=== PATIENT | male | born 1975 | race Caucasian/White ===

== ENCOUNTER 2019-11-24 14:18 | Inpatient (IN) ==
[2019-11-24] MEDS ORDERED: GI COCKTAIL ED USE PO ONE (14:37)
[2019-11-24] MEDS ORDERED: FAMOTIDINE 20MG/5ML IV PUSH IV STA (14:37)
[2019-11-24] MEDS ORDERED: SODIUM CHLORIDE 0.9% 1000ML 500 ML IV ONE ×2 (14:38→17:46)
--- NOTE | 2019-11-24 14:42 | Emergency Department Note ---
Impression & Plan Precordial chest pain, Acute pancreatitis, Acute hyperglycemia, Acute hyponatremia ED Provider Note NAME: MONTY PALM JR AGE: 44 SEX: M : 1975 ARRIVES VIA: Walk-In INFORMANT: [Patient] ED PROVIDER(S): [Maximino Turner MD] CHIEF COMPLAINT: Chest pain HISTORY OF PRESENT ILLNESS: Patient is a 44-year-old male presents with 2 or 3 days of burning in his chest that he describes as potential reflux. Acidic foods seems to make it worse. He has tried [id number] reflux meds and he was better initially but then today, the symptoms returned. His pain is a 6/10. The pain is not worse with exertion. He is not short of breath. There has been no sweating. No pain radiation. He was nauseated a bit though. The patient states that he has also developed a cramping discomfort in the left chest wall. He states that this is a 6/10. This was not present the last 2 days but seemed to come on today. He presents to the ER for a work-up. He has had a mitral valve repair done, no known coronary disease. REVIEW OF SYSTEMS: See HPI for pertinent positives and negatives. A total of ten systems were reviewed and were otherwise negative. PMHx/PSHx: See Below SOCIAL HISTORY: See Below. PHYSICAL EXAM: GENERAL: Patient is in no acute distress. HEENT: No acute trauma, normocephalic atraumatic, mucous membranes moist, no nasal congestion, no scleral icterus. NECK: No stridor, no adenopathy, no meningismus, trachea is midline. LUNGS: Clear to auscultation bilaterally, no wheeze, no rhonchi, breath sounds equal. HEART: Without murmurs gallops or rubs, mildly tachycardic, regular rhythm. Chest: Tender to the left anterior chest wall just below the breast. ABDOMEN: Soft, mildly tender in the left upper quadrant, bowel sounds positive, no hernias, no peritonitis. EXTREMITIES: No cyanosis, mild bilateral pedal edema, full range of motion of all the joints without pain or difficulty, no signs for acute trauma. NEUROLOGIC: Oriented x 3, no acute motor or sensory deficits, no focal weakness. SKIN: No rash, no jaundice, no diaphoresis. DIFFERENTIAL DIAGNOSIS: Cardiac ischemia, aortic dissection, pulmonary embolism, pneumothorax, pneumonia, pericarditis, myocarditis, esophageal rupture, GERD, cholecystitis, pancreatitis, musculoskeletal, as well as other pathologies. EMERGENCY DEPARTMENT COURSE/PROCEDURES: ECG: Indication was chest pain. The ECG shows a sinus tachycardia with a rate of 105. There is no ST elevation, no PVCs. The QTc is 470. Continuous Cardiac Monitoring: An order was placed for continuous cardiac monitoring. The monitor shows a rate of 99 with normal sinus rhythm. MEDICAL DECISION MAKING: There is a slight leukocytosis, this could be consistent with infection or just his stress and discomfort. There was a normal hemoglobin. There was a normal platelet count. No coagulopathy. D-dimer testing was negative. With a negative d-dimer and my low suspicion for PE, I will stop the work-up for this diagnosis. Renal panel testing does show a mild acidosis. Sodium was low at 130. Sugar was quite high at 376. No liver enzyme elevation. Lipase was elevated at 1900. ECG showed a sinus tachycardia, no acute ischemia. Cardiac enzyme testing x1 was not consistent with acute cardiac injury. Chest film did not show pneumonia or CHF. Abdominal and pelvis CT did not show evidence for pancreatitis by imaging, there was no bowel obstruction. The patient received IV saline, he was given a liter in total. He received IV insulin for the high blood sugar. He was given IV Pepcid and a GI cocktail. The patient presents with epigastric pain and burning. Work-up suggests diabetes, this is a new diagnosis. He does have a very mild acidosis, likely from his higher blood sugar. He has pancreatitis which I think explains his epigastric discomfort and heartburn symptoms. Given his findings, I do think a hospital stay is warranted. I did speak to the patient and case management. The on-call hospitalist was consulted. Past Med/Surg History Medical History Asthma (Chronic) Environmental and seasonal allergies (Chronic) Surgical History History of hernia repair Social History Smoking Status: Never smoker Preferred Language: Icelandic Feels Safe at Home: Yes Allergies Allergies Allergy/AdvReac Type Severity Reaction Status Date / Time Cephalosporins Allergy Unknown . Verified 11/24/19 15:58 erythromycin base Allergy Unknown . Verified 11/24/19 15:58 Penicillins Allergy Unknown . Verified 11/24/19 15:58 Sulfa (Sulfonamide Allergy Unknown . Verified 11/24/19 15:58 Antibiotics) Home Meds Home Medications Medication Instructions Recorded Confirmed albuterol sulfate 2 puff INHALATION Q4H PRN 11/24/19 11/24/19 albuterol sulfate 2.5 mg INHALATION Q4H PRN 11/24/19 11/24/19 allopurinol 100 mg PO QPM 11/24/19 11/24/19 aspirin 81 mg PO QPM 11/24/19 11/24/19 cholecalciferol (vitamin D3) 50,000 unit PO WK 11/24/19 11/24/19 fluticasone propion-salmeterol 1 ea INHALATION BID 11/24/19 11/24/19 [Advair Diskus] lisinopril 10 mg PO QPM 11/24/19 11/24/19 metoprolol tartrate 25 mg PO QPM 11/24/19 11/24/19 mometasone 1 spray INTRANASAL QPM 11/24/19 11/24/19 montelukast 10 mg PO QPM PRN 11/24/19 11/24/19 Results & Data (ED) Vital Signs Vital Signs - 24 hr 11/24/19 14:20 11/24/19 14:37 11/24/19 15:04 Temperature 36.8 C Temperature Source Oral Pulse Rate 118 H 111 H Pulse Rate from SpO2 Sensor 108 H Respiratory Rate 20 18 Respiratory Effort / Characteristics Non-Labored Respiratory Depth Normal Blood Pressure 152/89 H 155/111 H Blood Pressure Mean 110 123 Blood Pressure Position Sitting Pulse Oximetry 97 98 97 Oxygen Delivery Method Room Air Room Air Sepsis Recent Fever Within 48 Hours No Sepsis New/Unexplained Change in Mental Status No Sepsis Action Taken by Nursing No Action Required 11/24/19 15:05 11/24/19 15:30 11/24/19 15:31 Temperature Temperature Source Pulse Rate 104 H 101 H 101 H Pulse Rate from SpO2 Sensor 105 H 100 H 100 H Respiratory Rate 14 16 18 Respiratory Effort / Characteristics Respiratory Depth Blood Pressure 160/106 H Blood Pressure Mean 113 Blood Pressure Position Pulse Oximetry 98 99 99 Oxygen Delivery Method Sepsis Recent Fever Within 48 Hours Sepsis New/Unexplained Change in Mental Status Sepsis Action Taken by Nursing 11/24/19 16:00 08/08/20 16:01 Temperature Temperature Source Pulse Rate 98 H 99 H Pulse Rate from SpO2 Sensor 100 H 99 H Respiratory Rate 13 Respiratory Effort / Characteristics Respiratory Depth Blood Pressure 169/113 H Blood Pressure Mean 140 Blood Pressure Position Pulse Oximetry 99 99 Oxygen Delivery Method Sepsis Recent Fever Within 48 Hours Sepsis New/Unexplained Change in Mental Status Sepsis Action Taken by Long-Term Medications Current Medication List: was personally reviewed by me Laboratory Data Attestation: I reviewed the patient's lab results. Result diagrams: 11/24/19 15:00 11/24/19 16:15 Lab Results 11/24/19 11/24/19 11/24/19 Range/Units 15:00 15:00 16:15 WBC 11.31 H (4.8-10.8) K/uL RBC 5.16 (4.7-6.1) M/uL Hgb 15.7 (14.0-18.0) g/dL Hct 42.9 (42-52) % MCV 83.1 (80-100) fL MCH 30.4 (25-34) pg MCHC 36.6 H (32-36) g/dL RDW Std Deviation 42.2 (36.4-46.3) fL RDW Coeff of María Elena 14.0 (11.5-14.5) % Plt Count 190 (130-400) K/uL MPV 10.3 (7.4-10.4) fL Immature Gran % (Auto) 1.4 % Neut % (Auto) 74.6 % Lymph % (Auto) 13.1 % Tama % (Auto) 9.8 % Eos % (Auto) 0.7 % Baso % (Auto) 0.4 % Neut # (Auto) 8.44 H (1.4-6.5) K/uL Lymph # (Auto) 1.48 (1.2-3.4) K/uL Tama # (Auto) 1.11 H (0.11-0.59) K/uL Eos # (Auto) 0.08 (0-0.5) K/uL Baso # (Auto) 0.04 (0-0.2) K/uL Immature Gran # (Auto) 0.16 H (0.00-0.02) K/uL PT 10.4 (9.0-12.0) Seconds INR 1.0 (0.9-1.1) APTT 22.6 (21.0-31.0) Seconds PTT Ratio 0.8 D-Dimer < 190 (0-500) ug/L FEU Sodium Cancelled Potassium Cancelled Chloride Cancelled Carbon Dioxide Cancelled Anion Gap Cancelled BUN Cancelled Creatinine Cancelled Est Cr Clr Drug Dosing Cancelled Est GFR ( Amer) Cancelled Est GFR (Non-Af Amer) Cancelled BUN/Creatinine Ratio Cancelled Glucose Cancelled POC Glucose (70-99) mg/dl Calcium Cancelled Total Bilirubin Cancelled AST Cancelled ALT Cancelled Alkaline Phosphatase Cancelled Troponin I Cancelled Total Protein Cancelled Albumin Cancelled Globulin Cancelled Albumin/Globulin Ratio Cancelled Lipase Cancelled Beta-Hydroxybutyric Acd (0.2-2.81) mg/dl 11/24/19 11/24/19 Range/Units 16:15 18:07 WBC (4.8-10.8) K/uL RBC (4.7-6.1) M/uL Hgb (14.0-18.0) g/dL Hct (42-52) % MCV (80-100) fL MCH (25-34) pg MCHC (32-36) g/dL RDW Std Deviation (36.4-46.3) fL RDW Coeff of María Elena (11.5-14.5) % Plt Count (130-400) K/uL MPV (7.4-10.4) fL Immature Gran % (Auto) % Neut % (Auto) % Lymph % (Auto) % Tama % (Auto) % Eos % (Auto) % Baso % (Auto) % Neut # (Auto) (1.4-6.5) K/uL Lymph # (Auto) (1.2-3.4) K/uL Tama # (Auto) (0.11-0.59) K/uL Eos # (Auto) (0-0.5) K/uL Baso # (Auto) (0-0.2) K/uL Immature Gran # (Auto) (0.00-0.02) K/uL PT (9.0-12.0) Seconds INR (0.9-1.1) APTT (21.0-31.0) Seconds PTT Ratio D-Dimer (0-500) ug/L FEU Sodium 130 L Potassium 4.0 Chloride 97 L Carbon Dioxide 17 L Anion Gap 16.0 H BUN 20 H Creatinine 1.30 Est Cr Clr Drug Dosing 83.6 Est GFR ( Amer) 78.0 Est GFR (Non-Af Amer) 67.3 BUN/Creatinine Ratio 15.7 Glucose 376 H* POC Glucose 391 H* (70-99) mg/dl Calcium 7.6 L Total Bilirubin 0.6 AST 29 ALT Alkaline Phosphatase 91 Troponin I < 0.015 Total Protein 7.0 Albumin 2.9 L Globulin 4.1 H Albumin/Globulin Ratio 0.7 L Lipase 1915 H Beta-Hydroxybutyric Acd (0.2-2.81) mg/dl Administered Medications Sodium Chloride (Nss 1000ml) 500 mls @ 999 mls/hr IV .Q31M ONE Stop: 11/24/19 18:16 Last Admin: 11/24/19 17:52 Dose: Not Given Documented by: [id number] Discontinued Medications Al Hydrox/Mg Hydrox/Simethicone () 1 dose PO ONE ONE Stop: 11/24/19 14:38 Last Admin: 11/24/19 15:01 Dose: 1 dose Documented by: [id number] Famotidine (Pepcid 20mg Iv Push) 20 mg IV ONE STA Stop: 11/24/19 14:38 Last Admin: 11/24/19 15:01 Dose: 20 mg Documented by: [id number] Sodium Chloride (Nss 1000ml) 500 mls @ 999 mls/hr IV .Q31M ONE Stop: 11/24/19 15:08 Last Infusion: 11/24/19 16:03 Dose: 0 mls/hr Documented by: [id number] Admin: 11/24/19 15:01 Dose: 999 mls/hr Documented by: [id number] Insulin Human Regular (Novolin R U-100 Per Unit) 10 units IV NOW STA Stop: 11/24/19 17:47 Last Admin: 11/24/19 18:05 Dose: 10 units Documented by: [id number] Cosigned by: [id number] Ioversol (Optiray 320 100ml) 91 ml IV ONCE ONE Stop: 11/24/19 17:16 Last Admin: 11/24/19 17:15 Dose: 91 ml Documented by: [id number] Imaging Data Radiologist's Impression: XR chest 1V portable CLINICAL HISTORY: Chest Pain pain COMPARISON STUDY: No previous studies for comparison. FINDINGS: Mild cardiomegaly. Prior median sternotomy. Lungs are considered jordin r. Diaphragms are smooth. IMPRESSION: No acute process. CT abd pelvis IV con only CT DOSE: 990.49 mGy.cm HISTORY: Pain. Nausea. poss pancreatitis TECHNIQUE: Multiaxial CT images of the abdomen and pelvis were performed following the use of intravenous contrast. A dose lowering technique was utilized adhering to the principles of ALARA. COMPARISON STUDY: None. FINDINGS: Lung bases are clear. Fatty replacement of the liver. Pancreas is uniform in density. Kidneys enhance appropriately. 2 cm exophytic cyst inferior pole right kidney. The adrenal glands are normal. Nonobstructive bowel pattern. Small fat-containing periumbilical hernia. No evidence for bowel containment or incarceration. Bowel pattern again is nonobstructive. No significant abdominal or pelvic adenopathy. IMPRESSION: 1. Fatty replacement of the liver. 2. Otherwise negative CT of the abdomen and pelvis. Blood Pressure Blood Pressure Findings: Elevated blood pressure Blood Pressure Disposition: further management by hospitalist Discharge Plan Visit Data Chief Complaint: Chest Pain Stated Complaint: CHEST PAIN ED Provider: Maximino Turner Discharge Problem: Precordial chest pain, Acute pancreatitis, Acute hyperglycemia, Acute hyponatremia Patient Disposition: Admitted As Inpatient Condition: Fair Forms Stand Alone Forms: [facility] Prescriptions Prescriptions: No Action fluticasone propion-salmeterol [Advair Diskus] 250-50 mcg/dose blister with device 1 ea INHALATION BID RF: 0 albuterol sulfate 2.5 mg /3 mL (0.083 %) solution for nebulization 2.5 mg inhalation Q4H PRN (Reason: Cough and Wheezing) RF: 0 allopurinol 100 mg tablet 100 mg PO QPM RF: 0 aspirin 81 mg Tablet,Delayed Release (Dr/Ec) 81 mg PO QPM RF: 0 lisinopril 10 mg tablet 10 mg PO QPM RF: 0 mometasone 50 mcg/actuation spray,non-aerosol 1 spray INTRANASAL QPM RF: 0 montelukast 10 mg tablet 10 mg PO QPM PRN (Reason: Shortness Of Breath Or Wheezing) RF: 0 albuterol sulfate 90 mcg/actuation HFA aerosol inhaler 2 puff INHALATION Q4H PRN (Reason: Cough,SOB Or Wheezing) RF: 0 metoprolol tartrate 25 mg tablet 25 mg PO QPM RF: 0 cholecalciferol (vitamin D3) 1,250 mcg (50,000 unit) capsule 50,000 unit PO WK RF: 0 Referrals Referrals: Edgar Lawton MD [Primary Care Provider] - Discharge Problem: Acute pancreatitis Qualifiers: Pancreatitis type: unspecified pancreatitis type Acute pancreatitis complication: no infection or necrosis Qualified Code(s): K85.90 - Acute hester creatitis without necrosis or infection, unspecified
--- NOTE | 2019-11-24 14:54 | XRay Report ---
XR chest 1V portable CLINICAL HISTORY: Chest Pain pain COMPARISON STUDY: No previous studies for comparison. FINDINGS: Mild cardiomegaly. Prior median sternotomy. Lungs are considered clear. Diaphragms are smoo th. IMPRESSION: No acute process. ACT 112: Negative or not required by law. The above report was generated using voice recognition software. It may contain grammatical, syntax or spelling errors. Electronically signed by: Tommy Mabry M.D. 11/24/2019 2:53 PM
[2019-11-24 15:11] LABS: Basophils # (auto) 0.04 K/uL (0-0.2); Basophils % (auto) 0.4 %; Eosinophils # (auto) 0.08 K/uL (0-0.5); Eosinophils % (auto) 0.7 %; Hematocrit (blood only) 42.9 % (42-52); Hemoglobin 15.7 g/dL (14.0-18.0); Immature Granulocytes # (auto) 0.16 K/uL (0.00-0.02); Immature Granulocytes % (auto) 1.4 %; Lymphocytes # (auto) 1.48 K/uL (1.2-3.4); Lymphocytes % (auto) 13.1 %; Mean Corpuscular Hemoglobin 30.4 pg (25-34); Mean Corpuscular Hgb Conc 36.6 g/dL (32-36); Mean Corpuscular Volume 83.1 fL (80-100); Mean Platelet Volume 10.3 fL (7.4-10.4); Monocytes # (auto) 1.11 K/uL (0.11-0.59); Monocytes % (auto) 9.8 %; Neutrophils # (auto) 8.44 K/uL (1.4-6.5); Neutrophils % (auto) 74.6 %; Platelet Count 190 K/uL (130-400); RDW Standard Deviation 42.2 fL (36.4-46.3); Red Blood Count 5.16 M/uL (4.7-6.1); White Blood Count 11.31 K/uL (4.8-10.8)
[2019-11-24 16:14] LABS: D Dimer < 190 ug/L FEU (0-500); Partial Thromboplastin Ratio 0.8; Partial Thromboplastin Time 22.6 Seconds (21.0-31.0); Prothrombin Time 10.4 Seconds (9.0-12.0)
[2019-11-24 16:59] LABS: Albumin Globulin Ratio 0.7 (0.9-2); Albumin Level 2.9 gm/dl (3.4-5.0); Alkaline Phosphatase 91 U/L (45-117); BUN Creatinine Ratio 15.7 (10-20); Bilirubin,Total 0.6 mg/dl (0.2-1); Blood Urea Nitrogen 20 mg/dl (7-18); Calcium 7.6 mg/dl (8.5-10.1); Carbon Dioxide 17 mmol/L (21-32); Chloride 97 mmol/L (98-107); Creatinine Clr Calc Pharmacy 83.6 ml/min; Est GFR (Non-African American) 67.3; Globulin 4.1 gm/dl (2.5-4.0); Lipase 1915 U/L (73-393); Sodium 130 mmol/L (136-145); Troponin I < 0.015 ng/ml (0-0.045)
[2019-11-24] MEDS ORDERED: IOVERSOL 100ml IV ONE (17:15)
[2019-11-24 17:40] LABS: Aspartate Aminotransferase 29 U/L (15-37)
[2019-11-24 17:42] LABS: Glucose 376 mg/dl (70-99)
[2019-11-24] MEDS ORDERED: NovoLIN-R INSULIN PER UNIT CHARGE IV STA (17:46)
--- NOTE | 2019-11-24 17:55 | CT Scan Report ---
CT abd pelvis IV con only CT DOSE: 990.49 mGy.cm HISTORY: Pain. Nausea. poss pancreatitis TECHNIQUE: Multiaxial CT images of the abdomen and pelvis were performed following the use of intrave nous contrast. A dose lowering technique was utilized adhering to the principles of ALARA. COMPARISON STUDY: None. FINDINGS: Lung bases are clear. Fatty replacement of the liver. Pancreas is uniform in density. Kidneys enhance appropriately. 2 cm exophytic cyst inferior pole right kidney. The adrenal glands are normal. Nonobstructive bowel pattern. Small fat-containing periumbilical hernia. No evidence for bowel containment or incarceration. Bowel pattern again is nonobstructive. No significant abdominal or pelvic adenopathy. IMPRESSION: 1. Fatty replacement of the liver. 2. Otherwise negative CT of the abdomen and pelvis. 3. Small fat-containing periumbilical hernia. No evidence for bowel containment or incarceration. ACT 112: Negative or not required by law. The above report was generated using voice recognition software. It may contain grammatical, syntax or spelling errors. Electronically signed by: Tommy Mabry M.D. 11/24/2019 5:54 PM
--- NOTE | 2019-11-24 18:49 | Electrocardiogram Report ---
Test Reason : Blood Pressure : / mmHG Vent. Rate : 105 BPM Atrial Rate : 105 BPM P-R Int : 186 ms QRS Dur : 122 ms QT Int : 356 ms P-R-T Axes : 049 065 051 degrees QTc Int : 470 ms Sinus tachycardia Non-specific intra-ventricular conduction delay Borderline ECG When compared with ECG of 31-AUG-2010 09:31, Vent. rate has increased BY 39 BPM QT has lengthened Confirmed by Mckay Estrada ([id number]) on 11/24/2019 6:49:50 PM Referred By: REFERRED SELF Confirmed By:Anjel Estrada
--- NOTE | 2019-11-24 19:14 | History & Physical Report ---
Date of Service November 24, 2019 Assessment & Plan (1) Pancreatitis: -Admit to [facility] -Patient presenting from home with reports of epigastric and LUQ abdominal pain -In the ED, lipase 1914. CT ABD/pelvis unremarkable -Also found to have hyperglycemia. Review of records show that cholesterol 218 and triglycerides 315 01/2019 -LFTs WNL, no history of heavy alcohol use -Suspect likely secondary to uncontrolled glucose and possible hyperlipidemia -IVF, n.p.o., pain control -GI consult (2) DM type 2 (diabetes mellitus, type 2): (3) Hyperglycemia: -Glucose on presentation 376 -Hgb A1c 6.8 06/2019, appears that there was some confusion about patient starting metformin (he has not started) -May have some mild DKA with CO2 17, anion gap 16 -IVF, insulin drip per protocol -Pharmacy consult for glycemic management (4) HTN (hypertension): -BP controlled, continue lisinopril and metoprolol (5) Asthma, mild persistent: -No signs of acute exacerbation, continue home inhalers (6) DVT prophylaxis: -SCDs, ambulate History of Present Illness Chief Complaint: Abdominal pain Primary Care Provider: Edgar Lawton MD 44-year-old male with PMH DM type II, asthma, HTN, mitral valve replacement, and other problems listed below who presents the ED for evaluation of epigastric pain. Patient reports over the past 2 weeks he has been having bilateral leg cramping. He reports not feeling well over the past 2 days with increased belching and feelings of abdominal fullness. Patient reports that today while at work, he developed severe epigastric/left upper quadrant abdominal pain. He reports associated nausea however no vomiting or diarrhea. Reports a small amount of bright red bleeding per rectum this morning after straining to have a bowel movement. No diarrhea. Denies dark tarry stools. No fevers or chills. No lightheadedness, dizziness, diaphoresis, syncopal event. Denies chest pain or shortness of breath. No urinary symptoms. In the ED, patient is found to have findings of pancreatitis and hyperglycemia. Lipase 1914, initial glucose 376. He also has findings of mild acidosis with CO2 17, anion gap 16. He is mildly tachycardic but otherwise hemodynamically stable. He was given GI cocktail, IV famotidine, IV insulin 10 units, IVF. Allergies Allergy/AdvReac Type Severity Reaction Status Date / Time Cephalosporins Allergy Unknown . Verified 11/24/19 15:58 erythromycin base Allergy Unknown . Verified 11/24/19 15:58 Penicillins Allergy Unknown . Verified 11/24/19 15:58 Sulfa (Sulfonamide Allergy Unknown . Verified 11/24/19 15:58 Antibiotics) Home Medications Home Medications Medication Instructions Recorded Confirmed Type albuterol sulfate 2 puff INHALATION Q4H PRN 11/24/19 11/24/19 History albuterol sulfate 2.5 mg INHALATION Q4H PRN 11/24/19 11/24/19 History allopurinol 100 mg PO QPM 11/24/19 11/24/19 History aspirin 81 mg PO QPM 11/24/19 11/24/19 History cetirizine [Zyrtec] 10 mg PO DAILY 11/24/19 11/24/19 History cholecalciferol (vitamin D3) 50,000 unit PO WK 11/24/19 11/24/19 History fluticasone propion-salmeterol 1 ea INHALATION BID 11/24/19 11/24/19 History [Advair Diskus] lisinopril 10 mg PO QPM 11/24/19 11/24/19 History metoprolol tartrate 25 mg PO BID 11/24/19 11/24/19 History mometasone 1 spray INTRANASAL QPM 11/24/19 11/24/19 History montelukast 10 mg PO QPM 11/24/19 11/24/19 History Past Med/Surg History Medical History Anxiety Asthma, mild persistent DM type 2 (diabetes mellitus, type 2) Environmental and seasonal allergies (Chronic) Gout HTN (hypertension) Surgical History H/O exploratory laparotomy History of hernia repair History of mitral valve repair Family History Mother Follicular lymphoma Social History Smoking Status: Never smoker Second Hand Exposure: No; Do You Dip or Chew Tobacco: No; Hx Alcohol Use: No Hx Substance Use: No Preferred Language: Burmese Communication Ability: Effective Master Of Ceremonies Required: No Beliefs That Will Affect Care: None Current Living Situation: Parent Other Information That Helps Us Care for You: No Feels Safe at Home: Yes Safety Concerns: Feels Safe At This Time Review of Systems Review of Systems: ROS per HPI, all other systems reviewed and negative Physical Exam Constitutional: WD/WN, vitals as above Eyes: PERRL, conjunctivae normal, anicteric sclerae ENMT: external ear and nose normal, oropharynx normal Respiratory: normal respiratory effort, lungs clear to auscultation Cardiovascular: Rate/Rhythm: regular rate and regular rhythm Vessels: normal peripheral pulses Extremities: no edema Gastrointestinal (Abdomen): Inspection/Auscultation: + abdomen distended and normal bowel sounds Percussion/Palpation: + abdomen tender (Epigastric/LUQ) and abdomen soft; no guarding, abdomen not rigid and no hepatosplenomegaly Musculoskeletal: no cyanosis or clubbing, extremities motor strength 5/5 Right wrist in splint Skin: no rashes, warm and dry Neurologic: PERRL, EOMI, accommodation nl, no face palsy, no dysarthria Psychiatric: A+Ox3, euthymic affect Results & Data Results & Data ([facility]) Vital Signs (Past 12 Hours) Vital Signs Temp Pulse Resp BP Pulse Ox 11/24/19 18:19 115 H 19 141/105 H 98 11/24/19 16:01 99 H 13 99 11/24/19 16:00 98 H 169/113 H 99 11/24/19 15:31 101 H 18 99 11/24/19 15:30 101 H 16 160/106 H 99 11/24/19 15:05 104 H 14 98 11/24/19 15:04 111 H 18 155/111 H 97 11/24/19 14:37 98 11/24/19 14:20 36.8 C 118 H 20 152/89 H 97 Laboratory Results Short CBC 11/24/19 11/24/19 11/24/19 Range/Units 15:00 16:15 16:15 WBC 11.31 H (4.8-10.8) K/uL Hgb 15.7 (14.0-18.0) g/dL Hct 42.9 (42-52) % Plt Count 190 (130-400) K/uL Glucose Cancelled 376 H* BMP 11/24/19 11/24/19 16:15 16:15 Sodium Cancelled 130 L Potassium Cancelled 4.0 Chloride Cancelled 97 L Carbon Dioxide Cancelled 17 L BUN Cancelled 20 H Creatinine Cancelled 1.30 Glucose Cancelled 376 H* Calcium Cancelled 7.6 L Cardiac Enzymes 11/24/19 11/24/19 Range/Units 16:15 16:15 Troponin I Cancelled < 0.015 Liver Function 11/24/19 11/24/19 Range/Units 16:15 16:15 Total Bilirubin Cancelled 0.6 AST Cancelled 29 ALT Cancelled Alkaline Phosphatase Cancelled 91 Albumin Cancelled 2.9 L Diagnostic Findings CXR IMPRESSION: No acute process. CT ABD/PELVIS IMPRESSION: 1. Fatty replacement of the liver. 2. Otherwise negative CT of the abdomen and pelvis. Code Status & VTE Plan VTE Prophylaxis Plan VTE Prophylaxis will be ordered: Yes Supervising Physician Co-Signing Physician Notes Care coordinated with JERI Parra. Agree with above note. Patient seen and examined. Please refer to her notes for full details. Vital signs reviewed. Physical exam: General exam: Alert and oriented. Not in acute distress. CVS: S1 and S2 heard, regular rate and rhythm, no murmurs. RS: Clear to auscultation, no wheezing or crackles. ABD: Soft, bowel sounds present, nontender, no distention. CONTENT COORDINATOR: Nonfocal. EXT: No edema, no erythema. Labs: Reviewed. Assessment and plan: 44 M with recent dx of Dm with hba1c 6.8. trying to lose weight. Presents with two weeks of cramps in lower extremity. Few days of not feeling well, belching and upper abdominal pain and found to have dka and possible pancreatitis. DKA started on insulin drip aggressive fluids pharmacy consulted follow hba1c levels Elevated lipase abdominal hester pancreatitis? etiology? ct abd/pelvis ok aggressive fluids GI consult. Other diagnosis and plan of care as per JERI Parra. Rivas babcock MD.
[2019-11-24] MEDS ORDERED: MoRPHine SULFATE 4 MG/ML 1 ML CARP\\VIAL IV PRN (20:05)
[2019-11-24] MEDS ORDERED: PHARMACY GLYCEMIC MGMT CONSULT PRN (20:16)
[2019-11-24] MEDS ORDERED: CARBOHYDRATES FOR HYPOGLYCEMIA PO PRN (20:30)
[2019-11-24] MEDS ORDERED: GLUCOSE 10 TABS/TUBE PO PRN (20:30)
[2019-11-24] MEDS ORDERED: DEXTROSE 50% 50 ML SYRINGE IV PRN (20:30)
[2019-11-24] MEDS ORDERED: GLUCOSE 40% GEL 15 GM TUBE PO PRN (20:30)
[2019-11-24] MEDS ORDERED: GLUCAGON FOR INJ 1 MG VIAL IM PRN (20:30)
[2019-11-24] MEDS: LACTATED RINGER'S 1,000 ML IV SCH (21:02)
[2019-11-24] MEDS: INSULIN REGULAR 250 UNITS in SODIUM CHLORIDE 0.9% 247.5 ML IV SCH (21:07)
[2019-11-24 21:10] LABS: BUN Creatinine Ratio 15.7 (10-20); Calcium 7.7 mg/dl (8.5-10.1); Creatinine Clr Calc Pharmacy 95.3 ml/min; Est GFR (African American) 92.4; Est GFR (Non-African American) 79.7; Phosphorus 2.2 mg/dl (2.5-4.9)
[2019-11-24 21:11] LABS: Magnesium 1.9 mg/dl (1.8-2.4); Potassium 3.8 mmol/L (3.5-5.1)
[2019-11-24] MEDS: METOPROLOL TARTRATE 25 MG TAB PO SCH (21:15)
[2019-11-24] MEDS: lisinopriL 10 MG TAB PO SCH (21:15)
[2019-11-24] MEDS: ASPIRIN 81 MG ECTAB PO SCH (21:15)
[2019-11-24] MEDS: INSULIN ASPART 100 UNITS/ML 3 ML PEN SC SCH (21:19)
[2019-11-24] MEDS: ACETAMINOPHEN 325 MG TAB PO PRN (21:36)
[2019-11-25] MEDS: LACTATED RINGER'S 1,000 ML IV SCH ×2 (00:48→04:21)
[2019-11-25 01:20] LABS: BUN Creatinine Ratio 13.6 (10-20); Calcium 7.4 mg/dl (8.5-10.1); Creatinine Clr Calc Pharmacy 96.1 ml/min; Est GFR (African American) 93.4; Est GFR (Non-African American) 80.6; Magnesium 1.8 mg/dl (1.8-2.4); Phosphorus 2.2 mg/dl (2.5-4.9); Potassium 3.6 mmol/L (3.5-5.1)
[2019-11-25] MEDS ORDERED: NSS + 20MEQ KCL 20 MEQ/1,000 ML BAG IV SCH (04:00)
[2019-11-25 04:34] LABS: Hematocrit (blood only) 37.8 % (42-52); Hemoglobin 13.4 g/dL (14.0-18.0); Mean Corpuscular Hemoglobin 29.5 pg (25-34); Mean Corpuscular Hgb Conc 35.4 g/dL (32-36); Mean Corpuscular Volume 83.1 fL (80-100); Mean Platelet Volume 9.7 fL (7.4-10.4); Platelet Count 138 K/uL (130-400); RDW Coefficient of Variation 14.2 % (11.5-14.5); RDW Standard Deviation 42.8 fL (36.4-46.3); Red Blood Count 4.55 M/uL (4.7-6.1); White Blood Count 6.93 K/uL (4.8-10.8)
[2019-11-25 05:11] LABS: Magnesium 1.8 mg/dl (1.8-2.4); Potassium 3.4 mmol/L (3.5-5.1)
[2019-11-25 05:12] LABS: BUN Creatinine Ratio 13.2 (10-20); Calcium 7.2 mg/dl (8.5-10.1); Creatinine Clr Calc Pharmacy 109.8 ml/min; Est GFR (African American) 109.8; Est GFR (Non-African American) 94.7; Phosphorus 2.1 mg/dl (2.5-4.9)
[2019-11-25 06:25] LABS: Chol HDL Ratio 11; Cholesterol 295 mg/dl (0-200); HDL Cholesterol 26 mg/dl; Lipase 832 U/L (73-393); Triglycerides 2119 mg/dl (0-150)
[2019-11-25] MEDS ORDERED: POTASSIUM CHLORIDE 20 MEQ/15 ML UDC PO STA (06:26)
[2019-11-25] MEDS: SODIUM CHLORIDE 0.9% 1000ML 1,000 ML IV SCH ×4 (06:35→23:47)
[2019-11-25] MEDS: PENDING D5 1/2NS+20mEq KCL IVF SCH ×2 (06:35→07:19)
[2019-11-25] MEDS ORDERED: INSULIN GLARGINE SOLOSTAR 100 UNITS/ML 3 ML PEN SC ONE ×2 (07:15→21:00)
[2019-11-25] MEDS: ACETAMINOPHEN 325 MG TAB PO PRN (07:23)
[2019-11-25 08:53] LABS: BUN Creatinine Ratio 10.1 (10-20); Calcium 7.8 mg/dl (8.5-10.1); Creatinine Clr Calc Pharmacy 98.7 ml/min; Est GFR (African American) 96.5; Est GFR (Non-African American) 83.3; Magnesium 1.9 mg/dl (1.8-2.4); Potassium 3.4 mmol/L (3.5-5.1)
--- NOTE | 2019-11-25 08:55 | Pharmacy Report ---
Glycemic Control Consultation - Date of Service November 25, 2019 - Scope Scope: Glycemic Pharmacist consulted for glycemic control and to write orders per [facility] inpatient glycemic control protocol. - Objective Weight: 102 kg Accuchecks BSG (last 24hrs): 11/24/19 11/24/19 11/24/19 16:15 16:15 18:07 Glucose Cancelled 376 H* POC Glucose 391 H* 11/24/19 11/24/19 11/24/19 19:32 20:21 20:37 Glucose 324 H* POC Glucose 287 H 325 H* 11/24/19 11/24/19 11/24/19 20:39 22:01 23:01 Glucose POC Glucose 316 H* 280 H 258 H 11/25/19 11/25/19 11/25/19 00:01 00:23 01:01 Glucose 248 H POC Glucose 246 H 221 H 11/25/19 11/25/19 11/25/19 03:11 04:17 05:02 Glucose 190 H POC Glucose 191 H 184 H 11/25/19 06:54 Glucose POC Glucose 171 H Laboratory Data (last 24hrs): 11/24/19 11/24/19 11/24/19 16:15 16:15 20:21 Potassium Cancelled 4.0 3.8 Carbon Dioxide Cancelled 17 L 13 L Anion Gap Cancelled 16.0 H 17.0 H Creatinine Cancelled 1.30 1.13 Est Cr Clr Drug Dosing Cancelled 83.6 95.3 Beta-Hydroxybutyric Acd 11/24/19 11/25/19 11/25/19 22:11 00:23 04:17 Potassium 3.6 3.4 L Carbon Dioxide 19 L 21 Anion Gap 16.0 H 10.0 Creatinine 1.12 0.98 Est Cr Clr Drug Dosing 96.1 109.8 Beta-Hydroxybutyric Acd 63.24 H HbA1c: 6.8% in June 2019 per provider re-ordered for 11/25/19 per protocol - Recent Pertinent Medications Outpatient Anti-diabetic Regimen: * n/a The patient is currently receiving: * IV insulin infusion per protocol * Drip rate = 2.5 units/hr since 2099 last evening - Assessment & Plan Assessment & Plan: ASSESSMENT: * 44yo T2DM male admitted with hyperglycemia and pancreatitis. * A1c is diagnostic for diabetes - question on whether he was supposed to start metformin per PCP * Pt initiated on IV insulin infusion on admission for hyperglycemia and NPO status * Labs WNL this morning with the exception of K+ IV insulin infusion likely dropping K+; IVF changed from NS+20 KCl to NSS --> may need to add K+ back to IVF * IV insulin infusion stable at 2.5 units/hr all night. This equates to ~ 60 units of true basal since pt has been NPO. Typically, it is recommended to convert IV insulin infusion dosing to SQ dosing at 80% since stressors are likely minimizing once stabilized on infusion. Will decrease by an additional 30% for NPO status. * CF/CR dosing based on estimated basal needs of ~ 34 units/day. PLAN FOR INPATIENT GLYCEMIC CONTROL: * Basal insulin * Lantus 34 units SQ x 1 dose NOW; will titrate dosing based on BSG trends * Transition from IV insulin infusion to SQ basal bolus per protocol * Nursing to give Lantus and then continue to check BSGs Q1hr and titrate infusion per IV insulin infusion dosing calculator * may d/c IV insulin infusion when BOTH of the following criteria are met. BSG below 180mg/dl x 2 checks 1 hr apart Rate 1 unit/hr or BELOW * Will re-evaluate orders if insulin infusion not stopped by 1200 (4.5 hrs after Lantus dose given) * Bolus insulin * NovoLog per scale ACHS or Q6hrs while NPO * Goal Range: Low 110 mg/dL - High 140 mg/dL * Correction Factor: 25 mg/dL/unit * Nutritional / Prandial insulin per carb ratio of 1 unit per 8 grams CHO consumed * Please note that the plan above was derived based on current level of insulin resistance and hospital stress. These recommendations are appropriate for inpatient admission only. Plan of care upon discharge will need to be reassessed to avoid potential outpatient hypo/hyperglycemia. Thank you.
[2019-11-25] MEDS: INSULIN ASPART 100 UNITS/ML 3 ML PEN SC SCH ×4 (09:09→21:02)
[2019-11-25] MEDS ORDERED: POTASSIUM PHOS 3 MMOL/1 ML INFUSION IV STA (09:39)
--- NOTE | 2019-11-25 09:41 | Hospitalist Progress Note ---
Date of Service November 25, 2019 Assessment & Plan (1) Pancreatitis: Lipase 1914. CT ABD/pelvis unremarkable Pancreatitis unclear cause. Denied alcohol use. Possible cause is hypertriglyceridemia TG is >2000 Continue IVF Appreciate GI evaluation Bowel rest Pain management (2) DM type 2 (diabetes mellitus, type 2): (3) DKA (diabetic ketoacidoses): (4) Hyperglycemia: Glucose on presentation 376 Hgb A1c 6.8 06/2019 AGAP 16 Beta hydroxybutyric acid 63.24 Started on insulin drip Continue IVF Hypokalemia Hypophosphatemia Replete electrolytes and monitor GAP is closed now. Plan to transition to sq insulin A1c pending DM educator consult Counselled on lifestyle modification (5) HTN (hypertension): BP controlled Continue lisinopril and metoprolol (6) Hypertriglyceridemia: TG 9 Total cholesterol 295 Patient educated on need for lifestyle modification He reported that he has lost some weight over the past few months. Confirmed this on chart review. Weight recorded in [facility] was 117.48kg on 06/18/19, Weight was 102kg yesterday. Encouraged to continue with lifestyle modification Start on atorvastatin (7) Asthma, mild persistent: Stable Continue home inhalers (8) DVT prophylaxis: SCDs, ambulate Admission and Anticipated Discharge Date Admission Date: November 24, 2019 Subjective Patient seen and examined. Reports feeling better this AM Still reports mild left sided abd pain. Reported nausea has resolved No vomiting No bowel movement since admission overnight. Has been passing flatus Denied any cough, chest pain, SOB, IZAGUIRRE Physical Exam Constitutional: + well hydrated and + obese; no acute distress Eyes: PERRL, conjunctivae normal, anicteric sclerae ENMT: external ear and nose normal, oropharynx normal Respiratory: normal respiratory effort, lungs clear to auscultation Cardiovascular: RRR, no murmur, no edema Gastrointestinal (Abdomen): normal bowel sounds, soft, nontender, no hepatosplenomegaly Neurologic: PERRL, EOMI, accommodation nl, no face palsy, no dysarthria Psychiatric: A+Ox3, euthymic affect Results & Data Results & Data ([facility]) Vital Signs (Past 12 Hours) Vital Signs Temp Pulse Resp BP Pulse Ox 11/25/19 08:08 36.6 C 77 16 108/75 98 11/24/19 23:00 36.6 C 78 18 122/84 96 Laboratory Results Laboratory Results - last 24 hr 11/24/19 11/24/19 11/24/19 15:00 15:00 16:15 WBC 11.31 H RBC 5.16 Hgb 15.7 Hct 42.9 MCV 83.1 MCH 30.4 MCHC 36.6 H RDW Std Deviation 42.2 RDW Coeff of María Elena 14.0 Plt Count 190 MPV 10.3 Immature Gran % (Auto) 1.4 Neut % (Auto) 74.6 Lymph % (Auto) 13.1 [place] % (Auto) 9.8 Eos % (Auto) 0.7 Baso % (Auto) 0.4 Neut # (Auto) 8.44 H Lymph # (Auto) 1.48 [place] # (Auto) 1.11 H Eos # (Auto) 0.08 Baso # (Auto) 0.04 Immature Gran # (Auto) 0.16 H PT 10.4 INR 1.0 APTT 22.6 PTT Ratio 0.8 D-Dimer < 190 VBG pH Sodium Cancelled Potassium Cancelled Chloride Cancelled Carbon Dioxide Cancelled Anion Gap Cancelled BUN Cancelled Creatinine Cancelled Est Cr Clr Drug Dosing Cancelled Est GFR ( Amer) Cancelled Est GFR (Non-Af Amer) Cancelled BUN/Creatinine Ratio Cancelled Glucose Cancelled POC Glucose Estimat Average Glucose Hemoglobin A1c Calcium Cancelled Phosphorus Magnesium Total Bilirubin Cancelled AST Cancelled ALT Cancelled Alkaline Phosphatase Cancelled Troponin I Cancelled Total Protein Cancelled Albumin Cancelled Globulin Cancelled Albumin/Globulin Ratio Cancelled Triglycerides Cholesterol LDL Cholesterol, Calc VLDL Cholesterol, Calc HDL Cholesterol Cholesterol/HDL Ratio Lipase Cancelled Beta-Hydroxybutyric Acd Specimen Hemolysis 11/24/19 11/24/19 11/24/19 16:15 18:07 19:32 WBC RBC Hgb Hct MCV MCH MCHC RDW Std Deviation RDW Coeff of María Elena Plt Count MPV Immature Gran % (Auto) Neut % (Auto) Lymph % (Auto) [place] % (Auto) Eos % (Auto) Baso % (Auto) Neut # (Auto) Lymph # (Auto) [place] # (Auto) Eos # (Auto) Baso # (Auto) Immature Gran # (Auto) PT INR APTT PTT Ratio D-Dimer VBG pH Sodium 130 L Potassium 4.0 Chloride 97 L Carbon Dioxide 17 L Anion Gap 16.0 H BUN 20 H Creatinine 1.30 Est Cr Clr Drug Dosing 83.6 Est GFR ( Amer) 78.0 Est GFR (Non-Af Amer) 67.3 BUN/Creatinine Ratio 15.7 Glucose 376 H* POC Glucose 391 H* 287 H Estimat Average Glucose Hemoglobin A1c Calcium 7.6 L Phosphorus Magnesium Total Bilirubin 0.6 AST 29 ALT Alkaline Phosphatase 91 Troponin I < 0.015 Total Protein 7.0 Albumin 2.9 L Globulin 4.1 H Albumin/Globulin Ratio 0.7 L Triglycerides Cholesterol LDL Cholesterol, Calc VLDL Cholesterol, Calc HDL Cholesterol Cholesterol/HDL Ratio Lipase 1915 H Beta-Hydroxybutyric Acd Specimen Hemolysis 11/24/19 11/24/19 11/24/19 20:21 20:21 20:37 WBC RBC Hgb Hct MCV MCH MCHC RDW Std Deviation RDW Coeff of María Elena Plt Count MPV Immature Gran % (Auto) Neut % (Auto) Lymph % (Auto) [place] % (Auto) Eos % (Auto) Baso % (Auto) Neut # (Auto) Lymph # (Auto) [place] # (Auto) Eos # (Auto) Baso # (Auto) Immature Gran # (Auto) PT INR APTT PTT Ratio D-Dimer VBG pH 7.35 L Sodium 131 L Potassium 3.8 Chloride 101 Carbon Dioxide 13 L Anion Gap 17.0 H BUN 18 Creatinine 1.13 Est Cr Clr Drug Dosing 95.3 Est GFR ( Amer) 92.4 Est GFR (Non-Af Amer) 79.7 BUN/Creatinine Ratio 15.7 Glucose 324 H* POC Glucose 325 H* Estimat Average Glucose Hemoglobin A1c Calcium 7.7 L Phosphorus 2.2 L Magnesium 1.9 Total Bilirubin AST ALT Alkaline Phosphatase Troponin I Total Protein Albumin Globulin Albumin/Globulin Ratio Triglycerides Cholesterol LDL Cholesterol, Calc VLDL Cholesterol, Calc HDL Cholesterol Cholesterol/HDL Ratio Lipase Beta-Hydroxybutyric Acd Specimen Hemolysis 11/24/19 11/24/19 11/24/19 20:39 22:01 22:11 WBC RBC Hgb Hct MCV MCH MCHC RDW Std Deviation RDW Coeff of María Elena Plt Count MPV Immature Gran % (Auto) Neut % (Auto) Lymph % (Auto) [place] % (Auto) Eos % (Auto) Baso % (Auto) Neut # (Auto) Lymph # (Auto) [place] # (Auto) Eos # (Auto) Baso # (Auto) Immature Gran # (Auto) PT INR APTT PTT Ratio D-Dimer VBG pH Sodium Potassium Chloride Carbon Dioxide Anion Gap BUN Creatinine Est Cr Clr Drug Dosing Est GFR ( Amer) Est GFR (Non-Af Amer) BUN/Creatinine Ratio Glucose POC Glucose 316 H* 280 H Estimat Average Glucose Hemoglobin A1c Calcium Phosphorus Magnesium Total Bilirubin AST ALT Alkaline Phosphatase Troponin I Total Protein Albumin Globulin Albumin/Globulin Ratio Triglycerides Cholesterol LDL Cholesterol, Calc VLDL Cholesterol, Calc HDL Cholesterol Cholesterol/HDL Ratio Lipase Beta-Hydroxybutyric Acd 63.24 H Specimen Hemolysis 11/24/19 11/25/19 11/25/19 23:01 00:01 00:23 WBC RBC Hgb Hct MCV MCH MCHC RDW Std Deviation RDW Coeff of María Elena Plt Count MPV Immature Gran % (Auto) Neut % (Auto) Lymph % (Auto) [place] % (Auto) Eos % (Auto) Baso % (Auto) Neut # (Auto) Lymph # (Auto) [place] # (Auto) Eos # (Auto) Baso # (Auto) Immature Gran # (Auto) PT INR APTT PTT Ratio D-Dimer VBG pH Sodium 138 D Potassium 3.6 Chloride 103 Carbon Dioxide 19 L Anion Gap 16.0 H BUN 15 Creatinine 1.12 Est Cr Clr Drug Dosing 96.1 Est GFR ( Amer) 93.4 Est GFR (Non-Af Amer) 80.6 BUN/Creatinine Ratio 13.6 Glucose 248 H POC Glucose 258 H 246 H Estimat Average Glucose Hemoglobin A1c Calcium 7.4 L Phosphorus 2.2 L Magnesium 1.8 Total Bilirubin AST ALT Alkaline Phosphatase Troponin I Total Protein Albumin Globulin Albumin/Globulin Ratio Triglycerides Cholesterol LDL Cholesterol, Calc VLDL Cholesterol, Calc HDL Cholesterol Cholesterol/HDL Ratio Lipase Beta-Hydroxybutyric Acd Specimen Hemolysis 11/25/19 11/25/19 11/25/19 00:23 01:01 03:11 WBC RBC Hgb Hct MCV MCH MCHC RDW Std Deviation RDW Coeff of María Elena Plt Count MPV Immature Gran % (Auto) Neut % (Auto) Lymph % (Auto) [place] % (Auto) Eos % (Auto) Baso % (Auto) Neut # (Auto) Lymph # (Auto) [place] # (Auto) Eos # (Auto) Baso # (Auto) Immature Gran # (Auto) PT INR APTT PTT Ratio D-Dimer VBG pH 7.30 L Sodium Potassium Chloride Carbon Dioxide Anion Gap BUN Creatinine Est Cr Clr Drug Dosing Est GFR ( Amer) Est GFR (Non-Af Amer) BUN/Creatinine Ratio Glucose POC Glucose 221 H 191 H Estimat Average Glucose Hemoglobin A1c Calcium Phosphorus Magnesium Total Bilirubin AST ALT Alkaline Phosphatase Troponin I Total Protein Albumin Globulin Albumin/Globulin Ratio Triglycerides Cholesterol LDL Cholesterol, Calc VLDL Cholesterol, Calc HDL Cholesterol Cholesterol/HDL Ratio Lipase Beta-Hydroxybutyric Acd Specimen Hemolysis 11/25/19 11/25/19 11/25/19 04:17 04:17 04:17 WBC 6.93 RBC 4.55 L Hgb 13.4 L Hct 37.8 L MCV 83.1 MCH 29.5 MCHC 35.4 RDW Std Deviation 42.8 RDW Coeff of María Elena 14.2 Plt Count 138 MPV 9.7 Immature Gran % (Auto) Neut % (Auto) Lymph % (Auto) [place] % (Auto) Eos % (Auto) Baso % (Auto) Neut # (Auto) Lymph # (Auto) [place] # (Auto) Eos # (Auto) Baso # (Auto) Immature Gran # (Auto) PT INR APTT PTT Ratio D-Dimer VBG pH 7.35 L Sodium 136 Potassium 3.4 L Chloride 105 Carbon Dioxide 21 Anion Gap 10.0 BUN 13 Creatinine 0.98 Est Cr Clr Drug Dosing 109.8 Est GFR ( Amer) 109.8 Est GFR (Non-Af Amer) 94.7 BUN/Creatinine Ratio 13.2 Glucose 190 H POC Glucose Estimat Average Glucose Hemoglobin A1c Calcium 7.2 L Phosphorus 2.1 L Magnesium 1.8 Total Bilirubin AST ALT Alkaline Phosphatase Troponin I Total Protein Albumin Globulin Albumin/Globulin Ratio Triglycerides Cholesterol LDL Cholesterol, Calc VLDL Cholesterol, Calc HDL Cholesterol Cholesterol/HDL Ratio Lipase Beta-Hydroxybutyric Acd Specimen Hemolysis 11/25/19 11/25/19 11/25/19 04:17 05:02 06:54 WBC RBC Hgb Hct MCV MCH MCHC RDW Std Deviation RDW Coeff of María Elena Plt Count MPV Immature Gran % (Auto) Neut % (Auto) Lymph % (Auto) [place] % (Auto) Eos % (Auto) Baso % (Auto) Neut # (Auto) Lymph # (Auto) [place] # (Auto) Eos # (Auto) Baso # (Auto) Immature Gran # (Auto) PT INR APTT PTT Ratio D-Dimer VBG pH Sodium Potassium Chloride Carbon Dioxide Anion Gap BUN Creatinine Est Cr Clr Drug Dosing Est GFR ( Amer) Est GFR (Non-Af Amer) BUN/Creatinine Ratio Glucose POC Glucose 184 H 171 H Estimat Average Glucose Hemoglobin A1c Calcium Phosphorus Magnesium Total Bilirubin AST ALT Alkaline Phosphatase Troponin I Total Protein Albumin Globulin Albumin/Globulin Ratio Triglycerides 2119 H Cholesterol 295 H LDL Cholesterol, Calc VLDL Cholesterol, Calc HDL Cholesterol 26 Cholesterol/HDL Ratio 11 Lipase 832 H Beta-Hydroxybutyric Acd Specimen Hemolysis 11/25/19 11/25/19 11/25/19 07:29 07:29 07:29 WBC RBC Hgb Hct MCV MCH MCHC RDW Std Deviation RDW Coeff of María Elena Plt Count MPV Immature Gran % (Auto) Neut % (Auto) Lymph % (Auto) [place] % (Auto) Eos % (Auto) Baso % (Auto) Neut # (Auto) Lymph # (Auto) [place] # (Auto) Eos # (Auto) Baso # (Auto) Immature Gran # (Auto) PT INR APTT PTT Ratio D-Dimer VBG pH 7.33 L Sodium 138 Potassium 3.4 L Chloride 104 Carbon Dioxide 23 Anion Gap 11.0 BUN 11 Creatinine 1.09 Est Cr Clr Drug Dosing 98.7 Est GFR ( Amer) 96.5 Est GFR (Non-Af Amer) 83.3 BUN/Creatinine Ratio 10.1 Glucose 173 H POC Glucose Estimat Average Glucose Pending Hemoglobin A1c Pending Calcium 7.8 L Phosphorus 2.0 L Magnesium 1.9 Total Bilirubin AST ALT Alkaline Phosphatase Troponin I Total Protein Albumin Globulin Albumin/Globulin Ratio Triglycerides Cholesterol LDL Cholesterol, Calc VLDL Cholesterol, Calc HDL Cholesterol Cholesterol/HDL Ratio Lipase Beta-Hydroxybutyric Acd Specimen Hemolysis 11/25/19 11/25/19 11/25/19 08:52 09:58 10:55 WBC RBC Hgb Hct MCV MCH MCHC RDW Std Deviation RDW Coeff of María Elena Plt Count MPV Immature Gran % (Auto) Neut % (Auto) Lymph % (Auto) [place] % (Auto) Eos % (Auto) Baso % (Auto) Neut # (Auto) Lymph # (Auto) [place] # (Auto) Eos # (Auto) Baso # (Auto) Immature Gran # (Auto) PT INR APTT PTT Ratio D-Dimer VBG pH Sodium Potassium Chloride Carbon Dioxide Anion Gap BUN Creatinine Est Cr Clr Drug Dosing Est GFR ( Amer) Est GFR (Non-Af Amer) BUN/Creatinine Ratio Glucose POC Glucose 161 H 156 H 147 H Estimat Average Glucose Hemoglobin A1c Calcium Phosphorus Magnesium Total Bilirubin AST ALT Alkaline Phosphatase Troponin I Total Protein Albumin Globulin Albumin/Globulin Ratio Triglycerides Cholesterol LDL Cholesterol, Calc VLDL Cholesterol, Calc HDL Cholesterol Cholesterol/HDL Ratio Lipase Beta-Hydroxybutyric Acd Specimen Hemolysis 11/25/19 11/25/19 11/25/19 11:58 11:58 11:58 WBC RBC Hgb Hct MCV MCH MCHC RDW Std Deviation RDW Coeff of María Elena Plt Count MPV Immature Gran % (Auto) Neut % (Auto) Lymph % (Auto) [place] % (Auto) Eos % (Auto) Baso % (Auto) Neut # (Auto) Lymph # (Auto) [place] # (Auto) Eos # (Auto) Baso # (Auto) Immature Gran # (Auto) PT INR APTT PTT Ratio D-Dimer VBG pH 7.35 L Sodium 139 Potassium 3.6 Chloride 106 Carbon Dioxide 22 Anion Gap 11.0 BUN 10 Creatinine 0.98 Est Cr Clr Drug Dosing 109.8 Est GFR ( Amer) 109.8 Est GFR (Non-Af Amer) 94.7 BUN/Creatinine Ratio 10.1 Glucose 153 H POC Glucose 140 H Estimat Average Glucose Hemoglobin A1c Calcium 7.5 L Phosphorus 1.6 L Magnesium 1.8 Total Bilirubin AST ALT Alkaline Phosphatase Troponin I Total Protein Albumin Globulin Albumin/Globulin Ratio Triglycerides Cholesterol LDL Cholesterol, Calc VLDL Cholesterol, Calc HDL Cholesterol Cholesterol/HDL Ratio Lipase Beta-Hydroxybutyric Acd Specimen Hemolysis
[2019-11-25] MEDS ORDERED: POTASSIUM PHOSPHATE 40 MMOL in SODIUM CHLORIDE 0.9% 1000ML 1,000 ML IV ONE (10:00)
[2019-11-25] MEDS: FLUTICASONE/VILANTEROL 200/25MCG 14 PUFFS/INHALER INH SCH (10:22)
[2019-11-25] MEDS: ATORVASTATIN 40 MG TAB PO SCH (10:22)
[2019-11-25] MEDS: METOPROLOL TARTRATE 25 MG TAB PO SCH ×2 (10:56→20:31)
[2019-11-25] MEDS ORDERED: INSULIN ASPART 100 UNITS/ML 3 ML PEN SC SCH (11:30)
--- NOTE | 2019-11-25 12:11 | Gastrointestinal Consultation ---
Date of Consultation November 25, 2019 History of Present Illness Attending Physician: Dolores Ramirez MD HPI: 44 yo M with PM h/o DM, morbid obesity in USOH until 2 weeks ago, when developed leg cramps followed by 2 days of upper adbominal pressure that acutely worsened yesterday. On presentation to ER yesterday, pt tachy but normotensive, lipase > 1000 with nl AST and bili, also found to have mild DKA with Bicarb 13- 16, +BHoB, and AG 16. Creat WNL, BUN 15. Trigs 300s'. CT with IV con shows normal pancreas, no josee dil, absent GB. Overnight, given insulin gtt, hydration with falli in hgb 15's--> 13's. No morphine today. Review of outpt records shows trigs 200-300, A1c 6's, uls in 2019 for "RUQ pain" which show absent GB and nl CBD. Denies EtoH, MJ, recent med changes. Use of weight loss supplement "leptin plus" which was discontinued in September. + recent intentional 30 lbs weight loss. PE: comfortable, NAD, obese HEENT: oc moist, anicteric CV: RRR Resp: CTA Abd: soft NT, ND, large pannus Extrem: no edema A/P: Pancreatitis, obesity, mild DKA - Agree with bowel rest, hydration, analgesia as needed. Diet as tolerated. His pancreatitis appears mild, with fallin hgb with hydration, no elevation of BUN, normal O2 sat, unremarkable imaging. - Etiology of pancreatitis unclear, but ddx includes occult ETOH although no clear lab evidence of this (AST/ALT ratio as outpt, MCV); tobacco use; Diabetes/hyper TG/obesity, although outpt labs show reasonable control; occult biliary disease/microlithiasis preciptated by recent rapid weight loss. DDX also includes obsructive/genetic/AIP. Will request inpt MRCP and plan outpt EUS to look for obstructive causes. Allergies Allergy/AdvReac Type Severity Reaction Status Date / Time Cephalosporins Allergy Unknown . Verified 11/24/19 15:58 erythromycin base Allergy Unknown . Verified 11/24/19 15:58 Penicillins Allergy Unknown . Verified 11/24/19 15:58 Sulfa (Sulfonamide Allergy Unknown . Verified 11/24/19 15:58 Antibiotics) Home Medications Home Medications Medication Instructions Recorded Confirmed Type albuterol sulfate 2 puff INHALATION Q4H PRN 11/24/19 11/24/19 History albuterol sulfate 2.5 mg INHALATION Q4H PRN 11/24/19 11/24/19 History allopurinol 100 mg PO QPM 11/24/19 11/25/19 History aspirin 81 mg PO Q OTHER DAY 11/24/19 11/25/19 History cetirizine [Zyrtec] 10 mg PO DAILY 11/24/19 11/25/19 History cholecalciferol (vitamin D3) 50,000 unit PO WK 11/24/19 11/25/19 History fluticasone propion-salmeterol 1 ea INHALATION BID 11/24/19 11/25/19 History [Advair Diskus] lisinopril 10 mg PO QPM 11/24/19 11/25/19 History metoprolol tartrate 25 mg PO BID 11/24/19 11/25/19 History mometasone 1 spray INTRANASAL QPM 11/24/19 11/25/19 History montelukast 10 mg PO QPM 11/24/19 11/25/19 History Patient History Medical History Anxiety Asthma, mild persistent DM type 2 (diabetes mellitus, type 2) Environmental and seasonal allergies (Chronic) Gout HTN (hypertension) Surgical History H/O exploratory laparotomy History of hernia repair History of mitral valve repair Family History Mother Follicular lymphoma Social History Smoking Status: Never smoker Second Hand Exposure: No; Do You Dip or Chew Tobacco: No; Hx Alcohol Use: No Hx Substance Use: No Preferred Language: Sami Communication Ability: Effective Trauma Counsellor Required: No Beliefs That Will Affect Care: None Current Living Situation: Parent Other Information That Helps Us Care for You: No Feels Safe at Home: Yes Safety Concerns: Feels Safe At This Time Results & Data ([facility]) Vital Signs (Past 12 Hours) Vital Signs Temp Pulse Resp BP Pulse Ox 11/25/19 08:08 36.6 C 77 16 108/75 98
[2019-11-25 12:27] LABS: BUN Creatinine Ratio 10.1 (10-20); Calcium 7.5 mg/dl (8.5-10.1); Creatinine Clr Calc Pharmacy 109.8 ml/min; Est GFR (African American) 109.8; Est GFR (Non-African American) 94.7; Magnesium 1.8 mg/dl (1.8-2.4); Phosphorus 1.6 mg/dl (2.5-4.9); Potassium 3.6 mmol/L (3.5-5.1)
[2019-11-25] MEDS: INSULIN REGULAR 250 UNITS in SODIUM CHLORIDE 0.9% 247.5 ML IV SCH (12:42)
[2019-11-25] MEDS: DC IV INSULIN INFUSION 1 EA DEVI SCH ×2 (12:43→12:44)
[2019-11-25] MEDS ORDERED: ONDANSETRON INJ 2 MG/ML 2 ML VIAL IV PRN (15:22)
--- NOTE | 2019-11-25 15:46 | Magnetic Resonance Report ---
MRCP CLINICAL HISTORY: Acute pancreatitis. COMPARISON STUDY: Abdominal CT dated 11/24/2019. TECHNIQUE: Abdominal MRCP is performed utilizing various T2-weighted sequences in the axial and coron al planes. 3-D reformats are created and assessed. IV contrast was not administered for this examinat ion. FINDINGS: The gallbladder is surgically absent. There is no intra or extrahepatic biliary ductal dilatation. Th e common bile duct measures up to 3.5 mm in diameter. There are no intraluminal filling defects to dalton ggest choledocholithiasis. The pancreatic duct is normal as visualized. The liver is top normal in size measuring 18 cm in length. Steatosis was shown on yesterday's CT scan . The unenhanced liver is otherwise normal in appearance. The unenhanced spleen and adrenal glands ar e grossly normal. A 2.1 cm cyst arises from the lower pole of the right kidney. The kidneys otherwise normal as imaged and without hydronephrosis. There is no abdominal ascites. The abdominal aorta is n ormal in caliber. There is no bowel obstruction. No abdominal lymphadenopathy is seen. The pancreas i s mildly atrophic. Faint stranding is suggested around the pancreatic tail. Trace pleural effusions a re noted. Midline sternotomy wires are present. The bony structures appear intact. A hiatal hernia is observed. IMPRESSION: 1. Status post cholecystectomy. 2. There is no intra or extrahepatic biliary ductal dilatation. 3. There is no evidence of choledocholithiasis. 4. Findings suggest mild pancreatitis. 5. Trace pleural effusions. Electronically signed by: Maximino Conner M.D. 11/25/2019 3:44 PM
[2019-11-25 17:04] LABS: BUN Creatinine Ratio 9.1 (10-20); Calcium 7.9 mg/dl (8.5-10.1); Creatinine Clr Calc Pharmacy 107.6 ml/min; Est GFR (African American) 107.1; Est GFR (Non-African American) 92.4; Magnesium 1.8 mg/dl (1.8-2.4); Phosphorus 2.6 mg/dl (2.5-4.9)
[2019-11-25] MEDS ORDERED: Nursing to Pharmacy Communication SCH (19:45)
[2019-11-25] MEDS: ASPIRIN 81 MG ECTAB PO SCH (20:31)
[2019-11-25] MEDS: lisinopriL 10 MG TAB PO SCH (20:31)
[2019-11-26] MEDS ORDERED: INSULIN ASPART 100 UNITS/ML 3 ML PEN SC SCH (04:00)
[2019-11-26] MEDS: SODIUM CHLORIDE 0.9% 1000ML 1,000 ML IV SCH ×2 (04:33→09:11)
[2019-11-26 07:14] LABS: Estimated Average Glucose 398 mg/dl; Hemoglobin A1C 15.5 % (4.5-5.6)
--- NOTE | 2019-11-26 08:33 | Gastroenterology Progress Note ---
Date of Service November 26, 2019 Assessment & Plan (1) Pancreatitis: Pt is a 44 y/o male w hx of newly dx w DM II on insulin, hypertriglyceridemia, fatty liver who is currently admitted w pancreatitis. Denies hx of this in the past, and though imaging studies showed he is s/p cholecystectomy he denies this. MRCP negative for biliary dilation and choledocholithiasis. He is clinically improved - Advanced to low fat diabetic diet - DC IVF - Symptomatic management - Will arrange for outpt EUS evaluation in 4-6 weeks - Encourage f/u w PCP for management of DM II and hypertriglyceridemia Admission and Anticipated Discharge Date Admission Date: November 24, 2019 Supervising Physician Co-Signing Physician Notes Attending attestation I have seen, examined this patient, and agree with the findings and above by our mid-level provider JERI Benjamin, with the following additions Likely related to hypertriglyceridemia, however no elevations of LFTs, or biliary obstruction noted. Continue supportive care advance diet as tolerated. Subjective Pt did well overnight. Denies abd pain, n/v. Tolerating FL diet well. Had BM this AM, denies any rectal bleeding, dark tarry stools Review of Systems Review of Systems: All systems reviewed & are unremarkable except as noted in HPI & below Physical Exam Constitutional: WD/WN, vitals as above well groomed, cooperative and comfortable Eyes: PERRL, conjunctivae normal, anicteric sclerae ENMT: external ear and nose normal, oropharynx normal Respiratory: normal respiratory effort, lungs clear to auscultation Cardiovascular: RRR, no murmur, no edema Gastrointestinal (Abdomen): normal bowel sounds, soft, nontender, no hepatosplenomegaly Skin: no rashes, warm and dry Psychiatric: A+Ox3, euthymic affect Lymphatic: no lymphedema Results & Data ([facility]) Vital Signs (Past 12 Hours) Vital Signs Temp Pulse Pulse Resp BP Pulse Ox 11/26/19 07:15 36.4 C L 84 18 111/68 96 11/25/19 23:38 36.5 C 72 18 96/64 L 97
--- NOTE | 2019-11-26 08:47 | Pharmacy Report ---
Pharmacy Glycemic Short Note 2 - Date of Service November 26, 2019 - Glycemic Short BSG Results (Last 24 hours): 11/25/19 11/25/19 11/25/19 07:29 08:52 09:58 Glucose 173 H POC Glucose 161 H 156 H 11/25/19 11/25/19 11/25/19 10:55 11:58 11:58 Glucose 153 H POC Glucose 147 H 140 H 11/25/19 11/25/19 11/25/19 15:46 18:01 20:57 Glucose 210 H POC Glucose 188 H 335 H* 11/26/19 11/26/19 04:24 07:44 Glucose POC Glucose 147 H 176 H OUTPATIENT ANTIDIABETIC REGIMEN: * None (per H&P was possibly supposed to start metformin, but never did) * HbA1c: 15.5% (11/25/19) compared to A1c of 6.8% (June 2019 - reported in H&P) * This is a significant A1c elevation in just 5 months - unclear reason for discrepancy at this time ASSESSMENT: * RF is a 44 year old male admitted with hyperglycemia and acute pancreatitis * Insulin gtt initiated at time of admission - transitioned to SC insulin yesterday afternoon * Received 59 units of SC insulin yesterday (44 units of basal, 15 units of prandial/correctional) * Fasting BSG of 176 mg/dL this morning * MRCP shows h/o cholecystectomy although patient denies history PLAN FOR INPATIENT GLYCEMIC CONTROL: * Basal insulin * Lantus 25 units SC this morning, will give additional 15 units with lunch to make 40 units (in anticipation of discharge) * Lantus scale SC HS (0-10 units - see EHR for details) - in case patient were to stay another night * Bolus insulin - tighten * NovoLog per scale ACHS or Q6hrs while NPO * Goal Range: Low 110 mg/dL - High 140 mg/dL * Correction Factor: 20 mg/dL/unit * Nutritional / Prandial insulin per carb ratio of 1 unit per 7 grams CHO consumed PLAN FOR DISCHARGE: * HbA1c is significantly elevated at 15.5% - significant discrepancy between this and previous A1c from June of this year at 6.8% * Of note: patient recently received hydrocortisone injection (could be impacting current A1c level) * Patient is agreeable to initiating insulin * Recommend starting with once-daily basal insulin - Basaglar 40 units SC daily is reasonable at this time * Reasonable to initiate metformin as well * Metformin should be started at the time type 2 diabetes is diagnosed unless there are contraindications. Metformin is effective and safe, is inexpensive, and may reduce risk of cardiovascular events and . * B12 supplementation may be necessary with buttermaker continuous churn metformin use * FDA has revised the label for metformin to reflect its safety in patients with eGFR 30 mL/min or above * Recommend starting: Metformin XR 500mg PO daily with evening meal. Typically the XR formulation of metformin is better tolerated than the immediate release formulation. Continue to titrate metformin dosing upwards as recommended. Dosage increases should be made in increments of 500 mg weekly, up to 2,000 mg/day PO, given in divided doses. Doses above 2000 mg/day may be better tolerated if divided and given 3 times per day with meals. Max: 2,550 mg/day PO, in divided doses * Will need to ensure that patient has prompt outpatient follow-up for further titration of insulin
[2019-11-26] MEDS ORDERED: INSULIN GLARGINE SOLOSTAR 100 UNITS/ML 3 ML PEN SC SCH ×3 (09:00)
[2019-11-26] MEDS: METOPROLOL TARTRATE 25 MG TAB PO SCH (09:09)
[2019-11-26] MEDS: ATORVASTATIN 40 MG TAB PO SCH (09:09)
[2019-11-26] MEDS: FLUTICASONE/VILANTEROL 200/25MCG 14 PUFFS/INHALER INH SCH (09:10)
[2019-11-26] MEDS: INSULIN ASPART 100 UNITS/ML 3 ML PEN SC SCH ×2 (09:14→12:58)
[2019-11-26] MEDS ORDERED: INSULIN GLARGINE SOLOSTAR 100 UNITS/ML 3 ML PEN SC ONE ×3 (12:45→21:00)
[2019-11-26 15:12] VITALS: BP 125/88; PULSE 86; TEMP 97.7; O2SAT 95
--- NOTE | 2019-11-26 15:30 | Discharge Summary ---
Date of Service November 26, 2019 Admission HPI Per Admitting Provider 44-year-old male with PMH DM type II, asthma, HTN, mitral valve replacement, and other problems listed below who presents the ED for evaluation of epigastric pain. Patient reports over the past 2 weeks he has been having bilateral leg cramping. He reports not feeling well over the past 2 days with increased belching and feelings of abdominal fullness. Patient reports that today while at work, he developed severe epigastric/left upper quadrant abdominal pain. He reports associated nausea however no vomiting or diarrhea. Reports a small amount of bright red bleeding per rectum this morning after straining to have a bowel movement. No diarrhea. Denies dark tarry stools. No fevers or chills. No lightheadedness, dizziness, diaphoresis, syncopal event. Denies chest pain or shortness of breath. No urinary symptoms. In the ED, patient is found to have findings of pancreatitis and hyperglycemia. Lipase 1915, initial glucose 376. He also has findings of mild acidosis with CO2 17, anion gap 16. He is mildly tachycardic but otherwise hemodynamically stable. He was given GI cocktail, IV famotidine, IV insulin 10 units, IVF. Admission Exam Per Admitting Provider Constitutional: WD/WN, vitals as above Eyes: PERRL, conjunctivae normal, anicteric sclerae ENMT: external ear and nose normal, oropharynx normal Respiratory: normal respiratory effort, lungs clear to auscultation Cardiovascular: Rate/Rhythm: regular rate and regular rhythm Vessels: normal peripheral pulses Extremities: no edema Gastrointestinal (Abdomen): Inspection/Auscultation: + abdomen distended and normal bowel sounds Percussion/Palpation: + abdomen tender (Epigastric/LUQ) and abdomen soft; no guarding, abdomen not rigid and no hepatosplenomegaly Musculoskeletal: no cyanosis or clubbing, extremities motor strength 5/5 Right wrist in splint Skin: no rashes, warm and dry Neurologic: PERRL, EOMI, accommodation nl, no face palsy, no dysarthria Psychiatric: A+Ox3, euthymic affect Principal Diagnosis Acute pancreatitis Diabetic ketoacidosis Hypertriglyceridemia Obesity with BMI of 36 Discharge Exam Constitutional + well hydrated and + obese; no acute distress Eyes PERRL, conjunctivae normal, anicteric sclerae ENMT external ear and nose normal, oropharynx normal Respiratory normal respiratory effort, lungs clear to auscultation Cardiovascular RRR, no murmur, no edema Gastrointestinal (Abdomen) normal bowel sounds, soft, nontender, no hepatosplenomegaly Neurologic PERRL, EOMI, accommodation nl, no face palsy, no dysarthria Psychiatric A+Ox3, euthymic affect Discharge Data Allergies Allergy/AdvReac Type Severity Reaction Status Date / Time Cephalosporins Allergy Unknown . Verified 11/24/19 15:58 erythromycin base Allergy Unknown . Verified 11/24/19 15:58 Penicillins Allergy Unknown . Verified 11/24/19 15:58 Sulfa (Sulfonamide Allergy Unknown . Verified 11/24/19 15:58 Antibiotics) Consultations 11/24/19 18:27 ED Decision to Admit Stat 11/24/19 20:05 Consult Case Management - Discharge Planning Routine Consult Gastroenterology Routine Ordered Studies 11/24/19 17:02 CT abd pelvis IV con only Stat 11/25/19 14:04 MR MRCP Urgent The gallbladder is surgically absent. There is no intra or extrahepatic biliary ductal dilatation. The common bile duct measures up to 3.5 mm in diameter. There are no intraluminal filling defects to suggest choledocholithiasis. The pancreatic duct is normal as visualized. The liver is top normal in size measuring 18 cm in length. Steatosis was shown on yesterday's CT scan. The unenhanced liver is otherwise normal in appearance. The unenhanced spleen and adrenal glands are grossly normal. A 2.1 cm cyst arises from the lower pole of the right kidney. The kidneys otherwise normal as imaged and without hydronephrosis. There is no abdominal ascites. The abdominal aorta is normal in caliber. There is no bowel obstruction. No abdominal lymphadenopathy is seen. The pancreas is mildly atrophic. Faint stranding is suggested around the pancreatic tail. Trace pleural effusions are noted. Midline sternotomy wires are present. The bony structures appear intact. A hiatal hernia is observed. IMPRESSION: 1. Status post cholecystectomy. 2. There is no intra or extrahepatic biliary ductal dilatation. 3. There is no evidence of choledocholithiasis. 4. Findings suggest mild pancreatitis. 5. Trace pleural effusions. Hospital Course (1) Pancreatitis: Acute pancreatitis Lipase 191. CT ABD/pelvis unremarkable MRCP - no evidence of choledocholithiasis, no intra or extrahepatic biliary ductal dilatation Denied alcohol use. Possible cause is hypertriglyceridemia TG is 2119, total cholesterol 295 Managed with IVF and pain meds Evaluated by GI who will follow up outpatient for further evaluation (2) DM type 2 (diabetes mellitus, type 2): (3) DKA (diabetic ketoacidoses): (4) Hyperglycemia: Glucose on presentation 376 Hgb A1c 6.8 06/2019 AGAP 16 Beta hydroxybutyric acid 63.24 Started on insulin drip, transitioned to sq insulin yesterday Continue IVF Hypokalemia Hypophosphatemia Repleted electrolytes A1c 15.5 DM educator consult Counselled on lifestyle modification Discharged on basaglar 40U daily and metformin 500mg bid. Follow up with PCP Outpatient f/u with DM educator Diabetic supplies called into patient's pharm (5) HTN (hypertension): BP controlled Continue lisinopril and metoprolol (6) Hypertriglyceridemia: TG 2119 Total cholesterol 295 Patient educated on need for lifestyle modification He reported that he has lost some weight over the past few months. Confirmed this on chart review. [facility]18[facility]19, Weight was 102kg yesterday. Encouraged to continue with lifestyle modification Start on atorvastatin (7) Asthma, mild persistent: Stable Continue home inhalers Total Time Total Time Spent Total Time Spent (In Minutes): 45 Total Time Includes: Examination of the Patient, Discharge Planning, Medication Reconciliation and Communication With Other Providers Discharge Plan Discharge Items Patient Disposition: Home - Self-Care Reason For Visit: PANCREATITIS Discharge Diagnosis: Acute pancreatitis Diabetic ketoacidosis Hypertriglyceridemia Condition on Discharge: Fair Activity: Resume your previous activity Non-emergency contact: Primary Care Provider and Video Games Mechanic Call non-emergency contact if: you have any medication questions and your symptoms worsen Follow-up/Referrals: Edgar Lawton MD [Primary Care Provider] - 11/29/19 10:20 am (11/29/2019 10:20 AM Provider Raymond Franks MD [facility] ) Diet: Carb Consistent or DM2 and Low Fat Addtl Attending Provider Instructions: Mr Gilmore. You came to the hospital for abdominal pain. You were evaluated and found to have pancreatitis and diabetic ketoacidosis. You were treated with IV fluids, insulin drip and medications. You also had elevated triglycerides. You were provided diabetes education. You are being discharged on insulin and metformin for your diabetes. You were also started on atorvastatin. It is important you continue with lifestyle modification including diet, exercise and weight loss like we discussed. Your insulin needles and glucometer test strips were called in to your pharmacy Please follow up with Gastroenterology outpatient and your Primary Doctor. It was a pleasure taking care of you. Pending Studies at Discharge: No Stand-Alone Forms: My [facility], Work/School Release (Inpt), Smoking Cessation Medications and DC Order Prescriptions: New atorvastatin 40 mg Tablet 40 mg PO QAM 30 Days Qty: 30 RF: 0 Basaglar KwikPen U-100 Insulin 100 unit/mL (3 mL) insulin pen 40 units SQ DAILY Qty: 15 RF: 1 metformin 500 mg tablet 500 mg PO BID Qty: 60 RF: 0 Continued fluticasone propion-salmeterol [Advair Diskus] 250-50 mcg/dose blister with device 1 ea INHALATION BID RF: 0 albuterol sulfate 2.5 mg /3 mL (0.083 %) solution for nebulization 2.5 mg inhalation Q4H PRN (Reason: Cough and Wheezing) RF: 0 allopurinol 100 mg tablet 100 mg PO QPM RF: 0 aspirin 81 mg Tablet,Delayed Release (Dr/Ec) 81 mg PO Q OTHER DAY RF: 0 lisinopril 10 mg tablet 10 mg PO QPM RF: 0 mometasone 50 mcg/actuation spray,non-aerosol 1 spray INTRANASAL QPM RF: 0 montelukast 10 mg tablet 10 mg PO QPM RF: 0 albuterol sulfate 90 mcg/actuation HFA aerosol inhaler 2 puff INHALATION Q4H PRN (Reason: Cough,SOB Or Wheezing) RF: 0 metoprolol tartrate 25 mg tablet 25 mg PO BID RF: 0 cholecalciferol (vitamin D3) 1,250 mcg (50,000 unit) capsule 50,000 unit PO WK RF: 0 Zyrtec 10 mg Capsule 10 mg PO DAILY RF: 0 Discharge Orders: Discharge Order (Routine); Ordered 11/26/19 Ordered By: Dolores Andre/Other Patient Handouts: Diabetes: The Benefits of Exercise, Diabetes Exercise Get Started, Diabetes: Activity Tips, Diabetes: Meal Planning, Diabetes Carbs Fats Protein Admission Data Admit Date/Time: 11/24/19 18:37 Attending Provider: Dolores Ramirez I. Admit Provider: Francy Muro Primary Care Provider: Edgar Lawton Other Providers: Francy Muro ; Karla Sanabria Other Interventions: Discharge Summary Assessment (RN) Last Done: 11/26/19 15:58 DC Date/Time DO NOT enter until pt leaves facility: 11/26/19 16:54
[2019-11-27] MEDS ORDERED: INSULIN GLARGINE SOLOSTAR 100 UNITS/ML 3 ML PEN SC SCH (09:00)
== END 2019-11-26 16:54 | disposition home or self-care (01) | DRG 438 ==
LOC: ED 14:18 → SUATTDRO 18:37 → 3N 18:37

== ENCOUNTER 2020-08-13 16:09 | Inpatient (IN) ==
--- NOTE | 2020-08-13 16:56 | XRay Report ---
XR chest 1V portable CLINICAL HISTORY: sob COMPARISON STUDY: Chest radiograph November 24, 2019. FINDINGS: Mediastinal wires and prosthetic mitral valve are noted. There is cardiomegaly. Interstitia l thickening is noted. Bibasilar opacities are also present. No pneumothorax or pleural effusion is n oted. IMPRESSION: 1. Cardiomegaly with interstitial thickening which favors pulmonary edema. 2. Bibasilar opacities which could reflect an infectious process or alveolar edema. Radiographic foll ow-up is recommended. ACT 112: Negative or not required by law. Electronically signed by: Felice Moreno M.D. 08/13/2020 4:54 PM
[2020-08-13 17:38] LABS: Basophils # (auto) 0.02 K/uL (0-0.2); Basophils % (auto) 0.1 %; Hemoglobin 14.3 g/dL (14.0-18.0); Immature Granulocytes # (auto) 0.14 K/uL (0.00-0.02); Immature Granulocytes % (auto) 0.7 %; Lymphocytes # (auto) 0.66 K/uL (1.2-3.4); Lymphocytes % (auto) 3.1 %; Mean Corpuscular Hemoglobin 29.5 pg (25-34); Mean Corpuscular Hgb Conc 35.8 g/dL (32-36); Mean Corpuscular Volume 82.5 fL (80-100); Mean Platelet Volume 10.5 fL (7.4-10.4); Monocytes # (auto) 1.07 K/uL (0.11-0.59); Neutrophils # (auto) 19.32 K/uL (1.4-6.5); Neutrophils % (auto) 91.1 %; Platelet Count 207 K/uL (130-400); RDW Coefficient of Variation 14.1 % (11.5-14.5); RDW Standard Deviation 42.3 fL (36.4-46.3); Red Blood Count 4.85 M/uL (4.7-6.1); White Blood Count 21.21 K/uL (4.8-10.8)
[2020-08-13 17:48] LABS: Blood Urea Nitrogen 17 mg/dl (7-18); Calcium 8.4 mg/dl (8.5-10.1); Carbon Dioxide 18 mmol/L (21-32); Chloride 104 mmol/L (98-107); Creatinine Clr Calc Pharmacy 77.4 ml/min; Est GFR (African American) 62.6; Glucose 276 mg/dl (70-99); Sodium 134 mmol/L (136-145)
[2020-08-13 17:59] LABS: NT Pro B Type Natriuretic Pept 92 pg/ml (0-450); Troponin I < 0.015 ng/ml (0-0.045)
[2020-08-13] MEDS ORDERED: FUROSEMIDE 40 MG/4 ML VIAL IV STA (18:43)
[2020-08-13] MEDS ORDERED: METOPROLOL TARTRATE 50 MG TAB PO STA (18:46)
[2020-08-13] MEDS ORDERED: METOPROLOL TARTRATE 25 MG TAB PO STA (18:46)
[2020-08-13] MEDS ORDERED: lisinopril 5 MG TAB PO STA (18:46)
--- NOTE | 2020-08-13 19:02 | History & Physical Report ---
Date of Service August 13, 2020 Assessment & Plan (1) Hypoxia: (2) Sinus tachycardia: Pt is 44 y/o M with PMH HTN, HLD, asthma, insulin-dependent DM II, mitral regurgitation S/P repair in 2008 presented to ER for hypoxia. Today patient had septoplasty, turbinate surgery by Dr. Dyson. Postop after extubation patient with noted hypoxia to 80s and reportedly increased to 90s with positive pressure. In PACU patient was unable to be weaned off oxygen and had reported shortness of breath. He was given 2 duo nebs and 1 albuterol treatment without improvement and was referred to ER In ER pt afebrile, P: 125, 110, R: 24 down to 18, BP: 122/92, 142/91, 89% on RA, 95% on 6L oxymask EKG sinus tachycardia. Initial troponin negative. WBC: 21. procalcitonin WNL CXR: Cardiomegaly with interstitial thickening which favors pulmonary edema. Bibasilar opacities which could reflect an infectious process or alveolar edema. Lactate: 5. Likely secondary to hypoxia. Will continue to trend Hypoxia likely secondary to Pulmonary edema. PE less likely as POD#0. No signs acute post op bleeding or airway obstruction at this time. Suspect tachycardia secondary to nebs Blood cultures pending Give lasix 40mg now Decadron 6mg Q6H Supplemental oxygen Xopenex/Atrovent nebs Doxycycline po CXR in am Closely monitor, if pt would desaturate transfer to ICU for intubation CBC, BMP in am (3) S/P nasal septoplasty: Today had nasal septoplasty, bilateral inferior turbinate reduction, left & right maxillary sinusotomy, bilateral total ethmoidectomy by Dr Dyson Packing in place. No active bleeding noted Consult ENT. Spoke to Dr Dyson who reports after procedure today there was no sign of complication. Will see pt in am (4) LEONCIO (acute kidney injury): BUN: 17, Cr: 1.5. GFR: 54. Baseline Cr: 1.1, GFR>60 Monitor renal functions, avoid nephrotoxic agents when possible Hold IVF at this time secondary to pulmonary edema (5) DM type 2 (diabetes mellitus, type 2): A1c: 6.4 in 05/05/2020 Hold home metformin, Jardiance and insulin Basal bolus insulin per protocol Glycemic pharmacy consult (6) HTN (hypertension): Initial BP 122/9210 patient with noted elevated BP 175/92 in ED. did not have lisinopril today Continue lisinopril, metoprolol (7) HLD (hyperlipidemia): Continue atorvastatin (8) Asthma, mild persistent: Xopenex/Atrovent nebs as above Continue Advair, singular (9) Mitral regurgitation: S/p mitral valve repair in 2008 DVT Prophylaxis -SCDs Full Code Follows with Dr Lawton for routine care Pt was seen and care coordinated with Dr Adams. See addendum History of Present Illness Chief Complaint: Hypoxia Primary Care Provider: Edgar Lawton MD Pt is 44 y/o M with PMH HTN, HLD, asthma, insulin-dependent DM II, mitral regurgitation S/P repair in 2008 presented to ER for hypoxia. Today patient had septoplasty, turbinate surgery by Dr. Dyson. Postop after extubation patient with noted hypoxia to 80s and reportedly increased to 90s with positive pressure. In PACU patient was unable to be weaned off oxygen and had reported shortness of breath. He was given 2 duo nebs and 1 albuterol treatment without improvement and was referred to ER. Currently patient has nasal packing in place and denies any sore throat or dysphagia or sensation of drainage in oropharynx. He reports shortness of breath. Denies chest pain. Patient had negative Covid test on 08/11/2020. Denies fever/chills, diaphoresis, N/V/D/C, MERRILL, dizziness, syncope, vision changes, neck pain, palpitations, cough, choking, epistaxis, abdominal pain, paresthesias, weakness, extremity weakness, extremity edema, rashes, urinary symptoms. Allergies Allergy/AdvReac Type Severity Reaction Status Date / Time Cephalosporins Allergy Unknown . Verified 08/13/20 17:22 erythromycin base Allergy Unknown . Verified 08/13/20 17:22 Penicillins Allergy Unknown . Verified 08/13/20 17:22 Sulfa (Sulfonamide Allergy Unknown . Verified 08/13/20 17:22 Antibiotics) Home Medications Medication Instructions Recorded Confirmed Type albuterol sulfate 2 puff INHALATION Q4H PRN 11/24/19 08/13/20 History albuterol sulfate 2.5 mg INHALATION Q4H PRN 11/24/19 08/13/20 History allopurinol 100 mg PO QPM 11/24/19 08/13/20 History cholecalciferol (vitamin D3) 50,000 unit PO WK 11/24/19 08/13/20 History mometasone 2 spray INTRANASAL BID 11/24/19 08/13/20 History montelukast 10 mg PO QPM 11/24/19 08/13/20 History atorvastatin 40 mg tablet 40 mg PO HS 01/02/20 08/13/20 History fluticasone 500 mcg-salmeterol 50 1 inh INHALATION BID 07/07/20 08/13/20 History mcg/dose blistr powdr for inhalation metoprolol tartrate 25 mg tablet 25 mg PO BID tab 07/07/20 08/13/20 History azelastine 2 spray INTRANASAL BID 08/13/20 08/13/20 History famotidine 20 mg PO BID 08/13/20 08/13/20 History insulin aspart U-100 [Novolog 0 unit SUBCUT TIDM 08/13/20 08/13/20 History Flexpen U-100 Insulin] lisinopril 10 mg PO QAM 08/13/20 08/13/20 History metformin 1,000 mg PO BIDM 08/13/20 08/13/20 History tiotropium bromide [Spiriva with 1 cap INHALATION DAILY 08/13/20 08/13/20 History HandiHaler] Past Med/Surg History Medical History Anxiety Asthma, mild persistent DM type 2 (diabetes mellitus, type 2) Environmental and seasonal allergies Gout HLD (hyperlipidemia) HTN (hypertension) Mitral regurgitation Mitral valve disorder Obesity Surgical History H/O exploratory laparotomy History of hernia repair History of mitral valve repair Family History Mother Follicular lymphoma Social History Smoking Status: Never smoker Second Hand Exposure: No; Hx Alcohol Use: No Hx Substance Use: No Preferred Language: Chinese Communication Ability: Effective 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 Board 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: No Beliefs That Will Affect Care: None Current Living Situation: Parent Feels Safe at Home: Yes Assistive Devices: None Review of Systems Review of Systems: All systems reviewed & are unremarkable except as noted in HPI & below Physical Exam Physical Exam: General: no distress, obese Head: normocephalic, atraumatic Eyes: PERRL, EOM's intact, conjunctiva non-injected, anicteric ENT: normal inspection external ears, nose: nare with packing and straws in place, oropharynx without edema or erythema noted, mucous membranes moist Neck: supple, trachea midline Lungs: R: 18, O2 sat 96% on oxymask at 6L, +rales bases CV: tachycardia, regular rhythm, no pretibial edema Abd: normal BS, soft, protuberant, non-tender Ext: no cyanosis, no calf tenderness Neuro: A&O x 3, no focal deficits noted, +anxious affect Skin: warm, dry Results & Data Results & Data ([facility]) Vital Signs (Past 12 Hours) Vital Signs Temp Pulse Resp BP Pulse Ox 08/13/20 18:30 138 H 13 96 08/13/20 18:16 133 H 16 193/163 H 97 08/13/20 18:02 105 H 19 96 08/13/20 18:01 117 H 19 175/92 H 96 08/13/20 18:00 110 H 22 96 08/13/20 17:45 125 H 22 135/99 97 08/13/20 17:40 122 H 15 108/84 97 08/13/20 17:30 124 H 22 97 08/13/20 17:20 118 H 14 96 08/13/20 17:10 121 H 19 91 08/13/20 17:09 93 08/13/20 17:00 109 H 12 90 08/13/20 16:50 108 H 12 08/13/20 16:40 118 H 20 96 08/13/20 16:30 119 H 23 94 08/13/20 16:28 36.7 C 125 H 24 122/92 95 08/13/20 16:24 119 H 14 96 08/13/20 16:16 119 H 13 122/92 97 Laboratory Results Short CBC 08/13/20 Range/Units 16:26 WBC 21.21 H (4.8-10.8) K/uL Hgb 14.3 (14.0-18.0) g/dL Hct 40.0 L (42-52) % Plt Count 207 (130-400) K/uL BMP 08/13/20 16:26 Sodium 134 L Potassium Chloride 104 Carbon Dioxide 18 L BUN 17 Creatinine 1.56 H Glucose 276 H Calcium 8.4 L Cardiac Enzymes 08/13/20 Range/Units 16:26 Troponin I < 0.015 (0-0.045) ng/ml Diagnostic Findings Chest X-Ray 08/13/20 16:37 XR chest 1V portable CLINICAL HISTORY: sob COMPARISON STUDY: Chest radiograph November 24, 2019. FINDINGS: Mediastinal wires and prosthetic mitral valve are noted. There is cardiomegaly. Interstitial thickening is noted. Bibasilar opacities are also present. No pneumothorax or pleural effusion is noted. IMPRESSION: 1. Cardiomegaly with interstitial thickening which favors pulmonary edema. 2. Bibasilar opacities which could reflect an infectious process or alveolar edema. Radiographic follow-up is recommended. ACT 112: Negative or not required by law. Electronically signed by: Felice Moreno M.D. 08/13/2020 4:54 PM ECG Rhythm: sinus tachycardia Code Status & VTE Plan VTE Prophylaxis Plan VTE Prophylaxis will be ordered: Yes Supervising Physician Co-Signing Physician Notes Patient is a 44-year-old male with history of hypertension, hyperlipidemia, asthma, diabetes mellitus and other medical problems presents with history of shortness of breath after having septoplasty, turbinate surgery by Dr. Dyson today. He also states having associated chest tightness and was found to be hypoxic while in ED. Patient had nebulizer treatments without any improvement while in ED. Please review HPI for complete details of presentation. He was noted to have a white blood cell count of 21k, lactic acidosis 5.6 and LEONCIO creatinine 1.56. Procalcitonin within normal range. Chest x-ray showed findings suggestive of pulmonary edema. Also noted bibasilar opacities suggestive of possible infectious process or alveolar edema. He was tested negative for Covid 2 days ago. On exam patient is obese, no apparent distress, normocephalic atraumatic,+ nasal packing, lungs-decreased breath sounds, basal crackles, S1-S2,+ murmur, tachycardia, trace pedal edema, abdomen soft, nontender, normal bowel sounds, alert, awake, oriented, grossly no focal deficits. Patient is admitted for management of acute respiratory failure with hypoxia secondary to pulmonary edema postoperatively. We will give him glucocorticoids, Lasix and supplement oxygen, nebs. Empirically start on doxycycline. Obtain blood cultures. Consulted ENT. Low threshold to transfer to ICU if needed. Lactic acidosis likely secondary to hypoxia. Will avoid IV fluids given pulmonary edema. Hold p.o. meds and continue insulin therapy while hospitalized for management of diabetes mellitus. Glycemic pharmacy consulted given possible need for insulin drip while on steroids. Monitor renal function closely. I personally reviewed the record. Patient is interviewed and examined at bedside. Patient's care is coordinated with Mariya Rosa PA-C. Please refer to the documentation above for details of patient's presentation and for discussion of other issues.
[2020-08-13 19:22] LABS: Potassium 4.7 mmol/L (3.5-5.1)
[2020-08-13] MEDS ORDERED: GLUCAGON FOR INJ 1 MG VIAL SQ PRN (20:32)
[2020-08-13] MEDS ORDERED: GLUCOSE 40% GEL 15 GM TUBE PO PRN (20:32)
[2020-08-13] MEDS ORDERED: DEXTROSE 50% 50 ML SYRINGE IV PRN (20:32)
[2020-08-13] MEDS ORDERED: CARBOHYDRATES FOR HYPOGLYCEMIA PO PRN (20:32)
[2020-08-13] MEDS ORDERED: oxyCODONE HCL IR 5 MG TAB (IMMEDIATE RELEASE) PO PRN (20:32)
[2020-08-13] MEDS ORDERED: DEXAMETHASONE SOD INJ 4 MG/ML VIAL IV SCH (20:32)
[2020-08-13] MEDS ORDERED: LABETALOL HCL IV 5 MG/ML 20ML IV PRN (20:32)
[2020-08-13] MEDS ORDERED: GLUCOSE 10 TABS/TUBE PO PRN (20:32)
[2020-08-13] MEDS ORDERED: PHARMACY GLYCEMIC MGMT CONSULT PRN (20:52)
[2020-08-13] MEDS: INSULIN ASPART 100 UNITS/ML 3 ML PEN SC SCH (21:17)
[2020-08-13] MEDS: allopurinoL 100 MG TAB PO SCH (21:22)
[2020-08-13] MEDS: ATORVASTATIN 40 MG TAB PO SCH (21:22)
[2020-08-13] MEDS: FAMOTIDINE 20 MG TAB PO SCH (21:22)
[2020-08-13] MEDS: MONTELUKAST SODIUM 10 MG TABLET PO SCH (21:23)
[2020-08-13] MEDS ORDERED: INSULIN GLARGINE SOLOSTAR 100 UNITS/ML 3 ML PEN SC ONE (21:30)
[2020-08-13] MEDS ORDERED: DOXYCYCLINE HYCLATE 100 MG CAP PO SCH (21:30)
[2020-08-13] MEDS ORDERED: dexAMETHasone 6 MG in SYRINGE 0 ML IV ONE (21:30)
[2020-08-13] MEDS ORDERED: SODIUM CHLORIDE 0.65% NA SOLN 45 ML (OCEAN) ONE (21:33)
--- NOTE | 2020-08-13 23:34 | Emergency Department Note ---
History of Present Illness General Chief complaint: Shortness of Breath/Dyspnea Stated complaint: SOB Time Seen by Provider: 08/13/20 16:27 History of Present Illness Provider complaint: Shortness of breath Onset (ago): day(s) 1 Maximum Pain Intensity: 8 Associated symptoms: + shortness of breath; no chest pain, no cough and no hea daches 44-year-old male presents from [facility] surgery center. Patient had a septoplasty done by Dr. Hansen today. In the postop area the patient was having low oxygen saturations. Patient was given duo nebs which he stated did not help. Patient was given albuterol treatment by EMS which she stated did help. Patient states he feels like his difficulty breathing is due to the packing that was placed status post the surgery by the ENT doctor. He is not reporting any chest pain. No fevers. Patient had a negative Covid test prior to getting the surgery done at [facility]. Home Medications Medication Instructions Recorded Confirmed Type albuterol sulfate 2 puff INHALATION Q4H PRN 11/24/19 08/13/20 History albuterol sulfate 2.5 mg INHALATION Q4H PRN 11/24/19 08/13/20 History allopurinol 100 mg PO QPM 11/24/19 08/13/20 History cholecalciferol (vitamin D3) 50,000 unit PO WK 11/24/19 08/13/20 History mometasone 2 spray INTRANASAL BID 11/24/19 08/13/20 History montelukast 10 mg PO QPM 11/24/19 08/13/20 History atorvastatin 40 mg tablet 40 mg PO HS 01/02/20 08/13/20 History fluticasone 500 mcg-salmeterol 50 1 inh INHALATION BID 07/07/20 08/13/20 History mcg/dose blistr powdr for inhalation metoprolol tartrate 25 mg tablet 25 mg PO BID tab 07/07/20 08/13/20 History azelastine 2 spray INTRANASAL BID 08/13/20 08/13/20 History famotidine 20 mg PO BID 08/13/20 08/13/20 History insulin aspart U-100 [Novolog 0 unit SUBCUT TIDM 08/13/20 08/13/20 History Flexpen U-100 Insulin] lisinopril 10 mg PO QAM 08/13/20 08/13/20 History metformin 1,000 mg PO BIDM 08/13/20 08/13/20 History tiotropium bromide [Spiriva with 1 cap INHALATION DAILY 08/13/20 08/13/20 History HandiHaler] Allergies Allergy/AdvReac Type Severity Reaction Status Date / Time Cephalosporins Allergy Unknown . Verified 08/13/20 17:22 erythromycin base Allergy Unknown . Verified 08/13/20 17:22 Penicillins Allergy Unknown . Verified 08/13/20 17:22 Sulfa (Sulfonamide Allergy Unknown . Verified 08/13/20 17:22 Antibiotics) Past Med/Surg History Medical History Anxiety Asthma, mild persistent DM type 2 (diabetes mellitus, type 2) Environmental and seasonal allergies Gout HLD (hyperlipidemia) HTN (hypertension) Mitral regurgitation Mitral valve disorder Obesity Surgical History H/O exploratory laparotomy H/O nasal septoplasty History of hernia repair History of mitral valve repair Family History Mother Follicular lymphoma Social History Smoking Status: Never smoker Second Hand Exposure: No; Do You Dip or Chew Tobacco: No; Hx Alcohol Use: No Hx Substance Use: No Preferred Language: Danish Communication Ability: Effective 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 Beliefs That Will Affect Care: None Current Living Situation: Alone Feels Safe at Home: Yes Safety Concerns: Feels Safe At This Time Assistive Devices: None Review of Systems A total of 10 systems reviewed and were otherwise negative Physical Exam Vital Signs Vital Signs - 24 hr 08/13/20 16:16 08/13/20 16:24 08/13/20 16:28 Temperature 36.7 C Temperature Source Oral Pulse Rate 119 H 119 H 125 H Pulse Rate from SpO2 Sensor 119 H 118 H Pulse Rhythm Regular Pulse Strength Normal Respiratory Rate 13 14 24 Blood Pressure 122/92 122/92 Blood Pressure Mean 102 102 Pulse Oximetry 97 96 95 Oxygen Delivery Method Nasal Cannula Oxygen Flow Rate 6 Sepsis Recent Fever Within 48 Hours No Sepsis New/Unexplained Change in Mental Status No Sepsis Action Taken by Nursing No Action Required 08/13/20 16:30 08/13/20 16:40 08/13/20 16:50 Temperature Temperature Source Pulse Rate 119 H 118 H 108 H Pulse Rate from SpO2 Sensor 119 H 118 H Pulse Rhythm Pulse Strength Respiratory Rate 23 20 12 Blood Pressure Blood Pressure Mean Pulse Oximetry 94 96 Oxygen Delivery Method Oxygen Flow Rate Sepsis Recent Fever Within 48 Hours Sepsis New/Unexplained Change in Mental Status Sepsis Action Taken by Nursing 08/13/20 16:59 08/13/20 17:00 08/13/20 17:09 Temperature Temperature Source Pulse Rate 109 H Pulse Rate from SpO2 Sensor 113 H Pulse Rhythm Pulse Strength Respiratory Rate 12 Blood Pressure Blood Pressure Mean Pulse Oximetry 90 93 Oxygen Delivery Method Room Air Oxymask Oxygen Flow Rate 6 Sepsis Recent Fever Within 48 Hours Sepsis New/Unexplained Change in Mental Status Sepsis Action Taken by Nursing 08/13/20 17:10 08/13/20 17:20 08/13/20 17:30 Temperature Temperature Source Pulse Rate 121 H 118 H 124 H Pulse Rate from SpO2 Sensor 121 H 118 H 124 H Pulse Rhythm Pulse Strength Respiratory Rate 19 14 22 Blood Pressure Blood Pressure Mean Pulse Oximetry 91 96 97 Oxygen Delivery Method Oxymask Oxygen Flow Rate Sepsis Recent Fever Within 48 Hours Sepsis New/Unexplained Change in Mental Status Sepsis Action Taken by Nursing 08/13/20 17:40 08/13/20 17:45 Temperature Temperature Source Pulse Rate 122 H 125 H Pulse Rate from SpO2 Sensor 122 H 124 H Pulse Rhythm Pulse Strength Respiratory Rate 15 22 Blood Pressure 108/84 135/99 Blood Pressure Mean 92 111 Pulse Oximetry 97 97 Oxygen Delivery Method Oxygen Flow Rate Sepsis Recent Fever Within 48 Hours Sepsis New/Unexplained Change in Mental Status Sepsis Action Taken by Nursing Physical Exam GENERAL: He is oriented to person, place, and time. He appears well-developed and well-nourished. He does not appear distressed. HENT: Exam performed. - Head: Normocephalic and atraumatic. - Right Ear: External ear normal. No mastoid tenderness. - Left Ear: External ear normal. No mastoid tenderness. - Nose: Tube packing in the bilateral naris no active bleeding. - Mouth/Throat: The oropharynx is clear and moist. No trismus in the jaw. No dental abscesses or uvula swelling. No oropharyngeal exudate or tonsillar abscesses. EYES: Conjunctivae and EOM are normal. Pupils are equal, round, and reactive to light. Right eye exhibits no discharge. Left eye exhibits no discharge. No scleral icterus. NECK: Normal range of motion. Neck supple. No JVD present. No spinous process tenderness present. No carotid bruit present. No rigidity. No tracheal deviation and normal range of motion present. No Brudzinski's sign and no Kernig's sign noted. CV: tachycardic rate, regular rhythm, normal heart sounds and intact distal pulses. There is no peripheral edema. Palpable radial pulses bue. PULM/CHEST: Effort normal and breath sounds normal. No respiratory distress. No stridor. He has no wheezes. He has no rales. - Chest Wall: He exhibits no tenderness. ABD: The abdomen is soft. Bowel sounds are normal. He has no distension. No mass is present. There is no tenderness. There is no rebound, no guarding, no Dhillon's sign and no tenderness at McBurney's point. Rovsig negative. MUSC/SKEL: Normal range of motion. There is no peripheral edema, tenderness or deformity. LYMPH: No cervical adenopathy. NEURO: He is alert and oriented to person, place, and time. He has normal strength. No cranial nerve deficit or sensory deficit. Coordination and gait normal. GCS eye subscore is 4. GCS verbal subscore is 5. GCS motor subscore is 6. Cerebellar tests wnl. SKIN: Skin is warm and dry. He is not diaphoretic. PSYCH: He has a normal mood and affect. Behavior is normal. Judgment and thought content normal. Course Course 162: The patient was evaluated in room C12. A complete history and physical exam was performed Cardiac monitoring: An order was placed for continuous cardiac monitoring. The monitor shows a rate of 105 with patient's lungs are clear to auscultation. Is thought that the patient's difficulty breathingsinus tachycardia rhythm is due to his recent packing placed in the nose. PE is thought to be highly unlikely given he just had the surgery done less than 12 hours ago. We will contact ENT. 165: Chest x-ray viewed by is within normal limits. Spoke with the ENT PA on- call who states she will contact Dr. Hansen the patient's surgeon. 170: Spoke with Dr. Hansen the patient's surgeon who stated he did not know that anesthesia had sent the patient to the emergency department from [facility]. He agrees that PE is extremely unlikely given the patient had the surgery less than 12 hours ago. He states we could flush the patient's nasal he states it is positive we will tube packing which would improve his pain and might help his breathing. Chest x-ray read by radiology states there is some pulmonary edema. Dr. Hansen states it is possible that the patient could have negative pressure pulmonary edema from the intubation and surgical procedure however he states this is extremely rare. He recommends that the patient be admitted to the hospital service and observed overnight. He recommends not to take out the packing placed by him in the OR and to flush the tubes that are packed in the patient nares as he instructed the patient to do so. Patient is in agreement and [facility] hospitalist team Dr. Currie will be made aware of t he patient. Administered Medications Allopurinol (Allopurinol 100 Mg Tab) 100 mg PO QPM SHAUNA Stop: 09/12/20 20:59 Last Admin: 08/13/20 21:22 Dose: 100 mg Documented by: [id number] Atorvastatin Calcium (Atorvastatin 40 Mg Tab) 40 mg PO HS SHAUNA Stop: 09/12/20 20:59 Last Admin: 08/13/20 21:22 Dose: 40 mg Documented by: [id number] Doxycycline Hyclate (Doxycycline Hyclate 100 Mg Cap) 100 mg PO BID SHAUNA Stop: 08/23/20 21:29 Last Admin: 08/13/20 21:22 Dose: 100 mg Documented by: [id number] Famotidine (Famotidine 20 Mg Tab) 20 mg PO BID SHAUNA Stop: 09/12/20 20:59 Last Admin: 08/13/20 21:22 Dose: 20 mg Documented by: [id number] Insulin Aspart (Insulin Aspart 100 Units/Ml 3 Ml Pen) 0 units SC ACHS SHAUNA Stop: 09/12/20 20:59 Last Admin: 08/13/20 21:17 Dose: 13 units Documented by: [id number] Cosigned by: [id number] Montelukast Sodium (Montelukast Sodium 10 Mg Tablet) 10 mg PO QPM SHAUNA Stop: 09/12/20 20:59 Last Admin: 08/13/20 21:23 Dose: 10 mg Documented by: [id number] Discontinued Medications Furosemide (Furosemide 40 Mg/4 Ml Vial) 40 mg IV NOW STA Stop: 08/13/20 18:44 Last Admin: 08/13/20 18:48 Dose: 40 mg Documented by: [id number] Dexamethasone 6 mg/ Syringe 1.5 mls @ 1 mls/min IV ONE ONE Stop: 08/13/20 21:31 Last Admin: 08/13/20 21:24 Dose: 1 mls/min Documented by: [id number] Insulin Glargine (Insulin Glargine Solostar 100 Units/Ml 3 Ml Pen) 40 units SC ONE ONE Stop: 08/13/20 21:31 Last Admin: 08/13/20 21:26 Dose: Not Given Documented by: [id number] Lisinopril (Lisinopril 5 Mg Tab) 10 mg PO NOW STA Stop: 08/13/20 18:47 Last Admin: 08/13/20 21:24 Dose: 10 mg Documented by: [id number] Metoprolol Tartrate (Metoprolol Tartrate 50 Mg Tab) 50 mg PO NOW STA Stop: 08/13/20 18:47 Last Admin: 08/13/20 21:23 Dose: 50 mg Documented by: [id number] Sodium Chloride (Sodium Chloride 0.65% Na Soln 45 Ml (Tehama)) Confirm Administered Dose 225 sprays .ROUTE .STK-MED ONE Stop: 08/13/20 21:34 Last Admin: 08/13/20 22:25 Dose: 225 sprays Documented by: [id number] Medical Decision Making Laboratory Data Result diagrams: 08/13/20 16:26 08/13/20 18:25 Lab Results 08/13/20 08/13/20 Range/Units 16:26 16:26 WBC 21.21 H (4.8-10.8) K/uL RBC 4.85 (4.7-6.1) M/uL Hgb 14.3 (14.0-18.0) g/dL Hct 40.0 L (42-52) % MCV 82.5 (80-100) fL MCH 29.5 (25-34) pg MCHC 35.8 (32-36) g/dL RDW Std Deviation 42.3 (36.4-46.3) fL RDW Coeff of María Elena 14.1 (11.5-14.5) % Plt Count 207 (130-400) K/uL MPV 10.5 H (7.4-10.4) fL Immature Gran % (Auto) 0.7 % Neut % (Auto) 91.1 % Lymph % (Auto) 3.1 % Union % (Auto) 5.0 % Eos % (Auto) 0.0 % Baso % (Auto) 0.1 % Neut # (Auto) 19.32 H (1.4-6.5) K/uL Lymph # (Auto) 0.66 L (1.2-3.4) K/uL Union # (Auto) 1.07 H (0.11-0.59) K/uL Eos # (Auto) 0.00 (0-0.5) K/uL Baso # (Auto) 0.02 (0-0.2) K/uL Immature Gran # (Auto) 0.14 H (0.00-0.02) K/uL Sodium 134 L (136-145) mmol/L Potassium (3.5-5.1) mmol/L Chloride 104 (98-107) mmol/L Carbon Dioxide 18 L (21-32) mmol/L Anion Gap 12.0 H (3-11) BUN 17 (7-18) mg/dl Creatinine 1.56 H (0.6-1.4) mg/dl Est Cr Clr Drug Dosing 77.4 ml/min Est GFR ( Amer) 62.6 Est GFR (Non-Af Amer) 54.0 BUN/Creatinine Ratio 11.0 (10-20) Glucose 276 H (70-99) mg/dl Calcium 8.4 L (8.5-10.1) mg/dl Troponin I < 0.015 (0-0.045) ng/ml NT-Pro-B Natriuret Pep 92 (0-450) pg/ml Imaging Data Radiologist's Impression: Chest X-Ray 08/13/20 16:37 XR chest 1V portable CLINICAL HISTORY: sob COMPARISON STUDY: Chest radiograph November 24, 2019. FINDINGS: Mediastinal wires and prosthetic mitral valve are noted. There is cardiomegaly. Interstitial thickening is noted. Bibasilar opacities are also present. No pneumothorax or pleural effusion is noted. IMPRESSION: 1. Cardiomegaly with interstitial thickening which favors pulmonary edema. 2. Bibasilar opacities which could reflect an infectious process or alveolar edema. Radiographic follow-up is recommended. ACT 112: Negative or not required by law. Electronically signed by: Felice Moreno M.D. 08/13/2020 4:54 PM [facility] Narrative 1627: The patient was evaluated in room C12. A complete history and physical exam was performed Cardiac monitoring: An order was placed for continuous cardiac monitoring. The monitor shows a rate of 105 with patient's lungs are clear to auscultation. Is thought that the patient's difficulty breathingsinus tachycardia rhythm is due to his recent packing placed in the nose. PE is thought to be highly unlikely given he just had the surgery done less than 12 hours ago. We will contact ENT. 1654: Chest x-ray viewed by is within normal limits. Spoke with the ENT PA on- call who states she will contact Dr. Hansen the patient's surgeon. 1705: Spoke with Dr. Hansen the patient's surgeon who stated he did not know that anesthesia had sent the patient to the emergency department from [facility]. He agrees that PE is extremely unlikely given the patient had the surgery less than 12 hours ago. He states we could flush the patient's nasal he states it is positive we will tube packing which would improve his pain and might help his breathing. Chest x-ray read by radiology states there is some pulmonary edema. Dr. Hansen states it is possible that the patient could have negative pressure pulmonary edema from the intubation and surgical procedure however he states this is extremely rare. He recommends that the patient be admitted to the hospital service and observed overnight. He recommends not to take out the packing placed by him in the OR and to flush the tubes that are packed in the patient nares as he instructed the patient to do so. Patient is in agreement and [facility] hospitalist team Dr. Currie will be made aware of the patient. Impression & Plan Acute dyspnea Discharge Plan Visit Data Chief Complaint: Shortness of Breath/Dyspnea Stated Complaint: SOB ED Provider: Hill Delvalle Discharge Problem: Acute dyspnea Patient Disposition: Admitted As Inpatient Discharge Instructions Interventions: ED Discharge Assessment Last Done: 08/13/20 20:13
[2020-08-13] MEDS: ACETAMINOPHEN 325 MG TAB PO PRN (23:58)
[2020-08-14] MEDS: CLINDAMYCIN 600 MG in DEXTROSE 5% 50 ML IV SCH ×3 (00:24→16:15)
[2020-08-14] MEDS: levoFLOXacin/D5W 750 MG/150 ML BAG IV SCH ×2 (00:25→23:34)
[2020-08-14] MEDS: LEVALBUTEROL 1.25MG/0.5ML NEB INH SCH ×2 (01:15→07:25)
[2020-08-14] MEDS: IPRATROPIUM BROMIDE NEB SOLN 0.02% 2.5 ML VIAL INH SCH ×2 (01:15→07:25)
[2020-08-14] MEDS: INSULIN ASPART 100 UNITS/ML 3 ML PEN SC SCH ×8 (01:29→23:42)
[2020-08-14] MEDS: dexAMETHasone 6 MG in SYRINGE 0 ML IV SCH ×2 (03:52→09:02)
[2020-08-14 06:38] LABS: Basophils # (auto) 0.01 K/uL (0-0.2); Basophils % (auto) 0.1 %; Hematocrit (blood only) 38.3 % (42-52); Hemoglobin 13.1 g/dL (14.0-18.0); Immature Granulocytes # (auto) 0.14 K/uL (0.00-0.02); Immature Granulocytes % (auto) 0.8 %; Lymphocytes # (auto) 0.94 K/uL (1.2-3.4); Lymphocytes % (auto) 5.3 %; Mean Corpuscular Hemoglobin 28.7 pg (25-34); Mean Corpuscular Hgb Conc 34.2 g/dL (32-36); Mean Corpuscular Volume 83.8 fL (80-100); Mean Platelet Volume 9.8 fL (7.4-10.4); Monocytes # (auto) 0.73 K/uL (0.11-0.59); Monocytes % (auto) 4.1 %; Neutrophils # (auto) 16.06 K/uL (1.4-6.5); Neutrophils % (auto) 89.7 %; Platelet Count 180 K/uL (130-400); RDW Coefficient of Variation 14.3 % (11.5-14.5); RDW Standard Deviation 43.6 fL (36.4-46.3); Red Blood Count 4.57 M/uL (4.7-6.1); White Blood Count 17.88 K/uL (4.8-10.8)
[2020-08-14 07:17] LABS: BUN Creatinine Ratio 15.3 (10-20); Calcium 8.3 mg/dl (8.5-10.1); Creatinine Clr Calc Pharmacy 84.4 ml/min; Est GFR (African American) 71.3; Est GFR (Non-African American) 61.5; Magnesium 1.9 mg/dl (1.8-2.4); Potassium 4.3 mmol/L (3.5-5.1)
[2020-08-14] MEDS ORDERED: INSULIN HUMAN NPH SC SCH ×2 (08:00→09:00)
[2020-08-14] MEDS ORDERED: INSULIN GLARGINE SOLOSTAR 100 UNITS/ML 3 ML PEN SC ONE ×3 (08:00→21:00)
[2020-08-14] MEDS: FLUTICASONE/VILANTEROL 200/25MCG 14 PUFFS/INHALER INH SCH (08:15)
[2020-08-14] MEDS: lisinopril 10 MG TAB PO SCH (08:16)
[2020-08-14] MEDS: METOPROLOL TARTRATE 25 MG TAB PO SCH ×2 (08:16→20:52)
[2020-08-14] MEDS: FAMOTIDINE 20 MG TAB PO SCH ×2 (08:16→20:52)
--- NOTE | 2020-08-14 08:22 | XRay Report ---
XR chest 1V portable HISTORY: Shortness of breath. Pulmonary edema. Follow-up. COMPARISON: Chest 08/05/2020. FINDINGS: No pneumothorax. No pleural effusions. The heart remains enlarged. There are poststernotomy changes. Improved aeration within the hazy bibasilar airspace opacities. IMPRESSION: Interval improvement in the hazy bibasilar airspace opacities. This could represent resolving pulmona ry edema or pneumonia. ACT 112: Negative or not required by law. Electronically signed by: Chandan Schneider M.D. 08/14/2020 8:21 AM
[2020-08-14] MEDS ORDERED: IPRATROPIUM BROMIDE NEB SOLN 0.02% 2.5 ML VIAL INH PRN (10:17)
[2020-08-14] MEDS ORDERED: LEVALBUTEROL 1.25MG/0.5ML NEB INH PRN (10:17)
[2020-08-14] MEDS: ACETAMINOPHEN 325 MG TAB PO PRN (11:20)
[2020-08-14 11:44] LABS: Estimated Average Glucose 171 mg/dl; Hemoglobin A1C 7.6 % (4.5-5.6)
--- NOTE | 2020-08-14 15:47 | Hospitalist Progress Note ---
Date of Service August 14, 2020 Assessment & Plan (1) Hypoxia: (2) Sinus tachycardia: Hypoxemic respiratory failure, possible secondary to postop, anesthesia effect patient had septoplasty, turbinate surgery by Dr. Dyson. Postop after extubation patient with noted hypoxia to 80s and reportedly increased to 90s with positive pressure. Initially patient required 6 L oxygen via oxygen mask, This morning hypoxia has resolved remains in room air CXR: Cardiomegaly with interstitial thickening which favors pulmonary edema. Bibasilar opacities which could reflect an infectious process or alveolar edema. Patient received IV Lasix Repeat chest x-ray shows improvement of pulmonary congestion Elevated lactic acid: Possible secondary to hypoxia, Continue to follow level. Fluid discontinued secondary to pulmonary congestion On empiric antibiotic with IV clindamycin and Levaquin (3) S/P nasal septoplasty: had nasal septoplasty, bilateral inferior turbinate reduction, left & right maxillary sinusotomy, bilateral total ethmoidectomy by Dr Dyson Packing in place. No active bleeding noted ENT consulted, discussed with Dr. Dyson-patient will be seen by him later today to remove nasal packing Recommends to discontinue IV steroids Continue empiric antibiotic for at least 24 hours (4) LEONCIO (acute kidney injury): Resolved creatinine improved to baseline (5) DM type 2 (diabetes mellitus, type 2): A1c: 6.4 in 05/05/2020 Blood sugar was elevated secondary to steroids, Appreciate input from pharmacy for glycemic management (6) HTN (hypertension): Blood pressure been stable Continue lisinopril, metoprolol (7) HLD (hyperlipidemia): Continue atorvastatin (8) Asthma, mild persistent: Xopenex/Atrovent nebs as above Continue Advair, singular (9) Mitral regurgitation: S/p mitral valve repair in 2008 DVT Prophylaxis -SCDs Full Code Follows with Dr Lawton for routine care Plan for discharge home tomorrow if remains medically stable Admission and Anticipated Discharge Date Admission Date: August 13, 2020 Subjective Patient is no longer hypoxic, remains in room air, Appears to be anxious Worried about when nasal packing will be removed No dysphagia, diet advanced to solid, No fever or chills, no cough no shortness of breath Review of Systems Review of Systems: All systems reviewed & are unremarkable except as noted in Subjective Physical Exam Physical Exam: Physical exam: General: No acute distress, alert awake oriented x3 HEENT: Status post rhinoplasty, nasal packing in place Heart: Regular S1-S2, no carotid bruit, no JVD, no lower extremity edema Lungs: Clear to auscultate, no wheeze or rales Abdomen: Soft nontender, no organomegaly Extremity: No cyanosis, no deformity, normal strength 5 out of 5 with upper and lower Neuro: No focal neurological deficit normal speech, normal visual field, Motor strength : normal both upper and lower extremity, sensation intact Psych: Alert awake oriented x3, normal affect Results & Data Results & Data ([facility]) Vital Signs (Past 12 Hours) Vital Signs Temp Pulse Resp BP Pulse Ox 08/14/20 11:54 36.6 C 95 H 18 128/66 98 08/14/20 07:54 36.8 C 70 20 118/59 L 95 08/14/20 07:26 78 16 95 08/14/20 04:02 36.4 C L 97 H 16 117/80 98
--- NOTE | 2020-08-14 15:48 | Pharmacy Report ---
Pharmacy Glycemic Short Note 2 - Date of Service August 14, 2020 - Glycemic Short BSG Results (Last 24 hours): 08/13/20 08/13/20 08/14/20 16:26 21:01 01:22 Glucose 276 H POC Glucose 268 H 241 H 08/14/20 08/14/20 08/14/20 04:39 06:21 07:13 Glucose 205 H POC Glucose 209 H 216 H 08/14/20 11:18 Glucose POC Glucose 220 H OUTPATIENT ANTIDIABETIC REGIMEN: * Novolog 8 units w/ breakfast, 10 units w lunch, 6 units with dinner * Metformin 1000 mg BID * A1c 7.6% 08/14 ASSESSMENT: * Patient admitted after septoplasty performed at [facility] as patient having low oxygen saturations. BSGs elevated in the 200s, was started on dexamethasone 6 mg IV q6H. Patient received 3 doses and this was discontinued this afternoon. * Patient refused order for 40 units of lantus last PM. Initially ordered 10 units of lantus + 45 units of NPH this morning (.4 units/kg to help cover dexamethasone) but patient not comfortable with this dosing. After discussing with patient he reports that he drops lower overnight and he is fearful that the ordered doses are too high. He reports that he begins to feel symptomatic when BSGs are lower than 120 mg/dL, therefore did adjust goal range to 120-160 mg/dL. Did discuss with patient that he was a steroid called dexamethasone that increases glucose levels and insulin needs can drastically rise while on this medication. Discussed the intermediate action of the NPH and that it typically last ~12 hrs although it could be +/- in some patients, patient was okay with receiving 10 units of lantus and 10 units of NPH. * Pts self checked with own monitor around 1100 and BSG was 255 mg/dL. Discussed with patient and reported he would like another 5 units of lantus. Did discuss it had been ~2 hrs from his first lantus dose and that it had likely just started working and his novolog is still active, however, do think it is appropriate for additional insulin orders as his doses were significantly below his weight based basal need. correction factor was also adjusted as patient had little carbs with breakfast and BSG was increased from AM glucose. * Dexamethasone was discontinued after parameters tightened. Will set sliding scale for PM lantus with overnight checks. PLAN FOR INPATIENT GLYCEMIC CONTROL: * Hold outpatient oral diabetes medications * Basal insulin * Lantus 15 units this morning; scale for up to an additional 10 units this evening * Bolus insulin * NovoLog per scale ACHS or Q6hrs while NPO * Goal Range: Low 120 mg/dL - High 160 mg/dL * Correction Factor: 12 mg/dL/unit * Nutritional / Prandial insulin per carb ratio of 1 unit per 5 grams CHO consumed
--- NOTE | 2020-08-14 17:28 | Ears,Nose,Throat Progress Note ---
Date of Service August 14, 2020 Assessment & Plan (1) S/P nasal septoplasty: His nasal packing and straws are out, he has been educated on the standard protocol for post-op care, and supplies were made avialbe to him by me to use while at [facility]. I shared this with his nurse. He may be discharged at the discretion of the [facility] Hospitalist. He should have been provided with pain meds after surgery at [facility] on 08/13/20. He does not need any oral antibiotics for his nose and sinuses. He has an appointment to see me on 08/22/20 at [facility]. Present on Admission?: Yes Admission and Anticipated Discharge Date Admission Date: August 13, 2020 Subjective Eager for packing and straws to be removed. Physical Exam Physical Exam: Intranasal straws and packing were removed without difficulty, and both sides of the nose suctioned with a #9 Jose tipped suction. No active bleeding. Oxymetazoline 0.05%: 2 puffs to each nostril applied. Results & Data ([facility]) Vital Signs (Past 12 Hours) Vital Signs Temp Pulse Resp BP Pulse Ox 08/14/20 11:54 36.6 C 95 H 18 128/66 98 08/14/20 07:54 36.8 C 70 20 118/59 L 95 08/14/20 07:26 78 16 95
--- NOTE | 2020-08-14 17:58 | XCELERA ---
[id number]
[2020-08-14] MEDS ORDERED: OXYMETAZOLINE 0.05% 30 ML BTL NAE ONE (18:17)
[2020-08-14] MEDS: SODIUM CHLORIDE 0.65% NA SOLN 45 ML (OCEAN) SCH ×2 (18:31→21:00)
--- NOTE | 2020-08-14 20:08 | Electrocardiogram Report ---
Test Reason : Blood Pressure : / mmHG Vent. Rate : 118 BPM Atrial Rate : 118 BPM P-R Int : 142 ms QRS Dur : 120 ms QT Int : 328 ms P-R-T Axes : 007 075 037 degrees QTc Int : 459 ms Poor data quality, interpretation may be adversely affected Sinus tachycardia Possible Inferior infarct , age undetermined Abnormal ECG When compared with ECG of 24-NOV-2019 14:31, Borderline criteria for Inferior infarct are now Present Confirmed by Josh Ray ([id number]) on 08/14/2020 8:07:43 PM Referred By: Carlos Dyson Confirmed By:Josh Ray
[2020-08-14] MEDS: allopurinoL 100 MG TAB PO SCH (20:52)
[2020-08-14] MEDS: ATORVASTATIN 40 MG TAB PO SCH (20:52)
[2020-08-14] MEDS: MONTELUKAST SODIUM 10 MG TABLET PO SCH (20:52)
[2020-08-15] MEDS: INSULIN ASPART 100 UNITS/ML 3 ML PEN SC SCH ×3 (04:07→13:02)
[2020-08-15 06:20] LABS: Basophils # (auto) 0.01 K/uL (0-0.2); Basophils % (auto) 0.1 %; Hematocrit (blood only) 38.9 % (42-52); Hemoglobin 13.1 g/dL (14.0-18.0); Immature Granulocytes # (auto) 0.15 K/uL (0.00-0.02); Immature Granulocytes % (auto) 0.9 %; Lymphocytes # (auto) 1.75 K/uL (1.2-3.4); Lymphocytes % (auto) 10.4 %; Mean Corpuscular Hemoglobin 28.8 pg (25-34); Mean Corpuscular Hgb Conc 33.7 g/dL (32-36); Mean Corpuscular Volume 85.5 fL (80-100); Mean Platelet Volume 9.8 fL (7.4-10.4); Monocytes # (auto) 1.52 K/uL (0.11-0.59); Neutrophils # (auto) 13.44 K/uL (1.4-6.5); Neutrophils % (auto) 79.6 %; Platelet Count 201 K/uL (130-400); RDW Coefficient of Variation 14.8 % (11.5-14.5); RDW Standard Deviation 45.6 fL (36.4-46.3); Red Blood Count 4.55 M/uL (4.7-6.1); White Blood Count 16.87 K/uL (4.8-10.8)
[2020-08-15 06:49] LABS: BUN Creatinine Ratio 18.3 (10-20); Calcium 8.7 mg/dl (8.5-10.1); Creatinine Clr Calc Pharmacy 86.7 ml/min; Est GFR (African American) 74.5; Est GFR (Non-African American) 64.3; Potassium 4.3 mmol/L (3.5-5.1)
[2020-08-15] MEDS: ACETAMINOPHEN 325 MG TAB PO PRN (07:40)
[2020-08-15] MEDS: METOPROLOL TARTRATE 25 MG TAB PO SCH (08:41)
[2020-08-15] MEDS: FAMOTIDINE 20 MG TAB PO SCH (08:41)
[2020-08-15] MEDS: lisinopril 10 MG TAB PO SCH (08:41)
[2020-08-15] MEDS: FLUTICASONE/VILANTEROL 200/25MCG 14 PUFFS/INHALER INH SCH (08:46)
[2020-08-15] MEDS: SODIUM CHLORIDE 0.65% NA SOLN 45 ML (OCEAN) SCH ×2 (08:49→14:25)
[2020-08-15] MEDS ORDERED: FLUTICASONE PROPIONATE NA SPR 16 GM BTL SCH (09:00)
[2020-08-15] MEDS ORDERED: UMECLIDINIUM BROMIDE 62.5MCG/BLISTER 7 PUFFS/INHALER INH SCH (09:00)
[2020-08-15] MEDS ORDERED: LACTATED RINGER'S 1,000 ML IV SCH (09:30)
--- NOTE | 2020-08-15 13:29 | Discharge Summary ---
Date of Service August 15, 2020 Admission HPI Per Admitting Provider Pt is 44 y/o M with PMH HTN, HLD, asthma, insulin-dependent DM II, mitral regurgitation S/P repair in 2008 presented to ER for hypoxia. Today patient had septoplasty, turbinate surgery by Dr. Dyson. Postop after extubation patient with noted hypoxia to 80s and reportedly increased to 90s with positive pressure. In PACU patient was unable to be weaned off oxygen and had reported shortness of breath. He was given 2 duo nebs and 1 albuterol treatment without improvement and was referred to ER. Currently patient has nasal packing in place and denies any sore throat or dysphagia or sensation of drainage in orop harynx. He reports shortness of breath. Denies chest pain. Patient had negative Covid test on 08/11/2020. Denies fever/chills, diaphoresis, N/V/D/C, MERRILL, dizziness, syncope, vision changes, neck pain, palpitations, cough, choking, epistaxis, abdominal pain, paresthesias, weakness, extremity weakness, extremity edema, rashes, urinary symptoms. Principal Diagnosis s/p nasal saptoplasty Discharge Exam Physical exam: General: No acute distress, alert awake oriented x3 HEENT: nasal packing has been removed , no pain or swelling , no bleeding in the nasal turbinate Heart: Regular S1-S2, no carotid bruit, no JVD, no lower extremity edema Lungs: Clear to auscultate, no wheeze or rales Abdomen: Soft nontender, no organomegaly Extremity: No cyanosis, no deformity, normal strength 5 out of 5 with upper and lower Neuro: No focal neurological deficit normal speech, normal visual field, Motor strength : normal both upper and lower extremity, sensation intact Psych: Alert awake oriented x3, normal affect Discharge Data Allergies Allergy/AdvReac Type Severity Reaction Status Date / Time Cephalosporins Allergy Unknown Unknown Verified 08/14/20 10:27 erythromycin base Allergy Unknown Unknown Verified 08/14/20 10:27 Penicillins Allergy Unknown Unknown Verified 08/14/20 10:27 Sulfa (Sulfonamide Allergy Unknown Unknown Verified 08/14/20 10:27 Antibiotics) Consultations 08/13/20 16:54 Consult Otolaryngology (Head and Neck) Stat 08/13/20 17:12 ED Decision to Admit Stat 08/13/20 20:32 Consult Otolaryngology (Head and Neck) Routine Hospital Course (1) Hypoxia: (2) Sinus tachycardia: resolved no tachyarrythima , stable vitals Hypoxemic respiratory failure, possible secondary to postop, anesthesia effect patient had septoplasty, turbinate surgery by Dr. Dyson. Postop after extubation patient with noted hypoxia to 80s and reportedly increased to 90s with positive pressure. Initially patient required 6 L oxygen via oxygen mask, This morning hypoxia has resolved remains in room air CXR: Cardiomegaly with interstitial thickening which favors pulmonary edema. Bibasilar opacities which could reflect an infectious process or alveolar edema. Patient received IV Lasix Repeat chest x-ray shows improvement of pulmonary congestion Elevated lactic acid: Possible secondary to hypoxia,resolved , normal level now Fluid discontinued secondary to pulmonary congestion abx d/pam (3) S/P nasal septoplasty: had nasal septoplasty, bilateral inferior turbinate reduction, left & right maxillary sinusotomy, bilateral total ethmoidectomy by Dr Dyson ENT consulted, discussed with Dr. Dyson-patient will be seen by him /nasal packing removed pt reports feeling much better Recommends to discontinue IV steroids and abx (4) LEONCIO (acute kidney injury): Resolved creatinine improved to baseline (5) DM type 2 (diabetes mellitus, type 2): A1c: 6.4 in 05/05/2020 Blood sugar was elevated secondary to steroids, improved after steroid d/pam Appreciate input from pharmacy for glycemic management (6) HTN (hypertension): Blood pressure been stable Continue lisinopril, metoprolol (7) HLD (hyperlipidemia): Continue atorvastatin (8) Asthma, mild persistent: Xopenex/Atrovent nebs as above Continue Advair, singular (9) Mitral regurgitation: S/p mitral valve repair in 2008 DVT Prophylaxis -SCDs Full Code Follows with Dr Lawton for routine care discharged to home today Total Time Total Time Spent Total Time Spent (In Minutes): 35 mins Total Time Includes: Examination of the Patient, Discharge Planning and Medication Reconciliation Discharge Plan Discharge Items Patient Disposition: Home - Self-Care Reason For Visit: HYPOXIA Discharge Diagnosis: S/P Nasal Saptoplasty Activity: Resume your previous activity Non-emergency contact: Primary Care Provider Call non-emergency contact if: you have any medication questions Follow-up/Referrals: Carlos Dyson MD [Surgeon] - 08/20/20 Edgar Lawton MD [Primary Care Provider] - (Hospital follow-up in a week) Diet: Regular Addtl Attending Provider Instructions: Please take all medications as instructed on discharge list below. It is recommended that you follow-up with your primary care physician within 1-2 weeks of hospital discharge to ensure you are still doing well. Please call if you have any questions or problems. You can reach a [facility] hospitalist on duty at [facility] 24 hours a day by calling [phone] [employer] Project Manager Provider Instructions: Follow up with Dr Dyson on 08/22/20 at [facility]. Pending Studies at Discharge: No Stand-Alone Forms: My [facility], Smoking Cessation Medications and DC Order Prescriptions: New levalbuterol HCl 1.25 mg/0.5 mL Solution For Nebulization 1.25 mg inhalation Q6R PRN (Reason: shortness of breath or wheezing) 30 Days Qty: 30 RF: 0 Continued atorvastatin 40 mg tablet 40 mg PO HS RF: 0 fluticasone propion-salmeterol [Advair Diskus] 500-50 mcg/dose blister with device 1 inh inhalation BID RF: 0 albuterol sulfate 2.5 mg /3 mL (0.083 %) solution for nebulization 2.5 mg inhalation Q4H PRN (Reason: Cough and Wheezing) RF: 0 allopurinol 100 mg tablet 100 mg PO QPM RF: 0 mometasone 50 mcg/actuation spray,non-aerosol 2 spray INTRANASAL BID RF: 0 montelukast 10 mg tablet 10 mg PO QPM RF: 0 albuterol sulfate 90 mcg/actuation HFA aerosol inhaler 2 puff INHALATION Q4H PRN (Reason: Cough,SOB Or Wheezing) RF: 0 cholecalciferol (vitamin D3) 1,250 mcg (50,000 unit) capsule 50,000 unit PO WK RF: 0 metoprolol tartrate 25 mg tablet 25 mg PO BID RF: 0 Spiriva with HandiHaler 18 mcg capsule, w/inhalation device 1 cap INHALATION DAILY RF: 0 famotidine 20 mg tablet 20 mg PO BID RF: 0 metformin 500 mg tablet 1,000 mg PO BIDM RF: 0 insulin aspart U-100 [Novolog Flexpen U-100 Insulin] 100 unit/mL (3 mL) insulin pen 0 unit SUBCUT TIDM RF: 0 lisinopril 10 mg tablet 10 mg PO QAM RF: 0 azelastine 137 mcg (0.1 %) aerosol,spray 2 spray INTRANASAL BID RF: 0 Discharge Orders: Discharge Order (Routine); Ordered 08/15/20 Ordered By: Francy Andre/Other Patient Handouts: Managing Type 2 Diabetes, Preventing Deep Vein Thrombosis, Managing Diabetes: The A1C Test Admission Data Admit Date/Time: 08/13/20 17:51 Attending Provider: Francy Muro Admit Provider: Carson Adams Primary Care Provider: Edgar Lawton Other Providers: Carlos Dyson ; Carson Adams Other Interventions: Discharge Summary Assessment (RN) Last Done: 08/15/20 16:32
== END 2020-08-15 18:18 | disposition home or self-care (01) | DRG 189 ==
LOC: ED 16:09 → SUATTDRO 17:51 → 2S 17:51 → 3N 08-14 18:10

== ENCOUNTER 2020-10-10 11:44 | Inpatient (IN) ==
[2020-10-10] MEDS ORDERED: SODIUM CHLORIDE 0.9% 1000ML 1,000 ML IV ONE (12:41)
[2020-10-10] MEDS ORDERED: ONDANSETRON INJ 2 MG/ML 2 ML VIAL IV STA (12:41)
[2020-10-10] MEDS ORDERED: KETOROLAC TROMETHAMINE 15 MG/ML VIAL IV STA (12:41)
[2020-10-10 13:15] LABS: Basophils # (auto) 0.04 K/uL (0-0.2); Basophils % (auto) 0.5 %; Eosinophils % (auto) 2.4 %; Hematocrit (blood only) 40.3 % (42-52); Hemoglobin 13.7 g/dL (14.0-18.0); Immature Granulocytes # (auto) 0.11 K/uL (0.00-0.02); Immature Granulocytes % (auto) 1.3 %; Lymphocytes % (auto) 18.3 %; Mean Corpuscular Volume 85.2 fL (80-100); Mean Platelet Volume 9.9 fL (7.4-10.4); Monocytes # (auto) 0.72 K/uL (0.11-0.59); Monocytes % (auto) 8.8 %; Neutrophils # (auto) 5.64 K/uL (1.4-6.5); Neutrophils % (auto) 68.7 %; Platelet Count 170 K/uL (130-400); RDW Coefficient of Variation 14.2 % (11.5-14.5); RDW Standard Deviation 44.2 fL (36.4-46.3); Red Blood Count 4.73 M/uL (4.7-6.1); White Blood Count 8.21 K/uL (4.8-10.8)
[2020-10-10 13:22] LABS: Appearance Urine Clear (Clear); Bacteria Urine Automated Negative (Negative); Bilirubin Urine Negative (Negative); Blood Urine Trace (Negative); Cast Urine Automated 0 /lpf (0-5); Color Urine Yellow; Epithelial Cell Urine Auto 0-5 /lpf (0-5); Glucose Urine UA Negative (Negative); Ketones Urine Negative (Negative); Leukocyte Esterase Urine Negative (Negative); Nitrite Urine Negative (Negative); Protein Urine Negative (Negative); RBC Urine Automated 0-4 /hpf (0-4); Specific Gravity Urine 1.013 (1.000-1.030); Urobilinogen Urine Negative (Negative); WBC Urine Automated 0 /hpf (0-5)
[2020-10-10 13:25] LABS: Albumin Level 3.6 gm/dl (3.4-5.0); BUN Creatinine Ratio 15.9 (10-20); Calcium 8.9 mg/dl (8.5-10.1); Creatinine Clr Calc Pharmacy 119.2 ml/min; Est GFR (African American) 106.4 ml/min; Est GFR (Non-African American) 91.8 ml/min; Potassium 4.2 mmol/L (3.5-5.1)
[2020-10-10 13:32] LABS: Albumin Globulin Ratio 1.1 (0.9-2); Bilirubin,Total 0.5 mg/dl (0.2-1); Globulin 3.4 gm/dl (2.5-4.0)
[2020-10-10] MEDS ORDERED: OPTIRAY 320 100ml IV ONE (14:37)
--- NOTE | 2020-10-10 14:51 | CT Scan Report ---
CT SCAN OF THE ABDOMEN AND PELVIS WITH IV CONTRAST CLINICAL HISTORY: Left upper quadrant abdominal pain. Reported history of pancreatitis. COMPARISON STUDY: Abdominal CT dated 11/24/2019. TECHNIQUE: Following the IV administration of 94 cc of Optiray 320, CT scan of the abdomen and pelvi s is performed from the lung bases to the proximal femora. Images are reviewed in the axial, sagittal , and coronal planes. IV contrast was administered without complication. A dose lowering technique wa s utilized adhering to the principles of ALARA. CT DOSE: 1656.33 mGy.cm FINDINGS: Lung bases: The patient is status post midline sternotomy and mitral valve surgery. The heart is enla rged and without pericardial effusion. The lung bases are clear noting dependent atelectasis. There i s a small hiatal hernia. Liver: The contrast-enhanced liver is enlarged, measuring over 18 cm in length. The liver demonstrate s diffusely diminished attenuation consistent with severe hepatic steatosis. There is no intrahepatic biliary ductal dilatation. The hepatic veins and portal veins are patent. Gallbladder: Surgically absent. Spleen: Normal in size and attenuation. Pancreas: Unremarkable. Adrenal glands: Unremarkable. Kidneys: The contrast enhanced kidneys are normal in size and without hydronephrosis. The kidneys enh ance symmetrically. A 2.6 cm cyst is noted in the right lower pole. Abdominal vasculature: The abdominal aorta is normal in course and caliber. 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 The duodenum fails to cross the midline and the: An d cecum are located within the left abdomen. There are scattered colonic diverticula without CT evide nce of acute diverticulitis. No bowel obstruction is seen. The appendix is well-visualized and sharad l. Peritoneum: There is no intraperitoneal free air or abdominal ascites. There are large fat-containing umbilical and supraumbilical hernias. There is mild infiltration of the fat within and around these hernias. Lymphadenopathy: None. Pelvic viscera: The bladder, prostate, and seminal vesicles are normal as visualized. There is a larg e fat-containing left inguinal hernia. Skeletal structures: No lytic or blastic lesions are seen. IMPRESSION: 1. Again seen are large umbilical and supraumbilical hernias. There is infiltration of the fat within and around these hernias. Correlate clinically for evidence of incarceration. 2. Hepatomegaly and severe back steatosis. 3. Cardiomegaly. 4. 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 5. Large fat-containing left inguinal hernia. 6. Additional findings as above.. ACT 112: Negative or not required by law. Electronically signed by: Maximino Conner M.D. 10/10/2020 2:49 PM
--- NOTE | 2020-10-10 16:50 | Emergency Department Note ---
History of Present Illness General Chief complaint: Flank Pain Stated complaint: LEFT SIDE PAIN,NAUSEA,POSS PANCRATIS FLARE UP Time Seen by Provider: 10/10/20 12:17 Source: patient Mode of arrival: ambulatory Limitations: no limitations History of Present Illness Maximum Pain Intensity: 3 This patient is a 45-year-old male who presents to the emergency department for evaluation of left-sided abdominal pain and nausea. Patient states that he has had nausea for the past 2 weeks. He is prescribed Protonix and just began taking this a few days ago. He states that a few days ago, he noticed a bruise on the left lower side of his abdomen. He does give himself insulin injections in the abdomen, but typically gives these on the right side and is unsure if these are what caused the bruise. He states he has been having pain in the left lower abdomen which has been worsening over the past 2 to 3 days. He rates his current discomfort an 8/10. He denies any vomiting. He denies fevers. He reports a history of pancreatitis and feels that his pain is somewhat similar to that. He does not drink alcohol regularly and states that he had one drink a few weeks ago. Patient reports a history of esophagitis, pancreatitis and insulin-dependent diabetes. He has had a prior mitral valve repair and sinus surgery. Home Medications Medication Instructions Recorded Confirmed Type albuterol sulfate 2 puff INHALATION Q4H PRN 11/24/19 10/10/20 History albuterol sulfate 2.5 mg INHALATION Q4H PRN 11/24/19 10/10/20 History allopurinol 100 mg PO QPM 11/24/19 10/10/20 History cholecalciferol (vitamin D3) 50,000 unit PO WK 11/24/19 10/10/20 History mometasone 2 spray INTRANASAL BID 11/24/19 10/10/20 History montelukast 10 mg PO QPM 11/24/19 10/10/20 History atorvastatin 40 mg tablet 40 mg PO HS 01/02/20 10/10/20 History fluticasone 500 mcg-salmeterol 50 1 inh INHALATION BID 07/07/20 10/10/20 History mcg/dose blistr powdr for inhalation metoprolol tartrate 25 mg tablet 25 mg PO BID tab 07/07/20 10/10/20 History Spiriva with HandiHaler 1 cap INHALATION DAILY 08/13/20 10/10/20 History azelastine 2 spray INTRANASAL BID 08/13/20 10/10/20 History famotidine 20 mg PO BID 08/13/20 10/10/20 History insulin aspart U-100 [Novolog 0 unit SUBCUT TIDM 08/13/20 10/10/20 History Flexpen U-100 Insulin] lisinopril 10 mg PO QAM 08/13/20 10/10/20 History metformin 1,000 mg PO BIDM 08/13/20 10/10/20 History Allergies Allergy/AdvReac Type Severity Reaction Status Date / Time Cephalosporins Allergy Intermediate Hives Verified 10/10/20 15:07 erythromycin base Allergy Unknown CAN'T Verified 10/10/20 15:07 REMEMBER Sulfa (Sulfonamide Allergy Unknown CAN'T Verified 10/10/20 15:07 Antibiotics) REMEMBER Penicillins AdvReac Intermediate Gastrointestinal Verified 10/10/20 15:07 Upset Past Med/Surg History Medical History Anxiety Asthma, mild persistent DM type 2 (diabetes mellitus, type 2) Environmental and seasonal allergies Gout HLD (hyperlipidemia) HTN (hypertension) Mitral regurgitation Mitral valve disorder Obesity Surgical History H/O exploratory laparotomy H/O nasal septoplasty History of hernia repair History of mitral valve repair S/P nasal septoplasty Family History Mother Follicular lymphoma Social History Smoking Status: Never smoker Second Hand Exposure: No; Hx Alcohol Use: No Hx Substance Use: No Preferred Language: [place] Communication Ability: Effective Healthcare Risk Control Consultant Required: No Beliefs That Will Affect Care: None Current Living Situation: Alone Other Information That Helps Us Care for You: No Feels Safe at Home: Yes Assistive Devices: None Review of Systems A total of 10 systems reviewed and were otherwise negative Physical Exam Vital Signs Vital Signs - 24 hr 10/10/20 11:46 10/10/20 14:05 10/10/20 14:06 Temperature 36.8 C Temperature Source Temporal Artery Scan Pulse Rate 97 H 93 H Pulse Rate [Right] 95 H Pulse Rhythm Regular Pulse Rhythm [Right] Regular Pulse Strength Normal Pulse Strength [Right] Respiratory Rate 18 18 18 Respiratory Effort / Characteristics Non-Labored Spontaneous Non-Labored Respiratory Depth Normal Normal Respiratory Pattern Regular Blood Pressure 169/107 H Blood Pressure [Left Arm] 134/112 H Blood Pressure Mean 127 Blood Pressure Mean [Left Arm] 119 Blood Pressure Position [Left Arm] Sitting Pulse Oximetry 94 97 Oxygen Delivery Method Room Air Nasal Cannula Room Air Sepsis Recent Fever Within 48 Hours No Sepsis New/Unexplained Change in Mental Status No Sepsis Action Taken by Nursing No Action Required 10/10/20 16:00 Temperature Temperature Source Pulse Rate Pulse Rate [Right] 92 H Pulse Rhythm Pulse Rhythm [Right] Regular Pulse Strength Pulse Strength [Right] Normal Respiratory Rate 18 Respiratory Effort / Characteristics Non-Labored Respiratory Depth Normal Respiratory Pattern Regular Blood Pressure Blood Pressure [Left Arm] 155/116 H Blood Pressure Mean Blood Pressure Mean [Left Arm] 129 Blood Pressure Position [Left Arm] Left Lateral Pulse Oximetry 97 Oxygen Delivery Method Room Air Sepsis Recent Fever Within 48 Hours Sepsis New/Unexplained Change in Mental Status Sepsis Action Taken by Nursing VITALS: Vitals are noted on the nurse's note and reviewed by myself. GENERAL: This is a 45-year-old male, in no acute distress, well-developed well- nourished. SKIN: The skin was without rashes. EARS: External auditory canals clear, tympanic membranes pearly haines without erythema or effusion bilaterally. EYES: Pupils equal round and reactive to light and accommodation. MOUTH: Mucous membranes moist. Tonsils are not enlarged. Pharynx without erythema or exudate. NECK: Supple without nuchal rigidity. No lymphadenopathy. HEART: Regular rate and rhythm without murmurs gallops or rubs. LUNGS: Clear to auscultation bilaterally without wheezes, rales or rhonchi. ABDOMEN: Positive bowel sounds x 4. Small area of ecchymosis noted to the left lower abdomen. Mild tenderness in the left lower quadrant. Abdomen otherwise nontender. No guarding or rebound tenderness. NEURO: Patient was alert and oriented to person place and time. Course Consultations Consultation #1: Dr. Carter - general surgery Consultation #2: Laila Ann [facility] hospitalist Administered Medications Acetaminophen (Acetaminophen 325 Mg Tab) 650 mg PO Q4H PRN PRN Reason: Pain or Fever Stop: 11/09/20 22:08 Last Admin: 10/12/20 20:51 Dose: 650 mg Documented by: [id number] Admin: 10/12/20 12:08 Dose: 650 mg Documented by: [id number] Allopurinol (Allopurinol 100 Mg Tab) 100 mg PO QPM SHAUNA Stop: 11/09/20 22:08 Last Admin: 10/12/20 20:40 Dose: 100 mg Documented by: [id number] Admin: 10/11/20 20:34 Dose: 100 mg Documented by: [id number] Admin: 10/10/20 23:19 Dose: 100 mg Documented by: [id number] Atorvastatin Calcium (Atorvastatin 40 Mg Tab) 40 mg PO HS SHAUNA Stop: 11/09/20 22:08 Last Admin: 10/12/20 20:40 Dose: 40 mg Documented by: [id number] Admin: 10/11/20 20:34 Dose: 40 mg Documented by: [id number] Admin: 10/10/20 23:20 Dose: 40 mg Documented by: [id number] Diclofenac Sodium (Diclofenac Sod 1% Gel 100 Gm Tube) 2 gm EXT TID SHAUNA Stop: 11/11/20 13:59 Last Admin: 10/12/20 20:34 Dose: 2 gm Documented by: [id number] Admin: 10/12/20 12:42 Dose: 2 gm Documented by: [id number] Famotidine (Famotidine 20 Mg Tab) 20 mg PO BID SHAUNA Stop: 11/09/20 22:08 Last Admin: 10/12/20 20:39 Dose: 20 mg Documented by: [id number] Admin: 10/12/20 07:31 Dose: 20 mg Documented by: [id number] Admin: 10/11/20 20:35 Dose: 20 mg Documented by: [id number] Admin: 10/11/20 08:03 Dose: 20 mg Documented by: [id number] Admin: 10/10/20 23:20 Dose: 20 mg Documented by: [id number] Fluticasone Propionate (Fluticasone Propionate Na Spr 16 Gm Btl) 2 sprays NA DAILY SHAUNA Stop: 11/09/20 22:08 Last Admin: 10/12/20 07:32 Dose: 2 sprays Documented by: [id number] Admin: 10/11/20 08:02 Dose: 2 sprays Documented by: [id number] Admin: 10/10/20 23:31 Dose: Not Given Documented by: [id number] Fluticasone/Vilanterol (Fluticasone/Vilanterol 200/25mcg 14 Puffs/Inhaler) 1 puffs INH DAILY SHAUNA Stop: 11/09/20 22:08 Last Admin: 10/12/20 07:32 Dose: 1 puffs Documented by: [id number] Admin: 10/11/20 08:02 Dose: 1 puffs Documented by: [id number] Admin: 10/10/20 23:31 Dose: Not Given Documented by: [id number] Guaifenesin (Guaifenesin 600 Mg Tabcr) 1,200 mg PO Q12 SHAUNA Stop: 11/11/20 08:59 Last Admin: 10/12/20 20:41 Dose: 1,200 mg Documented by: [id number] Admin: 10/12/20 08:21 Dose: 1,200 mg Documented by: [id number] Clindamycin Phosphate 900 mg/ (Dextrose) 56 mls @ 112 mls/hr IV Q8H SHAUNA; Protocol Stop: 10/14/20 11:59 Last Infusion: 10/12/20 21:20 Dose: 0 mls/hr Documented by: [id number] Admin: 10/12/20 20:33 Dose: 112 mls/hr Documented by: [id number] Infusion: 10/12/20 12:45 Dose: 0 mls/hr Documented by: [id number] Admin: 10/12/20 12:08 Dose: 112 mls/hr Documented by: [id number] Insulin Aspart (Insulin Aspart 100 Units/Ml 3 Ml Pen) 0 units SC ACHS SHAUNA Stop: 11/09/20 22:08 Last Admin: 10/12/20 20:35 Dose: 1 units Documented by: [id number] Cosigned by: [id number] Admin: 10/12/20 18:04 Dose: 8 units Documented by: [id number] Cosigned by: [id number] Admin: 10/12/20 12:00 Dose: 4 units Documented by: [id number] Cosigned by: [id number] Admin: 10/12/20 08:23 Dose: 3 units Documented by: [id number] Cosigned by: [id number] Admin: 10/11/20 20:39 Dose: Not Given Documented by: [id number] Cosigned by: [id number] Admin: 10/11/20 18:06 Dose: Not Given Documented by: [id number] Cosigned by: [id number] Admin: 10/11/20 12:24 Dose: 1 units Documented by: [id number] Cosigned by: [id number] Admin: 10/11/20 08:05 Dose: Not Given Documented by: [id number] Cosigned by: [id number] Admin: 10/10/20 23:32 Dose: Not Given Documented by: [id number] Cosigned by: [id number] Insulin Glargine (Insulin Glargine Solostar 100 Units/Ml 3 Ml Pen) 0 - 10 units SC BID [facility]; Protocol Stop: 11/09/20 22:08 Last Admin: 10/12/20 20:36 Dose: Not Given Documented by: [id number] Admin: 10/12/20 08:22 Dose: 5 units Documented by: [id number] Cosigned by: [id number] Admin: 10/11/20 20:45 Dose: Not Given Documented by: [id number] Admin: 10/11/20 08:05 Dose: 5 units Documented by: [id number] Cosigned by: [id number] Admin: 10/10/20 23:34 Dose: Not Given Documented by: [id number] Lisinopril (Lisinopril 10 Mg Tab) 10 mg PO QAM [facility] Stop: 11/10/20 08:59 Last Admin: 10/12/20 07:31 Dose: 10 mg Documented by: [id number] Admin: 10/11/20 12:23 Dose: 10 mg Documented by: [id number] Metoprolol Tartrate (Metoprolol Tartrate 25 Mg Tab) 25 mg PO BID [facility] Stop: 11/09/20 22:08 Last Admin: 10/12/20 20:38 Dose: 25 mg Documented by: [id number] Admin: 10/12/20 07:31 Dose: 25 mg Documented by: [id number] Admin: 10/11/20 21:23 Dose: 25 mg Documented by: [id number] Admin: 10/11/20 12:23 Dose: 25 mg Documented by: [id number] Admin: 10/10/20 23:23 Dose: 25 mg Documented by: [id number] Miscellaneous (Astelin - Order Awaiting Action) 1 ea N/A QS [facility] Stop: 11/10/20 00:00 Last Admin: 10/12/20 23:44 Dose: Not Given Documented by: [id number] Admin: 10/12/20 13:46 Dose: Not Given Documented by: [id number] Admin: 10/12/20 07:31 Dose: Not Given Documented by: [id number] Admin: 10/12/20 06:03 Dose: Not Given Documented by: [id number] Admin: 10/11/20 17:31 Dose: Not Given Documented by: [id number] Admin: 10/11/20 08:02 Dose: Not Given Documented by: [id number] Admin: 10/11/20 05:09 Dose: Not Given Documented by: [id number] Montelukast Sodium (Montelukast Sodium 10 Mg Tablet) 10 mg PO QPM SHAUNA Stop: 11/09/20 22:08 Last Admin: 10/12/20 20:39 Dose: 10 mg Documented by: [id number] Admin: 10/11/20 20:40 Dose: 10 mg Documented by: [id number] Admin: 10/10/20 23:24 Dose: 10 mg Documented by: [id number] Morphine Sulfate (Morphine Sulfate 2 Mg/Ml Carp) 2 mg IV Q4H PRN PRN Reason: Severe Pain Stop: 10/24/20 22:08 Last Admin: 10/12/20 06:33 Dose: 2 mg Documented by: [id number] Admin: 10/11/20 23:50 Dose: 2 mg Documented by: [id number] Admin: 10/11/20 18:05 Dose: 2 mg Documented by: [id number] Admin: 10/11/20 12:22 Dose: 2 mg Documented by: [id number] Polyethylene Glycol (Polyethylene (Miralax) 17 Gm Pack) 17 gm PO DAILY PRN PRN Reason: Constipation Stop: 11/11/20 11:25 Last Admin: 10/12/20 13:44 Dose: 17 gm Documented by: [id number] Umeclidinium Barton (Umeclidinium Barton 62.5mcg/Blister 7 Puffs/Inhaler) 1 puffs INH DAILY SHAUNA Stop: 11/10/20 08:59 Last Admin: 10/12/20 07:32 Dose: 1 puffs Documented by: [id number] Admin: 10/11/20 08:02 Dose: 1 puffs Documented by: [id number] Discontinued Medications Bacitracin (Bacitracin Oint 15 Gm Tube) Confirm Administered Dose 45 appln .ROUTE .STK-MED ONE Stop: 10/11/20 06:43 Last Admin: 10/11/20 10:24 Dose: Not Given Documented by: [id number] Bupivacaine HCl (Bupivacaine 0.5 % 5 Mg/1 Ml Mpf 30ml Vial) Confirm Administered Dose 30 ml .ROUTE .STK-MED ONE Stop: 10/11/20 06:43 Last Admin: 10/11/20 10:45 Dose: 15 ml Documented by: [id number] Diphenhydramine HCl (Diphenhydramine Capsule 25 Mg Cap) 25 mg PO NOW ONE Stop: 10/10/20 19:56 Last Admin: 10/10/20 20:26 Dose: 25 mg Documented by: [id number] Sodium Chloride (Nss 1000ml) 1,000 mls @ 999 mls/hr IV .Q1H1M ONE Stop: 10/10/20 13:41 Last Infusion: 10/10/20 13:41 Dose: 0 mls/hr Documented by: [id number] Admin: 10/10/20 12:57 Dose: 999 mls/hr Documented by: [id number] Sodium Chloride (Nss 1000ml) 1,000 mls @ 100 mls/hr IV .Q10H SHAUNA Stop: 10/11/20 08:59 Last Infusion: 10/11/20 13:54 Dose: 0 mls/hr Documented by: [id number] Admin: 10/10/20 23:44 Dose: 100 mls/hr Documented by: [id number] Clindamycin Phosphate 900 mg/ (Dextrose) 56 mls @ 112 mls/hr IV TODAY@0800 [facility] Stop: 10/11/20 18:00 Last Infusion: 10/11/20 09:03 Dose: 0 mls/hr Documented by: [id number] Admin: 10/11/20 08:02 Dose: 112 mls/hr Documented by: [id number] Ioversol (Optiray 320 100ml) 94 ml IV ONCE ONE Stop: 10/10/20 14:38 Last Admin: 10/10/20 14:37 Dose: 94 ml Documented by: [id number] Ketorolac Tromethamine (Ketorolac Tromethamine 15 Mg/Ml Vial) 15 mg IV NOW STA Stop: 10/10/20 12:42 Last Admin: 10/10/20 12:57 Dose: 15 mg Documented by: [id number] Lidocaine HCl (Lidocaine Hcl 1% 20 Ml Vial) Confirm Administered Dose 20 ml .ROUTE .STK-MED ONE Stop: 10/11/20 06:43 Last Admin: 10/11/20 10:45 Dose: 15 ml Documented by: [id number] Metoprolol Tartrate (Metoprolol Tartrate 25 Mg Tab) 25 mg PO NOW STA Stop: 10/10/20 19:17 Last Admin: 10/10/20 19:42 Dose: 25 mg Documented by: [id number] Ondansetron HCl (Ondansetron Inj 2 Mg/Ml 2 Ml Vial) 4 mg IV NOW STA Stop: 10/10/20 12:42 Last Admin: 10/10/20 12:57 Dose: 4 mg Documented by: [id number] Oxycodone HCl (Oxycodone Hcl Ir 5 Mg Tab (Immediate Release)) 5 mg PO Q6H PRN PRN Reason: Moderate Pain Stop: 10/10/20 23:59 Last Admin: 10/10/20 23:53 Dose: 5 mg Documented by: [id number] Medical Decision Making Differential Diagnosis Differential diagnosis includes appendicitis, diverticulitis, bowel obstruction, inflammatory bowel disease, renal colic, PUD, biliary pathology, pancreatitis, mesenteric ischemia, aortic pathology, infection, genitourinary, UTI, perforated viscus, among others. Home Medications Current Medication List: was personally reviewed by me Laboratory Data Attestation: I reviewed the patient's lab results. Result diagrams: 10/12/20 06:42 10/12/20 07:36 Lab Results 10/10/20 10/10/20 10/10/20 Range/Units 12:52 12:52 16:23 WBC 8.21 (4.8-10.8) K/uL RBC 4.73 (4.7-6.1) M/uL Hgb 13.7 L (14.0-18.0) g/dL Hct 40.3 L (42-52) % MCV 85.2 (80-100) fL MCH 29.0 (25-34) pg MCHC 34.0 (32-36) g/dL RDW Std Deviation 44.2 (36.4-46.3) fL RDW Coeff of María Elena 14.2 (11.5-14.5) % Plt Count 170 (130-400) K/uL MPV 9.9 (7.4-10.4) fL Immature Gran % (Auto) 1.3 % Neut % (Auto) 68.7 % Lymph % (Auto) 18.3 % [place] % (Auto) 8.8 % Eos % (Auto) 2.4 % Baso % (Auto) 0.5 % Neut # (Auto) 5.64 (1.4-6.5) K/uL Lymph # (Auto) 1.50 (1.2-3.4) K/uL [place] # (Auto) 0.72 H (0.11-0.59) K/uL Eos # (Auto) 0.20 (0-0.5) K/uL Baso # (Auto) 0.04 (0-0.2) K/uL Immature Gran # (Auto) 0.11 H (0.00-0.02) K/uL Sodium 137 (136-145) mmol/L Potassium 4.2 (3.5-5.1) mmol/L Chloride 107 (98-107) mmol/L Carbon Dioxide 25 (21-32) mmol/L Anion Gap 5.0 (3-11) BUN 16 (7-18) mg/dl Creatinine 1.00 (0.6-1.4) mg/dl Est Cr Clr Drug Dosing 119.2 ml/min Est GFR ( Amer) 106.4 ml/min Est GFR (Non-Af Amer) 91.8 ml/min BUN/Creatinine Ratio 15.9 (10-20) Glucose 146 H (70-99) mg/dl Lactate 1.5 (0.4-2.0) mmol/L Calcium 8.9 (8.5-10.1) mg/dl Total Bilirubin 0.5 (0.2-1) mg/dl AST 25 (15-37) U/L ALT 50 (12-78) U/L Alkaline Phosphatase 67 (45-117) U/L Total Protein 7.0 (6.4-8.2) gm/dl Albumin 3.6 (3.4-5.0) gm/dl Globulin 3.4 (2.5-4.0) gm/dl Albumin/Globulin Ratio 1.1 (0.9-2) Lipase 108 (73-393) U/L Imaging Data Attestation: I personally reviewed and interpreted this imaging study as follows: Radiologist's Impression: Abdomen/Pelvis CT 10/10/20 12:41 CT SCAN OF THE ABDOMEN AND PELVIS WITH IV CONTRAST CLINICAL HISTORY: Left upper quadrant abdominal pain. Reported history of pancreatitis. COMPARISON STUDY: Abdominal CT dated 11/24/2019. TECHNIQUE: Following the IV administration of 94 cc of Optiray 320, CT scan of the abdomen and pelvis is performed from the lung bases to the proximal femora. Images are reviewed in the axial, sagittal, and coronal planes. IV contrast was administered without complication. A dose lowering technique was utilized adhering to the principles of ALARA. CT DOSE: 1656.33 mGy.cm FINDINGS: Lung bases: The patient is status post midline sternotomy and mitral valve surgery. The heart is enlarged and without pericardial effusion. The lung bases are clear noting dependent atelectasis. There is a small hiatal hernia. Liver: The contrast-enhanced liver is enlarged, measuring over 18 cm in length. The liver demonstrates diffusely diminished attenuation consistent with severe hepatic steatosis. There is no intrahepatic biliary ductal dilatation. The hepatic veins and portal veins are patent. Gallbladder: Surgically absent. Spleen: Normal in size and attenuation. Pancreas: Unremarkable. Adrenal glands: Unremarkable. Kidneys: The contrast enhanced kidneys are normal in size and without hydronephrosis. The kidneys enhance symmetrically. A 2.6 cm cyst is noted in the right lower pole. Abdominal vasculature: The abdominal aorta is normal in course and caliber. 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 The duodenum fails to cross the midline and the: And cecum are located within the left abdomen. There are scattered colonic diverticula without CT evidence of acute diverticulitis. No bowel obstruction is seen. The appendix is well-visualized and normal. Peritoneum: There is no intraperitoneal free air or abdominal ascites. There are large fat-containing umbilical and supraumbilical hernias. There is mild infiltration of the fat within and around these hernias. Lymphadenopathy: None. Pelvic viscera: The bladder, prostate, and seminal vesicles are normal as visualized. There is a large fat-containing left inguinal hernia. Skeletal structures: No lytic or blastic lesions are seen. IMPRESSION: 1. Again seen are large umbilical and supraumbilical hernias. There is infiltration of the fat within and around these hernias. Correlate clinically for evidence of incarceration. 2. Hepatomegaly and severe back steatosis. 3. Cardiomegaly. 4. 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 5. Large fat-containing left inguinal hernia. 6. Additional findings as above.. ACT 112: Negative or not required by law. Electronically signed by: Maximino Conner M.D. 10/10/2020 2:49 PM MDM Narrative Continuous campus monitor: Order was placed for continuous campus monitor. Patient was placed on the campus monitor. Patient was noted to be in normal sinus rhythm at an initial rate of 95 bpm. The patient is a 45-year-old male who presents today complaining of abdominal pain. Labs revealed no leukocytosis, anemia or concerning electrolyte abnormalities. Lactate was not elevated. CT did show large supraumbilical and umbilical hernias with evidence of possible incarceration. The patient's clinical presentation is not consistent with this. General surgery was consulted and did elect to keep the patient for operative management. He recommended consulting the hospitalist for admission. The [facility] hospitalist team was consulted. Impression & Plan Incarcerated ventral hernia Discharge Plan Visit Data Chief Complaint: Flank Pain Stated Complaint: LEFT SIDE PAIN,NAUSEA,POSS PANCRATIS FLARE UP ED Provider: Dino Mosley ED Midlevel Provider: Saida Riley Discharge Problem: Incarcerated ventral hernia Patient Disposition: Admitted As Inpatient Discharge Instructions Interventions: ED Discharge Assessment Last Done: 10/10/20 20:54
--- NOTE | 2020-10-10 17:59 | Surgery Consultation ---
Date of Consultation October 10, 2020 Assessment & Plan (1) Incarcerated ventral hernia: pt is a 45 year-old male who presents to Er with 10 days history nausea, superior umbilical pain and left side abdominal pain, IMP: incarcerated ventral hernia, umbilical hernia, I Recommend to do open repair ventral hernia and umbilical hernia possible with mesh tomorrow, D/W benefits, risks and alternatives of the surgery, the risks - infection, bleeding, hernia recurrence, complications relate to Mesh, injury other organs, pt understood, he agrees with the surgery, I answered all questions, NPO after MN, iv fluid, SCD, control pain, medicine team will admit pt to hospital, for treat co-morbidity,Thanks, D/W ER attending, Present on Admission?: Yes (2) Umbilical hernia: History of Present Illness History of Present Illness History of Present Illness General Chief complaint: Flank Pain Stated complaint: LEFT SIDE PAIN,NAUSEA,POSS PANCRATIS FLARE UP Time Seen by Provider: 10/10/20 12:17 Source: patient Mode of arrival: ambulatory Limitations: no limitations History of Present Illness Maximum Pain Intensity: 3 This patient is a 45-year-old male who presents to the emergency department for evaluation of left-sided abdominal pain and nausea. Patient states that he has had nausea for the past 2 weeks. He is prescribed Protonix and just began taking this a few days ago. He states that a few days ago, he noticed a bruise on the left lower side of his abdomen. He does give himself insulin injections in the abdomen, but typically gives these on the right side and is unsure if these are what caused the bruise. He states he has been having pain in the left lower abdomen which has been worsening over the past 2 to 3 days. He rates his current discomfort an 8/10. He denies any vomiting. He denies fevers. He reports a history of pancreatitis and feels that his pain is somewhat similar to that. He does not drink alcohol regularly and states that he had one drink a few weeks ago. Patient reports a history of esophagitis, pancreatitis and insulin-dependent diabetes. He has had a prior mitral valve repair and sinus surgery. I ( Lupe Carter MD ) got a call for consult possible incarcerated ventral and umbilical hernia, I reviewed pt's H/P, labs, CT scan with pt, pt said pt had left abdominal trauma 3 weeks ago, now pt feels nausea and superior umbilical pain with bulging, pt denies vomiting, no fever, passed Bm this morning, no constipation, Home Medications Medication Instructions Recorded Confirmed Type albuterol sulfate 2 puff INHALATION Q4H PRN 11/24/19 10/10/20 History albuterol sulfate 2.5 mg INHALATION Q4H PRN 11/24/19 10/10/20 History allopurinol 100 mg PO QPM 11/24/19 10/10/20 History cholecalciferol (vitamin D3) 50,000 unit PO WK 11/24/19 10/10/20 History mometasone 2 spray INTRANASAL BID 11/24/19 10/10/20 History montelukast 10 mg PO QPM 11/24/19 10/10/20 History atorvastatin 40 mg tablet 40 mg PO HS 01/02/20 10/10/20 History fluticasone 500 mcg-salmeterol 50 1 inh INHALATION BID 07/07/20 10/10/20 History mcg/dose blistr powdr for inhalation metoprolol tartrate 25 mg tablet 25 mg PO BID tab 07/07/20 10/10/20 History Spiriva with HandiHaler 1 cap INHALATION DAILY 08/13/20 10/10/20 History azelastine 2 spray INTRANASAL BID 08/13/20 10/10/20 History famotidine 20 mg PO BID 08/13/20 10/10/20 History insulin aspart U-100 [Novolog 0 unit SUBCUT TIDM 08/13/20 10/10/20 History Flexpen U-100 Insulin] lisinopril 10 mg PO QAM 08/13/20 10/10/20 History metformin 1,000 mg PO BIDM 08/13/20 10/10/20 History Allergies Allergy/AdvReac Type Severity Reaction Status Date / Time Cephalosporins Allergy Intermediate Hives Verified 10/10/20 15:07 erythromycin base Allergy Unknown CAN'T Verified 10/10/20 15:07 REMEMBER Sulfa (Sulfonamide Allergy Unknown CAN'T Verified 10/10/20 15:07 Antibiotics) REMEMBER Penicillins AdvReac Intermediate Gastrointestinal Verified 10/10/20 15:07 Upset Past Med/Surg History Medical History Anxiety Asthma, mild persistent DM type 2 (diabetes mellitus, type 2) Environmental and seasonal allergies Gout HLD (hyperlipidemia) HTN (hypertension) Mitral regurgitation Mitral valve disorder Obesity Surgical History H/O exploratory laparotomy H/O nasal septoplasty History of hernia repair History of mitral valve repair S/P nasal septoplasty Family History Mother Follicular lymphoma Social History Smoking Status: Never smoker Second Hand Exposure: No; Hx Alcohol Use: No Hx Substance Use: No Preferred Language: Portuguese Communication Ability: Effective Computer Instructor Required: No Beliefs That Will Affect Care: None Current Living Situation: Alone Feels Safe at Home: Yes Assistive Devices: Glasses Review of Systems A total of 10 systems reviewed and were otherwise negative Allergies Allergy/AdvReac Type Severity Reaction Status Date / Time Cephalosporins Allergy Intermediate Hives Verified 10/10/20 15:07 erythromycin base Allergy Unknown CAN'T Verified 10/10/20 15:07 REMEMBER Sulfa (Sulfonamide Allergy Unknown CAN'T Verified 10/10/20 15:07 Antibiotics) REMEMBER Penicillins AdvReac Intermediate Gastrointestinal Verified 10/10/20 15:07 Upset Home Medications Medication Instructions Recorded Confirmed Type albuterol sulfate 2 puff INHALATION Q4H PRN 11/24/19 10/10/20 History albuterol sulfate 2.5 mg INHALATION Q4H PRN 11/24/19 10/10/20 History allopurinol 100 mg PO QPM 11/24/19 10/10/20 History cholecalciferol (vitamin D3) 50,000 unit PO WK 11/24/19 10/10/20 History mometasone 2 spray INTRANASAL BID 11/24/19 10/10/20 History montelukast 10 mg PO QPM 11/24/19 10/10/20 History atorvastatin 40 mg tablet 40 mg PO HS 01/02/20 10/10/20 History fluticasone 500 mcg-salmeterol 50 1 inh INHALATION BID 07/07/20 10/10/20 History mcg/dose blistr powdr for inhalation metoprolol tartrate 25 mg tablet 25 mg PO BID tab 07/07/20 10/10/20 History Spiriva with HandiHaler 1 cap INHALATION DAILY 08/13/20 10/10/20 History azelastine 2 spray INTRANASAL BID 08/13/20 10/10/20 History famotidine 20 mg PO BID 08/13/20 10/10/20 History insulin aspart U-100 [Novolog 0 unit SUBCUT TIDM 08/13/20 10/10/20 History Flexpen U-100 Insulin] lisinopril 10 mg PO QAM 08/13/20 10/10/20 History metformin 1,000 mg PO BIDM 08/13/20 10/10/20 History Patient History Medical History Anxiety Asthma, mild persistent DM type 2 (diabetes mellitus, type 2) Environmental and seasonal allergies Gout HLD (hyperlipidemia) HTN (hypertension) Mitral regurgitation Mitral valve disorder Obesity Surgical History H/O exploratory laparotomy H/O nasal septoplasty History of hernia repair History of mitral valve repair S/P nasal septoplasty Family History Mother Follicular lymphoma Social History Smoking Status: Never smoker Second Hand Exposure: No; Hx Alcohol Use: No Hx Substance Use: No Preferred Language: Portuguese Communication Ability: Effective Computer Instructor Required: No Beliefs That Will Affect Care: None Current Living Situation: Alone Feels Safe at Home: Yes Assistive Devices: Glasses Review of Systems Review of Systems: All systems reviewed & are unremarkable except as noted in HPI & below Constitutional: as per Subjective / HPI obesity Eyes: as per Subjective / HPI Ear, Nose, Mouth, Throat: as per Subjective / HPI sinus surgery on 07/2020 with anesthesia hypoxia Respiratory: as per Subjective / HPI acute dyspnea Cardiovascular: as per Subjective / HPI Additional Comments: S/P mitral valve surgery, HTN, hypertriglyceridem, Gastrointestinal: as per Subjective / HPI laparoscopic repair abdominal hernia with mesh, pancreatitis, Genitourinary: + as per Subjective / HPI Musculoskeletal: as per Subjective / HPI Integumentary: as per Subjective / HPI Neurologic: as per Subjective / HPI Endocrine: as per Subjective / HPI DM, Allergy / Immunological: as per Subjective / HPI Physical Exam Constitutional: WD/WN, vitals as above well developed and well nourished obesity Eyes: PERRL, conjunctivae normal, anicteric sclerae ENMT: external ear and nose normal, oropharynx normal Neck: trachea midline, no thyromegaly Respiratory: normal respiratory effort, lungs clear to auscultation normal respiratory effort Cardiovascular: RRR, no murmur, no edema Rate/Rhythm: regular rate and regular rhythm Gastrointestinal (Abdomen): Percussion/Palpation: + abdomen tender and abdomen soft Small area of ecchymosis noted to the left lower abdomen. Mild tenderness, tenderness with bulging on just above umbilical area, no reducible, no redness, no distend, BS +, no tenderness or bulging at left groin area, Musculoskeletal: no cyanosis or clubbing, extremities motor strength 5/5 Skin: no rashes, warm and dry Neurologic: awake Psychiatric: Orientation: alert and oriented x 3 Results & Data ([facility]) Vital Signs (Past 12 Hours) Vital Signs Temp Pulse Pulse Resp BP BP Pulse Ox 10/10/20 17:35 100 H 16 157/116 H 98 10/10/20 16:00 92 H 18 155/116 H 97 10/10/20 14:06 93 H 18 10/10/20 14:05 95 H 18 134/112 H 97 10/10/20 11:46 36.8 C 97 H 18 169/107 H 94 Laboratory Results Abnormal lab results 10/10/20 10/10/20 10/10/20 Range/Units 12:52 12:52 Unknown Hgb 13.7 L (14.0-18.0) g/dL Hct 40.3 L (42-52) % [place] # (Auto) 0.72 H (0.11-0.59) K/uL Immature Gran # (Auto) 0.11 H (0.00-0.02) K/uL Glucose 146 H (70-99) mg/dl Urine Blood Trace H (Negative) Diagnostic Findings CT SCAN OF THE ABDOMEN AND PELVIS WITH IV CONTRAST CLINICAL HISTORY: Left upper quadrant abdominal pain. Reported history of pancreatitis. COMPARISON STUDY: Abdominal CT dated 11/24/2019. TECHNIQUE: Following the IV administration of 94 cc of Optiray 320, CT scan of the abdomen and pelvis is performed from the lung bases to the proximal femora. Images are reviewed in the axial, sagittal, and coronal planes. IV contrast was administered without complication. A dose lowering technique was utilized adhering to the principles of ALARA. CT DOSE: 1656.33 mGy.cm FINDINGS: Lung bases: The patient is status post midline sternotomy and mitral valve surgery. The heart is enlarged and without pericardial effusion. The lung bases are clear noting dependent atelectasis. There is a small hiatal hernia. Liver: The contrast-enhanced liver is enlarged, measuring over 18 cm in length. The liver demonstrates diffusely diminished attenuation consistent with severe hepatic steatosis. There is no intrahepatic biliary ductal dilatation. The hepatic veins and portal veins are patent. Gallbladder: Surgically absent. Spleen: Normal in size and attenuation. Pancreas: Unremarkable. Adrenal glands: Unremarkable. Kidneys: The contrast enhanced kidneys are normal in size and without hydronephrosis. The kidneys enhance symmetrically. A 2.6 cm cyst is noted in the right lower pole. Abdominal vasculature: The abdominal aorta is normal in course and caliber. 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 The duodenum fails to cross the midline and the: And cecum are located within the left abdomen. There are scattered colonic diverticula without CT evidence of acute diverticulitis. No bowel obstruction is seen. The appendix is well-visualized and normal. Peritoneum: There is no intraperitoneal free air or abdominal ascites. There are large fat-containing umbilical and supraumbilical hernias. There is mild infiltration of the fat within and around these hernias. Lymphadenopathy: None. Pelvic viscera: The bladder, prostate, and seminal vesicles are normal as visualized. There is a large fat-containing left inguinal hernia. Skeletal structures: No lytic or blastic lesions are seen. IMPRESSION: 1. Again seen are large umbilical and supraumbilical hernias. There is infiltration of the fat within and around these hernias. Correlate clinically for evidence of incarceration. 2. Hepatomegaly and severe back steatosis. 3. Cardiomegaly. 4. 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 5. Large fat-containing left inguinal hernia. 6. Additional findings as above..
--- NOTE | 2020-10-10 18:25 | History & Physical Report ---
Date of Service October 10, 2020 Assessment & Plan (1) Ventral hernia: Pt is 45 y/o M with PMH HTN, HLD, asthma, insulin-dependent DM II, mitral regurgitation S/P repair in 2008 presented to ER with c/o left flank/abdomen pain today. Patient states for the past 2 weeks intermittent nausea. In ER pt afebrile, P: 97, R: 18, BP: 169/107, 94% on RA. No leukocytosis, lactate WNL, LFTs WNL, UA unremarkable CT abdomen/pelvis: large umbilical and supraumbilical hernias. There is infiltration of the fat within and around these hernias. Hepatomegaly. Cardiomegaly. 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 Large fat-containing left inguinal hernia. Surgery was consulted for possible incarcerated hernia General surgery evaluated patient and plans for hernia repair tomorrow N.p.o. midnight IVF CBC, BMP in a.m. DM II: A1c: 7.6 in 08/21/2020 Hold home medications Basal bolus insulin per protocol HTN: Continue lisinopril, metoprolol HLD: Continue atorvastatin Asthma: No signs exacerbation at this time Continue home inhalers Mitral regurgitation: S/p mitral valve repair in 2008 DVT Prophylaxis SCDs Full Code Follows with Dr Lawton for routine care Pt was seen and care coordinated with Dr Cutler. See addendum History of Present Illness Chief Complaint: Left abdominal pain Primary Care Provider: Edgar Lawton MD Pt is 45 y/o M with PMH HTN, HLD, asthma, insulin-dependent DM II, mitral regurgitation S/P repair in 2008 presented to ER with c/o left flank pain today. Patient states for the past 2 weeks has been having intermittent nausea. States approximately 1 month ago fell onto left side while gardening. 2 weeks ago noticed some bruising to left side of abdomen. He reports he does not typically give himself his insulin injections in that location. Today started with pain to left flank and left side of abdomen. Patient taking Protonix the past several days. Reports stools chronically loose, Denies fever/chills, diaphoresis, vomiting, hematochezia, melena, MERRILL, dizziness, syncope, vision changes, neck pain, CP, SOB, orthopnea, palpitations, cough, sore throat, choking, otalgia, rhinorrhea, paresthesias, weakness, extremity weakness, extremity edema, rashes, urinary symptoms. Allergies Allergy/AdvReac Type Severity Reaction Status Date / Time Cephalosporins Allergy Intermediate Hives Verified 10/10/20 15:07 erythromycin base Allergy Unknown CAN'T Verified 10/10/20 15:07 REMEMBER Sulfa (Sulfonamide Allergy Unknown CAN'T Verified 10/10/20 15:07 Antibiotics) REMEMBER Penicillins AdvReac Intermediate Gastrointestinal Verified 10/10/20 15:07 Upset Home Medications Medication Instructions Recorded Confirmed Type albuterol sulfate 2 puff INHALATION Q4H PRN 11/24/19 10/10/20 History albuterol sulfate 2.5 mg INHALATION Q4H PRN 11/24/19 10/10/20 History allopurinol 100 mg PO QPM 11/24/19 10/10/20 History cholecalciferol (vitamin D3) 50,000 unit PO WK 11/24/19 10/10/20 History mometasone 2 spray INTRANASAL BID 11/24/19 10/10/20 History montelukast 10 mg PO QPM 11/24/19 10/10/20 History atorvastatin 40 mg tablet 40 mg PO HS 01/02/20 10/10/20 History fluticasone 500 mcg-salmeterol 50 1 inh INHALATION BID 07/07/20 10/10/20 History mcg/dose blistr powdr for inhalation metoprolol tartrate 25 mg tablet 25 mg PO BID tab 07/07/20 10/10/20 History Spiriva with HandiHaler 1 cap INHALATION DAILY 08/13/20 10/10/20 History azelastine 2 spray INTRANASAL BID 08/13/20 10/10/20 History famotidine 20 mg PO BID 08/13/20 10/10/20 History insulin aspart U-100 [Novolog 0 unit SUBCUT TIDM 08/13/20 10/10/20 History Flexpen U-100 Insulin] lisinopril 10 mg PO QAM 08/13/20 10/10/20 History metformin 1,000 mg PO BIDM 08/13/20 10/10/20 History Past Med/Surg History Medical History Anxiety Asthma, mild persistent DM type 2 (diabetes mellitus, type 2) Environmental and seasonal allergies Gout HLD (hyperlipidemia) HTN (hypertension) Mitral regurgitation Mitral valve disorder Obesity Surgical History H/O exploratory laparotomy H/O nasal septoplasty History of hernia repair History of mitral valve repair S/P nasal septoplasty Family History Mother Follicular lymphoma Social History Smoking Status: Never smoker Second Hand Exposure: No; Hx Alcohol Use: No Hx Substance Use: No Preferred Language: Welsh Communication Ability: Effective Biomass Plant 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 Required: No Beliefs That Will Affect Care: None Current Living Situation: Alone Feels Safe at Home: Yes Assistive Devices: Glasses Review of Systems Review of Systems: All systems reviewed & are unremarkable except as noted in HPI & below Physical Exam Physical Exam: General: no distress, obese Head: normocephalic, atraumatic Eyes: conjunctiva non-injected, anicteric ENT: normal inspection external ears, nose, mucous membranes moist Neck: supple, trachea midline, non-tender Lungs: clear, no respiratory distress, no wheezing/rhonchi/rales CV: RRR, no murmur, no JVD, no pretibial edema Abd: protuberant, +ecchymosis left lower abdomen with slight tenderness to palpation, normal BS, soft, +bulging umbilicus without significant tenderness to palpation and no overlying skin discoloration Ext: no cyanosis, no calf tenderness Neuro: A&O x 3, no focal deficits noted, normal affect Skin: warm, dry Results & Data Results & Data ([facility]) Vital Signs (Past 12 Hours) Vital Signs Temp Pulse Pulse Resp BP BP Pulse Ox 10/10/20 17:35 100 H 16 157/116 H 98 10/10/20 16:00 92 H 18 155/116 H 97 10/10/20 14:06 93 H 18 10/10/20 14:05 95 H 18 134/112 H 97 10/10/20 11:46 36.8 C 97 H 18 169/107 H 94 Laboratory Results Short CBC 10/10/20 Range/Units 12:52 WBC 8.21 (4.8-10.8) K/uL Hgb 13.7 L (14.0-18.0) g/dL Hct 40.3 L (42-52) % Plt Count 170 (130-400) K/uL BMP 10/10/20 12:52 Sodium 137 Potassium 4.2 Chloride 107 Carbon Dioxide 25 BUN 16 Creatinine 1.00 Glucose 146 H Calcium 8.9 Liver Function 10/10/20 Range/Units 12:52 Total Bilirubin 0.5 (0.2-1) mg/dl AST 25 (15-37) U/L ALT 50 (12-78) U/L Alkaline Phosphatase 67 (45-117) U/L Albumin 3.6 (3.4-5.0) gm/dl Urine 10/10/20 Range/Units Unknown Urine Color Yellow Urine Appearance Clear (Clear) Urine pH 5.0 (4.5-7.5) Ur Specific [place] 1.013 (1.000-1.030) Urine Protein Negative (Negative) Urine Glucose (UA) Negative (Negative) Diagnostic Findings Abdomen/Pelvis CT 10/10/20 12:41 CT SCAN OF THE ABDOMEN AND PELVIS WITH IV CONTRAST CLINICAL HISTORY: Left upper quadrant abdominal pain. Reported history of pancreatitis. COMPARISON STUDY: Abdominal CT dated 11/24/2019. TECHNIQUE: Following the IV administration of 94 cc of Optiray 320, CT scan of the abdomen and pelvis is performed from the lung bases to the proximal femora. Images are reviewed in the axial, sagittal, and coronal planes. IV contrast was administered without complication. A dose lowering technique was utilized adhering to the principles of ALARA. CT DOSE: 1656.33 mGy.cm FINDINGS: Lung bases: The patient is status post midline sternotomy and mitral valve surgery. The heart is enlarged and without pericardial effusion. The lung bases are clear noting dependent atelectasis. There is a small hiatal hernia. Liver: The contrast-enhanced liver is enlarged, measuring over 18 cm in length. The liver demonstrates diffusely diminished attenuation consistent with severe hepatic steatosis. There is no intrahepatic biliary ductal dilatation. The hepatic veins and portal veins are patent. Gallbladder: Surgically absent. Spleen: Normal in size and attenuation. Pancreas: Unremarkable. Adrenal glands: Unremarkable. Kidneys: The contrast enhanced kidneys are normal in size and without hydronephrosis. The kidneys enhance symmetrically. A 2.6 cm cyst is noted in the right lower pole. Abdominal vasculature: The abdominal aorta is normal in course and caliber. 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 The duodenum fails to cross the midline and the: And cecum are located within the left abdomen. There are scattered colonic diverticula without CT evidence of acute diverticulitis. No bowel obstruction is seen. The appendix is well-visualized and normal. Peritoneum: There is no intraperitoneal free air or abdominal ascites. There are large fat-containing umbilical and supraumbilical hernias. There is mild infiltration of the fat within and around these hernias. Lymphadenopathy: None. Pelvic viscera: The bladder, prostate, and seminal vesicles are normal as visualized. There is a large fat-containing left inguinal hernia. Skeletal structures: No lytic or blastic lesions are seen. IMPRESSION: 1. Again seen are large umbilical and supraumbilical hernias. There is infiltration of the fat within and around these hernias. Correlate clinically for evidence of incarceration. 2. Hepatomegaly and severe back steatosis. 3. Cardiomegaly. 4. 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 5. Large fat-containing left inguinal hernia. 6. Additional findings as above.. ACT 112: Negative or not required by law. Electronically signed by: Maximino Conner M.D. 10/10/2020 2:49 PM Code Status & VTE Plan VTE Prophylaxis Plan VTE Prophylaxis will be ordered: Yes Supervising Physician Co-Signing Physician Notes Attending addendum: The patient was seen and examined in the emergency room He has been complaining of lower abdominal pain for the last few days The pain is has been worse since this morning with nausea but no vomiting Denies any fever and chills and denies any alteration of bowel habit and no urinary problems On examination Sitting at the edge of the bed with some abdominal discomfort Noted to have very high blood pressure of 181/111 without any symptoms Chestclear to auscultate bilaterally HeartS1-S2, regular Abdomendistended, tender around umbilicus mostly on upper right part and also tenderness involving the left lower quadrant with lumpy feeling. Bowel sounds present Extremities1+ edema bilaterally CNSalert, awake and oriented x3. No focal sensory no motor deficit appreciated Admission labs, imaging studies noted Has ventral hernia and is being evaluated by surgeon Possible surgery tomorrow Other significant medical conditions remained stable Agree with assessment plan as outlined above by SARAH Tony Dr
[2020-10-10] MEDS ORDERED: METOPROLOL TARTRATE 25 MG TAB PO STA (19:16)
[2020-10-10] MEDS ORDERED: diphenhydrAMINE Capsule 25 MG CAP PO ONE (19:55)
[2020-10-10] MEDS ORDERED: ALBUTEROL 0.083% NEBU SOLN 3 ML VIAL INH PRN (22:09)
[2020-10-10] MEDS ORDERED: CARBOHYDRATES FOR HYPOGLYCEMIA PO PRN (22:09)
[2020-10-10] MEDS ORDERED: oxyCODONE HCL IR 5 MG TAB (IMMEDIATE RELEASE) PO PRN (22:09)
[2020-10-10] MEDS ORDERED: DEXTROSE 50% 50 ML SYRINGE IV PRN (22:09)
[2020-10-10] MEDS ORDERED: GLUCOSE 10 TABS/TUBE PO PRN (22:09)
[2020-10-10] MEDS ORDERED: GLUCOSE 40% GEL 15 GM TUBE PO PRN (22:09)
[2020-10-10] MEDS ORDERED: GLUCAGON FOR INJ 1 MG VIAL SQ PRN (22:09)
[2020-10-10] MEDS ORDERED: ONDANSETRON INJ 2 MG/ML 2 ML VIAL IV PRN (22:09)
[2020-10-10] MEDS ORDERED: SODIUM CHLORIDE 0.9% 1000ML 1,000 ML IV SCH (23:00)
[2020-10-10] MEDS: allopurinoL 100 MG TAB PO SCH (23:19)
[2020-10-10] MEDS: ATORVASTATIN 40 MG TAB PO SCH (23:20)
[2020-10-10] MEDS: FAMOTIDINE 20 MG TAB PO SCH (23:20)
[2020-10-10] MEDS: METOPROLOL TARTRATE 25 MG TAB PO SCH (23:23)
[2020-10-10] MEDS: MONTELUKAST SODIUM 10 MG TABLET PO SCH (23:24)
[2020-10-10] MEDS: FLUTICASONE PROPIONATE NA SPR 16 GM BTL SCH (23:31)
[2020-10-10] MEDS: FLUTICASONE/VILANTEROL 200/25MCG 14 PUFFS/INHALER INH SCH (23:31)
[2020-10-10] MEDS: INSULIN ASPART 100 UNITS/ML 3 ML PEN SC SCH (23:32)
[2020-10-10] MEDS: INSULIN GLARGINE SOLOSTAR 100 UNITS/ML 3 ML PEN SC SCH (23:34)
[2020-10-10] MEDS ORDERED: ACETAMINOPHEN 1000 MG/100 ML IV IV PRN (23:56)
[2020-10-11] MEDS: ASTELIN - ORDER AWAITING ACTION SCH ×3 (05:09→17:31)
[2020-10-11 05:51] LABS: Hematocrit (blood only) 36.4 % (42-52); Hemoglobin 12.3 g/dL (14.0-18.0); Mean Corpuscular Hemoglobin 29.3 pg (25-34); Mean Corpuscular Hgb Conc 33.8 g/dL (32-36); Mean Corpuscular Volume 86.7 fL (80-100); Mean Platelet Volume 9.6 fL (7.4-10.4); Platelet Count 151 K/uL (130-400); RDW Coefficient of Variation 14.4 % (11.5-14.5); RDW Standard Deviation 45.2 fL (36.4-46.3); White Blood Count 8.17 K/uL (4.8-10.8)
[2020-10-11 06:28] LABS: BUN Creatinine Ratio 15.7 (10-20); Creatinine Clr Calc Pharmacy 118.2 ml/min; Est GFR (Non-African American) 94.1 ml/min
[2020-10-11] MEDS ORDERED: LIDOCAINE 1% LOCAL 20 ML VIAL ONE (06:42)
[2020-10-11] MEDS ORDERED: BUPIVACAINE 0.5 % 5 MG/1 ML MPF 30ML VIAL ONE (06:42)
[2020-10-11] MEDS ORDERED: BACITRACIN OINT 15 GM TUBE ONE (06:42)
[2020-10-11] MEDS ORDERED: fentaNYL citrate 100 MCG/2 ML VIAL ONE (06:56)
[2020-10-11] MEDS ORDERED: KETAMINE 50 MG/5 ML SYRINGE ONE (06:56)
[2020-10-11] MEDS ORDERED: MIDAZOLAM HCL 1 MG/ML 2ML VIAL ONE (06:56)
[2020-10-11] MEDS ORDERED: PROPOFOL IV EMULSION 10 MG/ML 20 ML VIAL IV ONE (06:59)
[2020-10-11] MEDS ORDERED: SUCCINYLCHOLINE 100MG/5ML SYR IV ONE (06:59)
[2020-10-11] MEDS ORDERED: DexMEDEtomidine HCL IV 100 MCG/ML VIAL ONE (07:03)
[2020-10-11] MEDS ORDERED: PHENYLEPHRINE HCL 10 MG/ML VIAL ONE (07:27)
[2020-10-11] MEDS ORDERED: ONDANSETRON INJ 2 MG/ML 2 ML VIAL ONE ×3 (07:27→10:39)
--- NOTE | 2020-10-11 07:28 | History & Physical Bridge Note ---
Date of Service October 11, 2020 History & Physical Bridge Note I have examined the patient, reviewed the History & Physical and in the interval since the performance of the History & Physical I have noted the following changes of clinical significance: no changes noted Supervising Physician Co-Signing Physician Notes Attending addendum: The patient was seen and examined in the emergency room He has been complaining of lower abdominal pain for the last few days The pain is has been worse since this morning with nausea but no vomiting Denies any fever and chills and denies any alteration of bowel habit and no urinary problems On examination Sitting at the edge of the bed with some abdominal discomfort Noted to have very high blood pressure of 181/111 without any symptoms Chestclear to auscultate bilaterally HeartS1-S2, regular Abdomendistended, tender around umbilicus mostly on upper right part and also tenderness involving the left lower quadrant with lumpy feeling. Bowel sounds present Extremities1+ edema bilaterally CNSalert, awake and oriented x3. No focal sensory no motor deficit appreciated Admission labs, imaging studies noted Has ventral hernia and is being evaluated by surgeon Possible surgery tomorrow Other significant medical conditions remained stable Agree with assessment plan as outlined above by SARAH Tony Dr
[2020-10-11] MEDS ORDERED: CLINDAMYCIN 900 MG in DEXTROSE 5% 50 ML IV ONE (07:30)
[2020-10-11] MEDS ORDERED: CLINDAMYCIN 900 MG in DEXTROSE 5% 50 ML IV SCH (08:00)
[2020-10-11] MEDS: UMECLIDINIUM BROMIDE 62.5MCG/BLISTER 7 PUFFS/INHALER INH SCH (08:02)
[2020-10-11] MEDS: FLUTICASONE PROPIONATE NA SPR 16 GM BTL SCH (08:02)
[2020-10-11] MEDS: FLUTICASONE/VILANTEROL 200/25MCG 14 PUFFS/INHALER INH SCH (08:02)
[2020-10-11] MEDS: FAMOTIDINE 20 MG TAB PO SCH ×2 (08:03→20:35)
[2020-10-11] MEDS: INSULIN GLARGINE SOLOSTAR 100 UNITS/ML 3 ML PEN SC SCH ×2 (08:05→20:45)
[2020-10-11] MEDS: INSULIN ASPART 100 UNITS/ML 3 ML PEN SC SCH ×4 (08:05→20:39)
[2020-10-11] MEDS ORDERED: ePHEDrine sulfate 50 MG/ML AMP IV PRN (08:26)
[2020-10-11] MEDS ORDERED: fentaNYL citrate 100 MCG/2 ML VIAL IV PRN (08:26)
[2020-10-11] MEDS ORDERED: ONDANSETRON INJ 2 MG/ML 2 ML VIAL IV PRN (08:26)
[2020-10-11] MEDS ORDERED: ATROPINE SULFATE 0.1 MG/ML 10ML SYR IV PRN (08:26)
[2020-10-11] MEDS ORDERED: METOPROLOL TARTRATE 25 MG TAB PO SCH ×2 (09:00)
--- NOTE | 2020-10-11 09:03 | Anesthesiology Consultation ---
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 History Surgery Operation Date: 10/11/20 07:30 Proposed Procedures p Ventral Hernia Repair - Lupe Carter MD s open incarcerated ventral hernia and umbilical hernia repair with mesh - Lupe Carter MD Height/Weight Height: 5 ft 6 in Weight: 119.3 kg Allergies Allergy/AdvReac Type Severity Reaction Status Date / Time Cephalosporins Allergy Intermediate Hives Verified 10/10/20 15:07 erythromycin base Allergy Unknown CAN'T Verified 10/10/20 15:07 REMEMBER Sulfa (Sulfonamide Allergy Unknown CAN'T Verified 10/10/20 15:07 Antibiotics) REMEMBER Penicillins AdvReac Intermediate Gastrointestinal Verified 10/10/20 15:07 Upset Medications Home Medications Medication Instructions Recorded Confirmed Last Taken albuterol sulfate 2 puff INHALATION Q4H PRN 11/24/19 10/10/20 Unknown albuterol sulfate 2.5 mg INHALATION Q4H PRN 11/24/19 10/10/20 Unknown allopurinol 100 mg PO QPM 11/24/19 10/10/20 10/09/20 cholecalciferol (vitamin D3) 50,000 unit PO WK 11/24/19 10/10/20 10/07/20 mometasone 2 spray INTRANASAL BID 11/24/19 10/10/20 10/10/20 08:00 montelukast 10 mg PO QPM 11/24/19 10/10/20 10/09/20 atorvastatin 40 mg tablet 40 mg PO HS 01/02/20 10/10/20 10/09/20 fluticasone 500 mcg-salmeterol 50 1 inh INHALATION BID 07/07/20 10/10/20 10/10/20 08:00 mcg/dose blistr powdr for inhalation metoprolol tartrate 25 mg tablet 25 mg PO BID tab 07/07/20 10/10/20 10/10/20 08:00 Spiriva with HandiHaler 1 cap INHALATION DAILY 08/13/20 10/10/20 10/10/20 azelastine 2 spray INTRANASAL BID 08/13/20 10/10/20 10/10/20 08:00 famotidine 20 mg PO BID 08/13/20 10/10/20 10/10/20 08:00 insulin aspart U-100 [Novolog 0 unit SUBCUT TIDM 08/13/20 10/10/20 10/10/20 12:00 Flexpen U-100 Insulin] lisinopril 10 mg PO QAM 08/13/20 10/10/20 10/10/20 metformin 1,000 mg PO BIDM 08/13/20 10/10/20 10/10/20 08:00 Active Medications Generic Name Dose Route Start Last Admin Trade Name Korina PRN Reason Stop Dose Admin Allopurinol 100 mg 10/10/20 22:09 10/10/20 23:19 Allopurinol 100 Mg Tab PO 11/09/20 22:08 100 mg QPM SHAUNA Administration Atorvastatin Calcium 40 mg 10/10/20 22:09 10/10/20 23:20 Atorvastatin 40 Mg Tab PO 11/09/20 22:08 40 mg HS SHAUNA Administration Famotidine 20 mg 10/10/20 22:09 10/11/20 08:03 Famotidine 20 Mg Tab PO 11/09/20 22:08 20 mg BID SHAUNA Administration Fluticasone Propionate 2 sprays 10/10/20 22:09 10/11/20 08:02 Fluticasone Propionate Na Spr 16 Gm Btl NA 11/09/20 22:08 2 sprays DAILY SHAUNA Administration Fluticasone/Vilanterol 1 puffs 10/10/20 22:09 10/11/20 08:02 Fluticasone/Vilanterol 200/25mcg 14 Puffs/Inhaler INH 11/09/20 22:08 1 puffs DAILY SHAUNA Administration Clindamycin Phosphate 900 mg/ 56 mls @ 112 mls/hr 10/11/20 08:00 10/11/20 08:02 Dextrose IV 10/11/20 18:00 112 mls/hr TODAY@0800 SHAUNA Administration Insulin Aspart 0 units 10/10/20 22:09 10/11/20 08:05 Insulin Aspart 100 Units/Ml 3 Ml Pen SC 11/09/20 22:08 Not Given ACHS SHAUNA Insulin Glargine 0 - 10 units 10/10/20 22:09 10/11/20 08:05 Insulin Glargine Solostar 100 Units/Ml 3 Ml Pen SC 11/09/20 22:08 5 units BID SHAUNA Administration Protocol Metoprolol Tartrate 25 mg 10/10/20 22:09 10/10/20 23:23 Metoprolol Tartrate 25 Mg Tab PO 11/09/20 22:08 25 mg BID SHAUNA Administration Miscellaneous 1 ea 10/11/20 00:00 10/11/20 08:02 Astelin - Order Awaiting Action N/A 11/10/20 00:00 Not Given QS SHAUNA Montelukast Sodium 10 mg 10/10/20 22:09 10/10/20 23:24 Montelukast Sodium 10 Mg Tablet PO 11/09/20 22:08 10 mg QPM SHAUNA Administration Umeclidinium [place] 1 puffs 10/11/20 09:00 10/11/20 08:02 Umeclidinium [place] 62.5mcg/Blister 7 Puffs/Inhaler INH 11/10/20 08:59 1 puffs DAILY SHAUNA Administration Past Medical History Medical History Anxiety Asthma, mild persistent DM type 2 (diabetes mellitus, type 2) Environmental and seasonal allergies Gout HLD (hyperlipidemia) HTN (hypertension) Mitral regurgitation Mitral valve disorder Obesity Past Family History Family History Mother Follicular lymphoma Past Surgical History Surgical History H/O exploratory laparotomy H/O nasal septoplasty History of hernia repair History of mitral valve repair S/P nasal septoplasty Social History Smoking Status: Never smoker Hx Alcohol Use: No Hx Substance Use: No substance use type: does not use Physical Exam Vital Signs Last Vital Signs Temp 97.5 F L 10/11/20 08:16 Pulse 77 10/11/20 08:16 Resp 16 10/11/20 08:16 BP 140/88 10/11/20 08:16 Pulse Ox 95 10/11/20 08:16 Testing Laboratory Results 10/11/20 05:28 10/11/20 05:28 Urine Color Yellow 10/10/20 Unknown Urine Appearance Clear (Clear) 10/10/20 Unknown Urine pH 5.0 (4.5-7.5) 10/10/20 Unknown Ur Specific [place] 1.013 (1.000-1.030) 10/10/20 Unknown Urine Protein Negative (Negative) 10/10/20 Unknown Urine Glucose (UA) Negative (Negative) 10/10/20 Unknown Urine Ketones Negative (Negative) 10/10/20 Unknown Urine Nitrite Negative (Negative) 10/10/20 Unknown Ur Leukocyte Esterase Negative (Negative) 10/10/20 Unknown Urine WBC (Auto) 0 /hpf (0-5) 10/10/20 Unknown Urine RBC (Auto) 0-4 /hpf (0-4) 10/10/20 Unknown U Hyaline Cast (Auto) 0 /lpf (0-5) 10/10/20 Unknown U Epithel Cells (Auto) 0-5 /lpf (0-5) 10/10/20 Unknown Urine Bacteria (Auto) Negative (Negative) 10/10/20 Unknown 10/11/20 10/10/20 07:38 23:20 POC Glucose 151 H 140 H
--- NOTE | 2020-10-11 10:17 | Hospitalist Progress Note ---
Date of Service October 11, 2020 Assessment & Plan (1) Ventral hernia: Pt is 45 y/o M with PMH HTN, HLD, asthma, insulin-dependent DM II, mitral regurgitation S/P repair in 2008 presented to ER with c/o left flank/abdomen pain today. Patient states for the past 2 weeks intermittent nausea. In ER pt afebrile, P: 97, R: 18, BP: 169/107, 94% on RA. No leukocytosis, lactate WNL, LFTs WNL, UA unremarkable CT abdomen/pelvis: large umbilical and supraumbilical hernias. There is infiltration of the fat within and around these hernias. Hepatomegaly. Cardiomegaly. 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 Large fat-containing left inguinal hernia. Still complains some pain in the abdomen with nausea but no vomiting and no fever and no chills Appreciate surgery input and recommendation for repair of ventral hernias Remains n.p.o. and will continue intravenous fluid and pain medications as needed DM II: A1c: 7.6 in 08/21/2020 Hold home medications Basal bolus insulin per protocol HTN: Continue lisinopril, metoprolol Blood pressure remains stable HLD: Continue atorvastatin Asthma: No signs exacerbation at this time Continue home inhalers Mitral regurgitation: S/p mitral valve repair in 2008 DVT Prophylaxis SCDs Full Code Follows with Dr Lawton for routine care Admission and Anticipated Discharge Date Admission Date: October 10, 2020 Subjective 10/11/2020 The patient was seen and examined in medical telemetry unit He complains to have pain in the abdomen around umbilicus with nausea Denies any fever and/or chills and no vomiting Waiting to go to the OR Review of Systems Review of Systems: All systems reviewed and are unremarkable except as noted below Gastrointestinal: + abdominal pain, + bloating and + nausea; no vomiting Physical Exam Physical Exam: Lying in bed comfortably Constitutional: well developed, well nourished, + ill appearing and + obese Eyes: PERRL, conjunctivae normal, anicteric sclerae ENMT: external ear and nose normal, oropharynx normal Neck: trachea midline, no thyromegaly Respiratory: no respiratory distress Auscultation: lungs clear to auscultation bilaterally Cardiovascular: Rate/Rhythm: regular rate and regular rhythm Heart Sounds: no murmur Extremities: + edema (1+ edema bilaterally) Gastrointestinal (Abdomen): Inspection/Auscultation: + abdomen distended and normal bowel sounds Percussion/Palpation: + abdomen tender (Right upper area of umbilicus and also left lower quadrant with lumpy feeli) Musculoskeletal: No acute arthritis in any joint Neurologic: Alert, awake and oriented x3. No focal sensory and motor deficit appreciated Psychiatric: A+Ox3, euthymic affect Lymphatic: no cervical or axillary lymphadenopathy Results & Data Results & Data ([facility]) Vital Signs (Past 12 Hours) Vital Signs Temp Pulse Pulse Resp BP Pulse Ox 10/11/20 09:08 71 10/11/20 08:16 36.4 C L 77 16 140/88 95 10/11/20 02:53 36.6 C 82 18 141/87 H 96 Laboratory Results Short CBC 10/10/20 10/11/20 Range/Units 12:52 05:28 WBC 8.21 8.17 (4.8-10.8) K/uL Hgb 13.7 L 12.3 L (14.0-18.0) g/dL Hct 40.3 L 36.4 L (42-52) % Plt Count 170 151 (130-400) K/uL BMP 10/10/20 10/11/20 12:52 05:28 Sodium 137 138 Potassium 4.2 4.0 Chloride 107 107 Carbon Dioxide 25 28 BUN 16 15 Creatinine 1.00 0.98 Glucose 146 H 133 H Calcium 8.9 8.0 L Liver Function 10/10/20 Range/Units 12:52 Total Bilirubin 0.5 (0.2-1) mg/dl AST 25 (15-37) U/L ALT 50 (12-78) U/L Alkaline Phosphatase 67 (45-117) U/L Albumin 3.6 (3.4-5.0) gm/dl Urine 10/10/20 Range/Units Unknown Urine Color Yellow Urine Appearance Clear (Clear) Urine pH 5.0 (4.5-7.5) Ur Specific [place] 1.013 (1.000-1.030) Urine Protein Negative (Negative) Urine Glucose (UA) Negative (Negative) Medications Administered Current Inpatient Medications Acetaminophen (Acetaminophen 325 Mg Tab) 650 mg PO Q4H PRN PRN Reason: Pain or Fever Stop: 11/09/20 22:08 Acetaminophen (Acetaminophen 1000 Mg/100 Ml Iv) 1,000 mg IV Q8H PRN PRN Reason: Pain or Fever Stop: 10/11/20 23:55 Albuterol (Albuterol 0.083% Nebu Soln 3 Ml Vial) 2.5 mg INH Q4H PRN PRN Reason: Cough and Wheezing Stop: 11/09/20 22:08 Allopurinol (Allopurinol 100 Mg Tab) 100 mg PO QPM SHAUNA Stop: 11/09/20 22:08 Last Admin: 10/10/20 23:19 Dose: 100 mg Documented by: Atorvastatin Calcium (Atorvastatin 40 Mg Tab) 40 mg PO HS SHAUNA Stop: 11/09/20 22:08 Last Admin: 10/10/20 23:20 Dose: 40 mg Documented by: Atropine Sulfate (Atropine Sulfate 0.1 Mg/Ml 10ml Syr) 0.5 mg IV Q1M PRN PRN Reason: PACU Use-HR<40 &/or Bradycardi Stop: 10/11/20 16:26 Dextrose (Dextrose 50% 50 Ml Syringe) 25 - 50 ml IV UD PRN; Protocol PRN Reason: Hypoglycemia Protocol Stop: 11/09/20 22:08 Ephedrine Sulfate (Ephedrine Sulfate 50 Mg/Ml Amp) 5 mg IV Q5M PRN PRN Reason: PACU Use Only-SBP<90 mmHg Stop: 10/11/20 16:26 Famotidine (Famotidine 20 Mg Tab) 20 mg PO BID SHAUNA Stop: 11/09/20 22:08 Last Admin: 10/11/20 08:03 Dose: 20 mg Documented by: Fentanyl Citrate (Fentanyl Citrate 100 Mcg/2 Ml Vial) 50 mcg IV Q5M PRN PRN Reason: PACU Use Only-Pain Stop: 10/11/20 16:26 Fluticasone Propionate (Fluticasone Propionate Na Spr 16 Gm Btl) 2 sprays NA DAILY SHAUNA Stop: 11/09/20 22:08 Last Admin: 10/11/20 08:02 Dose: 2 sprays Documented by: Fluticasone/Vilanterol (Fluticasone/Vilanterol 200/25mcg 14 Puffs/Inhaler) 1 puffs INH DAILY SHAUNA Stop: 11/09/20 22:08 Last Admin: 10/11/20 08:02 Dose: 1 puffs Documented by: Glucagon (Glucagon For Inj 1 Mg Vial) 1 mg SQ UD PRN; Protocol PRN Reason: Hypoglycemia Protocol Stop: 11/09/20 22:08 Glucose (Glucose 10 Tabs/Tube) 4 - 8 tabs PO UD PRN; Protocol PRN Reason: Hypoglycemia Protocol Stop: 11/09/20 22:08 Glucose (Glucose 40% Gel 15 Gm Tube) 15 - 30 gm PO UD PRN; Protocol PRN Reason: Hypoglycemia Protocol Stop: 11/09/20 22:08 Clindamycin Phosphate 900 mg/ (Dextrose) 56 mls @ 112 mls/hr IV TODAY@0800 [facility] Stop: 10/11/20 18:00 Last Infusion: 10/11/20 09:03 Dose: Infused Documented by: Insulin Aspart (Insulin Aspart 100 Units/Ml 3 Ml Pen) 0 units SC ACHS [facility] Stop: 11/09/20 22:08 Last Admin: 10/11/20 08:05 Dose: Not Given Documented by: Insulin Glargine (Insulin Glargine Solostar 100 Units/Ml 3 Ml Pen) 0 - 10 units SC BID [facility]; Protocol Stop: 11/09/20 22:08 Last Admin: 10/11/20 08:05 Dose: 5 units Documented by: Lisinopril (Lisinopril 10 Mg Tab) 10 mg PO QAM [facility] Stop: 11/10/20 08:59 Metoprolol Tartrate (Metoprolol Tartrate 25 Mg Tab) 25 mg PO BID [facility] Stop: 11/09/20 22:08 Last Admin: 10/10/20 23:23 Dose: 25 mg Documented by: Miscellaneous (Carbohydrates For Hypoglycemia ) 15 - 30 gm PO UD PRN PRN Reason: Hypoglycemia Protocol Stop: 11/09/20 22:08 Miscellaneous (Astelin - Order Awaiting Action) 1 ea N/A QS [facility] Stop: 11/10/20 00:00 Last Admin: 10/11/20 08:02 Dose: Not Given Documented by: Montelukast Sodium (Montelukast Sodium 10 Mg Tablet) 10 mg PO QPM [facility] Stop: 11/09/20 22:08 Last Admin: 10/10/20 23:24 Dose: 10 mg Documented by: Morphine Sulfate (Morphine Sulfate 2 Mg/Ml [place]) 2 mg IV Q4H PRN PRN Reason: Severe Pain Stop: 10/24/20 22:08 Ondansetron HCl (Ondansetron Inj 2 Mg/Ml 2 Ml Vial) 4 mg IV Q6H PRN PRN Reason: Nausea Stop: 11/09/20 22:08 Ondansetron HCl (Ondansetron Inj 2 Mg/Ml 2 Ml Vial) 4 mg IV ONCE PRN PRN Reason: PACU Use Only-Nausea/Vomiting Stop: 10/11/20 16:26 Umeclidinium [place] (Umeclidinium [place] 62.5mcg/Blister 7 Puffs/Inhaler) 1 puffs INH DAILY SHAUNA Stop: 11/10/20 08:59 Last Admin: 10/11/20 08:02 Dose: 1 puffs Documented by:
[2020-10-11] MEDS ORDERED: NEOSTIGMINE METHYLSULFATE 1 MG/ML 10ML VIAL ONE (10:39)
[2020-10-11] MEDS ORDERED: GLYCOPYRROLATE 0.2 MG/ML VIAL ONE ×2 (10:39→10:44)
[2020-10-11] MEDS ORDERED: KETOROLAC 30 MG/ML VIAL ONE (10:39)
--- NOTE | 2020-10-11 10:50 | Post Operative Brief Note ---
Immediate Post Op Note v1 Date of Surgery October 11, 2020 Pre & Post Diagnosis Operation Date: 10/11/20 07:30 pre-op diagnosis: incarcerated ventral hernia and umbilical hernia post-op diagnosis: incarcerated ventral hernia and umbilical hernia I identified the patient and participated in the time-out.: Yes Procedure Operation Date: 10/11/20 07:30 open repair ventral hernia and umbilical hernia with mesh Surgeon Lupe Carter MD [employer] surgical brace maker Estimated Blood Loss 10 Findings Consistent with Post-Op Diagnosis incarcerated ventral hernia size about 3x3cm, umbilical hernia size about 1.5x1.5cm, Fluids 800ml Specimens umbilical hernia sac Anesthesia Type General Complications none Disposition Accompanied Patient To Recovery: Yes Disposition: Recovery Room Overlapping Procedure I was immediately available: during the entire case.
--- NOTE | 2020-10-11 11:41 | Anesthesiology Progress Note ---
Date of Service October 11, 2020 Anesthesia Post Procedure Vital Signs Vital Signs: Temp Pulse Pulse Pulse Resp BP BP 10/11/20 11:35 97.5 F L 79 22 121/78 10/11/20 11:25 80 26 H 120/76 10/11/20 11:15 79 30 H 148/89 H 10/11/20 11:08 97.5 F L 81 26 H 144/99 H 10/11/20 09:08 71 10/11/20 08:16 97.5 F L 77 16 140/88 10/11/20 02:53 97.9 F 82 18 141/87 H 10/10/20 21:41 98.1 F 84 18 153/90 H 10/10/20 20:54 91 H 18 133/85 10/10/20 20:30 99 H 13 10/10/20 20:26 92 H 20 133/85 10/10/20 20:00 96 H 17 10/10/20 19:43 103 H 17 181/111 H 10/10/20 19:42 101 H 19 181/111 H 10/10/20 19:30 107 H 12 10/10/20 19:15 94 H 15 155/106 H 10/10/20 19:13 95 H 21 182/116 H 10/10/20 19:00 96 H 18 10/10/20 18:30 97 H 24 10/10/20 18:02 101 H 26 H 163/138 H 10/10/20 18:00 98 H 19 10/10/20 17:35 100 H 16 157/116 H 10/10/20 17:32 104 H 17 157/116 H 10/10/20 17:30 96 H 15 10/10/20 17:00 98 H 16 154/128 H 10/10/20 16:30 99 H 18 173/126 H 10/10/20 16:03 98 H 25 H 155/116 H 10/10/20 16:00 92 H 92 H 25 H 155/116 H 10/10/20 15:30 88 22 10/10/20 15:00 90 16 10/10/20 14:40 97 H 20 165/116 H 10/10/20 14:39 99 H 22 10/10/20 14:06 93 H 18 10/10/20 14:05 95 H 18 134/112 H 10/10/20 14:03 92 H 22 134/112 H 10/10/20 11:46 98.2 F 97 H 18 169/107 H Pulse Ox 10/11/20 11:35 97 10/11/20 11:25 99 10/11/20 11:15 99 10/11/20 11:08 99 10/11/20 09:08 10/11/20 08:16 95 10/11/20 02:53 96 10/10/20 21:41 98 10/10/20 20:54 98 10/10/20 20:30 10/10/20 20:26 10/10/20 20:00 10/10/20 19:43 10/10/20 19:42 95 10/10/20 19:30 10/10/20 19:15 10/10/20 19:13 98 10/10/20 19:00 10/10/20 18:30 10/10/20 18:02 10/10/20 18:00 10/10/20 17:35 98 10/10/20 17:32 10/10/20 17:30 10/10/20 17:00 10/10/20 16:30 10/10/20 16:03 10/10/20 16:00 92 10/10/20 15:30 10/10/20 15:00 10/10/20 14:40 93 10/10/20 14:39 97 10/10/20 14:06 97 10/10/20 14:05 97 10/10/20 14:03 97 10/10/20 11:46 94 Pain Intensity Left Flank: Pain Intensity: 6 Transfer of Care Handoff Completed per policy Notes Mental Status: alert / awake / arousable and participated in evaluation Patient Amnestic to Procedure: Yes Nausea / Vomiting: adequately controlled Pain: adequately controlled Airway Patency, RR, SpO2: stable & adequate BP & HR: stable & adequate Hydration State: stable & adequate Anesthetic Complications: no major complications apparent and Pt Satisfied with anesthetic care
--- NOTE | 2020-10-11 12:07 | Operative Report (OR) ---
DATE OF PROCEDURE: 10/11/2020 PREOPERATIVE DIAGNOSES: Incarcerated ventral hernia and umbilical hernia. POSTOPERATIVE DIAGNOSES: Incarcerated ventral hernia and umbilical hernia. PROCEDURE: Open repair of ventral hernia and umbilical hernia with mesh. SURGEON: Lupe Carter MD. ANESTHESIA: General. ESTIMATED BLOOD LOSS: About 10 mL FINDINGS: Incarcerated ventral hernia size about 3 x 3 cm and incarcerated umbilical hernia size abo ut 1.5 x 1.5 cm. COMPLICATIONS: None. INDICATIONS OF THE PROCEDURE: This is a 55-year-old gentleman who presented to ED with abdominal zack n and the patient had a CT scan that shows an incarcerated ventral hernia, umbilical hernia, and I re commended to do the open repair ventral hernia and umbilical hernia, possible with mesh. I did talk to the patient about the benefit the risk alternate procedure. I indicated the risks may include, bu t not limited to, such as bleeding, infection, hernia recurrence, seroma, complication related to mes h, bowel obstruction, myocardial infarction, and even . The patient understands. He signed inf ormed consent and I answered all questions. DETAILS OF PROCEDURE: After identifying the patient and verified the procedure, we brought the patie nt to the OR, put the patient on the supine position. The patient received SCD on bilateral legs to prevent DVT. Also, the patient received 900 mg clindamycin IV for prophylactic antibiotic. The cherie ent received general anesthesia without difficulty. Abdomen was appropriately prepped and draped in routine sterile fashion. After timeout, I made a transverse incision just above the umbilicus and mo bilized the umbilicus and reached the ventral hernia sac and then we opened the hernia sac and there were some omental incarcerated on the hernia sac and then we used the Harmonic to take down all oment al fat from the hernia sac, returned to the abdominal cavity. At this moment, we mobilized umbilicus and also take down the umbilical hernia sac and sent to pathology. Then, we found the patient had a ventral hernia size about 3 x 3 cm and umbilical hernia about 1.5 x 1.5 cm. We combined these two h ernias into one. I chose an 8 cm mesh, round the mesh to repair the two hernia. Hemostasis obtained . I used a #1 Ethibond to suture the mesh to the fascial layer, interrupted at 360 degree. Then, we tied the suture one by one, the mesh was seated nicely, no tension. Hemostasis obtained, then I lane ttached the umbilicus to the fascial layer by using 2-0 Vicryl, then I closed the subcutaneous layer by using 2-0 Vicryl interrupted, closed skin by using staple. Then, we put the dressing. The patien t tolerated the procedure well. All instrument, needle and sponge counts were correct x2 at the end of the case. Patient transferred to recovery room in stable condition. After the procedure, I did t alk to the patient about the OR finding and the procedure we did, patient understands. Job ID: [id number]
[2020-10-11] MEDS: MoRPHine SULFATE 2 MG/ML CARP IV PRN ×3 (12:22→23:50)
[2020-10-11] MEDS: lisinopril 10 MG TAB PO SCH (12:23)
[2020-10-11] MEDS: METOPROLOL TARTRATE 25 MG TAB PO SCH ×2 (12:23→21:23)
[2020-10-11] MEDS ORDERED: COUGH DROP (SUGAR FREE) LOZ 24 LOZ/1 BOX BUCCAL PRN (14:44)
[2020-10-11] MEDS: ATORVASTATIN 40 MG TAB PO SCH (20:34)
[2020-10-11] MEDS: allopurinoL 100 MG TAB PO SCH (20:34)
[2020-10-11] MEDS: MONTELUKAST SODIUM 10 MG TABLET PO SCH (20:40)
[2020-10-12] MEDS: ASTELIN - ORDER AWAITING ACTION SCH ×4 (06:03→23:44)
[2020-10-12] MEDS: MoRPHine SULFATE 2 MG/ML CARP IV PRN (06:33)
[2020-10-12 06:53] LABS: Basophils # (auto) 0.02 K/uL (0-0.2); Basophils % (auto) 0.2 %; Eosinophils # (auto) 0.11 K/uL (0-0.5); Hematocrit (blood only) 38.7 % (42-52); Hemoglobin 12.8 g/dL (14.0-18.0); Immature Granulocytes # (auto) 0.06 K/uL (0.00-0.02); Immature Granulocytes % (auto) 0.5 %; Lymphocytes # (auto) 1.64 K/uL (1.2-3.4); Lymphocytes % (auto) 14.3 %; Mean Corpuscular Hemoglobin 28.9 pg (25-34); Mean Corpuscular Hgb Conc 33.1 g/dL (32-36); Mean Corpuscular Volume 87.4 fL (80-100); Mean Platelet Volume 9.6 fL (7.4-10.4); Monocytes # (auto) 1.07 K/uL (0.11-0.59); Monocytes % (auto) 9.3 %; Neutrophils # (auto) 8.58 K/uL (1.4-6.5); Neutrophils % (auto) 74.7 %; Platelet Count 164 K/uL (130-400); RDW Coefficient of Variation 14.6 % (11.5-14.5); RDW Standard Deviation 46.7 fL (36.4-46.3); Red Blood Count 4.43 M/uL (4.7-6.1); White Blood Count 11.48 K/uL (4.8-10.8)
[2020-10-12 07:15] LABS: BUN Creatinine Ratio 10.9 (10-20); Calcium 8.5 mg/dl (8.5-10.1); Est GFR (Non-African American) 75.9 ml/min
[2020-10-12] MEDS: lisinopril 10 MG TAB PO SCH (07:31)
[2020-10-12] MEDS: METOPROLOL TARTRATE 25 MG TAB PO SCH ×2 (07:31→20:38)
[2020-10-12] MEDS: FAMOTIDINE 20 MG TAB PO SCH ×2 (07:31→20:39)
[2020-10-12] MEDS: FLUTICASONE/VILANTEROL 200/25MCG 14 PUFFS/INHALER INH SCH (07:32)
[2020-10-12] MEDS: UMECLIDINIUM BROMIDE 62.5MCG/BLISTER 7 PUFFS/INHALER INH SCH (07:32)
[2020-10-12] MEDS: FLUTICASONE PROPIONATE NA SPR 16 GM BTL SCH (07:32)
[2020-10-12] MEDS: guaiFENesin 600 MG TABCR PO SCH ×2 (08:21→20:41)
[2020-10-12] MEDS: INSULIN GLARGINE SOLOSTAR 100 UNITS/ML 3 ML PEN SC SCH ×2 (08:22→20:36)
[2020-10-12] MEDS: INSULIN ASPART 100 UNITS/ML 3 ML PEN SC SCH ×4 (08:23→20:35)
--- NOTE | 2020-10-12 11:20 | Surgery Progress Note ---
Date of Service F/U S/P open repair ventral and umbilical hernia with mesh, POD 1 pt feels better, some pain on incision site, no fever, October 12, 2020 Assessment & Plan (1) Incarcerated ventral hernia: pt is a 45 year-old male who presents to Er with 10 days history nausea, superior umbilical pain and left side abdominal pain, IMP: incarcerated ventral hernia, umbilical hernia, I Recommend to do open repair ventral hernia and umbilical hernia possible with mesh tomorrow, D/W benefits, risks and alternatives of the surgery, the risks - infection, bleeding, hernia recurrence, complications relate to Mesh, injury other organs, pt understood, he agrees with the surgery, I answered all questions, NPO after MN, iv fluid, SCD, control pain, medicine team will admit pt to hospital, for treat co-morbidity,Thanks, D/W ER attending, 10/12/2020, 11:22AM F/U S/p open repair ventral and umbilical hernia, POD 1 doing better, some pain on incision site, WBC 11,000 pt wants to go home tomorrow, PT, OP, OOB clindamycin 900mg IV q8h for 24 hours prevent mesh infection, will F/U (2) Umbilical hernia: Admission and Anticipated Discharge Date Admission Date: October 10, 2020 Supervising Physician Co-Signing Physician Notes Attending addendum: The patient was seen and examined in the emergency room He has been complaining of lower abdominal pain for the last few days The pain is has been worse since this morning with nausea but no vomiting Denies any fever and chills and denies any alteration of bowel habit and no urinary problems On examination Sitting at the edge of the bed with some abdominal discomfort Noted to have very high blood pressure of 181/111 without any symptoms Chestclear to auscultate bilaterally HeartS1-S2, regular Abdomendistended, tender around umbilicus mostly on upper right part and also tenderness involving the left lower quadrant with lumpy feeling. Bowel sounds present Extremities1+ edema bilaterally CNSalert, awake and oriented x3. No focal sensory no motor deficit appreciated Admission labs, imaging studies noted Has ventral hernia and is being evaluated by surgeon Possible surgery tomorrow Other significant medical conditions remained stable Agree with assessment plan as outlined above by SARAH Tony Dr Subjective 10/11/2020 The patient was seen and examined in medical telemetry unit He complains to have pain in the abdomen around umbilicus with nausea Denies any fever and/or chills and no vomiting Waiting to go to the OR Review of Systems Constitutional: as per Subjective / HPI obesity Eyes: as per Subjective / HPI Ear, Nose, Mouth, Throat: as per Subjective / HPI sinus surgery on 07/2020 with anesthesia hypoxia Respiratory: as per Subjective / HPI acute dyspnea Cardiovascular: as per Subjective / HPI Additional Comments: S/P mitral valve surgery, HTN, hypertriglyceridem, Gastrointestinal: as per Subjective / HPI laparoscopic repair abdominal hernia with mesh, pancreatitis, Genitourinary: + as per Subjective / HPI Musculoskeletal: as per Subjective / HPI Integumentary: as per Subjective / HPI Neurologic: as per Subjective / HPI Endocrine: as per Subjective / HPI DM, Allergy / Immunological: as per Subjective / HPI Physical Exam Constitutional: WD/WN, vitals as above well developed and well nourished Eyes: PERRL, conjunctivae normal, anicteric sclerae ENMT: external ear and nose normal, oropharynx normal Neck: trachea midline, no thyromegaly Respiratory: normal respiratory effort, lungs clear to auscultation normal respiratory effort Cardiovascular: RRR, no murmur, no edema Rate/Rhythm: regular rate and regular rhythm Gastrointestinal (Abdomen): Percussion/Palpation: + abdomen tender and abdomen soft mild tenderness at incision site, no rebound pain, BS +, the incision dry intact, , no drainage, Musculoskeletal: no cyanosis or clubbing, extremities motor strength 5/5 Skin: no rashes, warm and dry Neurologic: awake Psychiatric: Orientation: alert and oriented x 3 Results & Data ([facility]) Vital Signs (Past 12 Hours) Vital Signs Temp Pulse Pulse Resp BP Pulse Ox 10/12/20 08:04 36.7 C 90 16 130/81 94 10/12/20 07:10 93 H 10/12/20 06:08 107 H 10/12/20 02:30 37.0 C 89 18 150/90 H 94 Laboratory Results Abnormal lab results 10/11/20 10/11/20 10/11/20 Range/Units 11:13 16:37 20:06 WBC (4.8-10.8) K/uL RBC (4.7-6.1) M/uL Hgb (14.0-18.0) g/dL Hct (42-52) % RDW Std Deviation (36.4-46.3) fL RDW Coeff of María Elena (11.5-14.5) % Neut # (Auto) (1.4-6.5) K/uL Meriwether # (Auto) (0.11-0.59) K/uL Immature Gran # (Auto) (0.00-0.02) K/uL Glucose (70-99) mg/dl POC Glucose 185 H 125 H 127 H (70-99) mg/dl 10/12/20 10/12/20 10/12/20 Range/Units 06:42 06:42 07:42 WBC 11.48 H (4.8-10.8) K/uL RBC 4.43 L (4.7-6.1) M/uL Hgb 12.8 L (14.0-18.0) g/dL Hct 38.7 L (42-52) % RDW Std Deviation 46.7 H (36.4-46.3) fL RDW Coeff of María Elena 14.6 H (11.5-14.5) % Neut # (Auto) 8.58 H (1.4-6.5) K/uL [place]iwether # (Auto) 1.07 H (0.11-0.59) K/uL Immature Gran # (Auto) 0.06 H (0.00-0.02) K/uL Glucose 147 H (70-99) mg/dl POC Glucose 135 H (70-99) mg/dl
[2020-10-12] MEDS: ACETAMINOPHEN 325 MG TAB PO PRN ×2 (12:08→20:51)
[2020-10-12] MEDS: CLINDAMYCIN 900 MG in DEXTROSE 5% 50 ML IV SCH ×2 (12:08→20:33)
--- NOTE | 2020-10-12 12:11 | Hospitalist Progress Note ---
Date of Service October 12, 2020 Assessment & Plan (1) Ventral hernia: Pt is 45 y/o M with PMH HTN, HLD, asthma, insulin-dependent DM II, mitral regurgitation S/P repair in 2008 presented to ER with c/o left flank/abdomen pain today. Patient states for the past 2 weeks intermittent nausea. In ER pt afebrile, P: 97, R: 18, BP: 169/107, 94% on RA. No leukocytosis, lactate WNL, LFTs WNL, UA unremarkable CT abdomen/pelvis: large umbilical and supraumbilical hernias. There is infiltration of the fat within and around these hernias. Hepatomegaly. Cardiomegaly. 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 Large fat-containing left inguinal hernia. Still complains some pain in the abdomen with nausea but no vomiting and no fever and no chills Appreciate surgery input and recommendation for repair of ventral hernias Remains n.p.o. and will continue intravenous fluid and pain medications as needed Status post repair of the ventral hernia, POD #1 Minimal pain without any other symptoms Left knee pain Status post fall before admission Minimal local bruising but no decrease in range of motion Will advise local Voltaren gel No need to have any further imaging studies DM II: A1c: 7.6 in 08/21/2020 Hold home medications Basal bolus insulin per protocol HTN: Continue lisinopril, metoprolol Blood pressure remains stable HLD: Continue atorvastatin Asthma: No signs exacerbation at this time Continue home inhalers Mitral regurgitation: S/p mitral valve repair in 2008 DVT Prophylaxis We will start subcu Lovenox Full Code Follows with Dr Lawton for routine care Admission and Anticipated Discharge Date Admission Date: October 10, 2020 Subjective 10/11/2020 The patient was seen and examined in medical telemetry unit He complains to have pain in the abdomen around umbilicus with nausea Denies any fever and/or chills and no vomiting Waiting to go to the OR 10/12/2020 The patient was seen and examined in medical telemetry unit He is a status post repair of ventral hernia on 10/11/2020 Complains to have abdominal pain at the site of incision Also complains to have left knee pain has been going on since a fall as an outpatient Review of Systems Review of Systems: All systems reviewed and are unremarkable except as noted below Gastrointestinal: + abdominal pain, + bloating and + nausea; no vomiting Musculoskeletal: Left knee pain Physical Exam Physical Exam: Sitting at the edge of the bed with some abdominal discomfort Constitutional: well developed, well nourished, + ill appearing and + obese Eyes: PERRL, conjunctivae normal, anicteric sclerae ENMT: external ear and nose normal, oropharynx normal Neck: trachea midline, no thyromegaly Respiratory: no respiratory distress Auscultation: lungs clear to auscultation bilaterally Cardiovascular: Rate/Rhythm: regular rate and regular rhythm Heart Sounds: no murmur Extremities: + edema (1+ edema bilaterally) Gastrointestinal (Abdomen): Inspection/Auscultation: + abdomen distended and normal bowel sounds Percussion/Palpation: + abdomen tender (Right upper area of umbilicus and also left lower quadrant with lumpy feeli) Musculoskeletal: Minimal left knee pain with local tenderness but no decrease in range of motion and no effusion. Psychiatric: A+Ox3, euthymic affect Lymphatic: no cervical or axillary lymphadenopathy Results & Data Results & Data ([facility]) Vital Signs (Past 12 Hours) Vital Signs Temp Pulse Pulse Resp BP Pulse Ox 10/12/20 11:49 36.8 C 89 16 131/91 94 10/12/20 08:04 36.7 C 90 16 130/81 94 10/12/20 07:10 93 H 10/12/20 06:08 107 H 10/12/20 02:30 37.0 C 89 18 150/90 H 94 Laboratory Results Short CBC 10/12/20 Range/Units 06:42 WBC 11.48 H (4.8-10.8) K/uL Hgb 12.8 L (14.0-18.0) g/dL Hct 38.7 L (42-52) % Plt Count 164 (130-400) K/uL BMP 10/12/20 10/12/20 06:42 07:36 Sodium 139 Potassium 3.9 Chloride 106 Carbon Dioxide 28 BUN 13 Creatinine 1.17 Glucose 147 H Calcium 8.5 Medications Administered Current Inpatient Medications Acetaminophen (Acetaminophen 325 Mg Tab) 650 mg PO Q4H PRN PRN Reason: Pain or Fever Stop: 11/09/20 22:08 Albuterol (Albuterol 0.083% Nebu Soln 3 Ml Vial) 2.5 mg INH Q4H PRN PRN Reason: Cough and Wheezing Stop: 11/09/20 22:08 Allopurinol (Allopurinol 100 Mg Tab) 100 mg PO QPM SHAUNA Stop: 11/09/20 22:08 Last Admin: 10/11/20 20:34 Dose: 100 mg Documented by: Aspirin (Aspirin 81 Mg Ectab) 81 mg PO QAM SHAUNA Stop: 11/12/20 08:59 Atorvastatin Calcium (Atorvastatin 40 Mg Tab) 40 mg PO HS SHAUNA Stop: 11/09/20 22:08 Last Admin: 10/11/20 20:34 Dose: 40 mg Documented by: Dextrose (Dextrose 50% 50 Ml Syringe) 25 - 50 ml IV UD PRN; Protocol PRN Reason: Hypoglycemia Protocol Stop: 11/09/20 22:08 Diclofenac Sodium (Diclofenac Sod 1% Gel 100 Gm Tube) 2 gm EXT TID SHAUNA Stop: 11/11/20 13:59 Famotidine (Famotidine 20 Mg Tab) 20 mg PO BID SHAUNA Stop: 11/09/20 22:08 Last Admin: 10/12/20 07:31 Dose: 20 mg Documented by: Fluticasone Propionate (Fluticasone Propionate Na Spr 16 Gm Btl) 2 sprays NA DAILY SHAUNA Stop: 11/09/20 22:08 Last Admin: 10/12/20 07:32 Dose: 2 sprays Documented by: Fluticasone/Vilanterol (Fluticasone/Vilanterol 200/25mcg 14 Puffs/Inhaler) 1 puffs INH DAILY SHAUNA Stop: 11/09/20 22:08 Last Admin: 10/12/20 07:32 Dose: 1 puffs Documented by: Glucagon (Glucagon For Inj 1 Mg Vial) 1 mg SQ UD PRN; Protocol PRN Reason: Hypoglycemia Protocol Stop: 11/09/20 22:08 Glucose (Glucose 10 Tabs/Tube) 4 - 8 tabs PO UD PRN; Protocol PRN Reason: Hypoglycemia Protocol Stop: 11/09/20 22:08 Glucose (Glucose 40% Gel 15 Gm Tube) 15 - 30 gm PO UD PRN; Protocol PRN Reason: Hypoglycemia Protocol Stop: 11/09/20 22:08 Guaifenesin (Guaifenesin 600 Mg Tabcr) 1,200 mg PO Q12 SHAUNA Stop: 11/11/20 08:59 Last Admin: 10/12/20 08:21 Dose: 1,200 mg Documented by: Clindamycin Phosphate 900 mg/ (Dextrose) 56 mls @ 112 mls/hr IV Q8H [facility]; Protocol Stop: 10/14/20 11:59 Insulin Aspart (Insulin Aspart 100 Units/Ml 3 Ml Pen) 0 units SC ACHS [facility] Stop: 11/09/20 22:08 Last Admin: 10/12/20 12:00 Dose: 4 units Documented by: Insulin Glargine (Insulin Glargine Solostar 100 Units/Ml 3 Ml Pen) 0 - 10 units SC BID [facility]; Protocol Stop: 11/09/20 22:08 Last Admin: 10/12/20 08:22 Dose: 5 units Documented by: Lisinopril (Lisinopril 10 Mg Tab) 10 mg PO QAM [facility] Stop: 11/10/20 08:59 Last Admin: 10/12/20 07:31 Dose: 10 mg Documented by: Menthol (Cough Drop (Sugar Free) Nicole 24 Nicole/1 Box) 1 nicole BUCCAL PRN PRN PRN Reason: Sore Throat Stop: 11/10/20 14:43 Metoprolol Tartrate (Metoprolol Tartrate 25 Mg Tab) 25 mg PO BID [facility] Stop: 11/09/20 22:08 Last Admin: 10/12/20 07:31 Dose: 25 mg Documented by: Miscellaneous (Carbohydrates For Hypoglycemia ) 15 - 30 gm PO UD PRN PRN Reason: Hypoglycemia Protocol Stop: 11/09/20 22:08 Miscellaneous (Astelin - Order Awaiting Action) 1 ea N/A QS [facility] Stop: 11/10/20 00:00 Last Admin: 10/12/20 07:31 Dose: Not Given Documented by: Montelukast Sodium (Montelukast Sodium 10 Mg Tablet) 10 mg PO QPM [facility] Stop: 11/09/20 22:08 Last Admin: 10/11/20 20:40 Dose: 10 mg Documented by: Morphine Sulfate (Morphine Sulfate 2 Mg/Ml Carp) 2 mg IV Q4H PRN PRN Reason: Severe Pain Stop: 10/24/20 22:08 Last Admin: 10/12/20 06:33 Dose: 2 mg Documented by: Ondansetron HCl (Ondansetron Inj 2 Mg/Ml 2 Ml Vial) 4 mg IV Q6H PRN PRN Reason: Nausea Stop: 11/09/20 22:08 Polyethylene Glycol (Polyethylene (Miralax) 17 Gm Pack) 17 gm PO DAILY PRN PRN Reason: Constipation Stop: 11/11/20 11:25 Umeclidinium [place] (Umeclidinium [place] 62.5mcg/Blister 7 Puffs/Inhaler) 1 puffs INH DAILY SHAUNA Stop: 11/10/20 08:59 Last Admin: 10/12/20 07:32 Dose: 1 puffs Documented by:
[2020-10-12] MEDS: DICLOFENAC SOD 1% GEL 100 GM TUBE EXT SCH ×2 (12:42→20:34)
[2020-10-12] MEDS: POLYETHYLENE (MIRALAX) 17 GM PACK PO PRN (13:44)
[2020-10-12] MEDS: MONTELUKAST SODIUM 10 MG TABLET PO SCH (20:39)
[2020-10-12] MEDS: ATORVASTATIN 40 MG TAB PO SCH (20:40)
[2020-10-12] MEDS: allopurinoL 100 MG TAB PO SCH (20:40)
[2020-10-13] MEDS: CLINDAMYCIN 900 MG in DEXTROSE 5% 50 ML IV SCH ×2 (04:09→12:36)
[2020-10-13] MEDS: FLUTICASONE PROPIONATE NA SPR 16 GM BTL SCH (07:55)
[2020-10-13] MEDS: FAMOTIDINE 20 MG TAB PO SCH (07:55)
[2020-10-13] MEDS: lisinopril 10 MG TAB PO SCH (07:55)
[2020-10-13] MEDS: METOPROLOL TARTRATE 25 MG TAB PO SCH (07:55)
[2020-10-13] MEDS: guaiFENesin 600 MG TABCR PO SCH (07:55)
[2020-10-13] MEDS: UMECLIDINIUM BROMIDE 62.5MCG/BLISTER 7 PUFFS/INHALER INH SCH (07:56)
[2020-10-13] MEDS: FLUTICASONE/VILANTEROL 200/25MCG 14 PUFFS/INHALER INH SCH (07:56)
[2020-10-13] MEDS: DICLOFENAC SOD 1% GEL 100 GM TUBE EXT SCH ×2 (07:56→14:06)
[2020-10-13] MEDS: ASTELIN - ORDER AWAITING ACTION SCH (07:56)
[2020-10-13] MEDS: INSULIN GLARGINE SOLOSTAR 100 UNITS/ML 3 ML PEN SC SCH (08:03)
[2020-10-13] MEDS: INSULIN ASPART 100 UNITS/ML 3 ML PEN SC SCH ×2 (08:03→11:55)
[2020-10-13] MEDS ORDERED: ASPIRIN 81 MG ECTAB PO SCH (09:00)
[2020-10-13] MEDS ORDERED: ENOXAPARIN INJ 40 MG/0.4 ML SYR SQ SCH (09:00)
--- NOTE | 2020-10-13 09:41 | Surgery Progress Note ---
Date of Service F/U S/P open repair ventral and umbilical hernia with mesh, POD 2, pt is doing better, good control incision pain, tolerated diet, no fever, October 13, 2020 Assessment & Plan (1) Incarcerated ventral hernia: pt is a 45 year-old male who presents to Er with 10 days history nausea, superior umbilical pain and left side abdominal pain, IMP: incarcerated ventral hernia, umbilical hernia, I Recommend to do open repair ventral hernia and umbilical hernia possible with mesh tomorrow, D/W benefits, risks and alternatives of the surgery, the risks - infection, bleeding, hernia recurrence, complications relate to Mesh, injury other organs, pt understood, he agrees with the surgery, I answered all questions, NPO after MN, iv fluid, SCD, control pain, medicine team will admit pt to hospital, for treat co-morbidity,Thanks, D/W ER attending, 10/12/2020, 11:22AM F/U S/p open repair ventral and umbilical hernia, POD 1 doing better, some pain on incision site, WBC 11,000 pt wants to go home tomorrow, PT, OP, OOB clindamycin 900mg IV q8h for 24 hours prevent mesh infection, will F/U 10/13/2020 9:40AM S/P open repair ventral and umbilical hernia with mesh, POD 2 doing fine, pt wants to go home the post -op care instruction was given, F/U fl 2 week,s [phone] (2) Umbilical hernia: Admission and Anticipated Discharge Date Admission Date: October 10, 2020 Supervising Physician Co-Signing Physician Notes Attending addendum: The patient was seen and examined in the emergency room He has been complaining of lower abdominal pain for the last few days The pain is has been worse since this morning with nausea but no vomiting Denies any fever and chills and denies any alteration of bowel habit and no urinary problems On examination Sitting at the edge of the bed with some abdominal discomfort Noted to have very high blood pressure of 181/111 without any symptoms Chestclear to auscultate bilaterally HeartS1-S2, regular Abdomendistended, tender around umbilicus mostly on upper right part and also tenderness involving the left lower quadrant with lumpy feeling. Bowel sounds present Extremities1+ edema bilaterally CNSalert, awake and oriented x3. No focal sensory no motor deficit appreciated Admission labs, imaging studies noted Has ventral hernia and is being evaluated by surgeon Possible surgery tomorrow Other significant medical conditions remained stable Agree with assessment plan as outlined above by SARAH Tony Dr Subjective 10/11/2020 The patient was seen and examined in medical telemetry unit He complains to have pain in the abdomen around umbilicus with nausea Denies any fever and/or chills and no vomiting Waiting to go to the OR 10/12/2020 The patient was seen and examined in medical telemetry unit He is a status post repair of ventral hernia on 10/11/2020 Complains to have abdominal pain at the site of incision Also complains to have left knee pain has been going on since a fall as an outpatient Review of Systems Constitutional: as per Subjective / HPI obesity Eyes: as per Subjective / HPI Ear, Nose, Mouth, Throat: as per Subjective / HPI sinus surgery on 07/2020 with anesthesia hypoxia Respiratory: as per Subjective / HPI acute dyspnea Cardiovascular: as per Subjective / HPI Additional Comments: S/P mitral valve surgery, HTN, hypertriglyceridem, Gastrointestinal: as per Subjective / HPI laparoscopic repair abdominal hernia with mesh, pancreatitis, Genitourinary: + as per Subjective / HPI Musculoskeletal: as per Subjective / HPI Integumentary: as per Subjective / HPI Neurologic: as per Subjective / HPI Endocrine: as per Subjective / HPI DM, Allergy / Immunological: as per Subjective / HPI Physical Exam Constitutional: WD/WN, vitals as above well developed and well nourished Eyes: PERRL, conjunctivae normal, anicteric sclerae ENMT: external ear and nose normal, oropharynx normal Neck: trachea midline, no thyromegaly Respiratory: normal respiratory effort, lungs clear to auscultation normal respiratory effort Cardiovascular: RRR, no murmur, no edema Rate/Rhythm: regular rate and regular rhythm Gastrointestinal (Abdomen): normal bowel sounds, soft, nontender, no hepatosplenomegaly Percussion/Palpation: + abdomen tender and abdomen soft mild tenderness at incision site, no rebound pain, BS +, felipe incision intact, no redness, Musculoskeletal: no cyanosis or clubbing, extremities motor strength 5/5 Skin: no rashes, warm and dry Neurologic: awake Psychiatric: Orientation: alert and oriented x 3 Results & Data ([facility]) Vital Signs (Past 12 Hours) Vital Signs Temp Pulse Pulse Resp BP Pulse Ox 10/13/20 07:33 36.7 C 91 H 19 142/99 H 95 10/13/20 07:00 87 10/13/20 05:07 87 10/13/20 02:50 37 C 74 18 131/80 95 10/12/20 23:28 36.9 C 85 16 133/83 94
[2020-10-13] MEDS: ACETAMINOPHEN 325 MG TAB PO PRN (10:12)
[2020-10-13] MEDS: POLYETHYLENE (MIRALAX) 17 GM PACK PO PRN (10:12)
--- NOTE | 2020-10-13 10:45 | Hospitalist Progress Note ---
Date of Service October 13, 2020 Assessment & Plan (1) Ventral hernia: Pt is 45 y/o M with PMH HTN, HLD, asthma, insulin-dependent DM II, mitral regurgitation S/P repair in 2008 presented to ER with c/o left flank/abdomen pain today. Patient states for the past 2 weeks intermittent nausea. In ER pt afebrile, P: 97, R: 18, BP: 169/107, 94% on RA. No leukocytosis, lactate WNL, LFTs WNL, UA unremarkable CT abdomen/pelvis: large umbilical and supraumbilical hernias. There is infiltration of the fat within and around these hernias. Hepatomegaly. Cardiomegaly. 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 Large fat-containing left inguinal hernia. Still complains some pain in the abdomen with nausea but no vomiting and no fever and no chills Appreciate surgery input and recommendation for repair of ventral hernias Remains n.p.o. and will continue intravenous fluid and pain medications as needed Status post repair of the ventral hernia, POD #2 Minimal pain without any other symptoms Bowel has not moved but has been passing gas Was seen by surgery and cleared for discharge Left knee pain Status post fall before admission Minimal local bruising but no decrease in range of motion Will advise local Voltaren gel No need to have any further imaging studies Knee pain is resolved DM II: A1c: 7.6 in 08/21/2020 Hold home medications Basal bolus insulin per protocol HTN: Continue lisinopril, metoprolol Blood pressure remains stable and at the upper side HLD: Continue atorvastatin Asthma: No signs exacerbation at this time Continue home inhalers Mitral regurgitation: S/p mitral valve repair in 2008 DVT Prophylaxis We will start subcu Lovenox Full Code Follows with Dr Lawton for routine care Will be discharged home this afternoon Admission and Anticipated Discharge Date Admission Date: October 10, 2020 Subjective 10/11/2020 The patient was seen and examined in medical telemetry unit He complains to have pain in the abdomen around umbilicus with nausea Denies any fever and/or chills and no vomiting Waiting to go to the OR 10/12/2020 The patient was seen and examined in medical telemetry unit He is a status post repair of ventral hernia on 10/11/2020 Complains to have abdominal pain at the site of incision Also complains to have left knee pain has been going on since a fall as an outpatient 10/13/2020 The patient was seen and examined in medical telemetry unit He has been feeling much better except some pain in the abdomen at the surgery site Denies any more knee pain, any chest pain and no shortness of breath He has been ambulating in the room without any difficulties He will be discharged home this afternoon Review of Systems Review of Systems: All systems reviewed and are unremarkable except as noted below Gastrointestinal: + abdominal pain, + bloating and + nausea; no vomiting Musculoskeletal: Left knee pain Physical Exam Physical Exam: Sitting at the edge of the bed with some abdominal discomfort Constitutional: well developed, well nourished, + ill appearing and + obese Eyes: PERRL, conjunctivae normal, anicteric sclerae ENMT: external ear and nose normal, oropharynx normal Neck: trachea midline, no thyromegaly Respiratory: no respiratory distress Auscultation: lungs clear to auscultation bilaterally Cardiovascular: Rate/Rhythm: regular rate and regular rhythm Heart Sounds: no murmur Extremities: + edema (1+ edema bilaterally) Gastrointestinal (Abdomen): Inspection/Auscultation: + abdomen distended and normal bowel sounds Percussion/Palpation: + abdomen tender (Right upper area of umbilicus and also left lower quadrant with lumpy feeli) and abdomen soft Musculoskeletal: Left knee pain is gone Neurologic: Alert, awake and oriented x3. No focal sensory and motor deficit appreciated Psychiatric: A+Ox3, euthymic affect Lymphatic: no cervical or axillary lymphadenopathy Results & Data Results & Data ([facility]) Vital Signs (Past 12 Hours) Vital Signs Temp Pulse Pulse Resp BP Pulse Ox 10/13/20 07:33 36.7 C 91 H 19 142/99 H 95 10/13/20 07:00 87 10/13/20 05:07 87 10/13/20 02:50 37 C 74 18 131/80 95 10/12/20 23:28 36.9 C 85 16 133/83 94 Medications Administered Current Inpatient Medications Acetaminophen (Acetaminophen 325 Mg Tab) 650 mg PO Q4H PRN PRN Reason: Pain or Fever Stop: 11/09/20 22:08 Last Admin: 10/13/20 10:12 Dose: 650 mg Documented by: Albuterol (Albuterol 0.083% Nebu Soln 3 Ml Vial) 2.5 mg INH Q4H PRN PRN Reason: Cough and Wheezing Stop: 11/09/20 22:08 Allopurinol (Allopurinol 100 Mg Tab) 100 mg PO QPM SHAUNA Stop: 11/09/20 22:08 Last Admin: 10/12/20 20:40 Dose: 100 mg Documented by: Aspirin (Aspirin 81 Mg Ectab) 81 mg PO QAM SHAUNA Stop: 11/12/20 08:59 Last Admin: 10/13/20 07:55 Dose: 81 mg Documented by: Atorvastatin Calcium (Atorvastatin 40 Mg Tab) 40 mg PO HS SHAUNA Stop: 11/09/20 22:08 Last Admin: 10/12/20 20:40 Dose: 40 mg Documented by: Dextrose (Dextrose 50% 50 Ml Syringe) 25 - 50 ml IV UD PRN; Protocol PRN Reason: Hypoglycemia Protocol Stop: 11/09/20 22:08 Diclofenac Sodium (Diclofenac Sod 1% Gel 100 Gm Tube) 2 gm EXT TID SHAUNA Stop: 11/11/20 13:59 Last Admin: 10/13/20 07:56 Dose: 2 gm Documented by: Enoxaparin Sodium (Enoxaparin Inj 40 Mg/0.4 Ml Syr) 40 mg SQ QAM SHAUNA Stop: 11/12/20 08:59 Last Admin: 10/13/20 07:57 Dose: 40 mg Documented by: Famotidine (Famotidine 20 Mg Tab) 20 mg PO BID SHAUNA Stop: 11/09/20 22:08 Last Admin: 10/13/20 07:55 Dose: 20 mg Documented by: Fluticasone Propionate (Fluticasone Propionate Na Spr 16 Gm Btl) 2 sprays NA DAILY SHAUNA Stop: 11/09/20 22:08 Last Admin: 10/13/20 07:55 Dose: 2 sprays Documented by: Fluticasone/Vilanterol (Fluticasone/Vilanterol 200/25mcg 14 Puffs/Inhaler) 1 puffs INH DAILY SHAUNA Stop: 11/09/20 22:08 Last Admin: 10/13/20 07:56 Dose: 1 puffs Documented by: Glucagon (Glucagon For Inj 1 Mg Vial) 1 mg SQ UD PRN; Protocol PRN Reason: Hypoglycemia Protocol Stop: 11/09/20 22:08 Glucose (Glucose 10 Tabs/Tube) 4 - 8 tabs PO UD PRN; Protocol PRN Reason: Hypoglycemia Protocol Stop: 11/09/20 22:08 Glucose (Glucose 40% Gel 15 Gm Tube) 15 - 30 gm PO UD PRN; Protocol PRN Reason: Hypoglycemia Protocol Stop: 11/09/20 22:08 Guaifenesin (Guaifenesin 600 Mg Tabcr) 1,200 mg PO Q12 [facility] Stop: 11/11/20 08:59 Last Admin: 10/13/20 07:55 Dose: 1,200 mg Documented by: Clindamycin Phosphate 900 mg/ (Dextrose) 56 mls @ 112 mls/hr IV Q8H [facility]; Protocol Stop: 10/14/20 11:59 Last Infusion: 10/13/20 04:40 Dose: Infused Documented by: Insulin Aspart (Insulin Aspart 100 Units/Ml 3 Ml Pen) 0 units SC ACHS [facility] Stop: 11/09/20 22:08 Last Admin: 10/13/20 08:03 Dose: 4 units Documented by: Insulin Glargine (Insulin Glargine Solostar 100 Units/Ml 3 Ml Pen) 0 - 10 units SC BID [facility]; Protocol Stop: 11/09/20 22:08 Last Admin: 10/13/20 08:03 Dose: 5 units Documented by: Lisinopril (Lisinopril 10 Mg Tab) 10 mg PO QAM [facility] Stop: 11/10/20 08:59 Last Admin: 10/13/20 07:55 Dose: 10 mg Documented by: Menthol (Cough Drop (Sugar Free) Nicole 24 Nicole/1 Box) 1 nicole BUCCAL PRN PRN PRN Reason: Sore Throat Stop: 11/10/20 14:43 Metoprolol Tartrate (Metoprolol Tartrate 25 Mg Tab) 25 mg PO BID [facility] Stop: 11/09/20 22:08 Last Admin: 10/13/20 07:55 Dose: 25 mg Documented by: Miscellaneous (Carbohydrates For Hypoglycemia ) 15 - 30 gm PO UD PRN PRN Reason: Hypoglycemia Protocol Stop: 11/09/20 22:08 Miscellaneous (Astelin - Order Awaiting Action) 1 ea N/A QS [facility] Stop: 11/10/20 00:00 Last Admin: 10/13/20 07:56 Dose: Not Given Documented by: Montelukast Sodium (Montelukast Sodium 10 Mg Tablet) 10 mg PO QPM [facility] Stop: 11/09/20 22:08 Last Admin: 10/12/20 20:39 Dose: 10 mg Documented by: Morphine Sulfate (Morphine Sulfate 2 Mg/Ml Carp) 2 mg IV Q4H PRN PRN Reason: Severe Pain Stop: 10/24/20 22:08 Last Admin: 10/12/20 06:33 Dose: 2 mg Documented by: Ondansetron HCl (Ondansetron Inj 2 Mg/Ml 2 Ml Vial) 4 mg IV Q6H PRN PRN Reason: Nausea Stop: 11/09/20 22:08 Polyethylene Glycol (Polyethylene (Miralax) 17 Gm Pack) 17 gm PO DAILY PRN PRN Reason: Constipation Stop: 11/11/20 11:25 Last Admin: 10/13/20 10:12 Dose: 17 gm Documented by: Umeclidinium [place] (Umeclidinium [place] 62.5mcg/Blister 7 Puffs/Inhaler) 1 puffs INH DAILY SHAUNA Stop: 11/10/20 08:59 Last Admin: 10/13/20 07:56 Dose: 1 puffs Documented by:
--- NOTE | 2020-10-13 15:00 | Discharge Summary (DS) ---
DATE OF ADMISSION: 10/10/2020 DATE OF DISCHARGE: 10/13/2020 ADMISSION DIAGNOSES: Incarcerated ventral and umbilical hernia. DISCHARGE DIAGNOSES: Incarcerated ventral and umbilical hernia. OPERATION: Open repair of incarcerated ventral hernia and umbilical hernia with mesh. SURGEON: Lupe Carter MD. DETAILS OF DISCHARGE SUMMARY: This is a 45-year-old gentleman who comes to the ER with abdominal pa in. The patient had a CT scan and physical exam also diagnostic for incarcerated ventral hernia and umbilical hernia. I recommended to do the open repair of incarcerated ventral hernia, umbilical cora ia, possible mesh. We took the patient to the OR. We did open repair of incarcerated ventral hernia and umbilical hernia with mesh on 10/11/2020. The patient tolerated the procedure well and after th e procedure, the patient was transferred to regular floor. The patient doing fine, moving around, an d today is postoperative day 2, the patient tolerated the diet, no significant abdominal pain and no nausea, no vomiting, no fever. PHYSICAL EXAMINATION: VITAL SIGNS: Temperature is 36.7, respiratory rate is 19, heart rate 91, blood pressure 142/99, O2 s aturation 95% on room air. GENERAL: The patient is alert, awake, oriented x3. HEENT: Within normal limitation. NEUROLOGICAL EXAM: Intact. NECK: No JVD. CHEST: Bilateral lung sounds clear. HEART: Normal S1 and S2. No murmur. ABDOMEN: Soft, nondistended, mild incisional pain and all incisions intact. No redness, no drainage , no distention of the abdomen. Bowel sounds positive. EXTREMITIES: No edema. The patient will go home today. We gave the patient postop care instruction. [facility]. Job ID: [id number]
--- NOTE | 2020-10-14 08:06 | Discharge Summary ---
Date of Service October 14, 2020 Admission HPI Per Admitting Provider Pt is 45 y/o M with PMH HTN, HLD, asthma, insulin-dependent DM II, mitral regurgitation S/P repair in 2008 presented to ER with c/o left flank pain today. Patient states for the past 2 weeks has been having intermittent nausea. States approximately 1 month ago fell onto left side while gardening. 2 weeks ago noticed some bruising to left side of abdomen. He reports he does not typically give himself his insulin injections in that location. Today started with pain to left flank and left side of abdomen. Patient taking Protonix the past several days. Reports stools chronically loose, Denies fever/chills, diap horesis, vomiting, hematochezia, melena, MERRILL, dizziness, syncope, vision changes, neck pain, CP, SOB, orthopnea, palpitations, cough, sore throat, choking, otalgia, rhinorrhea, paresthesias, weakness, extremity weakness, extremity edema, rashes, urinary symptoms. Admission Exam Per Admitting Provider Physical Exam: General: no distress, obese Head: normocephalic, atraumatic Eyes: conjunctiva non-injected, anicteric ENT: normal inspection external ears, nose, mucous membranes moist Neck: supple, trachea midline, non-tender Lungs: clear, no respiratory distress, no wheezing/rhonchi/rales CV: RRR, no murmur, no JVD, no pretibial edema Abd: protuberant, +ecchymosis left lower abdomen with slight tenderness to palpation, normal BS, soft, +bulging umbilicus without significant tenderness to palpation and no overlying skin discoloration Ext: no cyanosis, no calf tenderness Neuro: A&O x 3, no focal deficits noted, normal affect Skin: warm, dry Principal Diagnosis S/P open repair ventral and umbilical hernia with mesh Discharge Exam Constitutional well developed, well nourished, + ill appearing and + obese Eyes PERRL, conjunctivae normal, anicteric sclerae ENMT external ear and nose normal, oropharynx normal Neck trachea midline, no thyromegaly Respiratory no respiratory distress Auscultation: lungs clear to auscultation bilaterally Cardiovascular Rate/Rhythm: regular rate and regular rhythm Heart Sounds: no murmur Extremities: + edema (1+ edema bilaterally) Gastrointestinal (Abdomen) Inspection/Auscultation: + abdomen distended and normal bowel sounds Percussion/Palpation: + abdomen tender (Right upper area of umbilicus and also left lower quadrant with lumpy feeli) and abdomen soft Psychiatric A+Ox3, euthymic affect Lymphatic no cervical or axillary lymphadenopathy Discharge Data Allergies Allergy/AdvReac Type Severity Reaction Status Date / Time Cephalosporins Allergy Intermediate Hives Verified 10/10/20 15:07 erythromycin base Allergy Unknown CAN'T Verified 10/10/20 15:07 REMEMBER Sulfa (Sulfonamide Allergy Unknown CAN'T Verified 10/10/20 15:07 Antibiotics) REMEMBER Penicillins AdvReac Intermediate Gastrointestinal Verified 10/10/20 15:07 Upset Consultations 10/10/20 17:41 Consult General Surgery Stat 10/10/20 17:51 ED Decision to Admit Stat 10/10/20 22:09 Consult General Surgery Routine Procedures Performed Operation Date: 10/11/20 07:30 Actual Procedures p open incarcerated ventral hernia and umbilical hernia repair with mesh - Lupe Carter MD Ordered Studies 10/10/20 12:41 CT abd pelvis IV con only Stat Hospital Course (1) Ventral hernia: Pt is 45 y/o M with PMH HTN, HLD, asthma, insulin-dependent DM II, mitral regurgitation S/P repair in 2008 presented to ER with c/o left flank/abdomen pain today. Patient states for the past 2 weeks intermittent nausea. In ER pt afebrile, P: 97, R: 18, BP: 169/107, 94% on RA. No leukocytosis, lactate WNL, LFTs WNL, UA unremarkable CT abdomen/pelvis: large umbilical and supraumbilical hernias. There is infiltration of the fat within and around these hernias. Hepatomegaly. C ardiomegaly. 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 Large fat-containing left inguinal hernia. Still complains some pain in the abdomen with nausea but no vomiting and no fever and no chills Appreciate surgery input and recommendation for repair of ventral hernias Remains n.p.o. and will continue intravenous fluid and pain medications as needed Status post repair of the ventral hernia, POD #2 Minimal pain without any other symptoms Bowel has not moved but has been passing gas Was seen by surgery and cleared for discharge Left knee pain Status post fall before admission Minimal local bruising but no decrease in range of motion Will advise local Voltaren gel No need to have any further imaging studies Knee pain is resolved DM II: A1c: 7.6 in 08/21/2020 Hold home medications Basal bolus insulin per protocol HTN: Continue lisinopril, metoprolol Blood pressure remains stable and at the upper side HLD: Continue atorvastatin Asthma: No signs exacerbation at this time Continue home inhalers Mitral regurgitation: S/p mitral valve repair in 2008 DVT Prophylaxis We will start subcu Lovenox Full Code Follows with Dr Lawton for routine care Will be discharged home this afternoon Total Time Total Time Spent Total Time Spent (In Minutes): 35 minutes Total Time Includes: Examination of the Patient, Discharge Planning, Medication Reconciliation and Communication With Other Providers Discharge Plan Discharge Items Patient Disposition: Home - Self-Care Reason For Visit: UMBILICAL HERNIA Discharge Diagnosis: S/P open repair ventral and umbilical hernia with mesh Condition on Discharge: Good Activity: As commented below Lifting: No more than 25 pounds Lifting Comment: for 4 weeks, Bathing: May shower/bathe in 3 days Sexual Activity: After two weeks Exercise/Sports: Rest today Driving/Machine Use: no driving while taking pain medicine, Non-emergency contact: Surgeon Call non-emergency contact if: you have any medication questions, your symptoms worsen, your pain is not controlled, your pain is worsening and your pain is unusual for you Follow-up/Referrals: Edgar Lawton MD [Primary Care Provider] - (follow up Dr. Carter 2-3 weeks, Agree-I have documented within the medical record. Date & Time 10/21/2020 11:00 AM Provider Richa Freeman DO Department [facility] ) Lupe Carter MD [Physician] - Diet: Regular Addtl Attending Provider Instructions: keep the dressing on for 4 days, Pending Studies at Discharge: Yes Studies:: hernia sac pathology report Stand-Alone Forms: My [facility] Instant[facility], Work/School Release, Smoking Cess ation Medications and DC Order Prescriptions: New oxycodone-acetaminophen [Percocet] 5-325 mg tablet 1 tab PO Q6H PRN (Reason: pain) Qty: 30 RF: 0 diclofenac sodium 1 % gel 2 g topical QID Qty: 50 RF: 0 Continued atorvastatin 40 mg tablet 40 mg PO HS RF: 0 fluticasone propion-salmeterol [Advair Diskus] 500-50 mcg/dose blister with device 1 inh inhalation BID RF: 0 albuterol sulfate 2.5 mg /3 mL (0.083 %) solution for nebulization 2.5 mg inhalation Q4H PRN (Reason: Cough and Wheezing) RF: 0 allopurinol 100 mg tablet 100 mg PO QPM RF: 0 mometasone 50 mcg/actuation spray,non-aerosol 2 spray INTRANASAL BID RF: 0 montelukast 10 mg tablet 10 mg PO QPM RF: 0 albuterol sulfate 90 mcg/actuation HFA aerosol inhaler 2 puff INHALATION Q4H PRN (Reason: Cough,SOB Or Wheezing) RF: 0 cholecalciferol (vitamin D3) 1,250 mcg (50,000 unit) capsule 50,000 unit PO WK RF: 0 metoprolol tartrate 25 mg tablet 25 mg PO BID RF: 0 Spiriva with HandiHaler 18 mcg capsule, w/inhalation device 1 cap INHALATION DAILY RF: 0 famotidine 20 mg tablet 20 mg PO BID RF: 0 metformin 500 mg tablet 1,000 mg PO BIDM RF: 0 insulin aspart U-100 [Novolog Flexpen U-100 Insulin] 100 unit/mL (3 mL) insulin pen 0 unit SUBCUT TIDM RF: 0 lisinopril 10 mg tablet 10 mg PO QAM RF: 0 azelastine 137 mcg (0.1 %) aerosol,spray 2 spray INTRANASAL BID RF: 0 Discharge Orders: Discharge Order (Routine); Ordered 10/13/20 Ordered By: Lupe Carter Admission Data Admit Date/Time: 10/10/20 17:56 Attending Provider: Akash Cutler Admit Provider: Akash Cutler Primary Care Provider: Edgar Lawton Other Providers: Lupe Carter ; Akash Cutler Other Interventions: Discharge Summary Assessment (RN) Last Done: 10/13/20 14:32
== END 2020-10-13 15:03 | disposition home or self-care (01) | DRG 355 ==
LOC: ED 11:44 → 2N 17:56

== ENCOUNTER 2021-06-30 11:01 | Observation (INO) ==
[2021-06-30] MEDS ORDERED: SODIUM CHLORIDE 0.9% 1000ML 1,000 ML IV ONE (11:57)
[2021-06-30] MEDS ORDERED: ACETAMINOPHEN 500 MG TAB PO STA (11:57)
[2021-06-30] MEDS ORDERED: KETOROLAC TROMETHAMINE 15 MG/ML VIAL IV STA (11:57)
[2021-06-30] MEDS ORDERED: ONDANSETRON INJ 2 MG/ML 2 ML VIAL IV STA ×2 (11:59→14:33)
--- NOTE | 2021-06-30 12:03 | Emergency Department Note ---
Impression & Plan Left sided abdominal pain, Left inguinal hernia ED Provider Note NAME: MONTY PALM JR AGE: 45 SEX: M : 1975 ARRIVES VIA: Walk-In INFORMANT: [Patient] ED PROVIDER(S): [Maximino Turner MD] CHIEF COMPLAINT: Abdominal pain HISTORY OF PRESENT ILLNESS: The patient is a 45-year-old male presents to the ER with left-sided abdominal pain radiating down his left thigh for about 5 or 6 hours. The pain is a 9/10 and constant. He does feel nauseated. No fever or chills, no urinary complaints. No cough or chest pain or shortness of breath. The patient has chronic diarrhea and the amount of diarrhea he is having has not changed. The patient has a left inguinal hernia that he has seen a surgeon for. For now, they are just watching and waiting. He wonders if the hernia is responsible for his discomfort. The patient has a history of umbilical and incisional hernia repair, he has a history of mitral valve repair. The patient has a history of situs inversus. REVIEW OF SYSTEMS: See HPI for pertinent positives and negatives. A total of ten systems were reviewed and were otherwise negative. PMHx/PSHx: See Below SOCIAL HISTORY: See Below. PHYSICAL EXAM: GENERAL: Patient is in no acute distress. HEENT: No acute trauma, normocephalic atraumatic, mucous membranes moist, no nasal congestion, no scleral icterus. NECK: No stridor, no adenopathy, no meningismus, trachea is midline. LUNGS: Clear to auscultation bilaterally, no wheeze, no rhonchi, breath sounds equal. HEART: Without murmurs gallops or rubs, regular rate and rhythm. ABDOMEN: Soft, moderately tender to the left lower lateral abdomen, bowel sounds positive, no hernias, no peritonitis. EXTREMITIES: No cyanosis, mild bilateral pedal edema, full range of motion of all the joints without pain or difficulty, no signs for acute trauma. NEUROLOGIC: Oriented x 3, no acute motor or sensory deficits, no focal weakness. SKIN: No rash, no jaundice, no diaphoresis. Groin: No obvious left testicular enlargement or obvious left inguinal hernia by my exam. Testicle mildly tender with palpation when compared to the right. DIFFERENTIAL DIAGNOSIS: Appendicitis, testicular torsion, diverticulitis, UTI, obstruction, mesenteric ischemia, aortic pathology, inflammatory bowel disease, renal colic, PUD, pancreatitis, biliary pathology, hernia, volvulus, constipation, as well as other pathologies. EMERGENCY DEPARTMENT COURSE/PROCEDURES: MEDICAL DECISION MAKING: There is no leukocytosis or concerning anemia. There is a normal platelet count. No significant electrolyte abnormality or kidney failure. There were a few very subtle liver enzyme elevations, the bilirubin however was normal. Lipase was normal. Urinalysis did not show infection or significant hematuria. Covid testing returned negative. Abdominal and pelvis CT showed some situs inversus. There was a normal appendix. A fat-containing left inguinal hernia was noted. The patient received IV saline for hydration. He was given IV Zofran for nausea, IV Toradol for pain. He was given a dose of oral Tylenol for pain. Given the findings on CT, given the patient's complaints of discomfort, I did contact general surgery. The patient was seen by general surgery here in the ED and the decision has been made for hospitalization with surgical work to be performed tomorrow. The patient is aware of his findings, the case management team has been involved. Past Med/Surg History Medical History Anxiety Asthma, mild persistent DM type 2 (diabetes mellitus, type 2) Environmental and seasonal allergies Gout HLD (hyperlipidemia) HTN (hypertension) Mitral regurgitation Mitral valve disorder Obesity Surgical History H/O exploratory laparotomy H/O nasal septoplasty History of hernia repair History of mitral valve repair S/P nasal septoplasty Family History Mother Follicular lymphoma Social History Smoking Status: Never smoker Second Hand Exposure: No; Do You Dip or Chew Tobacco: No; Tobacco Cessation Education Requested by Patient: No Hx Alcohol Use: Yes Alcohol type: wine Alcohol Intake Frequency: Monthly or Less Hx Substance Use: No Preferred Language: Bengali Communication Ability: Effective Personnel Adviser Required: No Beliefs That Will Affect Care: None Current Living Situation: Alone Other Information That Helps Us Care for You: No Feels Safe at Home: Yes Assistive Devices: Glasses Allergies Allergies Allergy/AdvReac Type Severity Reaction Status Date / Time Cephalosporins Allergy Intermediate Hives Verified 06/30/21 13:56 erythromycin base Allergy Unknown CAN'T Verified 06/30/21 13:56 REMEMBER Sulfa (Sulfonamide Allergy Unknown CAN'T Verified 06/30/21 13:56 Antibiotics) REMEMBER Penicillins AdvReac Intermediate Gastrointestinal Verified 06/30/21 13:56 Upset Home Meds Home Medications Medication Instructions Recorded Confirmed albuterol sulfate 2.5 mg INHALATION Q4H PRN 11/24/19 06/30/21 albuterol sulfate 90 mcg/actuation 2 puff INHALATION Q4H PRN 11/24/19 06/30/21 aerosol inhaler allopurinol 100 mg tablet 100 mg PO QPM 11/24/19 06/30/21 cholecalciferol (vitamin D3) 1,250 50,000 unit PO WK 11/24/19 06/30/21 mcg (50,000 unit) capsule mometasone 50 mcg/actuation nasal 2 spray INTRANASAL BID 11/24/19 06/30/21 spray montelukast 10 mg tablet 10 mg PO QPM 11/24/19 06/30/21 atorvastatin 40 mg tablet 40 mg PO HS PRN 01/02/20 06/30/21 fluticasone 500 mcg-salmeterol 50 1 inh INHALATION BID 07/07/20 06/30/21 mcg/dose blistr powdr for inhalation (Advair Diskus) metoprolol tartrate 25 mg tablet 25 mg PO BID tab 07/07/20 06/30/21 famotidine 20 mg tablet 20 mg PO BID PRN 08/13/20 06/30/21 insulin aspart U-100 100 unit/mL 0 unit SUBCUT TIDM 08/13/20 06/30/21 (3 mL) subcutaneous pen (Novolog Flexpen U-100 Insulin aspart) lisinopril 10 mg tablet 10 mg PO QAM 08/13/20 06/30/21 metformin 500 mg tablet 1,000 mg PO BIDM 08/13/20 06/30/21 tiotropium bromide 18 mcg capsule 1 cap INHALATION DAILY 08/13/20 06/30/21 with inhalation device (Spiriva with HandiHaler) insulin glargine 100 unit/mL (3 12 unit SUBCUT DAILY 06/06/21 06/30/21 mL) subcutaneous pen (Basaglar KwikPen U-100 Insulin) meloxicam 15 mg tablet 15 mg PO DAILY PRN 06/30/21 06/30/21 omeprazole 20 mg capsule,delayed 20 mg PO QAM 06/30/21 06/30/21 release Previous Rx's Medication Instructions Recorded dicyclomine 10 mg capsule 10 mg PO TID PRN #20 cap 06/06/21 Results & Data (ED) Vital Signs Vital Signs - 24 hr 06/30/21 11:26 06/30/21 11:30 06/30/21 13:02 Temperature 36.5 C Temperature Source Oral Pulse Rate 94 H Pulse Rate [Finger] 80 78 Pulse Rhythm [Finger] Regular Respiratory Rate 18 18 16 Respiratory Effort / Characteristics Non-Labored Non-Labored Respiratory Depth Normal Normal Blood Pressure 164/118 H Blood Pressure [Left Arm] 161/95 H 158/78 H Blood Pressure Mean 133 Blood Pressure Mean [Left Arm] 117 104 Pulse Oximetry 98 96 97 Oxygen Delivery Method Room Air Room Air Sepsis Recent Fever Within 48 Hours No Sepsis New/Unexplained Change in Mental Status No Sepsis Action Taken by Nursing No Action Required 06/30/21 15:02 Temperature Temperature Source Pulse Rate Pulse Rate [Finger] 80 Pulse Rhythm [Finger] Regular Respiratory Rate 18 Respiratory Effort / Characteristics Non-Labored Respiratory Depth Normal Blood Pressure Blood Pressure [Left Arm] 161/95 H Blood Pressure Mean Blood Pressure Mean [Left Arm] 117 Pulse Oximetry 97 Oxygen Delivery Method Room Air Sepsis Recent Fever Within 48 Hours Sepsis New/Unexplained Change in Mental Status Sepsis Action Taken by Skilled Nursing Medications Current Medication List: was personally reviewed by me Laboratory Data Attestation: I reviewed the patient's lab results. Result diagrams: 06/30/21 12:15 06/30/21 15:12 Lab Results 06/30/21 06/30/21 06/30/21 Range/Units 12:15 12:15 12:27 WBC 9.24 (4.8-10.8) K/uL RBC 5.05 (4.7-6.1) M/uL Hgb 15.1 (14.0-18.0) g/dL Hct 42.7 (42-52) % MCV 84.6 (80-100) fL MCH 29.9 (25-34) pg MCHC 35.4 (32-36) g/dL RDW Std Deviation 45.0 (36.4-46.3) fL RDW Coeff of María Elena 14.7 H (11.5-14.5) % Plt Count 174 (130-400) K/uL MPV 9.8 (7.4-10.4) fL Immature Gran % (Auto) 1.5 % Neut % (Auto) 68.7 % Lymph % (Auto) 19.0 % [place] % (Auto) 8.7 % Eos % (Auto) 1.6 % Baso % (Auto) 0.5 % Neut # (Auto) 6.34 (1.4-6.5) K/uL Lymph # (Auto) 1.76 (1.2-3.4) K/uL [place] # (Auto) 0.80 H (0.11-0.59) K/uL Eos # (Auto) 0.15 (0-0.5) K/uL Baso # (Auto) 0.05 (0-0.2) K/uL Immature Gran # (Auto) 0.14 H (0.00-0.02) K/uL Sodium 132 L (136-145) mmol/L Potassium TNP Chloride 102 (98-107) mmol/L Carbon Dioxide 21 (21-32) mmol/L Anion Gap 9 (3-11) BUN 16 (6-23) mg/dl Creatinine 1.01 (0.6-1.4) mg/dl Est Cr Clr Drug Dosing 118.1 ml/min Est GFR ( Amer) 105.1 ml/min Est GFR (Non-Af Amer) 90.7 ml/min BUN/Creatinine Ratio 15.8 (10-20) Glucose 180 H (70-99(Fasting)) mg/dl Calcium 9.6 (8.5-10.1) mg/dl Total Bilirubin 0.4 (0.2-1.0) mg/dl AST TNP ALT 77 H (7-52) U/L Alkaline Phosphatase 71 (34-104) U/L Total Protein 8.0 (6.0-8.3) gm/dl Albumin 4.4 (3.4-5.0) gm/dl Globulin 3.6 (2.5-4.0) gm/dl Albumin/Globulin Ratio 1.2 (0.9-2) Lipase 29 (11-82) U/L Urine Color Yellow Urine Appearance Clear (Clear) Urine pH 5.0 (4.5-7.5) Ur Specific [place] 1.008 (1.000-1.030) Urine Protein Trace H (Negative) Urine Glucose (UA) Negative (Negative) Urine Ketones Negative (Negative) Urine Blood Trace H (Negative) Urine Nitrite Negative (Negative) Urine Bilirubin Negative (Negative) Urine Urobilinogen Negative (Negative) Ur Leukocyte Esterase Negative (Negative) Urine WBC (Auto) 0 (0-5) /hpf Urine RBC (Auto) 0-4 (0-4) /hpf U Hyaline Cast (Auto) 0 (0-5) /lpf U Epithel Cells (Auto) 0-5 (0-5) /lpf Urine Bacteria (Auto) Negative (Negative) 06/30/21 06/30/21 Range/Units 14:08 15:12 WBC (4.8-10.8) K/uL RBC (4.7-6.1) M/uL Hgb (14.0-18.0) g/dL Hct (42-52) % MCV (80-100) fL MCH (25-34) pg MCHC (32-36) g/dL RDW Std Deviation (36.4-46.3) fL RDW Coeff of María Elena (11.5-14.5) % Plt Count (130-400) K/uL MPV (7.4-10.4) fL Immature Gran % (Auto) % Neut % (Auto) % Lymph % (Auto) % [place] % (Auto) % Eos % (Auto) % Baso % (Auto) % Neut # (Auto) (1.4-6.5) K/uL Lymph # (Auto) (1.2-3.4) K/uL [place] # (Auto) (0.11-0.59) K/uL Eos # (Auto) (0-0.5) K/uL Baso # (Auto) (0-0.2) K/uL Immature Gran # (Auto) (0.00-0.02) K/uL Sodium (136-145) mmol/L Potassium TNP 4.6 Chloride (98-107) mmol/L Carbon Dioxide (21-32) mmol/L Anion Gap (3-11) BUN (6-23) mg/dl Creatinine (0.6-1.4) mg/dl Est Cr Clr Drug Dosing ml/min Est GFR ( Amer) ml/min Est GFR (Non-Af Amer) ml/min BUN/Creatinine Ratio (10-20) Glucose (70-99(Fasting)) mg/dl Calcium (8.5-10.1) mg/dl Total Bilirubin (0.2-1.0) mg/dl AST TNP 46 H ALT (7-52) U/L Alkaline Phosphatase (34-104) U/L Total Protein (6.0-8.3) gm/dl Albumin (3.4-5.0) gm/dl Globulin (2.5-4.0) gm/dl Albumin/Globulin Ratio (0.9-2) Lipase (11-82) U/L Urine Color Urine Appearance (Clear) Urine pH (4.5-7.5) Ur Specific [place] (1.000-1.030) Urine Protein (Negative) Urine Glucose (UA) (Negative) Urine Ketones (Negative) Urine Blood (Negative) Urine Nitrite (Negative) Urine Bilirubin (Negative) Urine Urobilinogen (Negative) Ur Leukocyte Esterase (Negative) Urine WBC (Auto) (0-5) /hpf Urine RBC (Auto) (0-4) /hpf U Hyaline Cast (Auto) (0-5) /lpf U Epithel Cells (Auto) (0-5) /lpf Urine Bacteria (Auto) (Negative) Administered Medications Insulin Aspart (Insulin Aspart Per Unit) 0 units SC ACHS SHAUNA Stop: 07/30/21 18:04 Last Admin: 06/30/21 18:16 Dose: 6 units Documented by: [id number] Cosigned by: [id number] Discontinued Medications Acetaminophen (Acetaminophen 500 Mg Tab) 1,000 mg PO NOW STA Stop: 06/30/21 11:58 Last Admin: 06/30/21 12:15 Dose: 1,000 mg Documented by: [id number] Hydromorphone HCl (Hydromorphone Inj 0.5 Mg/0.5 Ml Syr) 0.5 mg IV NOW STA Stop: 06/30/21 14:34 Last Admin: 06/30/21 15:25 Dose: 0.5 mg Documented by: [id number] Sodium Chloride (Nss 1000ml) 1,000 mls @ 999 mls/hr IV .Q1H1M ONE Stop: 06/30/21 12:57 Last Infusion: 06/30/21 15:41 Dose: 0 mls/hr Documented by: [id number] Admin: 06/30/21 12:14 Dose: 999 mls/hr Documented by: [id number] Ioversol (Optiray 320 100ml) 94 ml IV ONCE ONE Stop: 06/30/21 13:53 Last Admin: 06/30/21 13:52 Dose: 94 ml Documented by: [id number] Ketorolac Tromethamine (Ketorolac Tromethamine 15 Mg/Ml Vial) 15 mg IV NOW STA Stop: 06/30/21 11:58 Last Admin: 06/30/21 12:14 Dose: 15 mg Documented by: [id number] Ondansetron HCl (Ondansetron Inj 2 Mg/Ml 2 Ml Vial) 4 mg IV NOW STA Stop: 06/30/21 12:00 Last Admin: 06/30/21 12:15 Dose: 4 mg Documented by: [id number] Ondansetron HCl (Ondansetron Inj 2 Mg/Ml 2 Ml Vial) 4 mg IV NOW STA Stop: 06/30/21 14:34 Last Admin: 06/30/21 15:25 Dose: 4 mg Documented by: [id number] Imaging Data Radiologist's Impression: Abdomen/Pelvis CT 06/30/21 11:57 CT SCAN OF THE ABDOMEN AND PELVIS WITH IV CONTRAST CLINICAL HISTORY: Left-sided abdominal pain. COMPARISON STUDY: Abdominal CT dated 06/06/2021. TECHNIQUE: Following the IV administration of 94 cc of Optiray 320, CT scan of the abdomen and pelvis is performed from the lung bases to the proximal femora. Images are reviewed in the axial, sagittal, and coronal planes. IV contrast was administered without complication. A dose lowering technique was utilized adhering to the principles of ALARA. CT DOSE: 1585.11 mGy.cm FINDINGS: Lung bases: The patient is status post midline sternotomy and previous cardiac valve surgery. The heart is mildly enlarged and without pericardial effusion. The lung bases are clear noting bibasilar scarring/atelectasis. A tiny hiatal hernia is noted. Liver: The contrast-enhanced liver is enlarged, measuring 21.0 cm in length. The liver demonstrates diffusely diminished attenuation consistent with severe hepatic steatosis. There are foci of geographic fatty sparing. There is no intrahepatic biliary ductal dilatation. The hepatic veins and portal veins are patent. Gallbladder: Surgically absent. Spleen: Normal in size and attenuation. Pancreas: Unremarkable. 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 The right adrenal gland is normal in appearance. Kidneys: The contrast enhanced kidneys are normal in size and without hydronephrosis. The kidneys enhance symmetrically. A 2.5 cm cyst is noted in the right lower pole. Abdominal vasculature: The abdominal aorta is normal in course and caliber. 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 The duodenum fails to cross midline, and the colon is seen within the left abdomen. No obstruction is identified. The re is mild colonic diverticulosis without CT evidence of acute diverticulitis. A normal appendix is seen in the left lower quadrant on image #291. Peritoneum: There is no intraperitoneal free air or abdominal ascites. There is laxity of the ventral abdominal wall with diastases of the rectus musculature and a fat-containing umbilical hernia. Lymphadenopathy: None. Pelvic viscera: The bladder is decompressed and grossly unremarkable. The prostate and seminal vesicles are normal as visualized. There is a large fat-containing left inguinal hernia. Skeletal structures: No lytic or blastic lesions are seen. IMPRESSION: 1. There are no acute infectious or inflammatory findings in the abdomen or pelvis. 2. 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 No obstruction is seen. 3. Hepatomegaly and severe hepatic steatosis. 4. Additional findings as above. ACT 112: Negative or not required by law. Electronically signed by: Maximino Conner M.D. 06/30/2021 2:04 PM Discharge Plan Visit Data Chief Complaint: Abdominal Pain Stated Complaint: ABDOMINAL PAIN, AND DOWN LEFT SIDE ED Provider: Maximino Turner Discharge Problem: Left sided abdominal pain, Left inguinal hernia Patient Disposition: Admitted As Inpatient Condition: Good Discharge Instructions Interventions: ED Discharge Assessment Last Done: 06/30/21 16:58
[2021-06-30 12:35] LABS: Basophils # (auto) 0.05 K/uL (0-0.2); Basophils % (auto) 0.5 %; Eosinophils # (auto) 0.15 K/uL (0-0.5); Eosinophils % (auto) 1.6 %; Hematocrit (blood only) 42.7 % (42-52); Hemoglobin 15.1 g/dL (14.0-18.0); Immature Granulocytes # (auto) 0.14 K/uL (0.00-0.02); Immature Granulocytes % (auto) 1.5 %; Lymphocytes # (auto) 1.76 K/uL (1.2-3.4); Mean Corpuscular Hemoglobin 29.9 pg (25-34); Mean Corpuscular Hgb Conc 35.4 g/dL (32-36); Mean Corpuscular Volume 84.6 fL (80-100); Mean Platelet Volume 9.8 fL (7.4-10.4); Monocytes % (auto) 8.7 %; Neutrophils # (auto) 6.34 K/uL (1.4-6.5); Neutrophils % (auto) 68.7 %; Platelet Count 174 K/uL (130-400); RDW Coefficient of Variation 14.7 % (11.5-14.5); Red Blood Count 5.05 M/uL (4.7-6.1); White Blood Count 9.24 K/uL (4.8-10.8)
[2021-06-30 12:42] LABS: Appearance Urine Clear (Clear); Bacteria Urine Automated Negative (Negative); Bilirubin Urine Negative (Negative); Blood Urine Trace (Negative); Cast Urine Automated 0 /lpf (0-5); Color Urine Yellow; Epithelial Cell Urine Auto 0-5 /lpf (0-5); Glucose Urine UA Negative (Negative); Ketones Urine Negative (Negative); Leukocyte Esterase Urine Negative (Negative); Nitrite Urine Negative (Negative); Protein Urine Trace (Negative); RBC Urine Automated 0-4 /hpf (0-4); Specific Gravity Urine 1.008 (1.000-1.030); Urobilinogen Urine Negative (Negative); WBC Urine Automated 0 /hpf (0-5)
[2021-06-30 13:17] LABS: Alanine Aminotransferase 77 U/L (7-52); Albumin Globulin Ratio 1.2 (0.9-2); Albumin Level 4.4 gm/dl (3.4-5.0); Alkaline Phosphatase 71 U/L (34-104); Anion Gap 9 (3-11); BUN Creatinine Ratio 15.8 (10-20); Bilirubin,Total 0.4 mg/dl (0.2-1.0); Blood Urea Nitrogen 16 mg/dl (6-23); Calcium 9.6 mg/dl (8.5-10.1); Carbon Dioxide 21 mmol/L (21-32); Chloride 102 mmol/L (98-107); Creatinine Clr Calc Pharmacy 118.1 ml/min; Est GFR (African American) 105.1 ml/min; Est GFR (Non-African American) 90.7 ml/min; Globulin 3.6 gm/dl (2.5-4.0); Glucose 180 mg/dl (70-99(Fasting)); Lipase 29 U/L (11-82); Sodium 132 mmol/L (136-145)
[2021-06-30] MEDS ORDERED: OPTIRAY 320 100ml IV ONE (13:52)
--- NOTE | 2021-06-30 14:05 | CT Scan Report ---
CT SCAN OF THE ABDOMEN AND PELVIS WITH IV CONTRAST CLINICAL HISTORY: Left-sided abdominal pain. COMPARISON STUDY: Abdominal CT dated 06/06/2021. TECHNIQUE: Following the IV administration of 94 cc of Optiray 320, CT scan of the abdomen and pelvi s is performed from the lung bases to the proximal femora. Images are reviewed in the axial, sagittal , and coronal planes. IV contrast was administered without complication. A dose lowering technique w as utilized adhering to the principles of ALARA. CT DOSE: 1585.11 mGy.cm FINDINGS: Lung bases: The patient is status post midline sternotomy and previous cardiac valve surgery. The hea rt is mildly enlarged and without pericardial effusion. The lung bases are clear noting bibasilar sca rring/atelectasis. A tiny hiatal hernia is noted. Liver: The contrast-enhanced liver is enlarged, measuring 21.0 cm in length. The liver demonstrates d iffusely diminished attenuation consistent with severe hepatic steatosis. There are foci of geographi c fatty sparing. There is no intrahepatic biliary ductal dilatation. The hepatic veins and portal vei ns are patent. Gallbladder: Surgically absent. Spleen: Normal in size and attenuation. Pancreas: Unremarkable. 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 The right adrenal gland is nor mal in appearance. Kidneys: The contrast enhanced kidneys are normal in size and without hydronephrosis. The kidneys enh ance symmetrically. A 2.5 cm cyst is noted in the right lower pole. Abdominal vasculature: The abdominal aorta is normal in course and caliber. 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 The duodenum fails to cross midline, and the colon is seen within the left abdomen. No obstruction is identified. There is mild colonic diverticulosis without C T evidence of acute diverticulitis. A normal appendix is seen in the left lower quadrant on image #29 1. Peritoneum: There is no intraperitoneal free air or abdominal ascites. There is laxity of the ventral abdominal wall with diastases of the rectus musculature and a fat-containing umbilical hernia. Lymphadenopathy: None. Pelvic viscera: The bladder is decompressed and grossly unremarkable. The prostate and seminal vesicl es are normal as visualized. There is a large fat-containing left inguinal hernia. Skeletal structures: No lytic or blastic lesions are seen. IMPRESSION: 1. There are no acute infectious or inflammatory findings in the abdomen or pelvis. 2. 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 No obstruction is seen. 3. Hepatomegaly and severe hepatic steatosis. 4. Additional findings as above. ACT 112: Negative or not required by law. Electronically signed by: Maximino Conner M.D. 06/30/2021 2:04 PM
[2021-06-30] MEDS ORDERED: HYDROmorphone INJ 0.5 MG/0.5 ML SYR IV STA (14:33)
[2021-06-30] MEDS ORDERED: ACETAMINOPHEN 325 MG TAB PO PRN (15:24)
--- NOTE | 2021-06-30 15:40 | History & Physical Report ---
Date of Service June 30, 2021 Assessment & Plan (1) Left inguinal hernia: Plan: This is a 45y M with a PMH of DM, h/o mitral valve repair, HTN, obesity, h/o nasal septoplasty, and situs inversus who presents to the [facility] ED on 06/30/21 with complaints of left sided abdominal/groin pain that radiates down the leg. Pain has been present over the last several weeks associated with nausea. Today in the ER he underwent a CT a/p that revealed no acute intraabdominal abno rmalities and does note a large fat-containing left inguinal hernia. This has been present for the last several months and he has been unable to coordinate schedules to have it repaired, he has been seen by Dr. Marcelo for this in the past. He was offered to see Dr. Marcelo in clinic tomorrow for further evaluation and scheduling but the patient prefers to have it done while he is here. We will admit the patient to the surgical floor and make NPO at midnight and hernia will be repaired with Dr. Jules tomorrow. Covid testing pending. as above. pt seen. having considerable discomfort and would like to have it repaired. no OR availability this evening. will admit for pain/nausea control and plan open left inguinal hernia repair with mesh. risks discussed ( bleeding/infection/blood clots/chronic pain/dvt/pe/mi/cva/injury to the cord/cord structures etc...). questions answered. will proceed tomorrow with open left inguinal hernia repair with mesh. patient agreeable. History of Present Illness Primary Care Provider: Edgar Lawton MD This is a 45y M with a PMH of DM, h/o mitral valve repair, HTN, obesity, h/o nasal septoplasty, and situs inversus who presents to the [facility] ED on 06/30/21 with complaints of left sided abdominal/groin pain that radiates down the leg. He does have a history of an umbilical and ventral incarcerated hernia repaired by in september by Dr. Marcelo. At that time he was also found to have a left inguinal hernia and was suppose to follow up as an outpatient for surgical planning once he recovered from his aforementioned surgeries. He last saw Dr. marcelo in February or March of last year and they were coordinating schedules with [facility] and the patient's work and he has been unable to make it back in the office. Now today patient reports to the ER due to ongoing pain over the last several weeks associated with severe nausea, no vomiting. In the ER he underwent a CT a/p that revealed no acute intraabdominal abnormalities and does note a large fat-containing left inguinal hernia. Allergies Allergy/AdvReac Type Severity Reaction Status Date / Time Cephalosporins Allergy Intermediate Hives Verified 06/30/21 13:56 erythromycin base Allergy Unknown CAN'T Verified 06/30/21 13:56 REMEMBER Sulfa (Sulfonamide Allergy Unknown CAN'T Verified 06/30/21 13:56 Antibiotics) REMEMBER Penicillins AdvReac Intermediate Gastrointestinal Verified 06/30/21 13:56 Upset Home Medications Medication Instructions Recorded Confirmed Type albuterol sulfate 2.5 mg INHALATION Q4H PRN 11/24/19 06/30/21 History albuterol sulfate 90 mcg/actuation 2 puff INHALATION Q4H PRN 11/24/19 06/30/21 History aerosol inhaler allopurinol 100 mg tablet 100 mg PO QPM 11/24/19 06/30/21 History cholecalciferol (vitamin D3) 1,250 50,000 unit PO WK 11/24/19 06/30/21 History mcg (50,000 unit) capsule mometasone 50 mcg/actuation nasal 2 spray INTRANASAL BID 11/24/19 06/30/21 History spray montelukast 10 mg tablet 10 mg PO QPM 11/24/19 06/30/21 History atorvastatin 40 mg tablet 40 mg PO HS PRN 01/02/20 06/30/21 History fluticasone 500 mcg-salmeterol 50 1 inh INHALATION BID 07/07/20 06/30/21 History mcg/dose blistr powdr for inhalation (Advair Diskus) metoprolol tartrate 25 mg tablet 25 mg PO BID tab 07/07/20 06/30/21 History famotidine 20 mg tablet 20 mg PO BID PRN 08/13/20 06/30/21 History insulin aspart U-100 100 unit/mL 0 unit SUBCUT TIDM 08/13/20 06/30/21 History (3 mL) subcutaneous pen (Novolog Flexpen U-100 Insulin aspart) lisinopril 10 mg tablet 10 mg PO QAM 08/13/20 06/30/21 History metformin 500 mg tablet 1,000 mg PO BIDM 08/13/20 06/30/21 History tiotropium bromide 18 mcg capsule 1 cap INHALATION DAILY 08/13/20 06/30/21 History with inhalation device (Spiriva with HandiHaler) dicyclomine 10 mg capsule 10 mg PO TID PRN #20 cap 06/06/21 06/30/21 Rx insulin glargine 100 unit/mL (3 12 unit SUBCUT DAILY 06/06/21 06/30/21 History mL) subcutaneous pen (Basaglar KwikPen U-100 Insulin) meloxicam 15 mg tablet 15 mg PO DAILY PRN 06/30/21 06/30/21 History omeprazole 20 mg capsule,delayed 20 mg PO QAM 06/30/21 06/30/21 History release Past Med/Surg History Medical History Anxiety Asthma, mild persistent DM type 2 (diabetes mellitus, type 2) Environmental and seasonal allergies Gout HLD (hyperlipidemia) HTN (hypertension) Mitral regurgitation Mitral valve disorder Obesity Surgical History H/O exploratory laparotomy H/O nasal septoplasty History of hernia repair History of mitral valve repair S/P nasal septoplasty Family History Mother Follicular lymphoma Social History Smoking Status: Never smoker Second Hand Exposure: No; Do You Dip or Chew Tobacco: No; Tobacco Cessation Education Requested by Patient: No Hx Alcohol Use: Yes Alcohol type: wine Alcohol Intake Frequency: Monthly or Less Hx Substance Use: No Preferred Language: Danish Communication Ability: Effective 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 Beliefs That Will Affect Care: None Current Living Situation: Alone Other Information That Helps Us Care for You: No Feels Safe at Home: Yes Assistive Devices: Glasses Review of Systems Constitutional: + weight loss; no fever and no chills Gastrointestinal: + abdominal pain and + nausea; no vomiting Physical Exam Physical Exam: awake/alert, no acute distress Gastrointestinal (Abdomen): Inspection/Auscultation: + abdominal surgical scar (from prior hernia repairs) Percussion/Palpation: + abdomen tender (mild discomfort along left lower abdomen/groin region) and abdomen soft Results & Data Results & Data ([facility]) Vital Signs (Past 12 Hours) Vital Signs Temp Pulse Resp BP Pulse Ox 06/30/21 11:26 36.5 C 94 H 18 164/[address] SCAN OF THE ABDOMEN AND PELVIS WITH IV CONTRAST CLINICAL HISTORY: Left-sided abdominal pain. COMPARISON STUDY: Abdominal CT dated 06/06/2021. TECHNIQUE: Following the IV administration of 94 cc of Optiray 320, CT scan of the abdomen and pelvis is performed from the lung bases to the proximal femora. Images are reviewed in the axial, sagittal, and coronal planes. IV contrast was administered without complication. A dose lowering technique was utilized adhering to the principles of ALARA. CT DOSE: 1585.11 mGy.cm FINDINGS: Lung bases: The patient is status post midline sternotomy and previous cardiac valve surgery. The heart is mildly enlarged and without pericardial effusion. The lung bases are clear noting bibasilar scarring/atelectasis. A tiny hiatal hernia is noted. Liver: The contrast-enhanced liver is enlarged, measuring 21.0 cm in length. The liver demonstrates diffusely diminished attenuation consistent with severe hepatic steatosis. There are foci of geographic fatty sparing. There is no intrahepatic biliary ductal dilatation. The hepatic veins and portal veins are patent. Gallbladder: Surgically absent. Spleen: Normal in size and attenuation. Pancreas: Unremarkable. 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 The right adrenal gland is normal in appearance. Kidneys: The contrast enhanced kidneys are normal in size and without hydronephrosis. The kidneys enhance symmetrically. A 2.5 cm cyst is noted in the right lower pole. Abdominal vasculature: The abdominal aorta is normal in course and caliber. 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 The duodenum fails to cross midline, and the colon is seen within the left abdomen. No obstruction is identified. There is mild colonic diverticulosis without CT evidence of acute diverticulitis. A normal appendix is seen in the left lower quadrant on image #291. Peritoneum: There is no intraperitoneal free air or abdominal ascites. There is laxity of the ventral abdominal wall with diastases of the rectus musculature and a fat-containing umbilical hernia. Lymphadenopathy: None. Pelvic viscera: The bladder is decompressed and grossly unremarkable. The prostate and seminal vesicles are normal as visualized. There is a large fat- containing left inguinal hernia. Skeletal structures: No lytic or blastic lesions are seen. IMPRESSION: 1. There are no acute infectious or inflammatory findings in the abdomen or pelvis. 2. 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 No obstruction is seen. 3. Hepatomegaly and severe hepatic steatosis. 4. Additional findings as above. ACT 112: Negative or not required by law. Electronically signed by: Maximino Conner M.D. 06/30/2021 2:04 PM PG Care Time/CCT Total # of Minutes Spent Total Time Spent with Patient: Total time spent is greater than 50% in coordination of care (as documented) at patient's floor/unit and/or counseling patient: Coding Level of Care Code INT OBSERVATION CARE 50M LVL 2 Diagnoses Left inguinal hernia K40.90
[2021-06-30 15:49] LABS: Potassium 4.6 mmol/L (3.5-5.1)
[2021-06-30] MEDS ORDERED: oxyCODONE HCL IR 5 MG TAB (IMMEDIATE RELEASE) PO PRN ×2 (17:25)
[2021-06-30] MEDS ORDERED: GLUCOSE 40% GEL 15 GM TUBE PO PRN (17:25)
[2021-06-30] MEDS ORDERED: ONDANSETRON INJ 2 MG/ML 2 ML VIAL IV PRN (17:25)
[2021-06-30] MEDS ORDERED: DEXTROSE 50% 50 ML SYRINGE IV PRN (17:25)
[2021-06-30] MEDS ORDERED: DICYCLOMINE HCL 10 MG CAP PO PRN (17:25)
[2021-06-30] MEDS ORDERED: MoRPHine SULFATE 2 MG/ML CARP IV PRN (17:25)
[2021-06-30] MEDS ORDERED: GLUCOSE 10 TABS/TUBE PO PRN (17:25)
[2021-06-30] MEDS ORDERED: PHARMACY GLYCEMIC MGMT CONSULT PRN (17:25)
[2021-06-30] MEDS ORDERED: ALBUTEROL 0.083% NEBU SOLN 3 ML VIAL INH PRN (17:25)
[2021-06-30] MEDS ORDERED: CARBOHYDRATES FOR HYPOGLYCEMIA PO PRN (17:25)
[2021-06-30] MEDS ORDERED: FAMOTIDINE 20 MG TAB PO PRN (17:25)
[2021-06-30] MEDS ORDERED: ALBUTEROL HFA 8 GM INHALER INH PRN (17:25)
[2021-06-30] MEDS ORDERED: GLUCAGON FOR INJ 1 MG VIAL SQ PRN (17:25)
[2021-06-30] MEDS: INSULIN ASPART PER UNIT SC SCH ×2 (18:16→20:51)
[2021-06-30] MEDS: METOPROLOL TARTRATE 25 MG TAB PO SCH (20:45)
[2021-06-30] MEDS ORDERED: MONTELUKAST SODIUM 10 MG TABLET PO SCH (21:00)
[2021-06-30] MEDS ORDERED: allopurinoL 100 MG TAB PO SCH (21:00)
[2021-06-30] MEDS ORDERED: INSULIN GLARGINE SOLOSTAR 100 UNITS/ML 3 ML PEN SC SCH (21:00)
[2021-06-30] MEDS ORDERED: ATORVASTATIN 40 MG TAB PO SCH (21:00)
[2021-06-30] MEDS: SODIUM CHLORIDE 0.9% 1000ML 1,000 ML IV SCH (23:14)
[2021-07-01] MEDS: SODIUM CHLORIDE 0.9% 1000ML 1,000 ML IV SCH ×2 (01:08→10:31)
[2021-07-01] MEDS ORDERED: Nursing to Pharmacy Communication SCH ×2 (03:30→10:15)
[2021-07-01] MEDS ORDERED: INSULIN ASPART PER UNIT SC SCH ×2 (06:00→11:30)
[2021-07-01] MEDS: METOPROLOL TARTRATE 25 MG TAB PO SCH (08:21)
[2021-07-01] MEDS ORDERED: INSULIN GLARGINE SOLOSTAR 100 UNITS/ML 3 ML PEN SC SCH (09:00)
[2021-07-01] MEDS ORDERED: FLUTICASONE/VILANTEROL 200/25MCG 14 PUFFS/INHALER INH SCH (09:00)
[2021-07-01] MEDS ORDERED: UMECLIDINIUM BROMIDE 62.5MCG/BLISTER 7 PUFFS/INHALER INH SCH (09:00)
--- NOTE | 2021-07-01 10:16 | Surgery Progress Note ---
Date of Service July 01, 2021 Assessment & Plan (1) Left inguinal hernia: (2) Clostridium difficile infection: Plan: Was informed by the [facility] GI group this AM that patient's outpatient stool studies returned + for cdiff Pt reports he does have a history of diarrhea Based on these findings we are planning to cancel his left inguinal hernia repair for him to complete a course of treatment for the cdiff. CT scan findings showed hernia was fat containing with no bowel, so it is not an emergency to repair while inpt Will start PO vanco and send a script to complete a course of 14 days May resume diet.. and plan for discharge today He may f/u with Dr. Carter as previously planned and with GI for follow up Admission and Anticipated Discharge Date Admission Date: June 30, 2021 Subjective Notified by the [facility] GI team patient has Cdiff. He is also aware based on his health portal. Discussed with patient planning to cancel his case today based on these findings. He is appropriately disappointed, but understandable. Physical Exam Physical Exam: awake/alert, no acute distress Results & Data ([facility]) Vital Signs (Past 12 Hours) Vital Signs Temp Pulse Resp BP BP Pulse Ox 07/01/21 08:12 36.7 C 89 16 150/97 H 95 06/30/21 22:22 37.0 C 69 19 120/80 95 PG Care Time/CCT Total # of Minutes Spent Total Time Spent with Patient: Total time spent is greater than 50% in coordination of care (as documented) at patient's floor/unit and/or counseling patient: Coding Level of Care Code 72276 Subseq Hosp Care Lvl 1 Diagnoses Left inguinal hernia K40.90 Clostridium difficile infection A49.8
--- NOTE | 2021-07-01 10:28 | Pharmacy Report ---
Pharmacy Glycemic Short Note 2 - Date of Service July 01, 2021 - Glycemic Short BSG Results (Last 24 hours): 06/30/21 06/30/21 06/30/21 12:15 17:09 20:41 Glucose 180 H POC Glucose 158 H 174 H 07/01/21 07/01/21 07/01/21 04:00 06:02 06:55 Glucose POC Glucose 153 H 167 H 191 H OUTPATIENT ANTIDIABETIC REGIMEN: * Lantus 12 units daily, Novolog SSI, metformin 1 gm bid ASSESSMENT: * 45 year old with left inguinal hernia, type 2 diabetic - NPO this morning. Gave Lantus 10 units x 1 this AM for NPO status * Surgery ended up being canceled today. Per notes, likely to be discharged today PLAN FOR INPATIENT GLYCEMIC CONTROL: * Hold outpatient oral diabetes medications * Basal insulin * Lantus 10 units x 1 * Bolus insulin * NovoLog per scale ACHS or Q6hrs while NPO * Goal Range: Low 110 mg/dL - High 140 mg/dL * Correction Factor: 25 mg/dL/unit * Nutritional / Prandial insulin per carb ratio of 1 unit per 8 grams CHO consumed
[2021-07-01] MEDS ORDERED: VANCOMYCIN HCL 125 MG/2.5ML SOLN PO SCH (12:00)
[2021-07-01] MEDS ORDERED: RASPBERRY SYRUP 5 ML UDP PO SCH (12:00)
--- NOTE | 2021-07-02 21:03 | Discharge Summary ---
Date of Service July 02, 2021 Admission HPI Per Admitting Provider This is a 45y M with a PMH of DM, h/o mitral valve repair, HTN, obesity, h/o nasal septoplasty, and situs inversus who presents to the [facility] ED on 06/30/21 with complaints of left sided abdominal/groin pain that radiates down the leg. He does have a history of an umbilical and ventral incarcerated hernia repaired by in sept[place] by Dr. Marcelo. At that time he was also found to have a left inguinal hernia and was suppose to follow up as an outpatient for surgical planning once he recovered from his aforementioned surgeries. He last saw Dr. marcelo in February or March of last year and they were coordinating schedules with [facility] and the patient's work and he has been unable to make it back in the office. Now today patient reports to the ER due to ongoing pain over the last several weeks associated with severe nausea, no vomiting. In the ER he underwent a CT a/p that revealed no acute intraabdominal abnormalities and does note a large fat-containing left inguinal hernia. Principal Diagnosis left inguinal hernia c.diff Discharge Exam awake/alert, no acute distress Gastrointestinal (Abdomen) Inspection/Auscultation: + abdominal surgical scar (from prior hernia repairs) Percussion/Palpation: + abdomen tender (mild discomfort along left lower abdomen/groin region) and abdomen soft Discharge Data Allergies Allergy/AdvReac Type Severity Reaction Status Date / Time Cephalosporins Allergy Intermediate Hives Verified 06/30/21 13:56 erythromycin base Allergy Unknown CAN'T Verified 06/30/21 13:56 REMEMBER Sulfa (Sulfonamide Allergy Unknown CAN'T Verified 06/30/21 13:56 Antibiotics) REMEMBER Penicillins AdvReac Intermediate Gastrointestinal Verified 06/30/21 13:56 Upset Consultations 06/30/21 14:21 Consult General Surgery Stat 06/30/21 15:25 ED Decision to Admit Stat Procedures Performed Operation Date: 07/01/21 08:20 <No data on this case meets the specified criteria> Ordered Studies 06/30/21 11:57 CT abd pelvis IV con only Stat Hospital Course (1) Left inguinal hernia: This is a 45y M with a PMH of DM, h/o mitral valve repair, HTN, obesity, h/o nasal septoplasty, and situs inversus who presents to the [facility] ED on 06/30/21 with complaints of left sided abdominal/groin pain that radiates down the leg. Workup with a CT a/p revealed a large fat containing hernia with no acute intrabdominal abnormalities. He was known to have this hernia for quite some time and was suppose to get connected with Dr Marcelo of [facility] surgery for repair, however due to the patient's work schedule and covid pandemic he was unable to coordinate this. We decided to admit patient given his symptoms and plan for surgical repair the following day. On 07/01 the [facility] GI team informed us that the patient's outpatient stool studies returned + for cdiff. Given this information the patient's surgery was cancelled for him to undergo treatment of his cdiff. As patient's hernia did not contain any bowel & no signs of obstructive symptoms it was deemed appropriate for the patient to be discharged to complete a course of abx for cdiff and schedule follow up in clinic with the surgeon for elective hernia repair. The patient demonstrated understanding and was discharged to home on a 14 day course of vancomycin with plans to follow up with surgery, GI, and his PCP as an outpatient. (2) Clostridium difficile infection: 15 Total Time Total Time Spent Total Time Spent (In Minutes): 15 Discharge Plan Discharge Items Patient Disposition: Home - Self-Care Reason For Visit: LEFT INGUINAL HERNIA Discharge Diagnosis: cdiff left inguinal hernia Condition on Discharge: Good Activity: Resume your previous activity Bathing: No limitations Exercise/Sports: Gradually increase as tolerated Driving/Machine Use: No limitations Non-emergency contact: Primary Care Provider, Surgeon and Computer Engineering Professor Call non-emergency contact if: you have any medication questions, your symptoms worsen, your pain is concerning for you, you have a fever and your temperature is above 101.5 Follow-up/Referrals: Edgar Lawton MD [Primary Care Provider] - Morenita Faclon CRNP [Nurse Practitioner] - (Please follow up with the GI group within 2 weeks ) Lupe Marcelo MD [Physician] - (Please call the office to schedule follow up with Dr. Marcelo as an outpatient after you completed a course of antibiotics for your cdiff infection for surgical planning of your hernia) Diet: Regular and Carb Consistent or DM2 Addtl Attending Provider Instructions: You have been diagnosed with a GI tract infection called C.Diff. This infection can cause diarrhea. This requires antibiotic treatment with oral Vancomycin for a course of 14 days. Please complete the full course of treatment. You may follow up with the GI group after this time. Please keep yourself well hydrated and wash your hands frequently with soap and water. You may also schedule to follow up with the surgeon Dr Marcelo in his office after completion of your course of antibiotic for elective scheduling for repair of your inguinal hernia. Pending Studies at Discharge: No Stand-Alone Forms: Work/School Release (ED), [facility], Work/School Release, Smoking Cessation Medications and DC Order Prescriptions: New vancomycin 125 mg capsule 125 mg PO QID 14 Days Qty: 56 RF: 0 Continued atorvastatin 40 mg tablet 40 mg PO HS PRN (Reason: Nasal Congestion) RF: 0 fluticasone propion-salmeterol [Advair Diskus] 500-50 mcg/dose blister with device 1 inh inhalation BID RF: 0 albuterol sulfate 2.5 mg /3 mL (0.083 %) solution for nebulization 2.5 mg inhalation Q4H PRN (Reason: Cough and Wheezing) RF: 0 allopurinol 100 mg tablet 100 mg PO QPM RF: 0 mometasone 50 mcg/actuation spray,non-aerosol 2 spray INTRANASAL BID RF: 0 montelukast 10 mg tablet 10 mg PO QPM RF: 0 albuterol sulfate 90 mcg/actuation HFA aerosol inhaler 2 puff INHALATION Q4H PRN (Reason: Cough,SOB Or Wheezing) RF: 0 cholecalciferol (vitamin D3) 1,250 mcg (50,000 unit) capsule 50,000 unit PO WK RF: 0 metoprolol tartrate 25 mg tablet 25 mg PO BID RF: 0 Spiriva with HandiHaler 18 mcg capsule, w/inhalation device 1 cap INHALATION DAILY RF: 0 famotidine 20 mg tablet 20 mg PO BID PRN (Reason: Acid Reflux) RF: 0 metformin 500 mg tablet 1,000 mg PO BIDM RF: 0 insulin aspart U-100 [Novolog Flexpen U-100 Insulin] 100 unit/mL (3 mL) insulin pen 0 unit SUBCUT TIDM RF: 0 lisinopril 10 mg tablet 10 mg PO QAM RF: 0 Basaglar KwikPen U-100 Insulin 100 unit/mL (3 mL) insulin pen 12 unit SUBCUT DAILY RF: 0 dicyclomine 10 mg capsule 10 mg PO TID PRN (Reason: abdominal pain) Qty: 20 RF: 0 meloxicam 15 mg tablet 15 mg PO DAILY PRN (Reason: Pain) RF: 0 omeprazole 20 mg capsule,delayed release(DR/EC) 20 mg PO QAM RF: 0 Discharge Orders: Discharge Order (Routine); Ordered 07/01/21 Ordered By: Leila Andre/Other Patient Handouts: Hernia Repair Surgery, Clostridium Difficile Infection Admission Data Admit Date/Time: 06/30/21 15:24 Attending Provider: Jass Jules Admit Provider: Jass Jules Primary Care Provider: Edgar Lawton Other Providers: Jass Jules Other Interventions: Discharge Summary Assessment (RN) Last Done: 07/01/21 12:05 Coding Level of Care Code D/C DAY MANAGEMENT <30 MINS Diagnoses Left inguinal hernia K40.90 Clostridium difficile infection A49.8
== END 2021-07-01 13:49 | disposition home or self-care (01) ==
LOC: ED 11:01 → 3W 11:01

== ENCOUNTER 2023-07-04 03:22 | Observation (INO) ==
--- NOTE | 2023-07-04 04:12 | Emergency Department Note ---
Impression & Plan Orthopnea, Bilateral edema of lower extremity, Hyperglycemia Admit to the [facility] ED Provider Note NAME: MONTY PALM AGE: 47 SEX: Male INFORMANT: Patient ED PROVIDER(S): Marti Milian DO CHIEF COMPLAINT: Shortness of breath PLAN: Disposition: Admit to the [facility] MEDICAL DECISION MAKING: This is a 47-year-old male patient who presents to the emergency department complaining of increasing shortness of breath and inability to sleep. Patient explains that he feels much better being upright. Patient has a cardiac history having had mitral valve repair in 2008. Patient explains that he has been receiving treatment since April for sinus infection. He is currently on doxycycline. Patient is tachycardic and hypertensive on exam. He does appear to be in mild respiratory distress. Chest x-ray shows evidence of significant cardiomegaly and pulmonary vascular congestion. Laboratory studies reveal no significant leukocytosis or anemia. BNP was normal. D-dimer was normal. Bio fire upper respiratory panel was normal. EKG revealed sinus tachycardia at a rate of 122. Patient was significantly hypertensive on exam. Patient was significantly hyperglycemic with a blood sugar greater than 300. Patient had a mild anion gap. There was concern for possible early DKA. [facility] for [facility] care. Care/management discussed with: seafood manager and [facility] Triage Nursing notes: Reviewed and agree with them. Vital Signs: reviewed and remarkable for hypertension and tachycardia Chronic Medical/Social Conditions affecting care: Diabetes; mitral valve repair Differential Diagnosis: PE, CHF, pneumothorax, pleural effusion, pneumonia Diagnostics, independently interpreted by me: ECG: Sinus tachycardia at a rate of [address] segment elevation or signs of ischemia. There is no ectopy. Cardiac Monitoring: Sinus tachycardia at a rate of 124 Imaging studies: As per my independent interpretation-portable chest x-ray: Significant cardiomegaly with pulmonary vascular congestion HPI: 47 year old Male arrives for evaluation of shortness of breath. Patient describes worsening shortness of breath over the past couple weeks to the point he is now unable to sleep because he must remain upright at all times. He used an albuterol nebulizer treatment at home which did not help his dyspnea. Patient is receiving doxycycline for a sinus infection that has been ongoing for the past 2 months.. PAST MEDICAL HISTORY: See Below, PAST SURGICAL HISTORY: See Below, SOCIAL HISTORY: See Below, HOME MEDICATIONS: See list ALLERGIES: See list VITALS: See Below PHYSICAL EXAMINATION: HEENT: Head - normocephalic and atraumatic. Pupils are equal, round, and reactive to light. Extraocular eye muscles are intact, and sclera are anicteric. Nose - moist nasal mucosa without discharge. Mouth - moist buccal mucosa. Oropharynx is nonerythematous and there is no tonsillar exudate or edema noted. Neck: Supple; no JVD or cervical lymphadenopathy. Heart: Tachycardic rate and regular rhythm there is a normal S1 and S2 with no murmurs, clicks, or gallops appreciated. Lungs: Diminished breath sounds in the lung godwin. There is no wheezing but there is rales at both bases. Abdomen: Significantly distended but nontender. There are no palpable pulsatile masses or hepatosplenomegaly. There is no guarding, rigidity, or rebound noted. Extremities: Patient has 4+ pitting edema both lower extremities with some blister formation near the ankles. Skin: warm and dry with good turgor and no rashes. Emergency department course: The patient was evaluated in room A-3. A complete history and physical was performed. An order was placed for continuous cardiac monitoring. The patient is in a sinus tachycardia at a rate of 124. A portable chest x-ray was performed. Patient had a CT scan of the chest as described above. Patient appears to be suffering from significant orthopnea. He remains significantly tachycardic patient has extreme lower extremity edema but on physical exam appears somewhat dehydrated. This in conjunction with his hyperglycemia and mild anion gap is concerning for early DKA. I have discussed the case with the [facility] Hospitalist and they will evaluate for further inpatient care. 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 Hx of Clostridium difficile infection Arthritis IBS (irritable bowel syndrome) Hx of migraines History of COVID-19 04/2021>SINUS CONGESTION *RESOLVED Hx of gout Asthma LAST USED RESCUE INHALER>LAST WEEK Mitral regurgitation Obesity Pancreatitis 2020 Anxiety HTN (hypertension) Environmental and seasonal allergies Surgical History History of anesthesia reaction FOR SINUS SURGERY AT [facility] LOCATION>BECAME HYPOXIC AND TX TO [facility] 07/2020 History of bunionectomy RT History of esophagogastroduodenoscopy (EGD) [place] teeth removed Cyst RT EYELID CYST REMOVED H/O nasal septoplasty History of mitral valve repair 2008>IN [place] *FOLLOWED BY DR. THEODORE H/O exploratory laparotomy History of hernia repair UMBILICAL AND VENTRAL HERNIA REPAIR *DOUBLE HERNIA REPAIR Family History Mother Follicular lymphoma Grandmother (Maternal) Family history of diabetes mellitus Other Family history of valvular heart disease No family history of adverse response to anesthesia Denies family history of Ovarian cancer Prostate cancer Myocardial infarction Breast cancer Colorectal cancer Social History (Updated 07/04/23 @ 09:14 by Jose Wells MD) Smoking Status: Never smoker Second Hand Exposure: No; Do You Dip or Chew Tobacco: No; Tobacco Cessation Education Requested by Patient: No Hx Alcohol Use: Yes Alcohol type: wine Alcohol Intake Frequency: Monthly or Less Hx Substance Use: No Preferred Language: Zambian Communication Ability: Effective Visual Impairment: No Limitations Hearing Ability: Normal Last Putter Away Required: No Beliefs That Will Affect Care: None marital status: Single Current Living Situation: Alone current occupational status: employed current occupation: [employer] - works from home How many Children do You have: 0 Other Information That Helps Us Care for You: No Feels Safe at Home: Yes Safety Concerns: Feels Safe At This Time Diet: regular caffeine: Yes Dental Care, Regularly: Yes Physical Activity Frequency: 1-2 Times per Week Seatbelt Use: always Sunscreen Use: Yes Assistive Devices: None Allergies Allergies Allergy/AdvReac Type Severity Reaction Status Date / Time Cephalosporins Allergy Intermediate Hives Verified 06/16/23 08:30 erythromycin base Allergy Intermediate Hives Verified 06/16/23 08:30 Sulfa (Sulfonamide Allergy Intermediate Hives Verified 06/16/23 08:30 Antibiotics) metformin AdvReac Severe nausea Verified 06/16/23 08:30 Penicillins AdvReac Intermediate Gastrointestinal Verified 06/16/23 08:30 Upset, hives Home Meds Home Medications Medication Instructions Recorded Confirmed omeprazole 20 mg capsule,delayed 20 mg PO DAILY PRN Heartburn 06/30/21 07/04/23 release aspirin 81 mg tablet 81 mg PO Q OTHER DAY 05/26/22 07/04/23 furosemide 40 mg tablet 40 mg PO DAILY PRN Fluid Retention 01/26/23 07/04/23 lisinopril 20 mg tablet 20 mg PO QPM 01/26/23 07/04/23 Previous Rx's Medication Instructions Recorded allopurinol 100 mg tablet 100 mg PO QAM #90 tabs 07/22/22 atorvastatin 40 mg tablet 40 mg PO HS 90 days #90 tabs 07/22/22 ondansetron 4 mg disintegrating 4 mg PO Q8H PRN nausea and 08/09/22 tablet vomiting #30 tabs cholecalciferol (vitamin D3) 50 50 mcg PO DAILY 30 days #30 caps 02/03/23 mcg (2,000 unit) capsule dapagliflozin propanediol 10 mg 10 mg PO QAM 90 days #90 tabs 02/14/23 tablet (Farxiga) dicyclomine 10 mg capsule 10 mg PO TID PRN abdominal pain 90 03/11/23 days #60 caps tiotropium bromide 1.25 2 puff inhalation DAILY 90 days #4 03/11/23 mcg/actuation mist for inhalation grams (Spiriva Respimat) insulin glargine 100 unit/mL (3 35 unit (0.35 mL) subcut BID #60 mL 04/07/23 mL) subcutaneous pen (Basaglar KwikPen U-100 Insulin) metoprolol tartrate 25 mg tablet 25 mg PO BID #180 tabs 05/13/23 montelukast 10 mg tablet 10 mg PO QPM 90 days #90 tabs 06/07/23 albuterol sulfate 2.5 mg/3 mL 2.5 mg (3 mL) inhalation Q6H PRN 06/16/23 (0.083 %) solution for nebulization shortness of breath or wheezing #75 mL albuterol sulfate 90 mcg/actuation 2 puff inhalation Q4H PRN 06/16/23 aerosol inhaler Cough,SOB Or Wheezing 90 days #8.5 grams levalbuterol HCl 1.25 mg/3 mL 1.25 mg (3 mL) inhalation Q4H PRN 06/16/23 solution for nebulization shortness of breath or wheezing #75 mL fluconazole 100 mg tablet 100 mg PO QDAY #14 tabs 03/05/24 sumatriptan succinate 50 mg tablet See Rx Instructions PO .COMPLEX #9 06/22/23 tabs insulin lispro 100 unit/mL See Rx Instructions subcut 06/27/23 subcutaneous pen (Humalog KwikPen USEASDIRECTD #60 mL (U-100) Insulin) doxycycline hyclate 100 mg tablet 100 mg PO BID #14 tabs 06/28/23 Results & Data (ED) Vital Signs Vital Signs - 24 hr 07/04/23 03:24 07/04/23 03:41 Temperature 36.3 C L Temperature Source Temporal Artery Scan Pulse Rate 117 H 124 H Respiratory Rate 16 Blood Pressure 184/110 H Blood Pressure Mean 134 Pulse Oximetry 95 Oxygen Delivery Method Room Air Sepsis Recent Fever Within 48 Hours No Sepsis New/Unexplained Change in Mental Status No Sepsis Action Taken by Nursing No Action Required Laboratory Data 07/04/23 04:15 07/05/23 07:10 Lab Results 07/04/23 07/04/23 07/04/23 Range/Units 03:50 04:15 04:20 WBC 9.15 (4.8-10.8) K/ul RBC 5.12 (4.70-6.10) M/uL Hgb 15.0 (14.0-18.0) g/dl Hct 42.8 (42.0-52.0) % MCV 83.6 (80.0-100.0) fL MCH 29.3 (25.0-34.0) pg MCHC 35.0 (32.0-36.0) g/dL RDW Std Deviation 44.4 (36.4-46.3) fL RDW Coeff of María Elena 14.8 H (11.5-14.5) % Plt Count 205 (130-400) K/uL MPV 9.8 (9.4-12.4) fL Immature Gran % (Auto) 2.2 % Neut % (Auto) 61.8 % Lymph % (Auto) 23.7 % Warrick % (Auto) 10.1 % Eos % (Auto) 1.5 % Baso % (Auto) 0.7 % Neut # (Auto) 5.66 (1.40-6.50) K/uL Lymph # (Auto) 2.17 (1.20-3.40) K/uL Warrick # (Auto) 0.92 H (0.11-0.59) K/uL Eos # (Auto) 0.14 (0.00-0.50) K/uL Baso # (Auto) 0.06 (0.00-0.20) K/uL Immature Gran # (Auto) 0.20 (0.01-0.20) K/uL D-Dimer Cancelled Sodium 133 L (136-145) mmol/L Potassium 3.8 (3.5-5.1) mmol/L Chloride 100 (98-107) mmol/L Carbon Dioxide 21 (21-32) mmol/L Anion Gap 12 H (3-11) BUN 24 H (6-23) mg/dl Creatinine 1.09 (0.6-1.4) mg/dl Est Cr Clr Drug Dosing 115.4 ml/min Est GFR ( Amer) 94.5 ml/min Est GFR (Non-Af Amer) 81.5 ml/min BUN/Creatinine Ratio 22.0 H (10-20) Glucose 302 H* (70-99(Fasting)) mg/dl POC Glucose (70-99) mg/dl Estimat Average Glucose 258 mg/dl Hemoglobin A1c 10.6 H (4.5-5.6) % Calcium 9.1 (8.6-10.3) mg/dl Total Bilirubin 0.3 (0.2-1.0) mg/dl AST 25 (13-39) U/L ALT 33 (7-52) U/L Alkaline Phosphatase 76 (34-104) U/L Troponin I High Sens 16.4 (0-20) pg/ml C-Reactive Protein 0.87 H (0-0.5) mg/dl B-Natriuretic Peptide 61 (0-100) pg/ml Total Protein 7.4 (6.0-8.3) gm/dl Albumin 4.1 (3.4-5.0) gm/dl Globulin 3.3 (2.5-4.0) gm/dl Albumin/Globulin Ratio 1.2 (0.9-2) TSH 4.426 (0.300-4.500) uIu/ml Urine Color Yellow Urine Appearance Clear (Clear) Urine pH 5.0 (4.5-7.5) Ur Specific Elton 1.031 H (1.000-1.030) Urine Protein Negative (Negative) Urine Glucose (UA) 3+ H (Negative) Urine Ketones Negative (Negative) Urine Blood Negative (Negative) Urine Nitrite Negative (Negative) Urine Bilirubin Negative (Negative) Urine Urobilinogen Negative (Negative) Ur Leukocyte Esterase Negative (Negative) Adenovirus (PCR) Not Detected (NotDetected) B. pertussis DNA (PCR) Not Detected (NotDetected) B.parapertussis DNA PCR Not Detected (NotDetected) C. pneumoniae DNA (PCR) Not Detected (NotDetected) Coronavirus OC43 (PCR) Not Detected (NotDetected) Coronavirus HKU1 (PCR) Not Detected (NotDetected) Coronavirus 229E (PCR) Not Detected (NotDetected) SARS-CoV-2 (PCR) Not Detected (NotDetected) Coronavirus NL63 (PCR) Not Detected (NotDetected) Human Metapneumovir PCR Not Detected (NotDetected) Influenza Type A (PCR) Not Detected (NotDetected) Influenza Type B (PCR) Not Detected (NotDetected) M. pneumoniae (PCR) Not Detected (NotDetected) Parainfluenza 1 (PCR) Not Detected (NotDetected) Parainfluenza 2 (PCR) Not Detected (NotDetected) Parainfluenza 3 (PCR) Not Detected (NotDetected) Parainfluenza 4 (PCR) Not Detected (NotDetected) RSV (PCR) Not Detected (NotDetected) Entero/Rhino (PCR) Not Detected (NotDetected) 07/04/23 Range/Units 08:01 WBC (4.8-10.8) K/ul RBC (4.70-6.10) M/uL Hgb (14.0-18.0) g/dl Hct (42.0-52.0) % MCV (80.0-100.0) fL MCH (25.0-34.0) pg MCHC (32.0-36.0) g/dL RDW Std Deviation (36.4-46.3) fL RDW Coeff of María Elena (11.5-14.5) % Plt Count (130-400) K/uL MPV (9.4-12.4) fL Immature Gran % (Auto) % Neut % (Auto) % Lymph % (Auto) % Warrick % (Auto) % Eos % (Auto) % Baso % (Auto) % Neut # (Auto) (1.40-6.50) K/uL Lymph # (Auto) (1.20-3.40) K/uL Warrick # (Auto) (0.11-0.59) K/uL Eos # (Auto) (0.00-0.50) K/uL Baso # (Auto) (0.00-0.20) K/uL Immature Gran # (Auto) (0.01-0.20) K/uL D-Dimer Sodium (136-145) mmol/L Potassium (3.5-5.1) mmol/L Chloride (98-107) mmol/L Carbon Dioxide (21-32) mmol/L Anion Gap (3-11) BUN (6-23) mg/dl Creatinine (0.6-1.4) mg/dl Est Cr Clr Drug Dosing ml/min Est GFR ( Amer) ml/min Est GFR (Non-Af Amer) ml/min BUN/Creatinine Ratio (10-20) Glucose (70-99(Fasting)) mg/dl POC Glucose 243 H (70-99) mg/dl Estimat Average Glucose mg/dl Hemoglobin A1c (4.5-5.6) % Calcium (8.6-10.3) mg/dl Total Bilirubin (0.2-1.0) mg/dl AST (13-39) U/L ALT (7-52) U/L Alkaline Phosphatase (34-104) U/L Troponin I High Sens (0-20) pg/ml C-Reactive Protein (0-0.5) mg/dl B-Natriuretic Peptide (0-100) pg/ml Total Protein (6.0-8.3) gm/dl Albumin (3.4-5.0) gm/dl Globulin (2.5-4.0) gm/dl Albumin/Globulin Ratio (0.9-2) TSH (0.300-4.500) uIu/ml Urine Color Urine Appearance (Clear) Urine pH (4.5-7.5) Ur Specific Elton (1.000-1.030) Urine Protein (Negative) Urine Glucose (UA) (Negative) Urine Ketones (Negative) Urine Blood (Negative) Urine Nitrite (Negative) Urine Bilirubin (Negative) Urine Urobilinogen (Negative) Ur Leukocyte Esterase (Negative) Adenovirus (PCR) (NotDetected) B. pertussis DNA (PCR) (NotDetected) B.parapertussis DNA PCR (NotDetected) C. pneumoniae DNA (PCR) (NotDetected) Coronavirus OC43 (PCR) (NotDetected) Coronavirus HKU1 (PCR) (NotDetected) Coronavirus 229E (PCR) (NotDetected) SARS-CoV-2 (PCR) (NotDetected) Coronavirus NL63 (PCR) (NotDetected) Human Metapneumovir PCR (NotDetected) Influenza Type A (PCR) (NotDetected) Influenza Type B (PCR) (NotDetected) M. pneumoniae (PCR) (NotDetected) Parainfluenza 1 (PCR) (NotDetected) Parainfluenza 2 (PCR) (NotDetected) Parainfluenza 3 (PCR) (NotDetected) Parainfluenza 4 (PCR) (NotDetected) RSV (PCR) (NotDetected) Entero/Rhino (PCR) (NotDetected) Administered Medications Allopurinol (Allopurinol 100 Mg Tab) 100 mg PO [facility] Stop: 08/03/23 09:18 Last Admin: 07/05/23 08:39 Dose: 100 mg Documented By: Admin: 07/04/23 10:19 Dose: 100 mg Documented By: JAMES Aspirin (Aspirin 81 Mg Ectab) 81 mg PO Q2D [facility] Stop: 08/04/23 08:59 Last Admin: 07/05/23 08:39 Dose: 81 mg Documented By: PANKAJ Atorvastatin Calcium (Atorvastatin 40 Mg Tab) 40 mg PO [facility] Stop: 08/03/23 20:59 Last Admin: 07/05/23 21:16 Dose: 40 mg Documented By: Admin: 07/04/23 20:55 Dose: 40 mg Documented By: MAGALIS Cetirizine HCl (Cetirizine Hcl 10 Mg Tablet) 10 mg PO [facility] Stop: 08/03/23 20:59 Last Admin: 07/05/23 21:15 Dose: 10 mg Documented By: Admin: 07/04/23 20:53 Dose: 10 mg Documented By: MAGALIS Dapagliflozin (Pt Own Med - Dapagliflozin (Farxiga) 10 Mg Tab) 10 mg PO Q24H [facility] Stop: 08/04/23 08:59 Last Admin: 07/05/23 10:10 Dose: 10 mg Documented By: PANKAJ Enoxaparin Sodium (Enoxaparin Inj 40 Mg/0.4 Ml Syr) 40 mg SQ Q12H [facility] Stop: 08/03/23 21:59 Last Admin: 07/05/23 21:17 Dose: 40 mg Documented By: Admin: 07/05/23 10:11 Dose: 40 mg Documented By: Admin: 07/04/23 22:57 Dose: 40 mg Documented By: MAGALIS Fluticasone Propionate (Fluticasone Propionate Na Spr 16 Gm Btl) 2 sprays NA DAILY [facility] Stop: 08/04/23 08:59 Last Admin: 07/05/23 10:10 Dose: 2 sprays Documented By: PANKAJ Guaifenesin (Guaifenesin 600 Mg Tabcr) 1,200 mg PO Q12 [facility] Stop: 08/03/23 09:18 Last Admin: 07/05/23 21:15 Dose: 1,200 mg Documented By: Admin: 07/05/23 08:39 Dose: 1,200 mg Documented By: Admin: 07/04/23 20:55 Dose: 1,200 mg Documented By: Admin: 07/04/23 10:18 Dose: 1,200 mg Documented By: JAMES Insulin Aspart (Insulin Aspart Per Unit Charge) 0 units SC ACHS [facility] Stop: 08/03/23 11:29 Last Admin: 07/05/23 17:19 Dose: 11 units Documented By: PANKAJ Co-signed By: DOROTHY Admin: 07/05/23 12:12 Dose: 15 units Documented By: PANKAJ Co-signed By: DOROTHY Admin: 07/05/23 08:30 Dose: 20 units Documented By: PANKAJ Co-signed By: LOREE Admin: 07/04/23 20:53 Dose: 9 units Documented By: MAGALIS Co-signed By: KIKI Admin: 07/04/23 13:51 Dose: 2 units Documented By: EBENEZER Co-signed By: BOB Admin: 07/04/23 10:13 Dose: 15 units Documented By: JAMES Co-signed By: DIMITRY Lisinopril (Lisinopril 20 Mg Tab) 20 mg PO QPM [facility] Stop: 08/03/23 20:59 Last Admin: 07/04/23 20:56 Dose: 20 mg Documented By: MAGALIS Metoprolol Tartrate (Metoprolol Tartrate 25 Mg Tab) 25 mg PO BID [facility] Stop: 08/03/23 20:59 Last Admin: 07/05/23 21:16 Dose: 25 mg Documented By: Admin: 07/05/23 08:39 Dose: 25 mg Documented By: Admin: 07/04/23 20:56 Dose: 25 mg Documented By: MAGALIS Montelukast Sodium (Montelukast Sodium 10 Mg Tablet) 10 mg PO QPM [facility] Stop: 08/03/23 20:59 Last Admin: 07/05/23 21:16 Dose: 10 mg Documented By: Admin: 07/04/23 20:55 Dose: 10 mg Documented By: MAGALIS Umeclidinium Drumore (Umeclidinium [place] 62.5mcg/Blister 7 Puffs/Inhaler) 1 puffs INH DAILY [facility] Stop: 08/03/23 09:44 Last Admin: 07/05/23 10:10 Dose: 1 puffs Documented By: Admin: 07/04/23 10:20 Dose: 1 puffs Documented By: JAMES Vitamin D (Cholecalciferol 25 Mcg (1000 Units) Tab) 50 mcg PO DAILY [facility] Stop: 08/04/23 08:59 Last Admin: 07/05/23 08:39 Dose: 50 mcg Documented By: PANKAJ Discontinued Medications Furosemide (Furosemide Inj 20 Mg/2 Ml Vial) 20 mg IV ONE STA Stop: 07/04/23 09:07 Last Admin: 07/04/23 09:54 Dose: 20 mg Documented By: JAMES Furosemide (Furosemide 40 Mg/4 Ml Vial) 40 mg IV QAM [facility] Stop: 08/04/23 08:59 Last Admin: 07/05/23 08:40 Dose: 40 mg Documented By: PANKAJ Sodium Chloride (Nss) 500 mls @ 999 mls/hr IV .Q31M ONE Stop: 07/04/23 07:12 Last Infusion: 07/04/23 08:07 Dose: Infused Documented By: Admin: 07/04/23 07:05 Dose: 999 mls/hr Documented By: JAMES Insulin Aspart (Insulin Aspart Per Unit Charge) Confirm Administered Dose 15,000 units .ROUTE .STK-MED ONE Stop: 07/04/23 10:11 Last Admin: 07/04/23 10:25 Dose: Not Given Documented By: JAMES Insulin Glargine (Lantus Per Unit Charge) 40 units SC BID [facility] Stop: 08/03/23 09:44 Last Admin: 07/04/23 20:55 Dose: 40 units Documented By: MAGALIS Co-signed By: KIKI Admin: 07/04/23 10:13 Dose: 40 units Documented By: JAMES Co-signed By: DIMITRY Insulin Glargine (Lantus Per Unit Charge) 45 units SC BID [facility] Stop: 08/04/23 08:59 Last Admin: 07/05/23 08:30 Dose: 45 units Documented By: PANKAJ Co-signed By: LOREE Insulin Human Regular (Novolin-R Insulin Per Unit Charge) 10 units IV NOW STA Stop: 07/04/23 06:58 Last Admin: 07/04/23 07:06 Dose: 10 units Documented By: JAMES Co-signed By: DIMITRY Ioversol (Optiray 320 125ml) 125 ml IV ONCE ONE Stop: 07/04/23 05:47 Last Admin: 07/04/23 05:46 Dose: 115 ml Documented By: GRACIE Ioversol (Optiray 320 125ml) 117 ml IV ONCE ONE Stop: 07/05/23 15:02 Last Admin: 07/05/23 15:02 Dose: 117 ml Documented By: SALVADOR Metoprolol Tartrate (Metoprolol Tartrate 25 Mg Tab) 25 mg PO NOW STA Stop: 07/04/23 08:50 Last Admin: 07/04/23 09:54 Dose: 25 mg Documented By: JAMES Miscellaneous (Farxiga~Order Awaiting Action) 1 each N/A QS [facility] Stop: 08/03/23 09:44 Last Admin: 07/05/23 09:24 Dose: Not Given Documented By: Admin: 07/05/23 07:49 Dose: Not Given Documented By: Admin: 07/05/23 07:48 Dose: Not Given Documented By: Admin: 07/05/23 07:48 Dose: Not Given Documented By: PANKAJ Potassium Chloride (Potassium Chloride Crtab 20 Meq Tabcr) 20 meq PO NOW STA Stop: 07/04/23 09:00 Last Admin: 07/04/23 09:54 Dose: 20 meq Documented By: JAMES Discharge Plan Visit Data Chief Complaint: Congestion Stated Complaint: CONGESTION,SOB ED Provider: Marti Milian Discharge Problem: Orthopnea, Bilateral edema of lower extremity, Hyperglycemia Patient Disposition: Admitted As Inpatient Discharge Instructions Interventions: ED Discharge Assessment Last Done: 07/04/23 16:05
[2023-07-04 04:25] LABS: Appearance Urine Clear (Clear); Bilirubin Urine Negative (Negative); Blood Urine Negative (Negative); Color Urine Yellow; Glucose Urine UA 3+ (Negative); Ketones Urine Negative (Negative); Leukocyte Esterase Urine Negative (Negative); Nitrite Urine Negative (Negative); Protein Urine Negative (Negative); Specific Gravity Urine 1.031 (1.000-1.030); Urobilinogen Urine Negative (Negative)
[2023-07-04 04:37] LABS: Basophils # (auto) 0.06 K/uL (0.00-0.20); Basophils % (auto) 0.7 %; Eosinophils # (auto) 0.14 K/uL (0.00-0.50); Eosinophils % (auto) 1.5 %; Hematocrit (blood only) 42.8 % (42.0-52.0); Immature Granulocytes % (auto) 2.2 %; Lymphocytes # (auto) 2.17 K/uL (1.20-3.40); Lymphocytes % (auto) 23.7 %; Mean Corpuscular Hemoglobin 29.3 pg (25.0-34.0); Mean Corpuscular Volume 83.6 fL (80.0-100.0); Mean Platelet Volume 9.8 fL (9.4-12.4); Monocytes # (auto) 0.92 K/uL (0.11-0.59); Monocytes % (auto) 10.1 %; Neutrophils # (auto) 5.66 K/uL (1.40-6.50); Neutrophils % (auto) 61.8 %; Platelet Count 205 K/uL (130-400); RDW Coefficient of Variation 14.8 % (11.5-14.5); RDW Standard Deviation 44.4 fL (36.4-46.3); Red Blood Count 5.12 M/uL (4.70-6.10); White Blood Count 9.15 K/ul (4.8-10.8)
[2023-07-04 04:50] LABS: Adenovirus PCR Not Detected (NotDetected); Bordetella parapertussis PCR Not Detected (NotDetected); Bordetella pertussis PCR Not Detected (NotDetected); Chlamydia pneumoniae PCR Not Detected (NotDetected); Coronavirus 229E PCR Not Detected (NotDetected); Coronavirus CoV-2 (COVID19)PCR Not Detected (NotDetected); Coronavirus HKU1 PCR Not Detected (NotDetected); Coronavirus NL63 PCR Not Detected (NotDetected); Coronavirus OC43PCR Not Detected (NotDetected); Human Metapneumovirus PCR Not Detected (NotDetected); Influenza A PCR Not Detected (NotDetected); Influenza B PCR Not Detected (NotDetected); Mycoplasma pneumoniae PCR Not Detected (NotDetected); Parainfluenza Virus 1 PCR Not Detected (NotDetected); Parainfluenza Virus 2 PCR Not Detected (NotDetected); Parainfluenza Virus 3 PCR Not Detected (NotDetected); Parainfluenza Virus 4 PCR Not Detected (NotDetected); Respiratory Syncytial VirusPCR Not Detected (NotDetected); Rhinovirus/Enterovirus PCR Not Detected (NotDetected)
[2023-07-04 04:54] LABS: Albumin Globulin Ratio 1.2 (0.9-2); Albumin Level 4.1 gm/dl (3.4-5.0); Bilirubin,Total 0.3 mg/dl (0.2-1.0); Calcium 9.1 mg/dl (8.6-10.3); Creatinine Clr Calc Pharmacy 115.4 ml/min; Est GFR (African American) 94.5 ml/min; Est GFR (Non-African American) 81.5 ml/min; Globulin 3.3 gm/dl (2.5-4.0); Potassium 3.8 mmol/L (3.5-5.1); Total Protein 7.4 gm/dl (6.0-8.3); Troponin I High Sensitivity 16.4 pg/ml (0-20)
[2023-07-04] MEDS: OPTIRAY 320 125ml IV ONE (05:46)
--- NOTE | 2023-07-04 06:08 | CT Scan Report ---
Exam(s): CTA CHEST IV Amt: 115 ML OPTIRAY 320 EXAM: CT Angiography Chest With Intravenous Contrast CLINICAL HISTORY: Reason for exam: PE. TECHNIQUE: Axial computed tomographic angiography images of the chest with intravenous contrast. CTDI is 38.1 mGy and DLP is 1182.66 mGy-cm. Automated exposure control was utilized for the study. A dose lowering technique was utilized adhering to the principles of ALARA. MIP reconstructed images were created and reviewed. COMPARISON: Prior chest CT with contrast October 10, 2021. FINDINGS: Pulmonary arteries: Unremarkable. No pulmonary embolism. Aorta: There is a right-sided aortic arch with a variant left subclavian artery. No thoracic aortic aneurysm. Lungs: Unremarkable. No mass. No consolidation. Pleural space: Unremarkable. No significant effusion. No pneumothorax. Heart: Cardiomegaly. No significant pericardial effusion. No evidence of RV dysfunction. Bones/joints: No acute fracture. No dislocation. Soft tissues: Unremarkable. Lymph nodes: Unremarkable. No enlarged lymph nodes. IMPRESSION: No evidence of pulmonary emboli or acute cardiopulmonary process. Electronically signed by: Ranjan Pedraza MD 07/04/23 06:07 AM
--- NOTE | 2023-07-04 06:59 | XRay Report ---
SINGLE VIEW CHEST CLINICAL HISTORY: Dyspnea FINDINGS: 2 AP, portable, upright chest radiographs are compared to study dated 02/19/2022. The patien t is status post midline sternotomy and cardiac valve surgery. The heart is enlarged. A right-sided a rch is again noted. There is pulmonary vascular congestion. Atelectasis is seen at both lung bases. N o airspace consolidation or large pleural effusion is identified. No pneumothorax is seen. The bony t horax is grossly intact. IMPRESSION: Cardiomegaly with pulmonary vascular congestion. ACT 112: Negative or not required by law. Electronically signed by: Maximino Conner M.D. 07/04/2023 6:57 AM
[2023-07-04] MEDS: SODIUM CHLORIDE 0.9% 500 ML IV ONE (07:05)
[2023-07-04] MEDS: NovoLIN-R INSULIN PER UNIT CHARGE IV STA (07:06)
--- NOTE | 2023-07-04 07:57 | History & Physical Report ---
Date of Service July 04, 2023 Assessment & Plan (1) Pain of maxillary sinus: Plan: obtain CT sinuses - r/o acute or chronic sinusitis of the right maxillary sinus. pt reports pain over the right maxillary sinus for 1-2 years, but much worse since April 2023. no change in his pain or symptoms despite recent antibiotic use. re-eval once CT is back. defer on antibiotics for now. add nasal steroid. add antihistamine. cont singulair. (2) Edema of both legs: Plan: severe check dopplers - r/o DVT check TSH - r/o decompensated hypothyroidism creatinine stable thus not due to CKD could be due to diastolic CHF, liver disease, etc echo 03/2023 with preserved EF plan CT a/p tomorrow to evaluate the abdomen to exclude liver disease as a cause of his edema, ascites or body wall edema, and also look at the left abdomen due to his left-sided pain yesterday gave 20mg of lasix today IV may need higher dose if response is only fair (3) Orthopnea: Plan: CTA chest w/o infiltrates/edema/etc due to severity of his abdominal distension leading to restrictive type physiology of his breathing? XENIA leading to choking and difficulty breathing during sleep? other? (4) Weight gain: Plan: patient is volume overloaded on physical exam (edema of legs, ?abd wall edema or ascites, etc) recheck abdominal imaging tomorrow - r/o cirrhosis TSH wnl Cr wnl echo 03/2023 with preserved EF but the edema could be due to diastolic dysfunction (5) Uncontrolled type 2 diabetes mellitus with hyperglycemia: Plan: increase lantus to 40 units BID novolog - CF 15, carb ratio 1:5 Hba1c noted - 10.6% ac/hs BSGs diabetic diet prior to this admission he was making active strides to lose weight will have diabetic educator see him in consult (6) H/O mitral valve repair: Plan: 2008 follows with [facility] [place] [facility] for his valvular heart disease last echo 03/2023 with normal MV function (7) S/P nasal septoplasty: Plan: history of -- by Ольга Marcus ENT at [facility] (8) HTN (hypertension): Plan: resume metoprolol and titrate if needed resume lisinopril (9) Abdominal pain: Plan: LLQ 07/02 - transient, self-resolved etiology? 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 due to constipation? IBS? spasm? other? 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 1. right maxillary sinus pressure/pain - present "for years," but much worse since 04/2023. Never has rhinorrhea or purulent discharge but does have frequent post-nasal drip/congestion. He has to clear his throat frequently. Mild right frontal pain as well. Occasional tooth pain but nothing on consistent basis. Symptoms are daily. No current otaglia. He recently took a course of doxycycline for presumed sinusitis, had transient relief of symptoms, then his symptoms returned. He had sinus surgery by Dr Hansen, [facility], in 2020 at [facility]. 2. orthopnea/PND - PND present for about a year. Happens almost nightly. This corresponds with gradually worsening swelling of his legs. He traditionally has kept the head of his bed upright but 2 nights ago he had to sleep in a recliner due to his breathing. Denies any chest pain or chest tightness. Takes prn lasix. 3. abdominal pain - left-sided - started acutely about 11am yesterday following sabianist services. No emesis, no nausea. Some loose stools but no shabbir diarrhea. No melena or BRBPR. 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 4. hyperglycemia - despite insulin at home his BSGs live in the 200s and 300s routinely day to day at home. Allergies Allergy/AdvReac Type Severity Reaction Status Date / Time Cephalosporins Allergy Intermediate Hives Verified 06/16/23 08:30 erythromycin base Allergy Intermediate Hives Verified 06/16/23 08:30 Sulfa (Sulfonamide Allergy Intermediate Hives Verified 06/16/23 08:30 Antibiotics) metformin AdvReac Severe nausea Verified 06/16/23 08:30 Penicillins AdvReac Intermediate Gastrointestinal Verified 06/16/23 08:30 Upset, hives Home Medications Medication Instructions Recorded Confirmed Type omeprazole 20 mg capsule,delayed 20 mg PO DAILY PRN Heartburn 06/30/21 07/04/23 History release aspirin 81 mg tablet 81 mg PO Q OTHER DAY 05/26/22 07/04/23 History allopurinol 100 mg tablet 100 mg PO QAM #90 tabs 07/22/22 07/04/23 Rx atorvastatin 40 mg tablet 40 mg PO HS 90 days #90 tabs 07/22/22 07/04/23 Rx ondansetron 4 mg disintegrating 4 mg PO Q8H PRN nausea and 08/09/22 07/04/23 Rx tablet vomiting #30 tabs furosemide 40 mg tablet 40 mg PO DAILY PRN Fluid Retention 01/26/23 07/04/23 History lisinopril 20 mg tablet 20 mg PO QPM 01/26/23 07/04/23 History cholecalciferol (vitamin D3) 50 50 mcg PO DAILY 30 days #30 caps 02/03/23 07/04/23 Rx mcg (2,000 unit) capsule dapagliflozin propanediol 10 mg 10 mg PO QAM 90 days #90 tabs 02/14/23 07/04/23 Rx tablet (Farxiga) dicyclomine 10 mg capsule 10 mg PO TID PRN abdominal pain 90 03/11/23 07/04/23 Rx days #60 caps tiotropium bromide 1.25 2 puff inhalation DAILY 90 days #4 03/11/23 07/04/23 Rx mcg/actuation mist for inhalation grams (Spiriva Respimat) insulin glargine 100 unit/mL (3 35 unit (0.35 mL) subcut BID #60 mL 04/07/23 07/04/23 Rx mL) subcutaneous pen (Basaglar KwikPen U-100 Insulin) metoprolol tartrate 25 mg tablet 25 mg PO BID #180 tabs 05/13/23 07/04/23 Rx montelukast 10 mg tablet 10 mg PO QPM 90 days #90 tabs 06/07/23 07/04/23 Rx albuterol sulfate 2.5 mg/3 mL 2.5 mg (3 mL) inhalation Q6H PRN 06/16/23 07/04/23 Rx (0.083 %) solution for nebulization shortness of breath or wheezing #75 mL albuterol sulfate 90 mcg/actuation 2 puff inhalation Q4H PRN 06/16/23 07/04/23 Rx aerosol inhaler Cough,SOB Or Wheezing 90 days #8.5 grams levalbuterol HCl 1.25 mg/3 mL 1.25 mg (3 mL) inhalation Q4H PRN 06/16/23 07/04/23 Rx solution for nebulization shortness of breath or wheezing #75 mL fluconazole 100 mg tablet 100 mg PO QDAY #14 tabs 06/21/23 07/04/23 Rx sumatriptan succinate 50 mg tablet See Rx Instructions PO .COMPLEX #9 06/22/23 07/04/23 Rx tabs insulin lispro 100 unit/mL See Rx Instructions subcut 06/27/23 07/04/23 Rx subcutaneous pen (Humalog KwikPen USEASDIRECTD #60 mL (U-100) Insulin) doxycycline hyclate 100 mg tablet 100 mg PO BID #14 tabs 06/28/23 07/04/23 Rx 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 Hx of Clostridium difficile infection Arthritis IBS (irritable bowel syndrome) Hx of migraines History of COVID-19 04/2021>SINUS CONGESTION *RESOLVED Hx of gout Asthma LAST USED RESCUE INHALER>LAST WEEK Mitral regurgitation Obesity Pancreatitis 2020 Anxiety HTN (hypertension) Environmental and seasonal allergies Surgical History History of anesthesia reaction FOR SINUS SURGERY AT [facility] LOCATION>BECAME HYPOXIC AND TX TO [facility] 07/2020 History of bunionectomy RT History of esophagogastroduodenoscopy (EGD) [place] teeth removed Cyst RT EYELID CYST REMOVED H/O nasal septoplasty History of mitral valve repair 2008>IN [place] *FOLLOWED BY DR. THEODORE H/O exploratory laparotomy History of hernia repair UMBILICAL AND VENTRAL HERNIA REPAIR *DOUBLE HERNIA REPAIR Family History Mother Follicular lymphoma Grandmother (Maternal) Family history of diabetes mellitus Other Family history of valvular heart disease No family history of adverse response to anesthesia Denies family history of Ovarian cancer Prostate cancer Myocardial infarction Breast cancer Colorectal cancer Social History (Updated 07/04/23 @ 09:14 by Jose Wells MD) Smoking Status: Never smoker Second Hand Exposure: No; Do You Dip or Chew Tobacco: No; Tobacco Cessation Education Requested by Patient: No Hx Alcohol Use: Yes Alcohol type: wine Alcohol Intake Frequency: Monthly or Less Hx Substance Use: No Preferred Language: Dominican Communication Ability: Effective Visual Impairment: No Limitations Hearing Ability: Normal 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: No Beliefs That Will Affect Care: None marital status: Single Current Living Situation: Alone current occupational status: employed current occupation: [employer] - works from home How many Children do You have: 0 Other Information That Helps Us Care for You: No Feels Safe at Home: Yes Safety Concerns: Feels Safe At This Time Diet: regular caffeine: Yes Dental Care, Regularly: Yes Physical Activity Frequency: 1-2 Times per Week Seatbelt Use: always Sunscreen Use: Yes Assistive Devices: None Review of Systems Review of Systems: gen - no fevers or chills but does have chronic sweats; has had gradual weight gain in the last 6-12 months but actively trying to lose weight HENT - sinus symptoms as mentioned in HPI eyes - no recent problems CV - no chest pain, no tightness, no palpitations, worsening edema; PND/orthopnea pulm - cough with congestion, IZAGUIRRE; no dyspnea at rest GI - episode of left-sided abd pain yesterday - now resolved; chronic loose stools but not shabbir diarrhea - no dysuria skin - lesions on legs b/l -- left distal leg, right anterior ramírez neuro - headaches endo - uncontrolled BSGs on daily basis psych - numerous psychosocial stressors - had incident with his [employer]astafarian patrice a few years ago, his job, etc Physical Exam Physical Exam: gen - obese, NAD, pleasant eyes - PERRL HENT - TMs clear b/l; nose - congested; sinuses - tender to palpation R maxillary sinus; other sinuses without tenderness; mouth - crowded posterior pharynx, but MMM neck - no JVD, no lymphadenopathy, no thyroidmegaly heart - tachy, s1 s2, no murmur lungs - CTA b/l, no rales or wheezing or increased work of breathing abd - distended (body wall edema? ascites?), liver edge palpable about 2cm below costal margin, NT, no splenomegaly, BS+ ext - severe edema - 2-3+ b/l extending from feet to the thighs; pulses feet 2+ b/l skin - scaly lesion distal left medial aspect of leg, above the ankle; right ramírez - cluster of rubbery, but fluid-filled blisters neuro - strength 5/5 x 4 exts; DTRs 2+ b/l; no facial droop psych - a/o x 3 Results & Data Results & Data Vital Signs (Past 12 Hours) Vital Signs Temp Pulse Pulse Resp BP BP Pulse Ox 07/04/23 06:00 116 H 21 131/105 H 94 07/04/23 04:19 128 H 24 139/100 93 07/04/23 03:41 124 H 07/04/23 03:24 36.3 C L 117 H 16 184/110 H 95 O2 Del Method 07/04/23 06:00 Room Air 07/04/23 04:19 Room Air 07/04/23 03:41 07/04/23 03:24 Room Air Laboratory Results Laboratory Results - last 24 hr 07/04/23 07/04/23 07/04/23 03:50 04:15 04:20 WBC 9.15 RBC 5.12 Hgb 15.0 Hct 42.8 MCV 83.6 MCH 29.3 MCHC 35.0 RDW Std Deviation 44.4 RDW Coeff of María Elena 14.8 H Plt Count 205 MPV 9.8 Immature Gran % (Auto) 2.2 Neut % (Auto) 61.8 Lymph % (Auto) 23.7 [place] % (Auto) 10.1 Eos % (Auto) 1.5 Baso % (Auto) 0.7 Neut # (Auto) 5.66 Lymph # (Auto) 2.17 [place] # (Auto) 0.92 H Eos # (Auto) 0.14 Baso # (Auto) 0.06 Immature Gran # (Auto) 0.20 D-Dimer Cancelled VBG pH VBG pCO2 VBG pO2 VBG HCO3 VBG O2 Saturation VBG Base Excess Sodium 133 L Potassium 3.8 Chloride 100 Carbon Dioxide 21 Anion Gap 12 H BUN 24 H Creatinine 1.09 Est Cr Clr Drug Dosing 115.4 Est GFR ( Amer) 94.5 Est GFR (Non-Af Amer) 81.5 BUN/Creatinine Ratio 22.0 H Glucose 302 H* POC Glucose Estimat Average Glucose 258 Hemoglobin A1c 10.6 H Calcium 9.1 Total Bilirubin 0.3 AST 25 ALT 33 Alkaline Phosphatase 76 Troponin I High Sens 16.4 C-Reactive Protein Pending B-Natriuretic Peptide 61 Total Protein 7.4 Albumin 4.1 Globulin 3.3 Albumin/Globulin Ratio 1.2 TSH Pending Urine Color Yellow Urine Appearance Clear Urine pH 5.0 Ur Specific [place] 1.031 H Urine Protein Negative Urine Glucose (UA) 3+ H Urine Ketones Negative Urine Blood Negative Urine Nitrite Negative Urine Bilirubin Negative Urine Urobilinogen Negative Ur Leukocyte Esterase Negative Adenovirus (PCR) Not Detected B. pertussis DNA (PCR) Not Detected B.parapertussis DNA PCR Not Detected C. pneumoniae DNA (PCR) Not Detected Coronavirus OC43 (PCR) Not Detected Coronavirus HKU1 (PCR) Not Detected Coronavirus 229E (PCR) Not Detected SARS-CoV-2 (PCR) Not Detected Coronavirus NL63 (PCR) Not Detected Human Metapneumovir PCR Not Detected Influenza Type A (PCR) Not Detected Influenza Type B (PCR) Not Detected M. pneumoniae (PCR) Not Detected Parainfluenza 1 (PCR) Not Detected Parainfluenza 2 (PCR) Not Detected Parainfluenza 3 (PCR) Not Detected Parainfluenza 4 (PCR) Not Detected RSV (PCR) Not Detected Entero/Rhino (PCR) Not Detected 07/04/23 07/04/23 08:01 09:05 WBC RBC Hgb Hct MCV MCH MCHC RDW Std Deviation RDW Coeff of María Elena Plt Count MPV Immature Gran % (Auto) Neut % (Auto) Lymph % (Auto) [place] % (Auto) Eos % (Auto) Baso % (Auto) Neut # (Auto) Lymph # (Auto) [place] # (Auto) Eos # (Auto) Baso # (Auto) Immature Gran # (Auto) D-Dimer VBG pH Pending VBG pCO2 Pending VBG pO2 Pending VBG HCO3 Pending VBG O2 Saturation Pending VBG Base Excess Pending Sodium Potassium Chloride Carbon Dioxide Anion Gap BUN Creatinine Est Cr Clr Drug Dosing Est GFR ( Amer) Est GFR (Non-Af Amer) BUN/Creatinine Ratio Glucose POC Glucose 243 H Estimat Average Glucose Hemoglobin A1c Calcium Total Bilirubin AST ALT Alkaline Phosphatase Troponin I High Sens C-Reactive Protein B-Natriuretic Peptide Total Protein Albumin Globulin Albumin/Globulin Ratio TSH Urine Color Urine Appearance Urine pH Ur Specific [place] Urine Protein Urine Glucose (UA) Urine Ketones Urine Blood Urine Nitrite Urine Bilirubin Urine Urobilinogen Ur Leukocyte Esterase Adenovirus (PCR) B. pertussis DNA (PCR) B.parapertussis DNA PCR C. pneumoniae DNA (PCR) Coronavirus OC43 (PCR) Coronavirus HKU1 (PCR) Coronavirus 229E (PCR) SARS-CoV-2 (PCR) Coronavirus NL63 (PCR) Human Metapneumovir PCR Influenza Type A (PCR) Influenza Type B (PCR) M. pneumoniae (PCR) Parainfluenza 1 (PCR) Parainfluenza 2 (PCR) Parainfluenza 3 (PCR) Parainfluenza 4 (PCR) RSV (PCR) Entero/Rhino (PCR) Diagnostic Findings Chest X-Ray 07/04/23 03:41 SINGLE VIEW CHEST CLINICAL HISTORY: Dyspnea FINDINGS: 2 AP, portable, upright chest radiographs are compared to study dated 02/19/2022. The patient is status post midline sternotomy and cardiac valve surgery. The heart is enlarged. A right-sided arch is again noted. There is pulmonary vascular congestion. Atelectasis is seen at both lung bases. No a irspace consolidation or large pleural effusion is identified. No pneumothorax is seen. The bony thorax is grossly intact. IMPRESSION: Cardiomegaly with pulmonary vascular congestion. ACT 112: Negative or not required by law. Electronically signed by: Maximino Conner M.D. 07/04/2023 6:57 AM Chest CTA 07/04/23 05:23 Exam(s): CTA CHEST IV Amt: 115 ML OPTIRAY 320 EXAM: CT Angiography Chest With Intravenous Contrast CLINICAL HISTORY: Reason for exam: PE. TECHNIQUE: Axial computed tomographic angiography images of the chest with intravenous contrast. CTDI is 38.1 mGy and DLP is 1182.66 mGy-cm. Automated exposure control was utilized for the study. A dose lowering technique was utilized adhering to the principles of ALARA. MIP reconstructed images were created and reviewed. COMPARISON: Prior chest CT with contrast October 10, 2021. FINDINGS: Pulmonary arteries: Unremarkable. No pulmonary embolism. Aorta: There is a right-sided aortic arch with a variant left subclavian artery. No thoracic aortic aneurysm. Lungs: Unremarkable. No mass. No consolidation. Pleural space: Unremarkable. No significant effusion. No pneumothorax. Heart: Cardiomegaly. No significant pericardial effusion. No evidence of RV dysfunction. Bones/joints: No acute fracture. No dislocation. Soft tissues: Unremarkable. Lymph nodes: Unremarkable. No enlarged lymph nodes. IMPRESSION: No evidence of pulmonary emboli or acute cardiopulmonary process. Electronically signed by: Ranjan Pedraza MD 07/04/23 06:07 AM EKG - my reading - sinus tach, no ST changes Code Status & VTE Plan Code Status full code PG Care Time/CCT Total # of Minutes Spent Total Time Spent with Patient: Total time spent is greater than 50% in coordination of care (as documented) at patient's floor/unit and/or counseling patient: Coding Level of Care Code 14957 INT INP/OBS CARE 3/75MIN Diagnoses Pain of maxillary sinus J34.89 Edema of both legs R60.0 Orthopnea R06.01 Weight gain R63.5 Uncontrolled type 2 diabetes mellitus with hyperglycemia E11.65 H/O mitral valve repair Z98.890 S/P nasal septoplasty Z98.890 HTN (hypertension) I10 Abdominal pain R10.32 Abdominal location: left lower quadrant DVT prophylaxis Z29.9 Morbid obesity with BMI of 50.0-59.9, adult E66.01; Z68.43 (9) Abdominal pain Abdominal location: left lower quadrant Qualified Code(s): R10.32 - Left lower quadrant pain
--- NOTE | 2023-07-04 09:04 | Electrocardiogram Report ---
Test Reason : Blood Pressure : / mmHG Vent. Rate : 122 BPM Atrial Rate : 122 BPM P-R Int : 154 ms QRS Dur : 108 ms QT Int : 310 ms P-R-T Axes : 016 071 004 degrees QTc Int : 441 ms Sinus tachycardia Nonspecific ST abnormality Abnormal ECG When compared with ECG of 19-FEB-2022 14:47, No significant change was found Confirmed by Mckay Estrada ([id number]) on 07/04/2023 9:03:38 AM Referred By: REFERRED SELF Confirmed By:Anjel Estrada
[2023-07-04 09:08] LABS: Estimated Average Glucose 258 mg/dl; Hemoglobin A1C 10.6 % (4.5-5.6)
[2023-07-04 09:18] LABS: Base Excess VBG -1.2 mEq/L; HCO3 VBG 24 mmol/L; Oxygen Saturation VBG 87.8 %; PCO2 VBG 39 mmHg (38-50); PO2 VBG 54 mmHg; pH VBG 7.39 (7.36-7.41)
[2023-07-04] MEDS ORDERED: SODIUM CHLORIDE 0.65% NA SOLN 45 ML (OCEAN) PRN (09:19)
[2023-07-04] MEDS ORDERED: ALBUTEROL 0.083% NEBU SOLN 3 ML VIAL INH PRN (09:19)
[2023-07-04] MEDS ORDERED: ACETAMINOPHEN 325 MG TAB PO PRN (09:19)
[2023-07-04] MEDS ORDERED: ONDANSETRON INJ 2 MG/ML 2 ML VIAL IV PRN (09:19)
[2023-07-04] MEDS ORDERED: DICYCLOMINE HCL 10 MG CAP PO PRN (09:19)
[2023-07-04 09:20] LABS: C Reactive Protein 0.87 mg/dl (0-0.5)
[2023-07-04 09:35] LABS: Thyroid Stimulating Hormone 4.426 uIu/ml (0.300-4.500)
--- NOTE | 2023-07-04 09:41 | CT Scan Report ---
CT SCAN OF THE PARANASAL SINUSES CLINICAL HISTORY: Acute on chronic right maxillary sinus pain. COMPARISON STUDY: CT of the brain dated 01/26/2023. TECHNIQUE: High-resolution CT scan of the paranasal sinuses is performed. Images are reviewed in the axial, sagittal, and coronal planes. IV contrast was not administered for this examination. A dose lowering technique was utilized adhering to the principles of ALARA. CT DOSE: 548.94 mGy.cm FINDINGS: Postsurgical change: There is postoperative change from bilateral maxillary antrectomy and antrostomy formation. There has been ethmoid sinus resection. Maxillary antra: A 2.8 cm retention cyst is noted in the right maxillary antrum. Maxillary sinuses ar e otherwise clear Bilaterally. Ethmoid cavity: Trace mucosal thickening is seen bilaterally. Sphenoid sinuses: Clear. Frontal sinuses: Mild mucosal thickening is seen bilaterally. Ostiomeatal complexes: The antrostomies are patent bilaterally. Frontoethmoidal and sphenoethmoidal recesses: Patent bilaterally. Carotid arteries: The carotid arteries are covered noting a septal attachment on the right. Ethmoid roofs: The ethmoid roofs are symmetric. Nasal turbinates: The middle nasal turbinates are surgically absent. Nasal septum: There is rightward deviation of the bony nasal septum. Optic nerves: Covered. Orbits: The bony orbits are intact. Orbital contents are normal in appearance. Calvarium: The imaged calvarium is normal in appearance Mastoid air cells: Well pneumatized. Brain parenchyma: Partially visualized brain parenchyma is within normal limits. IMPRESSION: Minimal paranasal sinus disease and postsurgical change as above. ACT 112: Negative or not required by law. Electronically signed by: Maximino Conner M.D. 07/04/2023 9:40 AM
[2023-07-04] MEDS ORDERED: GLUCAGON FOR INJ 1 MG VIAL IM PRN (09:45)
[2023-07-04] MEDS ORDERED: GLUCOSE 10 TAB/TUBE PO PRN (09:45)
[2023-07-04] MEDS ORDERED: CARBOHYDRATES FOR HYPOGLYCEMIA PO PRN (09:45)
[2023-07-04] MEDS ORDERED: DEXTROSE 50% 50 ML SYRINGE IV PRN (09:45)
[2023-07-04] MEDS ORDERED: GLUCOSE 40% GEL 15 GM TUBE PO PRN (09:45)
[2023-07-04] MEDS: POTASSIUM CHLORIDE CRTAB 20 MEQ TABCR PO STA (09:54)
[2023-07-04] MEDS: FUROSEMIDE INJ 20 MG/2 ML VIAL IV STA (09:54)
[2023-07-04] MEDS: METOPROLOL TARTRATE 25 MG TAB PO STA (09:54)
[2023-07-04] MEDS: INSULIN ASPART PER UNIT CHARGE SC SCH (10:13)
[2023-07-04] MEDS: LANTUS PER UNIT CHARGE SC SCH (10:13)
[2023-07-04] MEDS: guaiFENesin 600 MG TABCR PO SCH (10:18)
[2023-07-04] MEDS: allopurinoL 100 MG TAB PO SCH (10:19)
[2023-07-04] MEDS: UMECLIDINIUM BROMIDE 62.5MCG/BLISTER 7 PUFFS/INHALER INH SCH (10:20)
[2023-07-04] MEDS: INSULIN ASPART PER UNIT CHARGE ONE (10:25)
--- NOTE | 2023-07-04 13:58 | Ultrasound Report ---
US venous doppler LE BI CLINICAL HISTORY: severe edema of b/l legs TECHNIQUE: Bilateral lower extremity real-time compression venous ultrasound with Color Doppler imagi ng. Utilizing real-time ultrasonic imaging multiple real time high-resolution ultrasonic images with compression and noncompression maneuvers of the deep venous system in addition to color doppler imagi ng were performed from the common femoral vein through the proximal calf veins. COMPARISON: None available at the time of this dictation. FINDINGS/IMPRESSION: Currently there is normal compressibility of the deep venous system from the common femoral vein thro ugh the proximal calf veins. Subcutaneous edema is seen most prominent in the left calf. ACT 112: Negative or not required by law. Electronically signed by: Sanjay Marquez M.D. 07/04/2023 1:56 PM
[2023-07-04] MEDS: CETIRIZINE HCL 10 MG TABLET PO SCH (20:53)
[2023-07-04] MEDS: ATORVASTATIN 40 MG TAB PO SCH (20:55)
[2023-07-04] MEDS: MONTELUKAST SODIUM 10 MG TABLET PO SCH (20:55)
[2023-07-04] MEDS: METOPROLOL TARTRATE 25 MG TAB PO SCH (20:56)
[2023-07-04] MEDS: lisinopril 20 MG TAB PO SCH (20:56)
[2023-07-04] MEDS: ENOXAPARIN INJ 40 MG/0.4 ML SYR SQ SCH (22:57)
[2023-07-05 08:24] LABS: BUN Creatinine Ratio 22.5 (10-20); Creatinine Clr Calc Pharmacy 121.1 ml/min; Est GFR (African American) 102.4 ml/min; Est GFR (Non-African American) 88.4 ml/min; Potassium 4.3 mmol/L (3.5-5.1)
[2023-07-05] MEDS: LANTUS PER UNIT CHARGE SC SCH ×2 (08:30→21:26)
[2023-07-05] MEDS: CHOLECALCIFEROL 25 MCG (1000 UNITS) TAB PO SCH (08:39)
[2023-07-05] MEDS: ASPIRIN 81 MG ECTAB PO SCH (08:39)
[2023-07-05] MEDS: FUROSEMIDE 40 MG/4 ML VIAL IV SCH (08:40)
[2023-07-05] MEDS: DAPAGLIFLOZIN 10 MG PO SCH (10:10)
[2023-07-05] MEDS: FLUTICASONE PROPIONATE NA SPR 16 GM BTL SCH (10:10)
--- NOTE | 2023-07-05 14:21 | Hospitalist Progress Note ---
Date of Service July 05, 2023 Assessment & Plan (1) Orthopnea: Plan: 47 y/o man presented with orthopnea and severe leg edema Reports he used to be on daily lasix but stopped fall 2022 because it didn't seem to be doing anything, recently has been eating more fast food CTA chest w/o infiltrates, no PE Last Echo 03/2023 normal EF, hx MVR which was stable Likely to have component of venous stasis edema and/or lymphedema due to body habitus. LE duplex was negative for DVT TSH wnl Suspect acute on chronic diastolic heart failure, possible component of right heart failure -weight decreased with IV lasix and breathing symptoms seem to have improved somewhat, however, suspect his oprthopnea might be multifactorial (sinus congestion, high risk for XENIA/OHS) -repeat TTE -continue IV lasix and assess response. Resume daily oral lasix on discharge. counseled salt reduction in diet -cirrhosis seems unlikely based on his CBC and CMP, however, ascites is possible, abdominal CT ordered as below -UA without proteinuria and serum albumin normal but will check spot prot:cr -BMP in AM, daily weight, I/Os (2) Pain of maxillary sinus: Plan: pt reports pain over the right maxillary sinus for 1-2 years, but much worse since April 2023. no change in his pain or symptoms despite recent antibiotic use. large R maxillary sinus retention cyst, no active sinusitis cont nasal steroid, antihistamine, singulair follow up with ENT for management of symptomatic cyst (3) Edema of both legs: Plan: see above (4) Weight gain: Plan: see above (5) Uncontrolled type 2 diabetes mellitus with hyperglycemia: Plan: BGs running 250ish last 24h Hba1c noted - 10.6% ac/hs BSGs diabetic diet on farxiga 10 mg qd increase lantus to 547 units BID (was taking 100u/24h at home) novolog - CF 12, carb ratio 1:4 prior to this admission he was making active strides to lose weight discussed with assistant health educator see him in consult (6) H/O mitral valve repair: Plan: 2008 [place] [facility] [place] his valvular heart disease last echo 03/2023 with normal MV function (7) S/P nasal septoplasty: Plan: history of -- by Ольга Marcus ENT at [facility] (8) HTN (hypertension): Plan: resume metoprolol and titrate if needed resume lisinopril (9) Abdominal pain: Plan: LLQ 07/02 - transient, self-resolved prior CT abd/pelvis showed 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 intermittent abdominal pain episodes -CT abdomen/pelvis today (10) DVT prophylaxis: Plan: lovenox 40mg q12h (11) Morbid obesity with BMI of 50.0-59.9, adult: Plan: BMI 50.8 Admission and Anticipated Discharge Date Admission Date: July 04, 2023 Subjective urinated a lot last night but not much today after lasix this am leg swelling seems similar dyspnea/nocturnal breathing possibly improved, nonproductive cough intermittent abdominal pain, hx situs inversus right facial pain and pressure unchanged Physical Exam 2 Physical Exam: PHYSICAL EXAMINATION Last 24h vital signs reviewed, see documentation in flowsheet General: comfortable appearing, no distress sitting up in chair HEENT: Normocephalic, atraumatic, pupils round and equal, sclerae anicteric, no conjunctival injection, moist mucus membranes Lungs: Normal respiratory effort. Clear to auscultation bilaterally. No RRW Heart: Regular rate and rhythm, no murmurs. large neck with denton cannot see the neck veins Abdomen: Soft, protuberant, nontender, nondistended. no clear-cut abdominal wall edema Bowel sounds present. Extremities: Warm, dry, well-perfused. 3+ lower extremity edema to top of thighs. Neuro: Alert and oriented x 4, face symmetric, moves 4 extremities well Psych: Normal affect and behavior Results & Data Results & Data Vital Signs (Past 12 Hours) Vital Signs Temp Pulse Pulse Resp BP Pulse Ox O2 Del Method 07/05/23 13:01 Room Air 07/05/23 11:25 36.7 C 90 18 105/71 95 Room Air 07/05/23 11:00 07/05/23 07:37 36.6 C 89 18 108/73 95 Room Air 07/05/23 06:55 91 H 07/05/23 02:48 36.6 C 87 18 122/85 95 Room Air O2 Del Method 07/05/23 13:01 07/05/23 11:25 07/05/23 11:00 Room Air 07/05/23 07:37 07/05/23 06:55 07/05/23 02:48 Laboratory Results 07/04/23 04:15 07/05/23 07:10 PG Care Time/CCT Total # of Minutes Spent Total Time Spent with Patient: Total time spent is greater than 50% in coordination of care (as documented) at patient's floor/unit and/or counseling patient: Coding Level of Care Code 51821 SUB INP/OBS CARE 3/50MIN Diagnoses Orthopnea R06.01 Pain of maxillary sinus J34.89 Edema of both legs R60.0 Weight gain R63.5 Uncontrolled type 2 diabetes mellitus with hyperglycemia E11.65 H/O mitral valve repair Z98.890 S/P nasal septoplasty Z98.890 HTN (hypertension) I10 Abdominal pain R10.32 Abdominal location: left lower quadrant DVT prophylaxis Z29.9 Morbid obesity with BMI of 50.0-59.9, adult E66.01; Z68.43 (9) Abdominal pain Abdominal location: left lower quadrant Qualified Code(s): R10.32 - Left lower quadrant pain
[2023-07-05] MEDS: OPTIRAY 320 125ml IV ONE (15:02)
--- NOTE | 2023-07-05 15:45 | CT Scan Report ---
CT abdomen pelvis wo/w con CLINICAL HISTORY: abdominal pain, abdominal swelling, anasarca TECHNIQUE: Helical axial images of the abdomen and pelvis were obtained. Automated dose lowering tech niques and/or adjustment according to patient size were utilized for this exam. This exam was perfor med with and without intravenous contrast. CT DOSE: 3016.14 mGy.cm COMPARISON: Comparison is made to CT abdomen pelvis 06/30/2021 FINDINGS: Lower chest: Biatrial scarring is seen. Mitral valvular prosthesis is seen. Liver: Hepatic steatosis is noted. Gallbladder and biliary tree: No calcified gallstones. Normal caliber wall. No intra- or extrahepatic biliary ductal dilation. Pancreas: Unremarkable, no focal lesions. Spleen: Unremarkable. Adrenals: Unremarkable. Kidneys and ureters: Right renal cyst is seen. Bladder: Unremarkable. Reproductive organs: Unremarkable. Bowel: Diverticulosis is seen without evidence of diverticulitis. Incidental note is made of nonrotat ion of the bowel, likely congenital. Lymph nodes Retroperitoneal: Unremarkable. Pelvic: Unremarkable. Mesenteric: Unremarkable. Peritoneum: Normal. Vessels: Unremarkable. Abdominal wall: Large fat-containing umbilical hernia is seen. There is a small fat-containing left i nguinal hernia. Minimal edema is seen in the bilateral hips. Bones: Unremarkable. IMPRESSION: 1. No acute abnormalities are seen. 2. Hepatic steatosis. 3. Prominent fat-containing umbilical hernia. 4. Additional findings as above. ACT 112: Negative or not required by law. Electronically signed by: Sanjay Marquez M.D. 07/05/2023 3:44 PM
--- NOTE | 2023-07-05 17:40 | XCELERA ---
[id number] \\[id number]
[2023-07-06 08:04] LABS: BUN Creatinine Ratio 24.6 (10-20); Calcium 9.1 mg/dl (8.6-10.3); Creatinine Clr Calc Pharmacy 100.4 ml/min; Est GFR (African American) 82.5 ml/min; Est GFR (Non-African American) 71.2 ml/min; Potassium 4.2 mmol/L (3.5-5.1)
[2023-07-06] MEDS: POTASSIUM CHLORIDE CRTAB 20 MEQ TABCR PO SCH (08:38)
[2023-07-06] MEDS: FUROSEMIDE 40 MG TAB PO SCH (08:39)
--- NOTE | 2023-07-06 18:57 | Hospitalist Progress Note ---
Date of Service July 06, 2023 Assessment & Plan (1) Orthopnea: Plan: 47 y/o man presented with orthopnea and severe leg edema Reports he used to be on daily lasix but stopped fall 2022 because it didn't seem to be doing anything, recently has been eating more fast food CTA chest w/o infiltrates, no PE Last Echo 03/2023 normal EF, hx MVR which was stable Likely to have component of venous stasis edema and/or lymphedema due to body habitus. LE duplex was negative for DVT TSH wnl Treated for acute on chronic diastolic heart failure, possible component of right heart failure -weight decreased with IV lasix and breathing symptoms seem to have improved, however, suspect his oprthopnea might be multifactorial (sinus congestion, high risk for XENIA/OHS) -repeat TTE reviewed - normal EF, grade I diastolic dysfunction, mild mitral stenosis, right heart unable to be visualized -diuresed from 142.7-->136.4 kg this admission with IV lasix -cirrhosis seems unlikely based on his CBC and CMP, however, ascites is possible, abdominal CT ordered as below -UA without proteinuria and serum albumin normal, no evidence of cirrhosis, fatty liver only (no ascites) on CT abdomen/pelvis -counseled on low salt diet, moderating po fluid intake -resume lasix po daily at previous home dose of 40 mg, may need dose increase, follow up with Dr. Nance -instructed to monitor daily weight and call if increasing (2) Pain of maxillary sinus: Plan: pt reports pain over the right maxillary sinus for 1-2 years, but much worse since April 2023. no change in his pain or symptoms despite recent antibiotic use. large R maxillary sinus retention cyst, no active sinusitis follow up with ENT for management of symptomatic cyst - he has made appt with his ENT at [facility] (3) Edema of both legs: Plan: see above No DVT on LE duplex instructed on diuretics, compression stockings, elevation (4) Weight gain: Plan: see above (5) Uncontrolled type 2 diabetes mellitus with hyperglycemia: Plan: BGs running 250ish last 24h Hba1c noted - 10.6% ac/hs BSGs diabetic diet on farxiga 10 mg qd unit educator saw him in consult we made the following adjustment: increase lantus to 50 units BID novolog - CF 10, carb ratio 1:3 prior to this admission he was making active strides to lose weight follows with outpatient diabetes program (6) H/O mitral valve repair: Plan: [address] 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 Consider referral to weight loss clinic if he is amenable - may benefit from GLP-1 agonist Admission and Anticipated Discharge Date Admission Date: July 04, 2023 Subjective orthopnea and dyspnea improved still with lots of leg edema Physical Exam 2 Physical Exam: PHYSICAL EXAMINATION Last 24h vital signs reviewed, see documentation in flowsheet General: comfortable appearing, no distress sitting up in chair exam unchanged 07/05 HEENT: Normocephalic, atraumatic, pupils round and equal, sclerae anicteric, no conjunctival injection, moist mucus membranes Lungs: Normal respiratory effort. Clear to auscultation bilaterally. No RRW Heart: Regular rate and rhythm, no murmurs. large neck with denton cannot see the neck veins Abdomen: Soft, protuberant, nontender, nondistended. no abdominal wall edema Bowel sounds present. Extremities: Warm, dry, well-perfused. 3+ lower extremity edema to above knees Neuro: Alert and oriented x 4, face symmetric, moves 4 extremities well Psych: Normal affect and behavior Results & Data Results & Data Vital Signs (Past 12 Hours) Vital Signs Temp Pulse Pulse Resp BP Pulse Ox O2 Del Method 07/06/23 16:48 36.6 C 114 H 20 115/75 95 07/06/23 11:04 36.6 C 114 H 20 115/75 95 Room Air 07/06/23 09:32 82 07/06/23 07:19 36.6 C 94 H 20 119/83 95 Room Air Laboratory Results 07/04/23 04:15 07/06/23 06:46 PG Care Time/CCT Total # of Minutes Spent Total Time Spent with Patient: Total time spent is greater than 50% in coordination of care (as documented) at patient's floor/unit and/or counseling patient: Coding Level of Care Code None Diagnoses Orthopnea R06.01 Pain of maxillary sinus J34.89 Edema of both legs R60.0 Weight gain R63.5 Uncontrolled type 2 diabetes mellitus with hyperglycemia E11.65 H/O mitral valve repair Z98.890 S/P nasal septoplasty Z98.890 HTN (hypertension) I10 Abdominal pain R10.32 Abdominal location: left lower quadrant Morbid obesity with BMI of 50.0-59.9, adult E66.01; Z68.43 (9) Abdominal pain Abdominal location: left lower quadrant Qualified Code(s): R10.32 - Left lower quadrant pain
--- NOTE | 2023-07-06 19:02 | Discharge Summary ---
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 1. right maxillary sinus pressure/pain - present "for years," but much worse since 04/2023. Never has rhinorrhea or purulent discharge but does have frequent post-nasal drip/congestion. He has to clear his throat frequently. Mild right frontal pain as well. Occasional tooth pain but nothing on consistent basis. Symptoms are daily. No current otaglia. He recently took a course of doxycycline for presumed sinusitis, had transient relief of symptoms, then his symptoms returned. He had sinus surgery by Dr Hansen, [facility], in 2020 at [facility]. 2. orthopnea/PND - PND present for about a year. Happens almost nightly. This corresponds with gradually worsening swelling of his legs. He traditionally has kept the head of his bed upright but 2 nights ago he had to sleep in a recliner due to his breathing. Denies any chest pain or chest tightness. Takes prn lasix. 3. abdominal pain - left-sided - started acutely about 11am yesterday following rastafari services. No emesis, no nausea. Some loose stools but no shabbir diarrhea. No melena or BRBPR. 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 4. hyperglycemia - despite insulin at home his BSGs live in the 200s and 300s routinely day to day at home. Principal Diagnosis acute on chronic diastolic heart failure Discharge Exam PHYSICAL EXAMINATION Last 24h vital signs reviewed, see documentation in flowsheet General: comfortable appearing, no distress sitting up in chair exam unchanged 07/05 HEENT: Normocephalic, atraumatic, pupils round and equal, sclerae anicteric, no conjunctival injection, moist mucus membranes Lungs: Normal respiratory effort. Clear to auscultation bilaterally. No RRW Heart: Regular rate and rhythm, no murmurs. large neck with denton cannot see the neck veins Abdomen: Soft, protuberant, nontender, nondistended. no abdominal wall edema Bowel sounds present. Extremities: Warm, dry, well-perfused. 3+ lower extremity edema to above knees Neuro: Alert and oriented x 4, face symmetric, moves 4 extremities well Psych: Normal affect and behavior Discharge Data Allergies Allergy/AdvReac Type Severity Reaction Status Date / Time Cephalosporins Allergy Intermediate Hives Verified 06/16/23 08:30 erythromycin base Allergy Intermediate Hives Verified 06/16/23 08:30 Sulfa (Sulfonamide Allergy Intermediate Hives Verified 06/16/23 08:30 Antibiotics) metformin AdvReac Severe nausea Verified 06/16/23 08:30 Penicillins AdvReac Intermediate Gastrointestinal Verified 06/16/23 08:30 Upset, hives Consultations 07/04/23 07:39 ED Decision to Admit Stat Ordered Studies 07/04/23 05:23 CT angio chest PE protocol Stat 07/04/23 08:54 CT sinus wo con Routine US venous doppler LE BI Urgent 07/05/23 13:56 CT abdomen pelvis wo/w con Routine Chest X-Ray 07/04/23 03:41 SINGLE VIEW CHEST CLINICAL HISTORY: Dyspnea FINDINGS: 2 AP, portable, upright chest radiographs are compared to study dated 02/19/2022. The patient is status post midline sternotomy and cardiac valve surgery. The heart is enlarged. A right-sided arch is again noted. There is pulmonary vascular congestion. Atelectasis is seen at both lung bases. No airspace consolidation or large pleural effusion is identified. No pneumothorax is seen. The bony thorax is grossly intact. IMPRESSION: Cardiomegaly with pulmonary vascular congestion. ACT 112: Negative or not required by law. Electronically signed by: Maximino Conner M.D. 07/04/2023 6:57 AM Chest CTA 07/04/23 05:23 Exam(s): CTA CHEST IV Amt: 115 ML OPTIRAY 320 EXAM: CT Angiography Chest With Intravenous Contrast CLINICAL HISTORY: Reason for exam: PE. TECHNIQUE: Axial computed tomographic angiography images of the chest with intravenous contrast. CTDI is 38.1 mGy and DLP is 1182.66 mGy-cm. Automated exposure control was utilized for the study. A dose lowering technique was utilized adhering to the principles of ALARA. MIP reconstructed images were created and reviewed. COMPARISON: Prior chest CT with contrast October 10, 2021. FINDINGS: Pulmonary arteries: Unremarkable. No pulmonary embolism. Aorta: There is a right-sided aortic arch with a variant left subclavian artery. No thoracic aortic aneurysm. Lungs: Unremarkable. No mass. No consolidation. Pleural space: Unremarkable. No significant effusion. No pneumothorax. Heart: Cardiomegaly. No significant pericardial effusion. No evidence of RV dysfunction. Bones/joints: No acute fracture. No dislocation. Soft tissues: Unremarkable. Lymph nodes: Unremarkable. No enlarged lymph nodes. IMPRESSION: No evidence of pulmonary emboli or acute cardiopulmonary process. Electronically signed by: Ranjan Pedraza MD 07/04/23 06:[address] 07/04/23 08:54 CT SCAN OF THE PARANASAL SINUSES CLINICAL HISTORY: Acute on chronic right maxillary sinus pain. COMPARISON STUDY: CT of the brain dated 01/26/2023. TECHNIQUE: High-resolution CT scan of the paranasal sinuses is performed. Images are reviewed in the axial, sagittal, and coronal planes. IV contrast was not administered for this examination. A dose lowering technique was utilized adhering to the principles of ALARA. CT DOSE: 548.94 mGy.cm FINDINGS: Postsurgical change: There is postoperative change from bilateral maxillary antrectomy and antrostomy formation. There has been ethmoid sinus resection. Maxillary antra: A 2.8 cm retention cyst is noted in the right maxillary antrum. Maxillary sinuses are otherwise clear Bilaterally. Ethmoid cavity: Trace mucosal thickening is seen bilaterally. Sphenoid sinuses: Clear. Frontal sinuses: Mild mucosal thickening is seen bilaterally. Ostiomeatal complexes: The antrostomies are patent bilaterally. Frontoethmoidal and sphenoethmoidal recesses: Patent bilaterally. Carotid arteries: The carotid arteries are covered noting a septal attachment on the right. Ethmoid roofs: The ethmoid roofs are symmetric. Nasal turbinates: The middle nasal turbinates are surgically absent. Nasal septum: There is rightward deviation of the bony nasal septum. Optic nerves: Covered. Orbits: The bony orbits are intact. Orbital contents are normal in appearance. Calvarium: The imaged calvarium is normal in appearance Mastoid air cells: Well pneumatized. Brain parenchyma: Partially visualized brain parenchyma is within normal limits. IMPRESSION: Minimal paranasal sinus disease and postsurgical change as above. ACT 112: Negative or not required by law. Electronically signed by: Maximino Conner M.D. 07/04/2023 9:40 AM Venous Doppler Study 07/04/23 08:54 US venous doppler LE BI CLINICAL HISTORY: severe edema of b/l legs TECHNIQUE: Bilateral lower extremity real-time compression venous ultrasound with Color Doppler imaging. Utilizing real-time ultrasonic imaging multiple real time high-resolution ultrasonic images with compression and noncompression maneuvers of the deep venous system in addition to color doppler imaging were performed from the common femoral vein through the proximal calf veins. COMPARISON: None available at the time of this dictation. FINDINGS/IMPRESSION: Currently there is normal compressibility of the deep venous system from the common femoral vein through the proximal calf veins. Subcutaneous edema is seen most prominent in the left calf. ACT 112: Negative or not required by law. Electronically signed by: Sanjay Marquez M.D. 07/04/2023 1:56 PM Abdomen/Pelvis CT 07/05/23 13:56 CT abdomen pelvis wo/w con CLINICAL HISTORY: abdominal pain, abdominal swelling, anasarca TECHNIQUE: Helical axial images of the abdomen and pelvis were obtained. Automated dose lowering techniques and/or adjustment according to patient size were utilized for this exam. This exam was performed with and without intravenous contrast. CT DOSE: 3016.14 mGy.cm COMPARISON: Comparison is made to CT abdomen pelvis 06/30/2021 FINDINGS: Lower chest: Biatrial scarring is seen. Mitral valvular prosthesis is seen. Liver: Hepatic steatosis is noted. Gallbladder and biliary tree: No calcified gallstones. Normal caliber wall. No intra- or extrahepatic biliary ductal dilation. Pancreas: Unremarkable, no focal lesions. Spleen: Unremarkable. Adrenals: Unremarkable. Kidneys and ureters: Right renal cyst is seen. Bladder: Unremarkable. Reproductive organs: Unremarkable. Bowel: Diverticulosis is seen without evidence of diverticulitis. 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 Lymph nodes Retroperitoneal: Unremarkable. Pelvic: Unremarkable. Mesenteric: Unremarkable. Peritoneum: Normal. Vessels: Unremarkable. Abdominal wall: Large fat-containing umbilical hernia is seen. There is a small fat-containing left inguinal hernia. Minimal edema is seen in the bilateral hips. Bones: Unremarkable. IMPRESSION: 1. No acute abnormalities are seen. 2. Hepatic steatosis. 3. Prominent fat-containing umbilical hernia. 4. Additional findings as above. ACT 112: Negative or not required by law. Electronically signed by: Sanjay Marquez M.D. 07/05/2023 3:44 PM 07/04/23 04:15 07/06/23 06:46 Hospital Course (1) Acute on chronic diastolic heart failure: 47 y/o man presented with orthopnea and severe leg edema Reports he used to be on daily lasix but stopped fall 2022 because it didn't seem to be doing anything, recently has been eating more fast food CTA chest w/o infiltrates, no PE Last Echo 03/2023 normal EF, hx MVR which was stable Likely to have component of venous stasis edema and/or lymphedema due to body habitus. LE duplex was negative for DVT TSH wnl Treated for acute on chronic diastolic heart failure, possible component of right heart failure -weight decreased with IV lasix and breathing symptoms seem to have improved, however, suspect his oprthopnea might be multifactorial (sinus congestion, high risk for XENIA/OHS) -repeat TTE reviewed - normal EF, grade I diastolic dysfunction, mild mitral stenosis, right heart unable to be visualized -diuresed from 142.7-->136.4 kg this admission with IV lasix until BUN/Cr increased mildly and lung exam cleared -considered other causes of anasarca/edema: -UA without proteinuria and serum albumin normal, no evidence of cirrhosis, fatty liver only (no ascites) on CT abdomen/pelvis and no evidence of cirrhosis on CBC and CMP -counseled on low salt diet, moderating po fluid intake -resume lasix po daily at previous home dose of 40 mg, may need dose increase, follow up with Dr. Nance -instructed to monitor daily weight and call if increasing -high risk for XENIA/OHS also likely affecting his breathing -confirmed he already has follow up for sleep apnea testing arranged as outpatient (2) Orthopnea: (3) Pain of maxillary sinus: pt reports pain over the right maxillary sinus for 1-2 years, but much worse since April 2023. no change in his pain or symptoms despite recent antibiotic use. large R maxillary sinus retention cyst, no active sinusitis follow up with ENT for management of symptomatic cyst - he has made appt with his ENT at [facility] (4) Edema of both legs: see above No DVT on LE duplex instructed on diuretics, compression stockings, elevation (5) Weight gain: see above (6) Uncontrolled type 2 diabetes mellitus with hyperglycemia: BGs running 250ish last 24h Hba1c noted - 10.6% ac/hs BSGs diabetic diet on farxiga 10 mg qd clinical staff educator saw him in consult we made the following adjustment: increase lantus to 50 units BID novolog - CF 10, carb ratio 1:3 prior to this admission he was making active strides to lose weight follows with outpatient diabetes program (7) H/O mitral valve repair: 2008 follows with [facility] Cardiology for his valvular heart disease last echo 03/2023 with normal MV function (8) S/P nasal septoplasty: history of -- by [facility] at [facility] (9) HTN (hypertension): resume metoprolol and titrate if needed resume lisinopril (10) Abdominal pain: LLQ pain on admission 07/02 - transient, self-resolved prior CT abd/pelvis showed 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 Consider referral to weight loss clinic if he is amenable - may benefit from GLP-1 agonist Total Time Total Time Spent Total Time Spent (In Minutes): I personally spent: 50 minutes today on clinical care activities including: reviewing chart notes and vital signs reviewing studies discussion with life educator discussion with care coordination examining and counseling the patient writing orders, discharge instructions documentation Discharge Plan Discharge Items Patient Disposition: Home - Self-Care Reason For Visit: HYPERGLYCEMIA, ACUTE RESPIRATORY DISTRESS Discharge Diagnosis: acute on chronic diastolic heart failure, multifactorial leg edema Activity: Resume your previous activity Non-emergency contact: Primary Care Provider Call non-emergency contact if: you have any medication questions and your symptoms worsen Follow-up/Referrals: Maricel Esparza MD [Primary Care Provider] - 07/08/23 8:00 am Diet: Heart Healthy and Low Sodium (2gm) Fluids: 2000ml (8 cups) Addtl Attending Provider Instructions: You had trouble breathing and leg swelling - this was treated with diuretics. You may have some degree of heart failure (causes breathing difficulty) and right-sided heart failure (causes body and leg swelling) You may also have component of leg swelling from lymphedema and vein blood pooling in your legs - elevating your legs and losing weight off your belly can help this CTA of your chest did not show any specific lung problems like infection or blood clot CT of your abdomen was unremarkable except for your intestinal rotation, known hernias which were stable, and increased fat in your liver -reduce your salt intake - you will retain water and swell if you are eating too much salt or drinking too much fluid. Fast food and processed food has a LOT of salt -you need to go back on daily dose of diuretic (lasix) and weigh yourself every day -follow up with Dr. Nance for adjustment of diuretics -follow up with sleep medicine as planned for sleep apnea testing - treating sleep apnea helps treat and prevent heart failure You can follow up with your ENT at [facility] to address the sinus polyp. There was no evidence of current sinus infection on CT We made some adjustments to your insulin glargine 50 units twice a day humalog 10-15 minutes before meals/snacks with carb ratio of 1:3 and correction factor of 10 cristina mejia Slowly work on increasing intake of non-starchy vegetables/fruits and decreasing carbs. Continue to work with Roscoe Tubbs for diabetes care needs/further insulin dose adjustments. Addtl [employer] Provider Instructions: Call 911 and go to the Emergency Room if: * You have tightness or pain in your chest that does not go away with rest or Nitroglycerin * You are very short of breath even with rest Call your doctor if any of the following symptoms or problems start or get worse: * Shortness of breath or difficulty breathing * Wake up at night short of breath * Chest pain * Cough * Swelling of your hands, fee, or legs * More fatigued or tired with your normal activity * Palpitations - sudden fast heart beats WEIGHT * Weigh yourself every morning after using the bathroom. * Use the same scale. * Wear the same amount of clothing. * Write your weight down on your chart. * Call your doctor if you gain more than 2-3 pounds in 1-2 days or more than 5 pounds in a week MEDICATIONS * Use this discharge instruction sheet for instructions. * Take your medications at the time your doctor ordered. * Do not skip a dose of your medicines. * If you miss a dose of medicine, take as soon as possible, but DO NOT DOUBLE A DOSE. * Read your medicine information when you get home. * Know all of the side effects of your medicine. * Call your doctor's office if you have any side effects. * Be sure all of your doctors know what medicine and herbs you take (including cold, flu, and herbal medicine). * Pain Medicine: If you do not get relief from your pain, please call your doctor for help. Take the following with you to your follow-up doctor appointments: * Weight Chart * Medication List * List of questions Do not drink excessive alcohol, beer or wine. Pending Studies at Discharge: No Stand-Alone Forms: [facility] CHF Dc Instructions, [facility], Work/School Release, Smoking Cessation Medications and DC Order Prescriptions: New furosemide 40 mg Tablet 40 mg PO QAM Qty: 30 0RF potassium chloride 20 mEq Tablet,Er Particles/Crystals 20 meq PO QAM Qty: 30 0RF Saline Mist 0.65 % Aerosol,[place] 2 spray NA Q1H PRN (Reason: nasal congestion) Qty: 0 0RF Rx Instructions: buy over the counter fluticasone propionate 50 mcg/actuation [place],Suspension 2 spray NA DAILY Qty: 0 0RF Rx Instructions: buy over the counter Continued allopurinol 100 mg tablet 100 mg PO QAM Qty: 90 5RF atorvastatin 40 mg tablet 40 mg PO HS 90 Days Qty: 90 5RF ondansetron 4 mg tablet,disintegrating 4 mg PO Q8H PRN (Reason: nausea and vomiting) Qty: 30 0RF cholecalciferol (vitamin D3) 50 mcg (2,000 unit) capsule 50 mcg PO DAILY 30 Days Qty: 30 2RF Farxiga 10 mg tablet 10 mg PO QAM 90 Days Qty: 90 4RF dicyclomine 10 mg capsule 10 mg PO TID PRN (Reason: abdominal pain) 90 Days Qty: 60 1RF Patient Comments: reports has been taking daily TID Spiriva Respimat 1.25 mcg/actuation mist 2 puff inhalation DAILY 90 Days Qty: 4 4RF montelukast 10 mg tablet 10 mg PO QPM 90 Days Qty: 90 4RF sumatriptan succinate 50 mg tablet See Rx Instructions PO .COMPLEX Qty: 9 1RF Rx Instructions: take 1 tab at onset of headache; if no relief may repeat 1 tab after at least 2 hrs; max = 4 tabs/24 hr PO metoprolol tartrate 25 mg tablet 25 mg PO BID Qty: 180 3RF albuterol sulfate 2.5 mg /3 mL (0.083 %) solution for nebulization 2.5 mg inhalation Q6H PRN (Reason: shortness of breath or wheezing) Qty: 75 3RF albuterol sulfate 90 mcg/actuation HFA aerosol inhaler 2 puff INHALATION Q4H PRN (Reason: Cough,SOB Or Wheezing) 90 Days Qty: 8.5 5RF levalbuterol HCl 1.25 mg/3 mL solution for nebulization 1.25 mg inhalation Q4H PRN (Reason: shortness of breath or wheezing) Qty: 75 2RF Rx Instructions: Inhale 1 puff every 4 hours as needed for shortness of breath or wheezing. aspirin 81 mg tablet 81 mg PO Q OTHER DAY Patient Comments: per pt, Dr. Nance prescribed for every other day. lisinopril 20 mg tablet 20 mg PO QPM omeprazole 20 mg capsule,delayed release(DR/EC) 20 mg PO DAILY PRN (Reason: Heartburn) Changed insulin lispro [Humalog KwikPen Insulin] 100 unit/mL insulin pen See Rx Instructions subcut USEASDIRECTD Qty: 90 0RF Rx Instructions: inject three times a day with meals, carb ratio 1:3 plus correction factor of 10, subcutaneously use as directed; insulin glargine [Basaglar KwikPen U-100 Insulin] 100 unit/mL (3 mL) insulin pen 50 unit SUBCUT BID MDD 100 units Qty: 60 0RF Discontinued fluconazole 100 mg tablet 100 mg PO QDAY Qty: 14 0RF Rx Instructions: unable to verify doxycycline hyclate 100 mg tablet 100 mg PO BID Qty: 14 0RF furosemide 40 mg tablet 40 mg PO DAILY PRN (Reason: Fluid Retention) Discharge Orders: Discharge Order (Routine); Ordered 07/06/23 Ordered By: Dariana Salter Admission Data Admit Date/Time: 07/04/23 08:06 Attending Provider: Dariana Salter Admit Provider: Jose Wells Primary Care Provider: Maricel Esparza Other Providers: Jose Wells Other Interventions: Discharge Summary Assessment (RN) Last Done: 07/06/23 16:48 Coding Level of Care Code 97965 INP/OBS DISCH >30 MIN Diagnoses Acute on chronic diastolic heart failure I50.33 Orthopnea R06.01 Pain of maxillary sinus J34.89 Edema of both legs R60.0 Weight gain R63.5 Uncontrolled type 2 diabetes mellitus with hyperglycemia E11.65 H/O mitral valve repair Z98.890 S/P nasal septoplasty Z98.890 HTN (hypertension) I10 Abdominal pain R10.32 Abdominal location: left lower quadrant Morbid obesity with BMI of 50.0-59.9, adult E66.01; Z68.43
[2023-07-06] MEDS ORDERED: LANTUS PER UNIT CHARGE SC SCH (21:00)
== END 2023-07-06 17:53 | disposition home or self-care (01) ==
LOC: ED 03:22 → EDINP 08:06 → INTOOBSV 08:06 → SUATTDRO 08:06 → 2S 16:05